=== PATIENT | female | born 1965 | race Caucasian/White ===

== ENCOUNTER 2018-04-23 10:08 | Emergency (ER) | payer BC ==
[2018-04-23] MEDS ORDERED: Ketorolac 60 MG/2 ML SDV IM ONE (10:37)
[2018-04-23 10:41] VITALS: BP 130/73
--- NOTE | 2018-04-23 10:41 | EDM.PDOC ---
ED HPI GENERAL MEDICAL PROBLEM - General Chief Complaint: Lower Extremity Injury/Pain Stated Complaint: FALL Time Seen by Provider: 04/23/18 10:32 - History of Present Illness INITIAL COMMENTS - FREE TEXT/NARRATIVE: HISTORY AND PHYSICAL: History of present illness: The patient is a 52-year-old female who presents after she slipped on a rug at home and landed onto her left. She was having a normal morning prior to these events and this event occurred about 3-1/2 hours ago. She complains of pain at her left ankle and her left shoulder but no hip or knee pain she has no head neck or back pain nor did she pass out. Patient has no chest pain or shortness of breath no rib pain and no abdominal complaints. Patient says she has had ice on her ankle but is concerned because it is still very swollen. Review of systems: As per history of present illness and below otherwise all systems reviewed and negative. Past medical history: As per history of present illness and as reviewed below otherwise noncontributory. Surgical history: As per history of present illness and as reviewed below otherwise noncontributory. Social history: No reported history of drug or alcohol abuse. Family history: As per history of present illness and as reviewed below otherwise noncontributory. Physical exam: General: Well-developed well-nourished female who is nontoxic and vital signs are reviewed by me HEENT: Atraumatic, normocephalic, negative for conjunctival pallor or scleral icterus, mucous membranes moist, throat clear, neck supple, nontender, trachea midline. There are no midline step-offs tenderness defects of the cervical spine and no scalp tenderness or swelling is appreciated on palpation Lungs: Clear to auscultation, breath sounds equal bilaterally, chest nontender. Heart: S1S2, regular rate and rhythm no overt murmurs Abdomen: Soft, nondistended, nontender. NABS Pelvis: Stable nontender. No lateral hip tenderness Genitourinary: Deferred. Rectal: Deferred. Extremities: Atraumatic with full range of motion of all extremities with the exception of the left shoulder and left ankle. At the left shoulder there is no soft tissue swelling ecchymosis or palpable bony deformities but there is tenderness with palpation at the lateral aspect of the humerus and distal clavicle area neurovascular is intact distally and there is no distal bony deformities or tenderness. At the left ankle there is soft tissue swelling at the lateral malleolus with tenderness but no malalignment is appreciated of the ankle. Distal metatarsals and toes are intact without tenderness or deformities and proximal tib-fib knee thigh and hip are nontender and there are no palpable bony deformities. Pulses are intact throughout. The legs are, negative for cords or calf pain. Neurovascular unremarkable. Neuro: Awake, alert, oriented. Cranial nerves II through XII unremarkable. Cerebellum unremarkable. Motor and sensory unremarkable throughout. Exam nonfocal. Back: There are no midline step-offs in his defects of the thoracic or lumbar spine no posterior rib or posterior pelvis tenderness and no soft tissue trauma is appreciated Diagnostics: X-ray left ankle and left shoulder Therapeutics: Toradol crutches cam boot Impression: Fall with left shoulder contusion and left ankle sprain Definitive disposition and diagnosis as appropriate pending reevaluation and review of above. Left Ankle Pain Score (Numeric/FACES): 7 Left Shoulder Pain Score (Numeric/FACES): 3 - Related Data Allergies Allergy/AdvReac Type Severity Reaction Status Date / Time codeine Allergy Hives Verified 04/23/18 10:41 pseudoephedrine Allergy palpitation Verified 04/23/18 10:41 s Sulfa (Sulfonamide Allergy unknown Verified 04/23/18 10:41 Antibiotics) Home Meds: Home Meds Amitriptyline [Elavil] 1 tab PO DAILY 02/03/15 [History] ClonazePAM [KlonoPIN] 2 mg PO TID 04/23/18 [History] Review of Systems - Review of Systems Review Of Systems: ROS reveals no pertinent complaints other than HPI. ED EXAM, GENERAL - Physical Exam Exam: See Below (see dictation) Course - Vital Signs Last Recorded V/S: Last Vital Signs Temp 37.4 C 04/23/18 10:31 Pulse 89 04/23/18 10:31 Resp 18 04/23/18 10:31 BP 130/73 04/23/18 10:31 Pulse Ox 86 L 04/23/18 10:31 - Orders/Labs/Meds Orders: Active Orders 24 hr Category Date Time Status DME for Discharge [COMM] Stat Oth 04/23/18 12:09 Ordered Meds: Medications Discontinued Medications Generic Name Dose Route Start Last Admin Trade Name Freq PRN Reason Stop Dose Admin Ketorolac Tromethamine 60 mg 04/23/18 10:37 04/23/18 10:58 Toradol IM 04/23/18 10:38 60 mg ONETIME ONE Administration Departure - Departure Time of Disposition: 12:10 Disposition: Home, Self-Care 01 Condition: Good Clinical Impression: Ankle sprain Qualifiers: Encounter type: initial encounter Involved ligament of ankle: unspecified ligament Laterality: left Qualified Code(s): S93.402A - Sprain of unspecified ligament of left ankle, initial encounter Fall Qualifiers: Encounter type: initial encounter Qualified Code(s): W19.XXXA - Unspecified fall, initial encounter Contusion of left shoulder Qualifiers: Encounter type: initial encounter Qualified Code(s): S40.012A - Contusion of left shoulder, initial encounter - Discharge Information Referrals: PCP,None [Primary Care Provider] - Forms: ED Department Discharge Additional Instructions: The following information is given to patients seen in the emergency department who are being discharged to home. This information is to outline your options for follow-up care. We provide all patients seen in our emergency department with a follow-up referral. The need for follow-up, as well as the timing and circumstances, are variable depending upon the specifics of your emergency department visit. If you don't have a primary care physician on staff, we will provide you with a referral. We always advise you to contact your personal physician following an emergency department visit to inform them of the circumstance of the visit and for follow-up with them and/or the need for any referrals to a consulting specialist. The emergency department will also refer you to a specialist when appropriate. This referral assures that you have the opportunity for followup care with a specialist. All of these measure are taken in an effort to provide you with optimal care, which includes your followup. Under all circumstances we always encourage you to contact your private physician who remains a resource for coordinating your care. When calling for followup care, please make the office aware that this follow-up is from your recent emergency room visit. If for any reason you are refused follow-up, please contact the [facility] emergency department at and ask to speak to the emergency department charge nurse. [facility]--Orthopedic clinic Professional [address] [address] Ice to all areas of discomfort and you will be sore and have aches and pains over the next few days to one week. Elevate the ankle as much as possible. Please call and schedule a follow-up appointment in orthopedics clinic using resources given to above and return to ER as needed and as discussed. Use over- the-counter ibuprofen/Motrin for pain area you may use the tramadol as prescribed for breakthrough pain and only take this while you're at home. Use crutches at all times and wear cam boot until you're seen in the orthopedics clinic. Please loosen or move the boot at sleep times. - My Orders Last 24 Hours: My Active Orders 04/23/18 12:09 DME for Discharge [COMM] Stat - Assessment/Plan Last 24 Hours: My Active Orders 04/23/18 12:09 DME for Discharge [COMM] Stat
--- NOTE | 2018-04-23 12:02 | CR ---
Left ankle Medical history: Pain Comparison: November 27, 2011 Findings: Again seen is diffuse soft tissue swelling of the lower leg. The mortise of the ankle is in tact. The bones are mildly osteopenic. There is no acute bony finding. Impression: Global soft tissue swelling without bony abnormality
--- NOTE | 2018-04-23 12:03 | CR ---
Left shoulder Clinical history: Pain Comparison: None. Findings: The humeral head articular extremity with the glenoid without fracture or subluxation or si gnificant para articular calcification. There is mild AC joint osteoarthropathy. No contiguous bony a bnormalities of the ribs are otherwise are identified. Impression: Mild osteoarthritic arthropathy of the AC joint without acute findings.
== END 2018-04-23 12:31 | disposition home or self-care (01) ==
LOC: MW.ED 10:08
DX: S93.402A Sprain of unspecified ligament of left ankle, initial encounter (principal); S40.012A Contusion of left shoulder, initial encounter; Z79.899 Other long term (current) drug therapy; Z88.5 Allergy status to narcotic agent; Z88.2 Allergy status to sulfonamides; W01.0XXA Fall on same level from slipping, tripping and stumbling without subsequent striking against object, initial encounter
CPT/HCPCS: 73030; 73610; 96372; 99283; J1885

== ENCOUNTER 2019-03-12 20:29 | Emergency (ER) | payer BC ==
[2019-03-12] MEDS ORDERED: Sodium Chloride 0.9% 1,000 ML IV ONE (21:02)
--- NOTE | 2019-03-12 21:14 | EDM.PDOC ---
<Demetris Govea - Last Filed: 03/12/19 23:31> ED HPI GENERAL MEDICAL PROBLEM - General Chief Complaint: Gastrointestinal Problem Stated Complaint: DIARRHEA Time Seen by Provider: 03/12/19 20:32 - History of Present Illness INITIAL COMMENTS - FREE TEXT/NARRATIVE: Patient presents as above of seeming and examined the patient she is hypoxic down to 80% on room air long smoking history Did discuss CT imaging in detail she has some intermittent bright red blood per rectum with stools no abdominal pain Patient also has a UTI I strongly urged the patient to be admitted, he refuses admission and elects to sign out AGAINST MEDICAL ADVICE excepting as a consequence she has voiced understanding, she states she'll return if symptoms persist or worsen however family is here for Cammy and she is refusing to stay in the hospital HEENT grossly within normal limits Chest clear CV regular Abdomen benign extremities full range of motion strength 5 out of 5 no edema 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 Rectal exam patient deferred Therapeutics Cipro Medrol Dosepak Patient has an albuterol HFA Impression Hypoxia Red blood per rectum with stools Colitis versus ischemic bowel UTI Patient signed out AGAINST MEDICAL ADVICE Definitive disposition and diagnosis as appropriate pending reevaluation and review of above Impression - Related Data Allergies Allergy/AdvReac Type Severity Reaction Status Date / Time codeine Allergy Hives Verified 09/28/18 18:09 pseudoephedrine Allergy palpitation Verified 09/28/18 18:09 s Sulfa (Sulfonamide Allergy unknown Verified 09/28/18 18:09 Antibiotics) Home Meds: Home Meds Amitriptyline [Elavil] 1 tab PO DAILY 02/03/15 [History] ClonazePAM [KlonoPIN] 2 mg PO ASDIRECTED PRN 04/23/18 [History] ED ROS GENERAL - Review of Systems Review Of Systems: See Below ED EXAM, GI/ABD - Physical Exam Exam: See Below Course - Vital Signs Last Recorded V/S: Last Vital Signs Temp 36.8 C 03/12/19 23:49 Pulse 95 03/12/19 23:49 Resp 22 H 03/12/19 23:49 BP 112/73 03/12/19 23:49 Pulse Ox 71 L 03/12/19 23:49 - Orders/Labs/Meds Labs: Laboratory Tests 04/19/19 04/19/19 04/19/19 Range/Units 20:05 21:09 21:09 WBC 15.95 H (4.0-11.0) K/uL RBC 5.59 (4.30-5.90) M/uL Hgb 17.8 H (12.0-16.0) g/dL Hct 53.8 H (36.0-46.0) % MCV 96.2 (80.0-98.0) fL MCH 31.8 (27.0-32.0) pg MCHC 33.1 (31.0-37.0) g/dL RDW Std Deviation 55.1 (28.0-62.0) fl RDW Coeff of Thiago 16 H (11.0-15.0) % Plt Count 130 L (150-400) K/uL MPV 11.00 (7.40-12.00) fL Neut % (Auto) 80.8 H (48.0-80.0) % Lymph % (Auto) 12.0 L (16.0-40.0) % Barbour % (Auto) 6.5 (0.0-15.0) % Eos % (Auto) 0.6 (0.0-7.0) % Baso % (Auto) 0.1 (0.0-1.5) % Neut # (Auto) 12.9 H (1.4-5.7) K/uL Lymph # (Auto) 1.9 (0.6-2.4) K/uL Barbour # (Auto) 1.0 H (0.0-0.8) K/uL Eos # (Auto) 0.1 (0.0-0.7) K/uL Baso # (Auto) 0.0 (0.0-0.1) K/uL Nucleated RBC % 0.0 /100WBC Nucleated RBCs # 0 K/uL INR APTT (18.6-31.3) SEC Lactate (0.20-2.00) mmol/L Sodium 141 (136-145) mmol/L Potassium 3.4 L (3.5-5.1) mmol/L Chloride 100 (98-107) mmol/L Carbon Dioxide 30.4 (21.0-32.0) mmol/L BUN 8 (7.0-18.0) mg/dL Creatinine 0.9 (0.6-1.0) mg/dL Est Cr Clr Drug Dosing 68.68 mL/min Estimated GFR (MDRD) > 60.0 ml/min Glucose 109 H (74-106) mg/dL Calcium 8.3 L (8.5-10.1) mg/dL Total Bilirubin 0.9 (0.2-1.0) mg/dL AST 13 L (15-37) IU/L ALT 13 L (14-63) IU/L Alkaline Phosphatase 116 (46-116) U/L Troponin I (0.000-0.056) ng/mL Total Protein 6.9 (6.4-8.2) g/dL Albumin 3.0 L (3.4-5.0) g/dL Globulin 3.9 (2.6-4.0) g/dL Albumin/Globulin Ratio 0.8 L (0.9-1.6) Lipase 83 (73-393) U/L Urine Color Urine Appearance Urine pH (5.0-8.0) Ur Specific [place] (1.001-1.035) Urine Protein (NEGATIVE) mg/dL Urine Glucose (UA) (NEGATIVE) mg/dL Urine Ketones (NEGATIVE) mg/dL Urine Occult Blood (NEGATIVE) Urine Nitrite (NEGATIVE) Urine Bilirubin (NEGATIVE) Urine Ictotest Urine Urobilinogen (<2.0) EU/dL Ur Leukocyte Esterase (NEGATIVE) Urine RBC (0-2/HPF) Urine WBC (0-5/HPF) Ur Epithelial Cells (NONE-FEW) Urine Bacteria (NEGATIVE) Urine Mucus (NONE-MOD) 03/12/19 03/12/19 03/12/19 Range/Units 21:09 21:15 21:47 WBC (4.0-11.0) K/uL RBC (4.30-5.90) M/uL Hgb (12.0-16.0) g/dL Hct (36.0-46.0) % MCV (80.0-98.0) fL MCH (27.0-32.0) pg MCHC (31.0-37.0) g/dL RDW Std Deviation (28.0-62.0) fl RDW Coeff of Thiago (11.0-15.0) % Plt Count (150-400) K/uL MPV (7.40-12.00) fL Neut % (Auto) (48.0-80.0) % Lymph % (Auto) (16.0-40.0) % Barbour % (Auto) (0.0-15.0) % Eos % (Auto) (0.0-7.0) % Baso % (Auto) (0.0-1.5) % Neut # (Auto) (1.4-5.7) K/uL Lymph # (Auto) (0.6-2.4) K/uL Barbour # (Auto) (0.0-0.8) K/uL Eos # (Auto) (0.0-0.7) K/uL Baso # (Auto) (0.0-0.1) K/uL Nucleated RBC % /100WBC Nucleated RBCs # K/uL INR 1.06 APTT 23.8 (18.6-31.3) SEC Lactate 1.0 (0.20-2.00) mmol/L Sodium (136-145) mmol/L Potassium (3.5-5.1) mmol/L Chloride (98-107) mmol/L Carbon Dioxide (21.0-32.0) mmol/L BUN (7.0-18.0) mg/dL Creatinine (0.6-1.0) mg/dL Est Cr Clr Drug Dosing mL/min Estimated GFR (MDRD) ml/min Glucose (74-106) mg/dL Calcium (8.5-10.1) mg/dL Total Bilirubin (0.2-1.0) mg/dL AST (15-37) IU/L ALT (14-63) IU/L Alkaline Phosphatase (46-116) U/L Troponin I (0.000-0.056) ng/mL Total Protein (6.4-8.2) g/dL Albumin (3.4-5.0) g/dL Globulin (2.6-4.0) g/dL Albumin/Globulin Ratio (0.9-1.6) Lipase (73-393) U/L Urine Color DARK YELLOW Urine Appearance HAZY Urine pH 6.0 (5.0-8.0) Ur Specific [place] 1.020 (1.001-1.035) Urine Protein 30 H (NEGATIVE) mg/dL Urine Glucose (UA) NEGATIVE (NEGATIVE) mg/dL Urine Ketones TRACE H (NEGATIVE) mg/dL Urine Occult Blood NEGATIVE (NEGATIVE) Urine Nitrite NEGATIVE (NEGATIVE) Urine Bilirubin MODERATE H (NEGATIVE) Urine Ictotest NEGATIVE Urine Urobilinogen 1.0 (<2.0) EU/dL Ur Leukocyte Esterase SMALL H (NEGATIVE) Urine RBC 0-4 (0-2/HPF) Urine WBC 50-60 (0-5/HPF) Ur Epithelial Cells MODERATE (NONE-FEW) Urine Bacteria 1+ H (NEGATIVE) Urine Mucus LIGHT (NONE-MOD) 03/12/19 Range/Units 21:47 WBC (4.0-11.0) K/uL RBC (4.30-5.90) M/uL Hgb (12.0-16.0) g/dL Hct (36.0-46.0) % MCV (80.0-98.0) fL MCH (27.0-32.0) pg MCHC (31.0-37.0) g/dL RDW Std Deviation (28.0-62.0) fl RDW Coeff of Thiago (11.0-15.0) % Plt Count (150-400) K/uL MPV (7.40-12.00) fL Neut % (Auto) (48.0-80.0) % Lymph % (Auto) (16.0-40.0) % Barbour % (Auto) (0.0-15.0) % Eos % (Auto) (0.0-7.0) % Baso % (Auto) (0.0-1.5) % Neut # (Auto) (1.4-5.7) K/uL Lymph # (Auto) (0.6-2.4) K/uL Barbour # (Auto) (0.0-0.8) K/uL Eos # (Auto) (0.0-0.7) K/uL Baso # (Auto) (0.0-0.1) K/uL Nucleated RBC % /100WBC Nucleated RBCs # K/uL INR APTT (18.6-31.3) SEC Lactate (0.20-2.00) mmol/L Sodium (136-145) mmol/L Potassium (3.5-5.1) mmol/L Chloride (98-107) mmol/L Carbon Dioxide (21.0-32.0) mmol/L BUN (7.0-18.0) mg/dL Creatinine (0.6-1.0) mg/dL Est Cr Clr Drug Dosing mL/min Estimated GFR (MDRD) ml/min Glucose (74-106) mg/dL Calcium (8.5-10.1) mg/dL Total Bilirubin (0.2-1.0) mg/dL AST (15-37) IU/L ALT (14-63) IU/L Alkaline Phosphatase (46-116) U/L Troponin I < 0.050 (0.000-0.056) ng/mL Total Protein (6.4-8.2) g/dL Albumin (3.4-5.0) g/dL Globulin (2.6-4.0) g/dL Albumin/Globulin Ratio (0.9-1.6) Lipase (73-393) U/L Urine Color Urine Appearance Urine pH (5.0-8.0) Ur Specific [place] (1.001-1.035) Urine Protein (NEGATIVE) mg/dL Urine Glucose (UA) (NEGATIVE) mg/dL Urine Ketones (NEGATIVE) mg/dL Urine Occult Blood (NEGATIVE) Urine Nitrite (NEGATIVE) Urine Bilirubin (NEGATIVE) Urine Ictotest Urine Urobilinogen (<2.0) EU/dL Ur Leukocyte Esterase (NEGATIVE) Urine RBC (0-2/HPF) Urine WBC (0-5/HPF) Ur Epithelial Cells (NONE-FEW) Urine Bacteria (NEGATIVE) Urine Mucus (NONE-MOD) Meds: Medications Discontinued Medications Generic Name Dose Route Start Last Admin Trade Name Freq PRN Reason Stop Dose Admin Albuterol/Ipratropium 3 ml 03/12/19 23:09 03/12/19 23:16 Duoneb 3.0-0.5 Mg/3 Ml NEB 03/12/19 23:10 3 ml ONETIME ONE Administration Sodium Chloride 1,000 mls @ 999 mls/hr 03/12/19 21:02 03/12/19 21:26 Normal Saline IV 03/12/19 22:02 999 mls/hr BOLUS ONE Administration Iopamidol 100 ml 03/12/19 21:41 03/12/19 22:02 Isovue-370 (76%) IVPUSH 03/12/19 21:42 100 ml ONETIME ONE Administration Methylprednisolone Sodium Succinate 125 mg 03/12/19 23:09 03/12/19 23:19 Solu-Medrol IVPUSH 03/12/19 23:10 125 mg ONETIME ONE Administration Morphine Sulfate 2 mg 03/12/19 21:48 03/12/19 22:08 Morphine IVPUSH 03/12/19 21:49 2 mg ONETIME ONE Administration Departure - Departure Time of Disposition: 23:34 Disposition: Home, Self-Care 01 Condition: Poor Clinical Impression: Hypoxia, UTI, Urinary tract infectious disease, Bright red blood per rectum - Discharge Information Instructions: Hypoxia, Urinary Tract Infection, Adult, [id number], Rectal Bleeding, [id number] Referrals: PCP,Unknown [Primary Care Provider] - Forms: ED Department Discharge Additional Instructions: Medications as prescribed Strongly urged return if symptoms persist or worsen or if new concerning symptoms develop Follow-up primary care on Friday for [facility] - Primary Care [address] [place] [id number] The following information is given to patients seen in the emergency department who are being discharged to home. This information is to outline your options for follow-up care. We provide all patients seen in our emergency department with a follow-up referral. The need for follow-up, as well as the timing and circumstances, are variable depending upon the specifics of your emergency department visit. If you don't have a primary care physician on staff, we will provide you with a referral. We always advise you to contact your personal physician following an emergency department visit to inform them of the circumstance of the visit and for follow-up with them and/or the need for any referrals to a consulting specialist. The emergency department will also refer you to a specialist when appropriate. This referral assures that you have the opportunity for follow-up care with a specialist. All of these measure are taken in an effort to provide you with optimal care, which includes your follow-up. Under all circumstances we always encourage you to contact your private physician who remains a resource for coordinating your care. When calling for follow-up care, please make the office aware that this follow-up is from your recent emergency room visit. If for any reason you are refused follow-up, please contact the [facility] emergency department at and asked to speak to the emergency department charge nurse. <Josselyn Martinez - Last Filed: 03/14/19 15:45> ED HPI GENERAL MEDICAL PROBLEM - General Source of Information: Reports: Patient History Limitations: Reports: No Limitations - History of Present Illness INITIAL COMMENTS - FREE TEXT/NARRATIVE: HISTORY AND PHYSICAL: History of present illness: Patient is a 53-year-old female who presents to the ED today with concern of rectal bleeding and passing clots of blood per rectum 2 days. Patient states she had a week where she was not able to have a bowel movement. Patient states she then took 2 Dulcolax tabs and started to have diarrhea over the past 3 days. Since then, patient states over the past 24 hours she has had a small amount of blood continuously, out of her rectum. She states on several separate occasions they have been blood clots that have come out. Patient states she has not had diarrhea today and her last bowel movement was yesterday. 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 Patient states she's also has left lower and right lower abdominal pain that she rates a 6 out of 10. She states this pain comes and goes and she describes it as "crampy." Patient denies any pain with the bowel movement and has not noticed any notable hemorrhoids. Patient denies ever having these symptoms prior. Patient also complains of low back pain that she rates a 7/10. Patient denies fever, chills, chest pain, shortness of breath, or cough. Denies headache, neck stiff ness, change in vision, syncope, or near syncope. Denies nausea, vomiting or dysuria. Has not noted any blood in urine. Patient has noticed a decrease in appetite but has been drinking fluids today. Review of systems: As per history of present illness and below otherwise all systems reviewed and negative. Past medical history: As per history of present illness and as reviewed below otherwise noncontributory. Surgical history: As per history of present illness and as reviewed below otherwise noncontributory. Social history: See social history for further information Family history: As per history of present illness and as reviewed below otherwise noncontributory. Physical exam: General: Patient is alert, oriented, and in no acute distress. Patient sitting comfortably on exam table. HEENT: Atraumatic, normocephalic, pupils equal and reactive bilaterally, negative for conjunctival pallor or scleral icterus, mucous membranes moist, TMs normal bilaterally, throat clear, neck supple, nontender, trachea midline. No drooling or trismus noted. No meningeal signs. No hot potato voice noted. Lungs: Clear to auscultation, breath sounds equal bilaterally, chest nontender. Heart: S1S2, regular rate and rhythm without overt murmur Abdomen: Moderate pain to palpation of the right and left lower quadrants without guarding. Obese, soft, nondistended. Positive bowel sounds throughout all quadrants and slightly hypoactive. Negative for masses or hepatosplenomegaly. Positive for costovertebral tenderness of the left. Pelvis: Stable nontender. Genitourinary: Deferred. Rectal: Hemoccult positive with bright red blood per rectum. No obvious external or internal hemorrhoids on exam. No rectal masses noted. Skin: Intact, warm, dry. No lesions or rashes noted. Extremities: Atraumatic, negative for cords or calf pain. Neurovascular unremarkable. Neuro: Awake, alert, oriented. Cranial nerves II through XII unremarkable. Cerebellum unremarkable. Motor and sensory unremarkable throughout. Exam nonfocal. Notes: Dr. Govea has assumed care of patient and will follow all remaining diagnostics and disposition. Diagnostics: CBC, CMP, PT/INR, PTT, UA, abdominal pelvic CT, lipase, stool studies, cdiff, lactate, blood cultures 2, EKG, troponin, CXR Therapeutics: Saline, Morphine Impression: Acute pyelonephritis Hypoxia Plan: Definitive disposition and diagnosis as appropriate pending reevaluation and review of above. back Pain Score (Numeric/FACES): 9 Past Medical History [employer] WORK[employer] History: Reports: Psychiatric History: Reports: Anxiety, Depression, PTSD - Infectious Disease History Infectious Disease History: Reports: [id number]-Mcilaarwl Enterobacteriaceae , Measles, Mumps - Past Surgical History HEENT Surgical History: Reports: Adenoidectomy, Tonsillectomy GI Surgical History: Reports: Appendectomy, Cholecystectomy, Colostomy, Hernia, Abdominal, Other (See Below) Other GI Surgeries/Procedures: prior colostomy and ileostomy Female Surgical History: Reports: Hysterectomy, Salpingo-Oophorectomy Musculoskeletal Surgical History: Reports: Other (See Below) Other Musculoskeletal Surgeries/Procedures:: right thumb surgery Social & Family History - Family History Family Medical History: Noncontributory - Tobacco Use Smoking Status *Q: Current Every Day Smoker Years of Tobacco use: 40 Packs/Tins Daily: 0.2 - Caffeine Use Caffeine Use: Reports: Coffee - Recreational Drug Use Recreational Drug Use: No ED ROS GENERAL - Review of Systems Review Of Systems: ROS reveals no pertinent complaints other than HPI. ED EXAM, GI/ABD - Physical Exam Exam: See Below (see dictation)
[2019-03-12 21:33] LABS: CHLORIDE,CL 100 mmol/L (98-107); SODIUM,NA 141 mmol/L (136-145)
[2019-03-12] MEDS ORDERED: Iopamidol 755 Mg/ML 100 ML Bottle IVPUSH ONE (21:41)
[2019-03-12] MEDS ORDERED: Morphine 2 MG/ML Syringe IVPUSH ONE (21:48)
--- NOTE | 2019-03-12 22:57 | CT ---
INDICATION: Abdominal pain TECHNIQUE: CT abdomen and pelvis acquired with 100 cc Isovue 370 intravenous contrast. COMPARISON: None. FINDINGS: Lower chest: Unremarkable. Liver: Normal in contour with focal fat adjacent to the falciform ligament. Gallbladder and bile ducts: Status post cholecystectomy. Pancreas: Minimal calcification of the pancreatic head. Spleen: Unremarkable. Normal in size. No masses. Adrenal glands: Unremarkable. No nodules. Kidneys: Unremarkable. No masses, stones, or hydronephrosis. GI tract: The stomach is unremarkable. Small bowel is decompressed. Long segment wall thickening of the colon beginning at the distal transverse colon extending to the junction with the sigmoid. Small likely calcifications or clips noted near the distal descending colon. Slight adjacent fat stranding without evidence of abscess. Multiple surgical clips in the mesentery. Vasculature: Atherosclerosis without abdominal aortic aneurysm. Lymph nodes: Increased number of retroperitoneal lymph nodes measuring up to 9 millimeters in short axis. Subcentimeter lymph nodes noted within the central mesentery. Pelvis: Bladder is unremarkable. Status posthysterectomy. Bones: Unremarkable for age. IMPRESSION: 1. Long segment colonic wall thickening with adjacent inflammation extending from the distal transverse colon to the descending colon/sigmoid junction. Appearance is consistent with long segment colitis. Differential diagnosis would include ischemic colitis considering this distribution versus infectious colitis. No pneumoperitoneum or abscess. 2. Mildly increased number of retroperitoneal lymph nodes, nonspecific. Differential diagnosis includes infectious, inflammatory and neoplastic etiologies. 3. Other incidental findings as noted above. Please note that all CT scans at this facility use dose modulation, iterative reconstruction, and/or weight-based dosing when appropriate to reduce radiation dose to as low as reasonably achievable. Dictated by Porter Goncalves MD @ Mar 12 2019 10:46PM Signed by Dr. Porter Goncalves @ Mar 12 2019 10:56PM
[2019-03-12] MEDS ORDERED: methylPREDNISolone Sodium Succinate 125 MG/2 ML SDV IVPUSH ONE (23:09)
[2019-03-12] MEDS ORDERED: Albuterol/Ipratropium 3.0-0.5 MG/3 ML Neb Soln NEB ONE (23:09)
--- NOTE | 2019-03-12 23:31 | CR ---
INDICATION: Pain and shortness of breath TECHNIQUE: Chest 2 views COMPARISON: Chest x-ray 09/28/2018 FINDINGS: Cardiovascular and mediastinum: Heart size and vasculature are normal in caliber and appearance. Lungs and pleural spaces: Lungs are clear. No sign of infiltrate or mass. No sign of pleural effusion. No pneumothorax. Bones and soft tissues: No significant findings. IMPRESSION: No acute findings and no significant changes from the prior exam. Dictated by Porter Goncalves MD @ Mar 12 2019 11:27PM Signed by Dr. Porter Goncalves @ Mar 12 2019 11:28PM
[2019-03-12 23:49] VITALS: BP 112/73
== END 2019-03-12 23:50 | disposition home or self-care (01) ==
LOC: MW.ED 20:29
DX: K62.5 Hemorrhage of anus and rectum (principal); N10 Acute pyelonephritis; N39.0 Urinary tract infection, site not specified; R09.02 Hypoxemia; F17.210 Nicotine dependence, cigarettes, uncomplicated; Z88.5 Allergy status to narcotic agent; Z88.8 Allergy status to other drugs, medicaments and biological substances; Z88.2 Allergy status to sulfonamides; Z79.899 Other long term (current) drug therapy
CPT/HCPCS: 71046; 74177; 80053; 81001; 83605; 83690; 84484; 85025; 85610; 85730; 87040; 87086; 87088; 87186; 93005; 96361; 96374; 96375; 99284; J2270; J2930; J7040; Q9967; J7620-GY

== ENCOUNTER 2019-09-21 15:28 | Inpatient (IN) | payer BC ==
[2019-09-21] MEDS ORDERED: Sodium Chloride 0.9% 10 ML Syringe FLUSH PRN (15:33)
[2019-09-21] MEDS ORDERED: Sodium Chloride 0.9% 2.5 ML Syringe FLUSH PRN (15:33)
[2019-09-21] MEDS ORDERED: methylPREDNISolone Sodium Succinate 125 MG/2 ML SDV IVPUSH ONE (15:34)
[2019-09-21] MEDS ORDERED: Albuterol/Ipratropium 3.0-0.5 MG/3 ML Neb Soln NEB ONE (15:34)
--- NOTE | 2019-09-21 15:35 | EDM.PDOC ---
ED HPI GENERAL MEDICAL PROBLEM - General Chief Complaint: Respiratory Problem Stated Complaint: BLOOD CLOTS Time Seen by Provider: 09/21/19 15:35 Source of Information: Reports: Patient History Limitations: Reports: No Limitations - History of Present Illness INITIAL COMMENTS - FREE TEXT/NARRATIVE: HISTORY AND PHYSICAL: History of present illness: Patient is a 53-year-old female presents to the ED with complaint of cough x 5 days. She states today she has been coughing up blood clots. She recently travelled to and from [place], [place]. She reports shortness of breath and pain in right mid back but denies chest pain. She states she's felt chills and subjective fevers. Denies nausea, vomiting, abdominal pain. Smokes 1/2 ppd x 35 years. O2 in 70s on arrival, improved to 90s with 4L nasal cannula. Review of systems: As per history of present illness and below otherwise all systems reviewed and negative. Past medical history: As per history of present illness and as reviewed below otherwise noncontributory. Surgical history: As per history of present illness and as reviewed below otherwise noncontributory. Social history: No reported history of drug or alcohol abuse. Family history: As per history of present illness and as reviewed below otherwise noncontributory. Physical exam: General: Patient sitting comfortably in no acute distress and nontoxic appearing HEENT: Atraumatic, normocephalic, pupils reactive, negative for conjunctival pallor or scleral icterus, mucous membranes moist, throat clear, neck supple, nontender, trachea midline. No meningeal signs. Lungs: Breath sounds are diminished throughout with crackles to the bases, chest nontender. Heart: S1S2, regular, negative for clicks, rubs, or overt murmur. Abdomen: Soft, nondistended, nontender. Negative for masses or hepatosplenomegaly. Negative for costovertebral tenderness. No rigidity, rebound , guarding. Pelvis: Stable nontender. Genitourinary: Deferred. Rectal: Deferred. Extremities: Atraumatic, negative for cords or calf pain. Neurovascular unremarkable. Neuro: Awake, alert, oriented. Cranial nerves II through XII unremarkable. Cerebellum unremarkable. Motor and sensory unremarkable throughout. Exam nonfocal. Notes: Diagnostics: CBC, CMP, troponin, d-dimer, PT/INR, EKG, CXR, CTA, influenza Therapeutics: DuoNecarlos Solfernieol 125mg IV 1L NS IV 2mg morphine IV 1mg/kg Lovenox Subq Prescriptions: Impression: Hypoxia, Pulmonary embolism Plan: Discussed with Dr. Lee, patient will be admitted to ICU . Definitive disposition and diagnosis as appropriate pending reevaluation and review of above. Middle Back Pain Score (Numeric/FACES): 8 - Related Data Allergies Allergy/AdvReac Type Severity Reaction Status Date / Time codeine Allergy Hives Verified 09/21/19 15:34 pseudoephedrine Allergy palpitation Verified 09/21/19 15:34 s Sulfa (Sulfonamide Allergy unknown Verified 09/21/19 15:34 Antibiotics) Home Meds: Home Meds Amitriptyline [Elavil] 1 tab PO DAILY 02/03/15 [History] ClonazePAM [KlonoPIN] 2 mg PO ASDIRECTED PRN 04/23/18 [History] Aspirin [Ecotrin EC] 4 tab PO DAILY 09/21/19 [History] Past Medical History [employer] History: Reports: Psychiatric History: Reports: Anxiety, Depression, PTSD - Infectious Disease History Infectious Disease History: Reports: RGY-[id number]-Vdxdhkytk Enterobacteriaceae , Measles, Mumps - Past Surgical History HEENT Surgical History: Reports: Adenoidectomy, Tonsillectomy GI Surgical History: Reports: Appendectomy, Cholecystectomy, Colostomy, Hernia, Abdominal, Other (See Below) Other GI Surgeries/Procedures: prior colostomy and ileostomy Female Surgical History: Reports: Hysterectomy, Salpingo-Oophorectomy Musculoskeletal Surgical History: Reports: Other (See Below) Other Musculoskeletal Surgeries/Procedures:: right thumb surgery Social & Family History - Family History Family Medical History: Noncontributory - Caffeine Use Caffeine Use: Reports: Coffee ED ROS GENERAL - Review of Systems Review Of Systems: ROS reveals no pertinent complaints other than HPI. ED EXAM, GENERAL - Physical Exam Exam: See Below (see dictation) Course - Vital Signs Last Recorded V/S: Last Vital Signs Temp 97.8 F 09/21/19 15:30 Pulse 114 H 09/21/19 15:30 Resp 20 09/21/19 15:30 BP 131/77 09/21/19 15:30 Pulse Ox 96 09/21/19 15:39 - Orders/Labs/Meds Orders: Active Orders 24 hr Category Date Time Status EKG Documentation Completion [RC] STAT Care 09/21/19 15:33 Active Oxygen Therapy, ED [RC] ASDIRECTED Care 09/21/19 15:33 Active RT Aerosol Therapy [RC] ASDIRECTED Care 09/21/19 15:34 Active CULTURE BLOOD [BC] Stat Lab 09/21/19 15:40 Received CULTURE BLOOD [BC] Stat Lab 09/21/19 16:05 Received Sodium Chloride 0.9% [Saline Flush] Med 09/21/19 15:33 Active 10 ml FLUSH ASDIRECTED PRN Sodium Chloride 0.9% [Saline Flush] Med 09/21/19 15:33 Active 2.5 ml FLUSH ASDIRECTED PRN Blood Culture x2 Reflex Set [OM.PC] Stat Oth 09/21/19 15:34 Ordered Saline Lock Insert [OM.PC] Stat Oth 09/21/19 15:33 Ordered Medication Orders Sodium Chloride (Saline Flush) 10 ml FLUSH ASDIRECTED PRN PRN Reason: Keep Vein Open Sodium Chloride (Saline Flush) 2.5 ml FLUSH ASDIRECTED PRN PRN Reason: Keep Vein Open Labs: Laboratory Tests 09/21/19 09/21/19 09/21/19 Range/Units 15:40 15:40 15:40 WBC 16.04 H (4.0-11.0) K/uL RBC 6.07 H (4.30-5.90) M/uL Hgb 18.5 H (12.0-16.0) g/dL Hct 57.4 H (36.0-46.0) % MCV 94.6 (80.0-98.0) fL MCH 30.5 (27.0-32.0) pg MCHC 32.2 (31.0-37.0) g/dL RDW Std Deviation 60.1 (28.0-62.0) fl RDW Coeff of Thiago 18 H (11.0-15.0) % Plt Count 118 L (150-400) K/uL MPV 10.50 (7.40-12.00) fL Neut % (Auto) 84.0 H (48.0-80.0) % Lymph % (Auto) 8.0 L (16.0-40.0) % [place] % (Auto) 7.8 (0.0-15.0) % Eos % (Auto) 0.1 (0.0-7.0) % Baso % (Auto) 0.1 (0.0-1.5) % Neut # (Auto) 13.5 H (1.4-5.7) K/uL Lymph # (Auto) 1.3 (0.6-2.4) K/uL [place] # (Auto) 1.3 H (0.0-0.8) K/uL Eos # (Auto) 0.0 (0.0-0.7) K/uL Baso # (Auto) 0.0 (0.0-0.1) K/uL Nucleated RBC % 0.0 /100WBC Nucleated RBCs # 0 K/uL INR 1.28 D-Dimer, Quantitative 1.81 H (0.0-0.50) mg/L FEU Lactate (0.20-2.00) mmol/L Sodium 133 L (136-145) mmol/L Potassium 3.9 (3.5-5.1) mmol/L Chloride 96 L (98-107) mmol/L Carbon Dioxide 26.6 (21.0-32.0) mmol/L BUN 15 (7.0-18.0) mg/dL Creatinine 1.2 H (0.6-1.0) mg/dL Est Cr Clr Drug Dosing 51.51 mL/min Estimated GFR (MDRD) 46.6 ml/min Glucose 132 H (74-106) mg/dL Calcium 8.6 (8.5-10.1) mg/dL Total Bilirubin 1.2 H (0.2-1.0) mg/dL AST 16 (15-37) IU/L ALT 11 L (14-63) IU/L Alkaline Phosphatase 135 H (46-116) U/L Troponin I < 0.050 (0.000-0.056) ng/mL Total Protein 7.4 (6.4-8.2) g/dL Albumin 3.1 L (3.4-5.0) g/dL Globulin 4.3 H (2.6-4.0) g/dL Albumin/Globulin Ratio 0.7 L (0.9-1.6) 09/21/ Range/Units 15:40 WBC (4.0-11.0) K/uL RBC (4.30-5.90) M/uL Hgb (12.0-16.0) g/dL Hct (36.0-46.0) % MCV (80.0-98.0) fL MCH (27.0-32.0) pg MCHC (31.0-37.0) g/dL RDW Std Deviation (28.0-62.0) fl RDW Coeff of Thiago (11.0-15.0) % Plt Count (150-400) K/uL MPV (7.40-12.00) fL Neut % (Auto) (48.0-80.0) % Lymph % (Auto) (16.0-40.0) % [place] % (Auto) (0.0-15.0) % Eos % (Auto) (0.0-7.0) % Baso % (Auto) (0.0-1.5) % Neut # (Auto) (1.4-5.7) K/uL Lymph # (Auto) (0.6-2.4) K/uL [place] # (Auto) (0.0-0.8) K/uL Eos # (Auto) (0.0-0.7) K/uL Baso # (Auto) (0.0-0.1) K/uL Nucleated RBC % /100WBC Nucleated RBCs # K/uL INR D-Dimer, Quantitative (0.0-0.50) mg/L FEU Lactate 3.8 H (0.20-2.00) mmol/L Sodium (136-145) mmol/L Potassium (3.5-5.1) mmol/L Chloride (98-107) mmol/L Carbon Dioxide (21.0-32.0) mmol/L BUN (7.0-18.0) mg/dL Creatinine (0.6-1.0) mg/dL Est Cr Clr Drug Dosing mL/min Estimated GFR (MDRD) ml/min Glucose (74-106) mg/dL Calcium (8.5-10.1) mg/dL Total Bilirubin (0.2-1.0) mg/dL AST (15-37) IU/L ALT (14-63) IU/L Alkaline Phosphatase (46-116) U/L Troponin I (0.000-0.056) ng/mL Total Protein (6.4-8.2) g/dL Albumin (3.4-5.0) g/dL Globulin (2.6-4.0) g/dL Albumin/Globulin Ratio (0.9-1.6) Meds: Medications Generic Name Dose Route Start Last Admin Trade Name Freq PRN Reason Stop Dose Admin Sodium Chloride 10 ml 09/21/19 15:33 Saline Flush FLUSH ASDIRECTED PRN Keep Vein Open Sodium Chloride 2.5 ml 09/21/19 15:33 Saline Flush FLUSH ASDIRECTED PRN Keep Vein Open Discontinued Medications Generic Name Dose Route Start Last Admin Trade Name Freq PRN Reason Stop Dose Admin Albuterol/Ipratropium 3 ml 09/21/19 15:34 09/21/19 15:50 Duoneb 3.0-0.5 Mg/3 Ml NEB 09/21/19 15:35 3 ml ONETIME ONE Administration Enoxaparin Sodium 900 mg 09/21/19 17:14 Lovenox SUBCUT 09/21/19 17:15 ONETIME ONE Enoxaparin Sodium 90 mg 09/21/19 17:25 09/21/19 17:31 Lovenox SUBCUT 09/21/19 17:26 90 mg ONETIME ONE Administration Sodium Chloride 1,000 mls @ 999 mls/hr 09/21/19 15:47 09/21/19 16:07 Normal Saline IV 09/21/19 16:47 999 mls/hr STAT ONE Administration Iopamidol 80 ml 09/21/19 16:56 09/21/19 16:57 Isovue Multipack-370 (76%) IVPUSH 09/21/19 16:57 80 ml ONETIME STA Administration Methylprednisolone Sodium Succinate 125 mg 09/21/19 15:34 09/21/19 16:04 Solu-Medrol IVPUSH 09/21/19 15:35 125 mg ONETIME ONE Administration Morphine Sulfate 2 mg 09/21/19 17:22 09/21/19 17:31 Morphine IVPUSH 09/21/19 17:23 2 mg ONETIME ONE Administration Departure - Departure Time of Disposition: 17:34 Disposition: Refer to Observation Condition: Good Clinical Impression: Pulmonary embolism, Hypoxia - Discharge Information Referrals: Remi Olivas MD [Primary Care Provider] - Forms: ED Department Discharge - My Orders Last 24 Hours: My Active Orders 09/21/19 15:33 EKG Documentation Completion [RC] STAT Oxygen Therapy, ED [RC] ASDIRECTED Sodium Chloride 0.9% [Saline Flush] 10 ml FLUSH ASDIRECTED PRN Sodium Chloride 0.9% [Saline Flush] 2.5 ml FLUSH ASDIRECTED PRN Saline Lock Insert [OM.PC] Stat 09/21/19 15:34 RT Aerosol Therapy [RC] ASDIRECTED Blood Culture x2 Reflex Set [OM.PC] Stat 09/21/19 15:40 CULTURE BLOOD [BC] Stat 09/21/19 16:05 CULTURE BLOOD [BC] Stat - Assessment/Plan Last 24 Hours: My Active Orders 09/21/19 15:33 EKG Documentation Completion [RC] STAT Oxygen Therapy, ED [RC] ASDIRECTED Sodium Chloride 0.9% [Saline Flush] 10 ml FLUSH ASDIRECTED PRN Sodium Chloride 0.9% [Saline Flush] 2.5 ml FLUSH ASDIRECTED PRN Saline Lock Insert [OM.PC] Stat 09/21/19 15:34 RT Aerosol Therapy [RC] ASDIRECTED Blood Culture x2 Reflex Set [OM.PC] Stat 09/21/19 15:40 CULTURE BLOOD [BC] Stat 09/21/19 16:05 CULTURE BLOOD [BC] Stat
[2019-09-21] MEDS ORDERED: Sodium Chloride 0.9% 1,000 ML IV ONE ×3 (15:47→18:29)
--- NOTE | 2019-09-21 16:11 | CR ---
Indication: Coughing up blood. Technique: A single AP portable view of the chest was obtained. Comparison: March 12, 2019. Findings: The heart is normal in size. The left lung is clear. Opacities are identified within the interstitium and the right perihilar region. No pleural effusion or pneumothorax is identified. Impression: Right perihilar increased interstitial opacities, most likely representing an infiltrative process. Dictated by Shania Ball MD @ Sep 21 2019 4:08PM Signed by Dr. Shania Ball @ Sep 21 2019 4:09PM
[2019-09-21 16:19] LABS: BLOOD UREA NITROGEN,BUN 15 mg/dL (7.0-18.0); CARBON DIOXIDE,CO2 26.6 mmol/L (21.0-32.0); CHLORIDE,CL 96 mmol/L (98-107); GLUCOSE RANDOM 132 mg/dL (74-106); POTASSIUM,K 3.9 mmol/L (3.5-5.1); SODIUM,NA 133 mmol/L (136-145)
[2019-09-21] MEDS ORDERED: Iopamidol 755 MG/ML 500 ML Multipack Bottle IVPUSH STA (16:56)
[2019-09-21] MEDS ORDERED: Enoxaparin 150 MG/1 ML Syringe SUBCUT ONE (17:14)
--- NOTE | 2019-09-21 17:16 | CT ---
Indication: Hemoptysis. Elevated D-dimer. Technique: Multiple contiguous axial images were obtained from the thoracic inlet through the upper abdomen after the intravenous administration of 80 milliliters Isovue 370. Please note that all CT scans at this facility use dose modulation, iterative reconstruction, and/or weight-based dosing when appropriate to reduce radiation dose to as low as reasonably achievable. Comparison: None Findings: Pulmonary emboli urine of the right main pulmonary artery and in the pulmonary artery to the right lower lobe. These do not extend into the right middle lobe or right upper lobe. A right hilar lymph node is identified measuring 1.6 x 2.0 cm in size. Fullness is identified in the subcarinal region, suggesting lymphadenopathy. No axillary lymphadenopathy is identified. A precarinal lymph node is identified measuring 1.3 x 1.4 cm in size. The heart is borderline in size. No pericardial effusion is identified. The visualized portions of the liver, spleen, adrenals, pancreas, and left kidney are grossly normal. Kyphosis of the thoracic spine is identified. No acute fracture is identified. A small to moderate right-sided pleural effusion is identified. Diffusely increased interstitial opacities are identified throughout the right lower lobe and extend into the inferior aspect of the right upper lobe. No pneumothorax is identified. The left lung is relatively clear. Impression: Right main pulmonary artery embolism that extends into the right lower lobe. Small to moderate-sized right pleural effusion. Diffuse increased interstitial opacities in the right lower lobe. The findings were discussed with Caron Lara at the time of this dictation Please note that all CT scans at this facility use dose modulation, iterative reconstruction, and/or weight-based dosing when appropriate to reduce radiation dose to as low as reasonably achievable. Dictated by Shania Ball MD @ Sep 21 2019 5:08PM Signed by Dr. Shania Ball @ Sep 21 2019 5:15PM
[2019-09-21] MEDS ORDERED: Morphine 2 MG/ML Syringe IVPUSH ONE (17:22)
[2019-09-21] MEDS ORDERED: Enoxaparin 100 MG/1 ML Syringe SUBCUT ONE (17:25)
[2019-09-21] MEDS ORDERED: Acetaminophen/HYDROcodone 325-5 MG Tab PO PRN (18:03)
[2019-09-21] MEDS ORDERED: Morphine 10 MG/ML Syringe IVPUSH PRN (18:03)
[2019-09-21] MEDS ORDERED: Acetaminophen 325 MG Tab PO PRN (18:03)
[2019-09-21] MEDS ORDERED: Temazepam 15 MG Cap PO PRN (18:03)
[2019-09-21] MEDS ORDERED: Ondansetron 4 MG Tab.DIS PO PRN (18:03)
[2019-09-21] MEDS ORDERED: Ondansetron 4 MG/2 ML SDV IVPUSH PRN (18:03)
--- NOTE | 2019-09-21 18:14 | PCM.HP.2 ---
H&P History of Present Illness - General Date of Service: 09/21/19 Admit Problem/Dx: Admission Diagnosis/Problem Admission Diagnosis/Problem Pulmonary embolism - History of Present Illness Initial Comments - Free Text/Narative: 53 y/o female who presented to the ER complaining of hemoptysis, dyspnea. Patient states she had recently driven back from [place], [place]. Started noticing light blood tinge sputum yesterday. Today, she was having more dark red hemoptysis. Feeling short of breath. Denies any chest pain, nausea, vomiting. No abdominal pain, dysuria, diarrhea. No lower extremity edema or pain. States she smokes daily. Trying to cut down. Denies alcohol intake. No illicit drug use. Not on any hormone therapy. No family history of coagulopathy. In the ER, she was found to be hypoxic with O2 sats in jesus 70's. Started on 4 L NC and O2 sats above 90%. CT chest showed a right pulmonary artery embolism with extension to the right lower lobe. She was given Lovenox 90 mg SQ Once. Currently, denying any chest pain, dyspnea. Still having some hemoptysis. Chest xray showed a right lower lung infiltrates. She has leukocytosis of 16. 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: Psychiatric History: Reports: Anxiety, Depression, PTSD - Infectious Disease History Infectious Disease History: Reports: EBD-Pmcbtlppqf-Wvqmeubbl Enterobacteriaceae , Measles, Mumps - Past Surgical History HEENT Surgical History: Reports: Adenoidectomy, Tonsillectomy GI Surgical History: Reports: Appendectomy, Cholecystectomy, Colostomy, Hernia, Abdominal, Other (See Below) Other GI Surgeries/Procedures: prior colostomy and ileostomy Female Surgical History: Reports: Hysterectomy, Salpingo-Oophorectomy Musculoskeletal Surgical History: Reports: Other (See Below) Other Musculoskeletal Surgeries/Procedures:: right thumb surgery Social & Family History - Family History Family Medical History: Noncontributory - Tobacco Use Smoking Status *Q: Current Every Day Smoker Years of Tobacco use: 35 Packs/Tins Daily: 0.5 - Caffeine Use Caffeine Use: Reports: Coffee - Recreational Drug Use Recreational Drug Use: No H&P Review of Systems - Review of Systems: Review Of Systems: ROS reveals no pertinent complaints other than HPI. Exam - Exam Exam: See Below - Vital Signs Vital Signs: Last Vital Signs Temp 36.6 C 09/21/19 15:30 Pulse 100 09/21/19 17:05 Resp 20 09/21/19 17:05 BP 128/77 09/21/19 17:05 Pulse Ox 95 09/21/19 17:05 Weight: 93.44 kg - Exam Quality Assessment: Supplemental Oxygen General: Alert, Oriented, Cooperative HEENT: Other (dry blood tinged oral mucosa) Lungs: Other (Decreased lung sounds bilaterally with some right basilar crackles. No wheezing.) Cardiovascular: Regular Rhythm, Tachycardia GI/Abdominal Exam: Normal Bowel Sounds, Soft, Non-Tender, No Distention Back Exam: Normal Inspection Extremities: Normal Inspection, No Pedal Edema Skin: Warm, Dry Neuro Extensive - Mental Status: Alert, Oriented x3 - Patient Data Lab Results Last 24 hrs: Laboratory Results - last 24 hr 09/21/19 09/21/19 09/21/19 Range/Units 15:40 15:40 15:40 WBC 16.04 H (4.0-11.0) K/uL RBC 6.07 H (4.30-5.90) M/uL Hgb 18.5 H (12.0-16.0) g/dL Hct 57.4 H (36.0-46.0) % MCV 94.6 (80.0-98.0) fL MCH 30.5 (27.0-32.0) pg MCHC 32.2 (31.0-37.0) g/dL RDW Std Deviation 60.1 (28.0-62.0) fl RDW Coeff of Thiago 18 H (11.0-15.0) % Plt Count 118 L (150-400) K/uL MPV 10.50 (7.40-12.00) fL Neut % (Auto) 84.0 H (48.0-80.0) % Lymph % (Auto) 8.0 L (16.0-40.0) % Lee % (Auto) 7.8 (0.0-15.0) % Eos % (Auto) 0.1 (0.0-7.0) % Baso % (Auto) 0.1 (0.0-1.5) % Neut # (Auto) 13.5 H (1.4-5.7) K/uL Lymph # (Auto) 1.3 (0.6-2.4) K/uL Lee # (Auto) 1.3 H (0.0-0.8) K/uL Eos # (Auto) 0.0 (0.0-0.7) K/uL Baso # (Auto) 0.0 (0.0-0.1) K/uL Nucleated RBC % 0.0 /100WBC Nucleated RBCs # 0 K/uL INR 1.28 D-Dimer, Quantitative 1.81 H (0.0-0.50) mg/L FEU Lactate (0.20-2.00) mmol/L Sodium 133 L (136-145) mmol/L Potassium 3.9 (3.5-5.1) mmol/L Chloride 96 L (98-107) mmol/L Carbon Dioxide 26.6 (21.0-32.0) mmol/L BUN 15 (7.0-18.0) mg/dL Creatinine 1.2 H (0.6-1.0) mg/dL Est Cr Clr Drug Dosing 51.51 mL/min Estimated GFR (MDRD) 46.6 ml/min Glucose 132 H (74-106) mg/dL Calcium 8.6 (8.5-10.1) mg/dL Total Bilirubin 1.2 H (0.2-1.0) mg/dL AST 16 (15-37) IU/L ALT 11 L (14-63) IU/L Alkaline Phosphatase 135 H (46-116) U/L Troponin I < 0.050 (0.000-0.056) ng/mL Total Protein 7.4 (6.4-8.2) g/dL Albumin 3.1 L (3.4-5.0) g/dL Globulin 4.3 H (2.6-4.0) g/dL Albumin/Globulin Ratio 0.7 L (0.9-1.6) 09/21/19 Range/Units 15:40 WBC (4.0-11.0) K/uL RBC (4.30-5.90) M/uL Hgb (12.0-16.0) g/dL Hct (36.0-46.0) % MCV (80.0-98.0) fL MCH (27.0-32.0) pg MCHC (31.0-37.0) g/dL RDW Std Deviation (28.0-62.0) fl RDW Coeff of Thiago (11.0-15.0) % Plt Count (150-400) K/uL MPV (7.40-12.00) fL Neut % (Auto) (48.0-80.0) % Lymph % (Auto) (16.0-40.0) % Lee % (Auto) (0.0-15.0) % Eos % (Auto) (0.0-7.0) % Baso % (Auto) (0.0-1.5) % Neut # (Auto) (1.4-5.7) K/uL Lymph # (Auto) (0.6-2.4) K/uL Lee # (Auto) (0.0-0.8) K/uL Eos # (Auto) (0.0-0.7) K/uL Baso # (Auto) (0.0-0.1) K/uL Nucleated RBC % /100WBC Nucleated RBCs # K/uL INR D-Dimer, Quantitative (0.0-0.50) mg/L FEU Lactate 3.8 H (0.20-2.00) mmol/L Sodium (136-145) mmol/L Potassium (3.5-5.1) mmol/L Chloride (98-107) mmol/L Carbon Dioxide (21.0-32.0) mmol/L BUN (7.0-18.0) mg/dL Creatinine (0.6-1.0) mg/dL Est Cr Clr Drug Dosing mL/min Estimated GFR (MDRD) ml/min Glucose (74-106) mg/dL Calcium (8.5-10.1) mg/dL Total Bilirubin (0.2-1.0) mg/dL AST (15-37) IU/L ALT (14-63) IU/L Alkaline Phosphatase (46-116) U/L Troponin I (0.000-0.056) ng/mL Total Protein (6.4-8.2) g/dL Albumin (3.4-5.0) g/dL Globulin (2.6-4.0) g/dL Albumin/Globulin Ratio (0.9-1.6) Result Diagrams: 09/21/19 15:40 09/21/19 15:40 Vasyl Results Last 24 hrs: Microbiology 09/21/19 15:50 Influenza Type A Antigen Screen - Final Nasopharyngeal Swab NEGATIVE INFLUENZA A VIRUS AG REFERENCE RANGE: NEGATIVE Influenza Type B Antigen Screen - Final NEGATIVE INFLUENZA B VIRUS AG REFERENCE RANGE: NEGATIVE Problem List Initiated/Reviewed/Updated: Yes Orders Last 24hrs: Active Orders 24 hr Category Date Time Status Admission Status [Patient Status] [ADT] Stat ADT 09/21/19 17:34 Active EKG Documentation Completion [RC] STAT Care 09/21/19 15:33 Active Intake and Output [RC] QSHIFT Care 09/21/19 18:04 Ordered Oxygen Therapy [RC] PRN Care 09/21/19 18:03 Ordered Oxygen Therapy, ED [RC] ASDIRECTED Care 09/21/19 15:33 Active RT Aerosol Therapy [RC] ASDIRECTED Care 09/21/19 15:34 Active RT Aerosol Therapy [RC] ASDIRECTED Care 09/21/19 18:05 Ordered Up ad Janet [RC] ASDIRECTED Care 09/21/19 18:03 Ordered VTE/DVT Education [RC] PER UNIT ROUTINE Care 09/21/19 18:03 Ordered Vital Signs [RC] Q4H Care 09/21/19 18:03 Ordered Regular Diet [DIET] Diet 09/21/19 Dinner Ordered Echo Comp wo Cont [US] Routine Exams 09/22/19 08:00 Ordered CULTURE BLOOD [BC] Stat Lab 09/21/19 15:40 Received CULTURE BLOOD [BC] Stat Lab 09/21/19 16:05 Received Acetaminophen [Tylenol] Med 09/21/19 18:03 Active 650 mg PO Q4H PRN Acetaminophen/HYDROcodone [[place] 325-5 MG] Med 09/21/19 18:03 Active 1 tab PO Q4H PRN Albuterol/Ipratropium [DuoNeb 3.0-0.5 MG/3 ML] Med 09/21/19 18:03 Ordered 3 ml NEB Q4HRRT PRN Morphine Med 09/21/19 18:03 Ordered 2 mg IVPUSH Q2H PRN Nicotine [Habitrol] Med 09/21/19 18:15 Ordered 14 mg TRDERM DAILY Ondansetron [Zofran ODT] Med 09/21/19 18:03 Ordered 4 mg PO Q4H PRN Ondansetron [Zofran] Med 09/21/19 18:03 Ordered 4 mg IVPUSH Q4H PRN Sodium Chloride 0.9% [Normal Saline] 1,000 ml Med 09/21/19 17:40 Active IV .Bolus Sodium Chloride 0.9% [Saline Flush] Med 09/21/19 15:33 Active 10 ml FLUSH ASDIRECTED PRN Sodium Chloride 0.9% [Saline Flush] Med 09/21/19 15:33 Active 2.5 ml FLUSH ASDIRECTED PRN Temazepam [Restoril] Med 09/21/19 18:03 Ordered 15 mg PO BEDTIME PRN Blood Culture x2 Reflex Set [OM.PC] Stat Oth 09/21/19 15:34 Ordered Saline Lock Insert [OM.PC] Stat Oth 09/21/19 15:33 Ordered Resuscitation Status Routine Resus Stat 09/21/19 18:03 Ordered Medication Orders Acetaminophen (Tylenol) 650 mg PO Q4H PRN PRN Reason: Pain (Mild 1-3)/fever Hydrocodone Bitart/Acetaminophen ([place] 325-5 Mg) 1 tab PO Q4H PRN PRN Reason: Pain (moderate 4-6) Albuterol/Ipratropium (Duoneb 3.0-0.5 Mg/3 Ml) 3 ml NEB Q4HRRT PRN PRN Reason: Shortness Of Breath/wheezing Sodium Chloride (Normal Saline) 1,000 mls @ 999 mls/hr IV .Bolus ONE Stop: 09/21/19 18:40 Last Admin: 09/21/19 17:52 Dose: 999 mls/hr Morphine Sulfate (Morphine) 2 mg IVPUSH Q2H PRN PRN Reason: Pain (severe 7-10) Stop: 09/22/19 18:05 Nicotine (Habitrol) 14 mg TRDERM DAILY EDWIN Ondansetron HCl (Zofran Odt) 4 mg PO Q4H PRN PRN Reason: nausea, able to take PO Ondansetron HCl (Zofran) 4 mg IVPUSH Q4H PRN PRN Reason: Nausea Sodium Chloride (Saline Flush) 10 ml FLUSH ASDIRECTED PRN PRN Reason: Keep Vein Open Sodium Chloride (Saline Flush) 2.5 ml FLUSH ASDIRECTED PRN PRN Reason: Keep Vein Open Temazepam (Restoril) 15 mg PO BEDTIME PRN PRN Reason: Sleep Assessment/Plan Comment:: A: 1. Right pulmonary artery embolism with extension to right lower lobe 2. Erythrocytosis likely secondary to dehydration on top of suspected sleep apnea 3. Acute kidney injury 4. Elevated lactic acid due to above P: 1. Right pulmonary artery embolism- Full dose Lovenox SQ Q12H. Will need to discuss with patient if either starting NOACs or warfarin. Will get Echo. Start High flow at 6 L and titrate as needed. Repeat lactic acid q6H until normal. 2. LORE- maintenance fluids NS IV 125 ml/hr. Monitor kidney function. dispo: 2-3 days
[2019-09-21] MEDS ORDERED: Nicotine 14 MG/24 Hr Patch TRDERM SCH (18:15)
[2019-09-21 18:51] VITALS: PULSE 104
[2019-09-21] MEDS ORDERED: Sodium Chloride 0.9% 1,000 ML IV SCH (19:00)
[2019-09-21] MEDS ORDERED: LORazepam 1 MG Tab PO PRN ×2 (19:30→19:38)
--- NOTE | 2019-09-21 19:51 | PN ---
[facility] Physician - Brief Progress [id number]/29/2019 19:36[facility] Jaswant Keene, WILLIAM - MWN (ALMN) [facility] SMITHDate of Service 09/21/2019 19:36HPI/Event s of Note EICU admission note:53 year old female presenting with hypoxemia and coughing clots Found t o have a PE.She also has a moderate right sided pleural effusion and some lymphadenoopathy which is s uspicious with her smoking history.Patient has an elevated BNP we are attempting to get an echo this evening to see if the patient requires TPA for right heart strain.The patient also likely has COPD/OS A.She is likely hypoxemic at baseline based on elevated HB/HCT. So this further complicates the case in evaluating submassive versus massive PE.I have ordered dopplers bilateral lower extremities to ev aluate clot burden.Lovenox BID was started by the excellent PCP in the meanwhile.Due to elevated lact ate I have started Zosyn, there is some infiltrative process on the CT scan of the chest, whether or not this is from hemorrhage or not, can not be bronched with acute PE safely.She also has Hilar and S ubcarinal Lymphadenopathy.She needs serial lactates, and very very close follow up with pulmonary.In fact, she may require follow up short term CT chest with pulmonary ( 3- 6 weeks ) also with PFT in 6 weeks or so She should stop smoking immediately.PSG should be done after all the rest of the work up is completed.Supplemental O2 with ambulation, sleep, and during rest should be evaluated. Maintain sats > 90% with sleep and ambulation. Overnight pulse ox 24 hours before d/c home should be complete d. Also and ambulatory pulse ox.Patient likely will need O2 upon d/c.EICU assessment:Acute PE, R luba n pulmonary artery, and RLLModerate Right Pleural EffusionsInfiltrates, diffuse in the RLL with under lying fibrotic appearance is present on CT of chest.Subcarinal and hilar lymphadenopathy in the setti ng of severe tobacco abuse.Leukocytosis with Elevated lactate, with infiltrate can not rule out sepsi sTobacco abuseEICU recs:Start zosynStat EchoDoppler bilateral lower extremitiesFor now, Lovenox BID, if any further indication of RIght heart strain would have to consider ECKOS vs. TPANeeds maligancy w ork up. Needs Pulmonary follow up Needs short term ct follow upCautious usage of central depressing agents such as ativan and morphine as they may suppress her respiratory driveDecreased dosage of Ativ an secondary to CLYDE risk factorsPatient has full dose Elavil ordered, as well as Restoril.Maintain Sa ts > 92%Sputum and blood cultures.Will sign out to pm eicu coverage to follow closely.Please call laura h any changes/ recsInterventions Major-Respiratory failure - evaluation and managementMinor-Communica tion with other healthcare providers and/or family, Routine modifications to care plan (e.g. PRN medi cations for pain, fever)
[2019-09-21] MEDS ORDERED: FLU Vacc QS2019-20(6MOS+)/PF 60 MCG/0.5 ML SYRINGE IM ONE (20:00)
[2019-09-21] MEDS ORDERED: Cefepime 1 GM in Premix Bag 1 BAG IV ONE (20:00)
[2019-09-21] MEDS ORDERED: LORazepam 0.5 MG Tab PO PRN (20:32)
[2019-09-21] MEDS ORDERED: Amitriptyline 25 MG Tab PO SCH (21:00)
[2019-09-21] MEDS ORDERED: Morphine 2 MG/ML Syringe IVPUSH PRN (21:09)
[2019-09-21] MEDS: Albuterol/Ipratropium 3.0-0.5 MG/3 ML Neb Soln NEB PRN (21:28)
[2019-09-21] MEDS ORDERED: Azithromycin 500 MG in Sodium Chloride 0.9% 250 ML IV SCH (23:00)
--- NOTE | 2019-09-21 23:06 | US ---
INDICATION: PE identified on CT today. COMPARISON: None available FINDINGS: Ultrasound of the venous drainage of both lower extremities shows no evidence of deep venous thrombosis. There is normal antegrade flow from the posterior tibial and peroneal veins superiorly through the common femoral vein in both legs. There is normal augmentation and compressibility of these veins. IMPRESSION: No evidence of deep venous thrombosis on ultrasound examination of both lower extremities. Dictated by Joshua Rios MD @ Sep 21 2019 11:03PM Signed by Dr. Joshua Rios @ Sep 21 2019 11:05PM
[2019-09-22] MEDS: Albuterol/Ipratropium 3.0-0.5 MG/3 ML Neb Soln NEB PRN (01:09)
--- NOTE | 2019-09-22 01:18 | PN ---
[facility] Physician - Brief Progress [id number]/29/2019 23:24[facility] Jaswant bradford, [place] - ABDIRASHIDN (CATHY) [facility] SMITHDate of Service 09/21/2019 23:24HPI/Event s of Note Chart reviewed and case d/w bedside RN. On camera, the patient appears in NAD, RR 20, sat 9 3% on HFNC 12L (increased from previous), no accessory respiratory muscle use. Per bedside RN, the pa tient is having about 1 teaspoon of hemoptysis (up to 10 times/hour). F/up LA normalized, Troponin st ill negative.US lower extr - no DVT.A/P:1. PE, right main and RUL branch. No suggestion of RV strain on CT and Troponin negative. Given worsening hemoptysis, I would have a high threshold to administer tPA to this patient unless she is truly hemodynamically unstable. Also, if hemop[tysis continues to w marileeen, would change form Lovenox to Heparin drip (in case it needs to be stopped/reversed). I suspect the hemoptysis is more likiely related to her pneumonia, since there is no infiltrate in the RUL to suggest a pulm infarct.2. CAP - is on Cefepime. Added Azithromycin for atypical coverage.Intervention s Major-Other: PE, hemoptysis, CAP
[2019-09-22] MEDS ORDERED: Cefepime 1 GM in Premix Bag 1 BAG IV SCH (04:00)
--- NOTE | 2019-09-22 04:38 | CR ---
Indication: Worsening hypoxemia Technique: Chest 1 view Comparison: 09/21/2019 Findings/Impression: Cardiovascular and mediastinum: Increased prominence of the right cardiac border. Correlate for evolving increased right heart pressure. Lungs and pleural space: A right pleural effusion. Persistent right perihilar opacities. Right basilar consolidation or atelectasis is not excluded. Mild left basilar subsegmental atelectasis. Bones and soft tissues: No significant change. Dictated by Ck Cuba MD @ 09/22/2019 4:37:30 AM Dictated by: Ck Cuba MD @ 09/22/2019 04:37:33 (Electronically Signed)
[2019-09-22] MEDS ORDERED: Sodium Bicarbonate 8.4% 50 MEQ/50 ML Syringe IVPUSH ONE (04:42)
--- NOTE | 2019-09-22 04:42 | PN ---
[facility] Physician - Brief Progress [id number]/30/2019 04:38[facility] Jaswant bradford, WILLIAM - ABDIRASHIDN (CATHY) [facility] SMITHRiannaDate of Service 09/22/2019 04:38HPI/Event s of Note Overnight events.Patient now with hypercapnic and hypoxemic respiratory failure (on ABG), d ifficult to arouse. CxR shows worsening infiltrate and effusion right lung.Sats below 90% despite NRB M.Plan:Hypercapnic and hypoxemic respiratory failure, due to worsening CAP (RLL) with hemoptysis, and RUL PE.Intubate and transfer to a tertiary facility for higher level of care.Vent and sedation order s placed.MAP still 70s-80s but may drop with sedation for intubation and ventilation.Interventions Ale robledo-Respiratory failure - evaluation and managementElectronically Signed by: SIOBHAN APARICIO) on 04:41
[2019-09-22] MEDS ORDERED: Enoxaparin 100 MG/1 ML Syringe SUBCUT SCH ×2 (05:00)
--- NOTE | 2019-09-22 06:03 | CR ---
INDICATION: Post intubation. TECHNIQUE: Chest 1 view COMPARISON: Chest radiograph 09/22/2019. FINDINGS: Interval placement of endotracheal tube with tip 4.5 cm above the breanne. Otherwise no significant change. Moderate right pleural effusion. Patchy right perihilar opacities and dense consolidation in the right lung base. These may represent atelectasis or infiltrate. Linear atelectasis left lung base. Cardiac silhouette is partially obscured but appears enlarged. No pneumothorax. IMPRESSION: 1. Interval placement of ETT in appropriate position. 2. Moderate right pleural effusion. 3. Right mid and lower lung opacities and consolidation may represent atelectasis or infiltrate. 4. Probable cardiomegaly. Dictated by Milla Roper MD @ Sep 22 2019 5:59AM Signed by Dr. Milla Roper @ Sep 22 2019 6:02AM
--- NOTE | 2019-09-22 06:22 | PCM.SN ---
- Free Text/Narrative Note: Called by nursing for intubation. On arrival, pt is unresponsive SpO2 83% on 15 LPM NRB, RR 20's, HR - 80 SR, BP 112/74. RSI was performed with the following: Etomidate 20mg IV Succinylcholine 120mg IV DL with Farrell 2 yields grade I view. Cuffed ETT placed at 22cm at the teeth. CXR shows good ETT position. Rocuronium 40mg IV for continued relaxation Propofol drip started per protocol. Post intubation VS HR 76 SR RR-22 controlled SpO2 80% on FiO2 100%, ABG confirms these results. BP 88/52 Dr Mendez was consulted with and Levophed was chosen for vasopressor support. Dr Lee is at the beside requesting arterial line placement as well. Arterial Line Placement procedure Note Arterial line placement is indicated due to frequent ABG's and for Levophed titration. Unable to obtain consent due to the critical nature of this patient and no family is immediately available. Rt radial pulse was palpated very weak. Adequate collateral blood flow is noted. Rt Wrist was prepped and draped in sterile fashion with betadine. 20g arrow catheter was then introduced into the Rt radial artery. Guidewire advanced with ease, catheter was advanced without difficulty. Pulsatile blood return was noted, good arterial waveform is noted when transduced. Catheter was secured with armboard , tegaderm, and tape. No apparent complications are noted.
[2019-09-22 06:33] LABS: BLOOD UREA NITROGEN,BUN 12 mg/dL (7.0-18.0); CARBON DIOXIDE,CO2 27.2 mmol/L (21.0-32.0); CHLORIDE,CL 107 mmol/L (98-107); GLUCOSE RANDOM 182 mg/dL (74-106); POTASSIUM,K 4.3 mmol/L (3.5-5.1); SODIUM,NA 139 mmol/L (136-145)
--- NOTE | 2019-09-22 07:09 | PCM.SN ---
- Free Text/Narrative Note: Nurse informed me around 4:30 am that patients oxygen requirements have been increasing from 5L to high flow 12 lts and is somnolent and she is only arousable with a deep sternal rub. ABG showed hypoxic, hypercapnic respiratory failure. I came in to evaluate the patient immediately, Anesthesia was called for immediate intubation. Repeat x-ray post intubation showed worsening right lung opacities, and worsening effusion. Post Intubation patients BP dropped, so patient was started on peripheral Levophed. Systemic TPA administration was held off sec. to concern of of worsening bleeding (pulmonary hemorrhage). Hemodynamics improved on vasopressors, patient was stable enough to be transferred out to higher level of care at [facility], for possible thrombectomy. Family was informed over the phone, and agreeable for transfer and i also discussed TPA administration as a last life saving resort in case patient becomes hemodynamically unstable on route to [place].
[2019-09-22 08:07] LABS: HEMOGLOBIN A1C 6.3 % (4.5-6.2)
[2019-09-22 08:19] VITALS: BP 101/63
--- NOTE | 2019-09-22 14:43 | PCM.DCSUM1 ---
Discharge Summary - Discharge Data Discharge Disposition: DC/Tfer to Acute Hospital 02 Condition: Serious - Referral to Home Health Primary Care Physician: Remi Olivas MD - Discharge Plan Home Medications: Home Meds Amitriptyline [Elavil] 100 mg PO BEDTIME 02/03/15 [History] ClonazePAM [KlonoPIN] 2 mg PO BEDTIME PRN 04/23/18 [History] Aspirin [Ecotrin EC] 4 tab PO DAILY 09/21/19 [History] Forms: ED Department Discharge Referrals: Remi Olivas MD [Primary Care Provider] - - Patient Data Vitals - Most Recent: Last Vital Signs Temp 36.6 C 09/22/19 04:00 Pulse 104 H 09/21/19 18:51 Resp 35 H 09/22/19 04:00 BP 101/63 09/22/19 04:00 Pulse Ox 89 L 09/22/19 04:00 Weight - Most Recent: 98 kg I&O - Last 24 hours: Intake & Output 09/21/19 09/22/19 09/22/19 22:59 06:59 14:59 Intake Total 1099 250 Output Total 500 Balance 599 250 Lab Results - Last 24 hrs: Laboratory Results - last 24 hr 09/21/19 09/21/19 09/21/19 Range/Units 15:40 15:40 15:40 WBC 16.04 H (4.0-11.0) K/uL RBC 6.07 H (4.30-5.90) M/uL Hgb 18.5 H (12.0-16.0) g/dL Hct 57.4 H (36.0-46.0) % MCV 94.6 (80.0-98.0) fL MCH 30.5 (27.0-32.0) pg MCHC 32.2 (31.0-37.0) g/dL RDW Std Deviation 60.1 (28.0-62.0) fl RDW Coeff of Thiago 18 H (11.0-15.0) % Plt Count 118 L (150-400) K/uL MPV 10.50 (7.40-12.00) fL Neut % (Auto) 84.0 H (48.0-80.0) % Lymph % (Auto) 8.0 L (16.0-40.0) % [place] % (Auto) 7.8 (0.0-15.0) % Eos % (Auto) 0.1 (0.0-7.0) % Baso % (Auto) 0.1 (0.0-1.5) % Neut # (Auto) 13.5 H (1.4-5.7) K/uL Lymph # (Auto) 1.3 (0.6-2.4) K/uL [place] # (Auto) 1.3 H (0.0-0.8) K/uL Eos # (Auto) 0.0 (0.0-0.7) K/uL Baso # (Auto) 0.0 (0.0-0.1) K/uL Nucleated RBC % 0.0 /100WBC Nucleated RBCs # 0 K/uL INR 1.28 D-Dimer, Quantitative 1.81 H (0.0-0.50) mg/L FEU ABG pH (7.35-7.45) ABG pCO2 (35-45) mmHG ABG pO2 (75-100) mmHG ABG HCO3 (22-26) mEq/L ABG Total CO2 ABG Base Excess (-2.0-2.0) Lactate (0.20-2.00) mmol/L Sodium 133 L (136-145) mmol/L Potassium 3.9 (3.5-5.1) mmol/L Chloride 96 L (98-107) mmol/L Carbon Dioxide 26.6 (21.0-32.0) mmol/L BUN 15 (7.0-18.0) mg/dL Creatinine 1.2 H (0.6-1.0) mg/dL Est Cr Clr Drug Dosing 51.51 mL/min Estimated GFR (MDRD) 46.6 ml/min Glucose 132 H (74-106) mg/dL Hemoglobin A1c (4.5-6.2) % Calcium 8.6 (8.5-10.1) mg/dL Total Bilirubin 1.2 H (0.2-1.0) mg/dL AST 16 (15-37) IU/L ALT 11 L (14-63) IU/L Alkaline Phosphatase 135 H (46-116) U/L Troponin I < 0.050 (0.000-0.056) ng/mL B-Natriuretic Peptide (<100) PG/ML Total Protein 7.4 (6.4-8.2) g/dL Albumin 3.1 L (3.4-5.0) g/dL Globulin 4.3 H (2.6-4.0) g/dL Albumin/Globulin Ratio 0.7 L (0.9-1.6) 09/21/19 09/21/19 09/21/19 Range/Units 15:40 15:40 20:38 WBC (4.0-11.0) K/uL RBC (4.30-5.90) M/uL Hgb (12.0-16.0) g/dL Hct (36.0-46.0) % MCV (80.0-98.0) fL MCH (27.0-32.0) pg MCHC (31.0-37.0) g/dL RDW Std Deviation (28.0-62.0) fl RDW Coeff of Thiago (11.0-15.0) % Plt Count (150-400) K/uL MPV (7.40-12.00) fL Neut % (Auto) (48.0-80.0) % Lymph % (Auto) (16.0-40.0) % [place] % (Auto) (0.0-15.0) % Eos % (Auto) (0.0-7.0) % Baso % (Auto) (0.0-1.5) % Neut # (Auto) (1.4-5.7) K/uL Lymph # (Auto) (0.6-2.4) K/uL [place] # (Auto) (0.0-0.8) K/uL Eos # (Auto) (0.0-0.7) K/uL Baso # (Auto) (0.0-0.1) K/uL Nucleated RBC % /100WBC Nucleated RBCs # K/uL INR D-Dimer, Quantitative (0.0-0.50) mg/L FEU ABG pH (7.35-7.45) ABG pCO2 (35-45) mmHG ABG pO2 (75-100) mmHG ABG HCO3 (22-26) mEq/L ABG Total CO2 ABG Base Excess (-2.0-2.0) Lactate 3.8 H (0.20-2.00) mmol/L Sodium (136-145) mmol/L Potassium (3.5-5.1) mmol/L Chloride (98-107) mmol/L Carbon Dioxide (21.0-32.0) mmol/L BUN (7.0-18.0) mg/dL Creatinine (0.6-1.0) mg/dL Est Cr Clr Drug Dosing mL/min Estimated GFR (MDRD) ml/min Glucose (74-106) mg/dL Hemoglobin A1c (4.5-6.2) % Calcium (8.5-10.1) mg/dL Total Bilirubin (0.2-1.0) mg/dL AST (15-37) IU/L ALT (14-63) IU/L Alkaline Phosphatase (46-116) U/L Troponin I < 0.050 (0.000-0.056) ng/mL B-Natriuretic Peptide 650 H (<100) PG/ML Total Protein (6.4-8.2) g/dL Albumin (3.4-5.0) g/dL Globulin (2.6-4.0) g/dL Albumin/Globulin Ratio (0.9-1.6) 09/21/19 09/22/19 09/22/19 Range/Units 20:38 03:00 03:17 WBC (4.0-11.0) K/uL RBC (4.30-5.90) M/uL Hgb (12.0-16.0) g/dL Hct (36.0-46.0) % MCV (80.0-98.0) fL MCH (27.0-32.0) pg MCHC (31.0-37.0) g/dL RDW Std Deviation (28.0-62.0) fl RDW Coeff of Thiago (11.0-15.0) % Plt Count (150-400) K/uL MPV (7.40-12.00) fL Neut % (Auto) (48.0-80.0) % Lymph % (Auto) (16.0-40.0) % [place] % (Auto) (0.0-15.0) % Eos % (Auto) (0.0-7.0) % Baso % (Auto) (0.0-1.5) % Neut # (Auto) (1.4-5.7) K/uL Lymph # (Auto) (0.6-2.4) K/uL [place] # (Auto) (0.0-0.8) K/uL Eos # (Auto) (0.0-0.7) K/uL Baso # (Auto) (0.0-0.1) K/uL Nucleated RBC % /100WBC Nucleated RBCs # K/uL INR D-Dimer, Quantitative (0.0-0.50) mg/L FEU ABG pH 7.234 L (7.35-7.45) ABG pCO2 61 H (35-45) mmHG ABG pO2 66 L (75-100) mmHG ABG HCO3 26 (22-26) mEq/L ABG Total CO2 23.5 ABG Base Excess -3.1 L (-2.0-2.0) Lactate 1.4 (0.20-2.00) mmol/L Sodium (136-145) mmol/L Potassium (3.5-5.1) mmol/L Chloride (98-107) mmol/L Carbon Dioxide (21.0-32.0) mmol/L BUN (7.0-18.0) mg/dL Creatinine (0.6-1.0) mg/dL Est Cr Clr Drug Dosing mL/min Estimated GFR (MDRD) ml/min Glucose (74-106) mg/dL Hemoglobin A1c (4.5-6.2) % Calcium (8.5-10.1) mg/dL Total Bilirubin (0.2-1.0) mg/dL AST (15-37) IU/L ALT (14-63) IU/L Alkaline Phosphatase (46-116) U/L Troponin I < 0.050 (0.000-0.056) ng/mL B-Natriuretic Peptide (<100) PG/ML Total Protein (6.4-8.2) g/dL Albumin (3.4-5.0) g/dL Globulin (2.6-4.0) g/dL Albumin/Globulin Ratio (0.9-1.6) 09/22/19 09/22/19 09/22/19 Range/Units 04:15 05:25 06:03 WBC (4.0-11.0) K/uL RBC (4.30-5.90) M/uL Hgb (12.0-16.0) g/dL Hct (36.0-46.0) % MCV (80.0-98.0) fL MCH (27.0-32.0) pg MCHC (31.0-37.0) g/dL RDW Std Deviation (28.0-62.0) fl RDW Coeff of Thiago (11.0-15.0) % Plt Count (150-400) K/uL MPV (7.40-12.00) fL Neut % (Auto) (48.0-80.0) % Lymph % (Auto) (16.0-40.0) % [place] % (Auto) (0.0-15.0) % Eos % (Auto) (0.0-7.0) % Baso % (Auto) (0.0-1.5) % Neut # (Auto) (1.4-5.7) K/uL Lymph # (Auto) (0.6-2.4) K/uL [place] # (Auto) (0.0-0.8) K/uL Eos # (Auto) (0.0-0.7) K/uL Baso # (Auto) (0.0-0.1) K/uL Nucleated RBC % /100WBC Nucleated RBCs # K/uL INR D-Dimer, Quantitative (0.0-0.50) mg/L FEU ABG pH 7.242 L 7.320 L (7.35-7.45) ABG pCO2 63 H 53 H (35-45) mmHG ABG pO2 59 L 49 L (75-100) mmHG ABG HCO3 27 H 27 H (22-26) mEq/L ABG Total CO2 24.5 24.7 ABG Base Excess -2.1 L 0.1 (-2.0-2.0) Lactate 0.8 (0.20-2.00) mmol/L Sodium (136-145) mmol/L Potassium (3.5-5.1) mmol/L Chloride (98-107) mmol/L Carbon Dioxide (21.0-32.0) mmol/L BUN (7.0-18.0) mg/dL Creatinine (0.6-1.0) mg/dL Est Cr Clr Drug Dosing mL/min Estimated GFR (MDRD) ml/min Glucose (74-106) mg/dL Hemoglobin A1c (4.5-6.2) % Calcium (8.5-10.1) mg/dL Total Bilirubin (0.2-1.0) mg/dL AST (15-37) IU/L ALT (14-63) IU/L Alkaline Phosphatase (46-116) U/L Troponin I (0.000-0.056) ng/mL B-Natriuretic Peptide (<100) PG/ML Total Protein (6.4-8.2) g/dL Albumin (3.4-5.0) g/dL Globulin (2.6-4.0) g/dL Albumin/Globulin Ratio (0.9-1.6) 09/22/19 09/22/19 09/22/19 Range/Units 06:03 06:03 06:03 WBC 8.36 (4.0-11.0) K/uL RBC 4.82 (4.30-5.90) M/uL Hgb 14.3 (12.0-16.0) g/dL Hct 45.9 (36.0-46.0) % MCV 95.2 (80.0-98.0) fL MCH 29.7 (27.0-32.0) pg MCHC 31.2 (31.0-37.0) g/dL RDW Std Deviation 61.9 (28.0-62.0) fl RDW Coeff of Thiago 18 H (11.0-15.0) % Plt Count 104 L (150-400) K/uL MPV 10.00 (7.40-12.00) fL Neut % (Auto) 89.8 H (48.0-80.0) % Lymph % (Auto) 5.4 L (16.0-40.0) % [place] % (Auto) 4.7 (0.0-15.0) % Eos % (Auto) 0.0 (0.0-7.0) % Baso % (Auto) 0.1 (0.0-1.5) % Neut # (Auto) 7.5 H (1.4-5.7) K/uL Lymph # (Auto) 0.5 L (0.6-2.4) K/uL [place] # (Auto) 0.4 (0.0-0.8) K/uL Eos # (Auto) 0.0 (0.0-0.7) K/uL Baso # (Auto) 0.0 (0.0-0.1) K/uL Nucleated RBC % 0.0 /100WBC Nucleated RBCs # 0 K/uL INR D-Dimer, Quantitative (0.0-0.50) mg/L FEU ABG pH (7.35-7.45) ABG pCO2 (35-45) mmHG ABG pO2 (75-100) mmHG ABG HCO3 (22-26) mEq/L ABG Total CO2 ABG Base Excess (-2.0-2.0) Lactate (0.20-2.00) mmol/L Sodium 139 (136-145) mmol/L Potassium 4.3 (3.5-5.1) mmol/L Chloride 107 (98-107) mmol/L Carbon Dioxide 27.2 (21.0-32.0) mmol/L BUN 12 (7.0-18.0) mg/dL Creatinine 0.7 (0.6-1.0) mg/dL Est Cr Clr Drug Dosing 87.27 mL/min Estimated GFR (MDRD) > 60.0 ml/min Glucose 182 H (74-106) mg/dL Hemoglobin A1c 6.3 H (4.5-6.2) % Calcium 7.2 L (8.5-10.1) mg/dL Total Bilirubin 0.7 (0.2-1.0) mg/dL AST 25 (15-37) IU/L ALT 21 (14-63) IU/L Alkaline Phosphatase 94 (46-116) U/L Troponin I (0.000-0.056) ng/mL B-Natriuretic Peptide (<100) PG/ML Total Protein 5.4 L (6.4-8.2) g/dL Albumin 2.0 L (3.4-5.0) g/dL Globulin 3.4 (2.6-4.0) g/dL Albumin/Globulin Ratio 0.6 L (0.9-1.6) GEOVANNI Results - Last 24 hrs: Microbiology 09/21/19 16:05 Anaerobic Blood Culture - Preliminary Blood - Venous - Lab Draw 09/21/19 15:50 Influenza Type A Antigen Screen - Final Nasopharyngeal Swab NEGATIVE INFLUENZA A VIRUS AG REFERENCE RANGE: NEGATIVE Influenza Type B Antigen Screen - Final NEGATIVE INFLUENZA B VIRUS AG REFERENCE RANGE: NEGATIVE Med Orders - Current: Current Medications Discontinued Medications Acetaminophen (Tylenol) 650 mg PO Q4H PRN PRN Reason: Pain (Mild 1-3)/fever Hydrocodone Bitart/Acetaminophen ([place] 325-5 Mg) 1 tab PO Q4H PRN PRN Reason: Pain (moderate 4-6) Albuterol/Ipratropium (Duoneb 3.0-0.5 Mg/3 Ml) 3 ml NEB ONETIME ONE Stop: 09/21/19 15:35 Last Admin: 09/21/19 15:50 Dose: 3 ml Albuterol/Ipratropium (Duoneb 3.0-0.5 Mg/3 Ml) 3 ml NEB Q4HRRT PRN PRN Reason: Shortness Of Breath/wheezing Last Admin: 09/22/19 01:09 Dose: 3 ml Alteplase, Recombinant (Activase) Confirm Administered Dose 100 mg .ROUTE .STK- MED ONE Stop: 09/22/19 06:45 Last Admin: 09/22/19 07:57 Dose: Not Given Amitriptyline HCl (Elavil) 100 mg PO BEDTIME EDWIN Last Admin: 09/21/19 22:52 Dose: 100 mg Enoxaparin Sodium (Lovenox) 900 mg SUBCUT ONETIME ONE Stop: 09/21/19 17:15 Last Admin: 09/21/19 17:50 Dose: Not Given Enoxaparin Sodium (Lovenox) 90 mg SUBCUT ONETIME ONE Stop: 09/21/19 17:26 Last Admin: 09/21/19 17:31 Dose: 90 mg Enoxaparin Sodium (Lovenox) 90 mg SUBCUT Q12H EDWIN Enoxaparin Sodium (Lovenox) 100 mg SUBCUT Q12H EDWIN Last Admin: 09/22/19 07:46 Dose: Not Given Sodium Chloride (Normal Saline) 1,000 mls @ 999 mls/hr IV STAT ONE Stop: 09/21/19 16:47 Last Admin: 09/21/19 16:07 Dose: 999 mls/hr Sodium Chloride (Normal Saline) 1,000 mls @ 999 mls/hr IV .Bolus ONE Stop: 09/21/19 18:40 Last Admin: 09/21/19 17:52 Dose: 999 mls/hr Sodium Chloride (Normal Saline) 1,000 mls @ 999 mls/hr IV STAT ONE Stop: 09/21/19 19:29 Last Admin: 09/21/19 18:58 Dose: 999 mls/hr Sodium Chloride (Normal Saline) 1,000 mls @ 125 mls/hr IV ASDIRECTED EDWIN Last Admin: 09/21/19 20:00 Dose: 125 mls/hr Cefepime HCl 1 gm/ Premix 50 mls @ 100 mls/hr IV Q8H EDWIN Last Admin: 09/22/19 03:55 Dose: 100 mls/hr Cefepime HCl 1 gm/ Premix 50 mls @ 100 mls/hr IV ONETIME ONE Stop: 09/21/19 20:29 Last Admin: 09/21/19 20:10 Dose: 100 mls/hr Azithromycin 500 mg/ Sodium (Chloride) 250 mls @ 250 mls/hr IV Q24H EDWIN Stop: 09/27/19 23:59 Last Admin: 09/22/19 00:48 Dose: 250 mls/hr Propofol (Diprivan 100 Ml) 100 mls @ 5.88 mls/hr IV TITRATE EDWIN; Protocol Last Titration: 09/22/19 05:40 Dose: 20 mcg/kg/min, 11.76 mls/hr Propofol (Diprivan 100 Ml) 100 mls @ 2.94 mls/hr IV TITRATE EDWIN; Protocol Norepinephrine Bitartrate (Norepinephr-0.9% Nacl 4 Mg/250) Confirm Administered Dose 4 mg in 250 mls @ as directed IV .STK-MED ONE Stop: 09/22/19 05:29 Last Admin: 09/22/19 05:30 Dose: 18 mls/hr Influenza Virus Vaccine (Pharmacy To Dose - Influenza Vaccine) 1 each IM ONETIME ONE Stop: 09/21/19 19:50 Influenza Virus Vaccine (Fluzone Quad Syringe) 60 mcg IM .ONCE ONE Stop: 09/21/19 20:01 Iopamidol (Isovue Multipack-370 (76%)) 80 ml IVPUSH ONETIME STA Stop: 09/21/19 16:57 Last Admin: 09/21/19 16:57 Dose: 80 ml Lorazepam (Ativan) 1 mg PO Q4H PRN PRN Reason: Anxiety Lorazepam (Ativan) 0.25 mg PO Q4H PRN PRN Reason: Anxiety Lorazepam (Ativan) 0.25 mg PO Q4H PRN PRN Reason: Anxiety Last Admin: 09/21/19 22:10 Dose: 0.25 mg Methylprednisolone Sodium Succinate (Solu-Medrol) 125 mg IVPUSH ONETIME ONE Stop: 09/21/19 15:35 Last Admin: 09/21/19 16:04 Dose: 125 mg Morphine Sulfate (Morphine) 2 mg IVPUSH ONETIME ONE Stop: 09/21/19 17:23 Last Admin: 09/21/19 17:31 Dose: 2 mg Morphine Sulfate (Morphine) 2 mg IVPUSH Q2H PRN PRN Reason: Pain (severe 7-10) Stop: 09/22/19 18:05 Morphine Sulfate (Morphine) 2 mg IVPUSH Q2H PRN PRN Reason: Pain (severe 7-10) Stop: 09/22/19 18:05 Last Admin: 09/21/19 21:15 Dose: 2 mg Nicotine (Habitrol) 14 mg TRDERM DAILY EDWIN Last Admin: 09/21/19 20:02 Dose: 14 mg Ondansetron HCl (Zofran Odt) 4 mg PO Q4H PRN PRN Reason: nausea, able to take PO Ondansetron HCl (Zofran) 4 mg IVPUSH Q4H PRN PRN Reason: Nausea Sodium Bicarbonate (Sodium Bicarbonate 8.4%) 50 meq IVPUSH ONETIME ONE Stop: 09/22/19 04:43 Last Admin: 09/22/19 04:49 Dose: 50 meq Sodium Chloride (Saline Flush) 10 ml FLUSH ASDIRECTED PRN PRN Reason: Keep Vein Open Sodium Chloride (Saline Flush) 2.5 ml FLUSH ASDIRECTED PRN PRN Reason: Keep Vein Open Temazepam (Restoril) 15 mg PO BEDTIME PRN PRN Reason: Sleep
== END 2019-09-22 07:20 | DRG 133 ==
LOC: MW.ED 15:28 → MW.ICU 17:56 → OBSVTOIN 17:56 → MW.ICU 19:09
PROVIDERS: ADMIT Student in an Organized Health Care Education/Training Program; ATTEND Student in an Organized Health Care Education/Training Program
PROC: 0BH17EZ Insertion of Endotracheal Airway into Trachea, Via Natural or Artificial Opening (ICD-10-PCS; principal; 2019-09-22)
PROC: 5A1935Z Respiratory Ventilation, Less than 24 Consecutive Hours (ICD-10-PCS; 2019-09-22)
PROC: 3E033XZ Introduction of Vasopressor into Peripheral Vein, Percutaneous Approach (ICD-10-PCS; 2019-09-22)
PROC: 03HB33Z Insertion of Infusion Device into Right Radial Artery, Percutaneous Approach (ICD-10-PCS; 2019-09-22)
DX: J96.92 Respiratory failure, unspecified with hypercapnia (principal); I26.99 Other pulmonary embolism without acute cor pulmonale; J18.9 Pneumonia, unspecified organism; N17.9 Acute kidney failure, unspecified; J96.91 Respiratory failure, unspecified with hypoxia; R04.2 Hemoptysis; D75.1 Secondary polycythemia; F41.9 Anxiety disorder, unspecified; F32.9 Major depressive disorder, single episode, unspecified; F17.200 Nicotine dependence, unspecified, uncomplicated; Z88.5 Allergy status to narcotic agent; Z88.2 Allergy status to sulfonamides; Z88.8 Allergy status to other drugs, medicaments and biological substances; Z79.82 Long term (current) use of aspirin; Z79.899 Other long term (current) drug therapy; Z90.49 Acquired absence of other specified parts of digestive tract; Z90.89 Acquired absence of other organs; Z90.710 Acquired absence of both cervix and uterus
CPT/HCPCS: 31500; 36410; 36415; 36600; 51702; 71045; 71045-26; 71275; 71275-26; 80053; 82803; 83036; 83605; 83880; 84484; 85025; 85379; 85610; 87040; 87186; 87804; 93005; 93970; 93970-26; 94002; 94640; 96361; 96372; 96374; 96375; 99285; 99285-25; A9270-GY; J0456; J0692; J1650; J2270; J2704; J2930; J2997; J7040; J7050; J7620-GY; Q9967

== ENCOUNTER 2020-06-02 13:47 | Emergency (ER) | payer BC ==
[2020-06-02 14:12] VITALS: BP 115/63; PULSE 98
[2020-06-02] MEDS ORDERED: Ibuprofen 800 MG Tab PO ONE (14:13)
--- NOTE | 2020-06-02 14:16 | EDM.PDOC ---
ED HPI GENERAL MEDICAL PROBLEM - General Chief Complaint: Lower Extremity Injury/Pain Stated Complaint: BROKEN RT FOOT Time Seen by Provider: 06/02/20 13:59 - History of Present Illness INITIAL COMMENTS - FREE TEXT/NARRATIVE: History of present illness: History of present illness: [] Patient presents to the ED with complaints of right ankle and foot pain apparently 2 nights ago she was climbing a chair to get something off the top shelf in the kitchen she fell she mentions something about being seen by somewhere else in [place] but she presents here now with right ankle and right foot pain no new injuries this occurred 2 nights ago at that initial injury she denies any her head no other complaints at this time she says she has severe pain in the right ankle and cannot bear weight there is ecchymosis and swelling there. Nothing seems to make it better or worse Review of systems: As per history of present illness and below otherwise all systems reviewed and negative. Past medical history: As per history of present illness and as reviewed below otherwise noncontributory. Surgical history: As per history of present illness and as reviewed below otherwise noncontributory. Social history: No reported history of drug or alcohol abuse. Family history: As per history of present illness and as reviewed below otherwise noncontributory. Physical exam: HEENT: Atraumatic, normocephalic, pupils reactive, negative for conjunctival pallor or scleral icterus, mucous membranes moist, throat clear, neck supple, nontender, trachea midline. Lungs: Clear to auscultation, breath sounds equal bilaterally, chest nontender. Heart: S1S2, regular, negative for clicks, rubs, or JVD. Abdomen: Soft, nondistended, nontender. Negative for masses or hepatosplenomegaly. Negative for costovertebral tenderness. Pelvis: Stable nontender. Genitourinary: Deferred. Rectal: Deferred. Extremities: Atraumatic, negative for cords or calf pain. Neurovascular unremarkable. The right ankle is swollen edematous ecchymotic and there is tenderness to the lateral malleolus and the anterior dorsal foot. There is good cap refill and pulses sensations intact. Neuro: Awake, alert, oriented. Cranial nerves II through XII unremarkable. Cerebellum unremarkable. Motor and sensory unremarkable throughout. Exam nonfocal. Diagnostics: [] Therapeutics: [] Impression: [] Plan: X-ray reevaluate medicine for pain splinting [] Definitive disposition and diagnosis as appropriate pending reevaluation and review of above. Review of systems: As per history of present illness and below otherwise all systems reviewed and negative. Past medical history: As per history of present illness and as reviewed below otherwise noncontributory. Surgical history: As per history of present illness and as reviewed below otherwise nonco ntributory. Social history: No reported history of drug or alcohol abuse. Family history: As per history of present illness and as reviewed below otherwise noncontributory. Physical exam: HEENT: Atraumatic, normocephalic, pupils reactive, negative for conjunctival pallor or scleral icterus, mucous membranes moist, throat clear, neck supple, nontender, trachea midline. Lungs: Clear to auscultation, breath sounds equal bilaterally, chest nontender. Heart: S1S2, regular, negative for clicks, rubs, or JVD. Abdomen: Soft, nondistended, nontender. Negative for masses or hepatosplenomegaly. Negative for costovertebral tenderness. Pelvis: Stable nontender. Genitourinary: Deferred. Rectal: Deferred. Extremities: Atraumatic, negative for cords or calf pain. Neurovascular unremarkable. Neuro: Awake, alert, oriented. Cranial nerves II through XII unremarkable. Cerebellum unremarkable. Motor and sensory unremarkable throughout. Exam nonfocal. Diagnostics: [] Therapeutics: [] Impression: [] Plan: [] Definitive disposition and diagnosis as appropriate pending reevaluation and review of above. Right Ankle Pain Score (Numeric/FACES): 10 - Related Data Allergies Allergy/AdvReac Type Severity Reaction Status Date / Time codeine Allergy Hives Verified 06/02/20 14:12 pseudoephedrine Allergy palpitation Verified 06/02/20 14:12 s Sulfa (Sulfonamide Allergy unknown Verified 06/02/20 14:12 Antibiotics) Home Meds: Home Meds ClonazePAM [KlonoPIN] 2 mg PO TID PRN 04/23/18 [History] Aspirin [Ecotrin EC] 4 tab PO DAILY 09/21/19 [History] Acetaminophen/HYDROcodone [[place] 325-5 MG] 1 tab PO Q6H #12 tablet 06/02/20 [Rx] Magnesium 800 mg PO DAILY 06/02/20 [History] Naproxen [Naprosyn] 500 mg PO Q12HR #20 tab 06/02/20 [Rx] Past Medical History Respiratory History: Reports: 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: Psychiatric History: Reports: Anxiety, Depression, PTSD - Infectious Disease History Infectious Disease History: Reports: [id number] Enterobacteriaceae, Measles, Mumps - Past Surgical History HEENT Surgical History: Reports: Adenoidectomy, Tonsillectomy GI Surgical History: Reports: Appendectomy, Cholecystectomy, Colostomy, Hernia, Abdominal, Other (See Below) Other GI Surgeries/Procedures: prior colostomy and ileostomy Female Surgical History: Reports: Hysterectomy, Salpingo-Oophorectomy Musculoskeletal Surgical History: Reports: Other (See Below) Other Musculoskeletal Surgeries/Procedures:: right thumb surgery Social & Family History - Family History Family Medical History: Noncontributory - Caffeine Use Caffeine Use: Reports: None Review of Systems - Review of Systems Review Of Systems: See Below ED EXAM, GENERAL - Physical Exam Exam: See Below Course - Vital Signs Text/Narrative:: 3 view foot 2 view ankle read and interpreted by me there appears to be a fracture of the intermediate cuneiform however radiology does not see any fractures she is certainly tender here and has excessive amounts of swelling and ecchymosis so she will be put into a walking boot with crutches discharged home on [place] and referred to orthopedics. Last Recorded V/S: Last Vital Signs Temp 36.8 C 06/02/20 14:30 Pulse 98 06/02/20 14:30 Resp 18 06/02/20 14:30 BP 115/63 06/02/20 14:30 Pulse Ox 96 06/02/20 14:30 - Orders/Labs/Meds Orders: Active Orders 24 hr Category Date Time Status DME for Discharge [COMM] Stat Oth 06/02/20 14:41 Ordered DME for Discharge [COMM] Stat Oth 06/02/20 14:42 Ordered Meds: Medications Discontinued Medications Generic Name Dose Route Start Last Admin Trade Name Marcelo PRN Reason Stop Dose Admin Ibuprofen 800 mg 06/02/20 14:13 06/02/20 14:29 Motrin PO 06/02/20 14:14 800 mg ONETIME ONE Administration Departure - Departure Time of Disposition: 15:40 Disposition: Home, Self-Care 01 Condition: Good Clinical Impression: Foot fracture, right, Closed traumatic dislocation of hip - Discharge Information *PRESCRIPTION DRUG MONITORING PROGRAM REVIEWED*: Not Applicable *COPY OF PRESCRIPTION DRUG MONITORING REPORT IN PATIENT BRIGETTE: Not Applicable Instructions: Cuneiform Fracture Referrals: Remi Olivas MD [Primary Care Provider] - Forms: ED Department Discharge Additional Instructions: The following information is given to patients seen in the emergency department who are being discharged to home. This information is to outline your options for follow-up care. We provide all patients seen in our emergency department with a follow-up referral. The need for follow-up, as well as the timing and circumstances, are variable depending upon the specifics of your emergency department visit. If you don't have a primary care physician on staff, we will provide you with a referral. We always advise you to contact your personal physician following an emergency department visit to inform them of the circumstance of the visit and for follow-up with them and/or the need for any referrals to a consulting specialist. The emergency department will also refer you to a specialist when appropriate. This referral assures that you have the opportunity for follow-up care with a specialist. All of these measure are taken in an effort to provide you with optimal care, which includes your follow-up. Under all circumstances we always encourage you to contact your private physician who remains a resource for coordinating your care. When calling for follow-up care, please make the office aware that this follow-up is from your recent emergency room visit. If for any reason you are refused follow-up, please contact the [facility] Emergency Department at and asked to speak to the emergency department charge nurse. [facility] [address] [place] [address], [address] [place] [address] Sepsis Event Note (ED) - Focused Exam Vital Signs: Vital Signs Temp Pulse Resp BP Pulse Ox 06/02/20 14:30 36.8 C 98 18 115/63 96 06/02/20 14:07 36.2 C 98 18 115/63 92 L - My Orders Last 24 Hours: My Active Orders 06/02/20 14:41 DME for Discharge [COMM] Stat 06/02/20 14:42 DME for Discharge [COMM] Stat - Assessment/Plan Last 24 Hours: My Active Orders 06/02/20 14:41 DME for Discharge [COMM] Stat 06/02/20 14:42 DME for Discharge [COMM] Stat
--- NOTE | 2020-06-02 15:03 | CR ---
Right ankle: 2 views of the right ankle were obtained. Comparison: No prior ankle study. Soft tissue swelling is noted. Ankle mortise is symmetric. No acute fracture or other abnormality is appreciated. Impression: 1. Soft tissue swelling. 2. No acute bony abnormality is appreciated on 2 view study. Diagnostic code #2 This report was dictated in MDT
--- NOTE | 2020-06-02 15:04 | CR ---
Right foot: 3 views of the right foot were obtained. Comparison: No previous study. Soft tissue swelling is noted dorsally. No discrete fracture, dislocation or other bony abnormality is appreciated. Impression: 1. Dorsal soft tissue swelling. 2. No acute bony abnormality is appreciated. Diagnostic code #1 This report was dictated in MDT
== END 2020-06-02 16:10 | disposition home or self-care (01) ==
LOC: MW.ED 13:47
DX: S92.901A Unspecified fracture of right foot, initial encounter for closed fracture (principal); S73.006A Unspecified dislocation of unspecified hip, initial encounter; Z88.5 Allergy status to narcotic agent; Z88.8 Allergy status to other drugs, medicaments and biological substances; Z88.2 Allergy status to sulfonamides; Z79.82 Long term (current) use of aspirin; Z79.899 Other long term (current) drug therapy; W07.XXXA Fall from chair, initial encounter
CPT/HCPCS: 73600; 73630; 99283; A9270

== ENCOUNTER 2020-06-19 16:14 | Observation (INO) | payer BC ==
[2020-06-19] MEDS ORDERED: Sodium Chloride 0.9% 10 ML Syringe FLUSH PRN (16:40)
[2020-06-19] MEDS ORDERED: Sodium Chloride 0.9% 2.5 ML Syringe FLUSH PRN (16:40)
[2020-06-19 17:00] LABS: BLOOD UREA NITROGEN,BUN 7 mg/dL (7.0-18.0); CARBON DIOXIDE,CO2 33.3 mmol/L (21.0-32.0); CHLORIDE,CL 102 mmol/L (98-107); GLUCOSE RANDOM 83 mg/dL (74-106); POTASSIUM,K 3.1 mmol/L (3.5-5.1); SODIUM,NA 139 mmol/L (136-145)
--- NOTE | 2020-06-19 17:09 | CR ---
Chest: Portable view of the chest was obtained. Comparison: Prior chest x-ray of 02/08/20. Heart size and mediastinum are within normal limits for portable technique. Lungs show no acute parenchymal change. Bony structures are grossly intact. Impression: 1. Nothing acute is definitely appreciated on portable chest x-ray. Diagnostic code #1 This report was dictated in MDT
--- NOTE | 2020-06-19 17:24 | EDM.PDOC ---
ED HPI GENERAL MEDICAL PROBLEM - General Chief Complaint: General Stated Complaint: POSSIBLE STROKE Time Seen by Provider: 06/19/20 16:29 Source of Information: Reports: Family History Limitations: Reports: Altered Mental Status - History of Present Illness INITIAL COMMENTS - FREE TEXT/NARRATIVE: 54-year-old female with past medical history of alcohol abuse, tobacco use disorder, pulmonary embolism presenting with altered mental status. Brought in by spouse to the ED by her with concerns of confusion. I spoke with the by phone. He reports that the patient is sleeping much more often lately. Concerned about the fact that the patient has had multiple falls at home lately. He is concerned that she is having difficulty walking or grasping objects. She is having significant difficulty standing, walking, and taking care of herself. Cannot go to the bathhroom by herself. He has noted slurred speech as well. Over the past few days, the patient has not been oriented to place or time. Thinks she is in [place], [place]. Asking about relatives and pets. Spouse concerned about worsening confusion/disorientation. Spouse denies any acute change in condition today which prompted ED presentation. Was seen in the emergency department 17 days ago with concern for right foot injury. Patient was placed in a walking boot of the right foot and was referred to orthopedics but as far as I can tell she has not followed up for this. Patient unable to participate in HPI due to confusion. - Related Data Allergies Allergy/AdvReac Type Severity Reaction Status Date / Time codeine Allergy Hives Verified 06/19/20 16:25 pseudoephedrine Allergy palpitation Verified 06/19/20 16:25 s Sulfa (Sulfonamide Allergy unknown Verified 06/19/20 16:25 Antibiotics) Home Meds: Home Meds ClonazePAM [KlonoPIN] 2 mg PO TID PRN 04/23/18 [History] Aspirin [Ecotrin EC] 4 tab PO DAILY 09/21/19 [History] Acetaminophen/HYDROcodone [[place] 325-5 MG] 1 tab PO Q6H #12 tablet 06/02/20 [Rx] Magnesium 800 mg PO DAILY 06/02/20 [History] Naproxen [Naprosyn] 500 mg PO Q12HR #20 tab 06/02/20 [Rx] Past Medical History Respiratory History: Reports: 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: Psychiatric History: Reports: Anxiety, Depression, PTSD - Infectious Disease History Infectious Disease History: Reports: UPI-Oybrckvvpo-Uuacstbgc Enterobacteriaceae, Measles, Mumps - Past Surgical History HEENT Surgical History: Reports: Adenoidectomy, Tonsillectomy GI Surgical History: Reports: Appendectomy, Cholecystectomy, Colostomy, Hernia, Abdominal, Other (See Below) Other GI Surgeries/Procedures: prior colostomy and ileostomy Female Surgical History: Reports: Hysterectomy, Salpingo-Oophorectomy Musculoskeletal Surgical History: Reports: Other (See Below) Other Musculoskeletal Surgeries/Procedures:: right thumb surgery Social & Family History - Family History Family Medical History: Noncontributory - Tobacco Use Smoking Status *Q: Former Smoker Used Tobacco, but Quit: Yes Month/Year Tobacco Last Used: 04/2020 - Caffeine Use Caffeine Use: Reports: None - Recreational Drug Use Recreational Drug Use: No ED ROS GENERAL - Review of Systems Review Of Systems: Unable To Obtain Reason Not Obtained: Due to altered mental status ED EXAM, GENERAL - Physical Exam Exam: See Below Free Text/Narrative:: Vital signs reviewed. Nursing notes reviewed. Constitutional: Awake, alert, non-distressed. Head: Normocephalic, atraumatic. Eyes: EOMI, conjunctiva normal, no discharge, no scleral icterus. Pupils 3 mm bilaterally Ears, Nose, Throat: External ears and nose normal, moist oral mucosa. Cardiovascular: 2+ radial pulse, capillary refill less than 2 seconds. Pulmonary: normal work of breathing, no accessory muscle use. CTA BL Abdomen/GI: Soft, nontender, nondistended, no guarding or rigidity, no masses. Musculoskeletal: Swelling and numerous contusions to the right ankle and the right foot. Integumentary: Appropriate color for ethnicity, warm, dry, no pallor or jaund ice, no rash. There are 2 areas of ulceration to the right foot which appear black, there is no associated drainage or surrounding erythema, they appear clean. Neurologic: Alert, not oriented to place/time/event. Slurred speech, no facial droop, moving all extremities well. Psychiatric: Inappropriate judgment EKG INTERPRETATION EKG Interpretation Comments: 12-Lead ECG Interpretation Acquired: 4:57 PM Rhythm: Sinus rhythm Rate: 71 bpm [place]: [place] Intervals: Right bundle branch block Ectopy: None Ischemic Changes: None apparent RV Strain: No obvious RV strain pattern. ST Segments/T-Waves: No notable changes Course - Vital Signs Text/Narrative:: Differential diagnosis includes but is not limited to: CVA, hepatic or hypertensive encephalopathy, hypo-/hyperglycemia, hypo-/hyperthermia, opiate overdose, alcohol intoxication, electrolyte abnormality, uremia, traumatic injury, toxic substances, intracerebral tumor, thyrotoxicosis, infection, psychiatric condition, seizure, sepsis, and many others. On exam patient is markedly encephalopathic and is not able to answer questions about place, time, or event. There is no gross neurologic deficit this point, so low suspicion for stroke. IV access was established and labs were sent. She was placed on nasal cannula oxygen with normalization of her pulse oximetry readings. When she is asleep, her pulse oximetry readings on room air dipped to the mid 70s. CT imaging of the head was unremarkable. We obtained x-rays of the chest which were clear. Radiologist read the x-rays of the right foot is normal but I am concerned about a possible fracture of the proximal right fourth metatarsal. CBC shows a new microcytic anemia. INR is normal. Venous blood gas shows a mild respiratory acidosis with a normal venous pH. Patient is wide awake and has normal tidal volume, so I do not feel that respiratory depression due to opioids was at play and we will not administer naloxone at this point. Metabolic panel shows mild hypokalemia, total bilirubin is elevated at 1.6 and alkaline phosphatase is 142. Ammonia is within normal limits. Troponin is negative. Urinalysis shows positive nitrites but only 2-3 white blood cells, small leukocyte esterase. Few urine bacteria. We will add on a urine culture and administer IV antibiotics. Toxicology screen was positive for oxycodone, alcohol level is negative. Ordered IV magnesium sulfate along with IV potassium replacement. I spoke with the accepting hospitalist Dr. Lee who agrees to admit. We are going to order a CT pulmonary angiogram study to evaluate for her hypoxia given recent pulmonary embolism history and spotty anticoagulation adherence. Signed out to my colleague Dr. Sanchez awaiting results of the CT scan, will be admitted afterwards assuming this is negative. Last Recorded V/S: Last Vital Signs Temp 36.6 C 06/20/20 04:00 Pulse 63 06/20/20 04:00 Resp 18 06/20/20 04:00 BP 111/57 L 06/20/20 04:00 Pulse Ox 94 L 06/20/20 04:00 - Orders/Labs/Meds Orders: Active Orders 24 hr Category Date Time Status Cardiac Monitoring [RC] . DIRECTED Care 06/19/20 16:40 Active Pulse Oximetry [RC] ASDIRECTED Care 06/19/20 16:40 Active CULTURE BLOOD [BC] Stat Lab 06/19/20 16:50 Received CULTURE BLOOD [BC] Stat Lab 06/19/20 17:13 Results CULTURE URINE [RM] Stat Lab 06/19/20 18:09 Received Sodium Chloride 0.9% [Saline Flush] Med 06/19/20 16:40 Active 10 ml FLUSH ASDIRECTED PRN Sodium Chloride 0.9% [Saline Flush] Med 06/19/20 16:40 Active 2.5 ml FLUSH ASDIRECTED PRN Blood Culture x2 Reflex Set [OM.PC] Stat Oth 06/19/20 16:43 Ordered Saline Lock Insert [OM.PC] Stat Oth 06/19/20 16:41 Ordered Medication Orders Acetaminophen (Tylenol) 650 mg PO Q4H PRN PRN Reason: Pain (Mild 1-3)/fever Enoxaparin Sodium (Lovenox) 40 mg SUBCUT Q24H [facility] Last Admin: 06/19/20 20:07 Dose: 40 mg Documented by: [place] Ceftriaxone Sodium/Dextrose 1 (gm/ Premix) 50 mls @ 100 mls/hr IV Q24H [facility] Lactated Ringer's (Ringers, Lactated) 1,000 mls @ 100 mls/hr IV ASDIRECTED [facility] Last Admin: 06/19/20 21:44 Dose: 100 mls/hr Documented by: ROSA Lorazepam (Ativan) 1 mg PO Q4H PRN PRN Reason: Agitation Ondansetron HCl (Zofran Odt) 4 mg PO Q4H PRN PRN Reason: nausea, able to take PO Ondansetron HCl (Zofran) 4 mg IVPUSH Q4H PRN PRN Reason: Nausea Sodium Chloride (Saline Flush) 10 ml FLUSH ASDIRECTED PRN PRN Reason: Keep Vein Open Last Admin: 06/19/20 17:56 Dose: 10 ml Documented by: GROTALI Sodium Chloride (Saline Flush) 2.5 ml FLUSH ASDIRECTED PRN PRN Reason: Keep Vein Open Last Admin: 06/19/20 17:56 Dose: 2.5 ml Documented by: [place] Labs: Laboratory Tests 06/19/20 06/19/20 06/19/20 Range/Units 16:40 16:40 16:40 WBC 4.65 (4.0-11.0) K/uL RBC 4.40 (4.30-5.90) M/uL Hgb 9.9 L (12.0-16.0) g/dL Hct 34.5 L (36.0-46.0) % MCV 78.4 L (80.0-98.0) fL MCH 22.5 L (27.0-32.0) pg MCHC 28.7 L (31.0-37.0) g/dL RDW Std Deviation 59.3 (28.0-62.0) fl RDW Coeff of Thiago 21 H (11.0-15.0) % Plt Count 104 L (150-400) K/uL MPV 10.30 (7.40-12.00) fL Neut % (Auto) 55.3 (48.0-80.0) % Lymph % (Auto) 36.3 (16.0-40.0) % [place] % (Auto) 7.3 (0.0-15.0) % Eos % (Auto) 0.9 (0.0-7.0) % Baso % (Auto) 0.2 (0.0-1.5) % Neut # (Auto) 2.6 (1.4-5.7) K/uL Lymph # (Auto) 1.7 (0.6-2.4) K/uL [place] # (Auto) 0.3 (0.0-0.8) K/uL Eos # (Auto) 0.0 (0.0-0.7) K/uL Baso # (Auto) 0.0 (0.0-0.1) K/uL Nucleated RBC % 0.0 /100WBC Nucleated RBCs # 0 K/uL INR 1.15 VBG pH (7.31-7.41) VBG pCO2 (35-45) mmHG VBG pO2 (30-40) mmHG VBG HCO3 (22-30) mEq/L VBG Total CO2 (41-51) mmol/L VBG Base Excess (-3.0-3.0) Lactate (0.20-2.00) mmol/L Sodium 139 (136-145) mmol/L Potassium 3.1 L (3.5-5.1) mmol/L Chloride 102 (98-107) mmol/L Carbon Dioxide 33.3 H (21.0-32.0) mmol/L BUN 7 (7.0-18.0) mg/dL Creatinine 0.9 (0.6-1.0) mg/dL Est Cr Clr Drug Dosing TNP Estimated GFR (MDRD) > 60.0 ml/min Glucose 83 (74-106) mg/dL Calcium 8.2 L (8.5-10.1) mg/dL Total Bilirubin 1.6 H (0.2-1.0) mg/dL AST 28 (15-37) IU/L ALT 36 (14-63) IU/L Alkaline Phosphatase 142 H (46-116) U/L Ammonia (19-54) ug/dL Troponin I < 0.050 (0.000-0.056) ng/mL Total Protein 6.7 (6.4-8.2) g/dL Albumin 2.8 L (3.4-5.0) g/dL Globulin 3.9 (2.6-4.0) g/dL Albumin/Globulin Ratio 0.7 L (0.9-1.6) Urine Color Urine Appearance Urine pH (5.0-8.0) Ur Specific [place] (1.001-1.035) Urine Protein (NEGATIVE) mg/dL Urine Glucose (UA) (NEGATIVE) mg/dL Urine Ketones (NEGATIVE) mg/dL Urine Occult Blood (NEGATIVE) Urine Nitrite (NEGATIVE) Urine Bilirubin (NEGATIVE) Urine Ictotest Urine Urobilinogen (<2.0) EU/dL Ur Leukocyte Esterase (NEGATIVE) Urine RBC (0-2/HPF) Urine WBC (0-5/HPF) Ur Epithelial Cells (NONE-FEW) Urine Bacteria (NEGATIVE) Urine Opiates Screen (NEGATIVE) Ur Oxycodone Screen (NEGATIVE) Urine Methadone Screen (NEGATIVE) Ur Barbiturates Screen (NEGATIVE) Ur Phencyclidine Scrn (NEGATIVE) Ur Amphetamine Screen (NEGATIVE) U Methamphetamines Scrn (NEGATIVE) U Benzodiazepines Scrn (NEGATIVE) U Cocaine Metab Screen (NEGATIVE) U Marijuana (THC) Screen (NEGATIVE) Ethyl Alcohol < 3.0 mg/dL 06/19/20 06/19/20 06/19/20 Range/Units 17:13 17:13 17:13 WBC (4.0-11.0) K/uL RBC (4.30-5.90) M/uL Hgb (12.0-16.0) g/dL Hct (36.0-46.0) % MCV (80.0-98.0) fL MCH (27.0-32.0) pg MCHC (31.0-37.0) g/dL RDW Std Deviation (28.0-62.0) fl RDW Coeff of Thiago (11.0-15.0) % Plt Count (150-400) K/uL MPV (7.40-12.00) fL Neut % (Auto) (48.0-80.0) % Lymph % (Auto) (16.0-40.0) % [place] % (Auto) (0.0-15.0) % Eos % (Auto) (0.0-7.0) % Baso % (Auto) (0.0-1.5) % Neut # (Auto) (1.4-5.7) K/uL Lymph # (Auto) (0.6-2.4) K/uL [place] # (Auto) (0.0-0.8) K/uL Eos # (Auto) (0.0-0.7) K/uL Baso # (Auto) (0.0-0.1) K/uL Nucleated RBC % /100WBC Nucleated RBCs # K/uL INR VBG pH 7.38 (7.31-7.41) VBG pCO2 53 H (35-45) mmHG VBG pO2 29 L (30-40) mmHG VBG HCO3 32 H (22-30) mEq/L VBG Total CO2 30 L (41-51) mmol/L VBG Base Excess 5.7 H (-3.0-3.0) Lactate 1.2 (0.20-2.00) mmol/L Sodium (136-145) mmol/L Potassium (3.5-5.1) mmol/L Chloride (98-107) mmol/L Carbon Dioxide (21.0-32.0) mmol/L BUN (7.0-18.0) mg/dL Creatinine (0.6-1.0) mg/dL Est Cr Clr Drug Dosing Estimated GFR (MDRD) ml/min Glucose (74-106) mg/dL Calcium (8.5-10.1) mg/dL Total Bilirubin (0.2-1.0) mg/dL AST (15-37) IU/L ALT (14-63) IU/L Alkaline Phosphatase (46-116) U/L Ammonia 27 (19-54) ug/dL Troponin I (0.000-0.056) ng/mL Total Protein (6.4-8.2) g/dL Albumin (3.4-5.0) g/dL Globulin (2.6-4.0) g/dL Albumin/Globulin Ratio (0.9-1.6) Urine Color Urine Appearance Urine pH (5.0-8.0) Ur Specific [place] (1.001-1.035) Urine Protein (NEGATIVE) mg/dL Urine Glucose (UA) (NEGATIVE) mg/dL Urine Ketones (NEGATIVE) mg/dL Urine Occult Blood (NEGATIVE) Urine Nitrite (NEGATIVE) Urine Bilirubin (NEGATIVE) Urine Ictotest Urine Urobilinogen (<2.0) EU/dL Ur Leukocyte Esterase (NEGATIVE) Urine RBC (0-2/HPF) Urine WBC (0-5/HPF) Ur Epithelial Cells (NONE-FEW) Urine Bacteria (NEGATIVE) Urine Opiates Screen (NEGATIVE) Ur Oxycodone Screen (NEGATIVE) Urine Methadone Screen (NEGATIVE) Ur Barbiturates Screen (NEGATIVE) Ur Phencyclidine Scrn (NEGATIVE) Ur Amphetamine Screen (NEGATIVE) U Methamphetamines Scrn (NEGATIVE) U Benzodiazepines Scrn (NEGATIVE) U Cocaine Metab Screen (NEGATIVE) U Marijuana (THC) Screen (NEGATIVE) Ethyl Alcohol mg/dL 06/19/20 06/19/20 Range/Units 18:09 18:09 WBC (4.0-11.0) K/uL RBC (4.30-5.90) M/uL Hgb (12.0-16.0) g/dL Hct (36.0-46.0) % MCV (80.0-98.0) fL MCH (27.0-32.0) pg MCHC (31.0-37.0) g/dL RDW Std Deviation (28.0-62.0) fl RDW Coeff of Thiago (11.0-15.0) % Plt Count (150-400) K/uL MPV (7.40-12.00) fL Neut % (Auto) (48.0-80.0) % Lymph % (Auto) (16.0-40.0) % [place] % (Auto) (0.0-15.0) % Eos % (Auto) (0.0-7.0) % Baso % (Auto) (0.0-1.5) % Neut # (Auto) (1.4-5.7) K/uL Lymph # (Auto) (0.6-2.4) K/uL [place] # (Auto) (0.0-0.8) K/uL Eos # (Auto) (0.0-0.7) K/uL Baso # (Auto) (0.0-0.1) K/uL Nucleated RBC % /100WBC Nucleated RBCs # K/uL INR VBG pH (7.31-7.41) VBG pCO2 (35-45) mmHG VBG pO2 (30-40) mmHG VBG HCO3 (22-30) mEq/L VBG Total CO2 (41-51) mmol/L VBG Base Excess (-3.0-3.0) Lactate (0.20-2.00) mmol/L Sodium (136-145) mmol/L Potassium (3.5-5.1) mmol/L Chloride (98-107) mmol/L Carbon Dioxide (21.0-32.0) mmol/L BUN (7.0-18.0) mg/dL Creatinine (0.6-1.0) mg/dL Est Cr Clr Drug Dosing Estimated GFR (MDRD) ml/min Glucose (74-106) mg/dL Calcium (8.5-10.1) mg/dL Total Bilirubin (0.2-1.0) mg/dL AST (15-37) IU/L ALT (14-63) IU/L Alkaline Phosphatase (46-116) U/L Ammonia (19-54) ug/dL Troponin I (0.000-0.056) ng/mL Total Protein (6.4-8.2) g/dL Albumin (3.4-5.0) g/dL Globulin (2.6-4.0) g/dL Albumin/Globulin Ratio (0.9-1.6) Urine Color YELLOW Urine Appearance SLT CLOUDY Urine pH 7.5 (5.0-8.0) Ur Specific [place] 1.020 (1.001-1.035) Urine Protein TRACE H (NEGATIVE) mg/dL Urine Glucose (UA) NEGATIVE (NEGATIVE) mg/dL Urine Ketones TRACE H (NEGATIVE) mg/dL Urine Occult Blood NEGATIVE (NEGATIVE) Urine Nitrite POSITIVE H (NEGATIVE) Urine Bilirubin SMALL H (NEGATIVE) Urine Ictotest NEGATIVE Urine Urobilinogen >=8.0 H (<2.0) EU/dL Ur Leukocyte Esterase SMALL H (NEGATIVE) Urine RBC 0-1 (0-2/HPF) Urine WBC 2-3 (0-5/HPF) Ur Epithelial Cells OCCASIONAL (NONE-FEW) Urine Bacteria FEW (NEGATIVE) Urine Opiates Screen NEGATIVE (NEGATIVE) Ur Oxycodone Screen POSITIVE (NEGATIVE) Urine Methadone Screen NEGATIVE (NEGATIVE) Ur Barbiturates Screen NEGATIVE (NEGATIVE) Ur Phencyclidine Scrn NEGATIVE (NEGATIVE) Ur Amphetamine Screen NEGATIVE (NEGATIVE) U Methamphetamines Scrn NEGATIVE (NEGATIVE) U Benzodiazepines Scrn NEGATIVE (NEGATIVE) U Cocaine Metab Screen NEGATIVE (NEGATIVE) U Marijuana (THC) Screen NEGATIVE (NEGATIVE) Ethyl Alcohol mg/dL Meds: Medications Generic Name Dose Route Start Last Admin Trade Name Freq PRN Reason Stop Dose Admin Acetaminophen 650 mg 06/19/20 19:35 Tylenol PO Q4H PRN Pain (Mild 1-3)/fever Enoxaparin Sodium 40 mg 06/19/20 20:00 06/19/20 20:07 Lovenox SUBCUT 40 mg Q24H [facility] Administration Ceftriaxone Sodium/Dextrose 1 50 mls @ 100 mls/hr 06/20/20 18:00 gm/ Premix IV Q24H [facility] Lactated Ringer's 1,000 mls @ 100 mls/hr 06/19/20 20:15 06/19/20 21:44 Ringers, Lactated IV 100 mls/hr ASDIRECTED [facility]WIN Administration Lorazepam 1 mg 06/19/20 19:51 Ativan PO Q4H PRN Agitation Ondansetron HCl 4 mg 06/19/20 19:35 Zofran Odt PO Q4H PRN nausea, able to take PO Ondansetron HCl 4 mg 06/19/20 19:35 Zofran IVPUSH Q4H PRN Nausea Sodium Chloride 10 ml 06/19/20 16:40 06/19/20 17:56 Saline Flush FLUSH 10 ml ASDIRECTED PRN Administration Keep Vein Open Sodium Chloride 2.5 ml 06/19/20 16:40 06/19/20 17:56 Saline Flush FLUSH 2.5 ml ASDIRECTED PRN Administration Keep Vein Open Discontinued Medications Generic Name Dose Route Start Last Admin Trade Name Freq PRN Reason Stop Dose Admin Ceftriaxone Sodium/Dextrose 1 50 mls @ 100 mls/hr 06/19/20 18:40 06/19/20 18:52 gm/ Premix IV 06/19/20 19:09 100 mls/hr ONETIME ONE Administration Magnesium Sulfate 2 gm/ Premix 50 mls @ 50 mls/hr 06/19/20 18:41 06/19/20 18:53 IV 06/19/20 19:40 50 mls/hr ONETIME ONE Administration Potassium Chloride 20 meq/ 50 mls @ 25 mls/hr 06/19/20 18:58 06/19/20 20:00 Premix IV 06/19/20 20:57 25 mls/hr ONETIME ONE Administration Lactated Ringer's 1,000 mls @ 100 mls/hr 06/19/20 20:00 Ringers, Lactated IV 06/20/20 05:59 ASDIRECTED EDWIN Iopamidol 60 ml 06/19/20 20:42 06/19/20 20:43 Isovue Multipack-370 (76%) IVPUSH 06/19/20 20:43 60 ml ONETIME STA Administration Departure - Departure Time of Disposition: 19:41 Disposition: Refer to Observation Condition: Fair Clinical Impression: Acute encephalopathy - Discharge Information Sepsis Event Note (ED) - Evaluation Sepsis Screening Result: No Definite Risk - My Orders Last 24 Hours: My Active Orders 06/19/20 16:40 Cardiac Monitoring [RC] . DIRECTED Pulse Oximetry [RC] ASDIRECTED Sodium Chloride 0.9% [Saline Flush] 10 ml FLUSH ASDIRECTED PRN Sodium Chloride 0.9% [Saline Flush] 2.5 ml FLUSH ASDIRECTED PRN 06/19/20 16:41 Saline Lock Insert [OM.PC] Stat 06/19/20 16:43 Blood Culture x2 Reflex Set [OM.PC] Stat 06/19/20 16:50 CULTURE BLOOD [BC] Stat 06/19/20 17:13 CULTURE BLOOD [BC] Stat 06/19/20 18:09 CULTURE URINE [RM] Stat - Assessment/Plan Last 24 Hours: My Active Orders 06/19/20 16:40 Cardiac Monitoring [RC] . DIRECTED Pulse Oximetry [RC] ASDIRECTED Sodium Chloride 0.9% [Saline Flush] 10 ml FLUSH ASDIRECTED PRN Sodium Chloride 0.9% [Saline Flush] 2.5 ml FLUSH ASDIRECTED PRN 06/19/20 16:41 Saline Lock Insert [OM.PC] Stat 06/19/20 16:43 Blood Culture x2 Reflex Set [OM.PC] Stat 06/19/20 16:50 CULTURE BLOOD [BC] Stat 06/19/20 17:13 CULTURE BLOOD [BC] Stat 06/19/20 18:09 CULTURE URINE [RM] Stat
--- NOTE | 2020-06-19 17:43 | CT ---
Head CT Technique: Multiple axial sections through the brain were obtained. Intravenous contrast was not utilized. Comparison: No prior intracranial imaging is available. Findings: Ventricles along with basal cisterns and sulci over the convexities are mildly prominent. No abnormal parenchymal densities are seen. No evidence of intracranial hemorrhage. No midline shift or mass-effect is seen. Visualized paranasal sinuses show nothing acute. No acute calvarial abnormality is seen. Minimal mucosal thickening within the mastoid sinus is seen most likely chronic. Impression: 1. Minimal mastoid sinus findings most likely chronic. 2. Mild generalized atrophy. 3. No acute intracranial abnormality is appreciated. Diagnostic code #2 This report was dictated in MDT
--- NOTE | 2020-06-19 18:01 | CR ---
Right foot: 3 views of the right foot were obtained. Comparison: Prior right foot exam of 06/02/20. Findings: Diffuse soft tissue swelling is noted. No discrete fracture or other bony abnormality is appreciated. Impression: 1. Soft tissue swelling. 2. No definite acute bony abnormality is appreciated. Note: If patient's symptoms are persistent, MRI could be considered to further evaluate. Diagnostic code #2 This report was dictated in MDT
[2020-06-19] MEDS ORDERED: cefTRIAXone 1 GM in Premix Bag 1 BAG IV ONE (18:40)
[2020-06-19] MEDS ORDERED: Magnesium Sulfate/Water 2 GM in Premix Bag 1 BAG IV ONE (18:41)
[2020-06-19] MEDS ORDERED: Potassium Chloride Riders 20 MEQ in Premix Bag 1 BAG IV ONE (18:58)
[2020-06-19] MEDS ORDERED: Ondansetron 4 MG/2 ML SDV IVPUSH PRN (19:35)
[2020-06-19] MEDS ORDERED: Ondansetron 4 MG Tab.DIS PO PRN (19:35)
[2020-06-19] MEDS ORDERED: Acetaminophen 325 MG Tab PO PRN (19:35)
--- NOTE | 2020-06-19 19:40 | PCM.HP.2 ---
<Jerardo Del Real M - Last Filed: 06/19/20 20:26> H&P History of Present Illness - General Date of Service: 06/19/20 Admit Problem/Dx: Admission Diagnosis/Problem Admission Diagnosis/Problem Acute encephalopathy Source of Information: Patient History Limitations: Reports: Altered Mental Status - History of Present Illness Initial Comments - Free Text/Narative: 54-year-old female complaining of fatigue, shortness of breath and frequent falls for the past few days. History taking limited secondary to patient's altered mental status. She has a PMH of pulmonary embolism, anxiety, PTSD and tobacco abuse. Patient was brought to hospital by her who noted that patient has been confused and has been falling frequently. Per ED note, further reports that she has had slurred speech and difficulty walking. Patient has also been inquiring about relatives and pets. Patient is alert to person and place during interview. She reports that she has a history of COPD and uses oxygen at home. She states that her oxygen level at baseline is 3.5 L. She denies having any fevers, chills, vomiting or dysuria. In the ED, CT head and CXR were negative. UA showed positive nitrites and esterase. UDS positive for oxycodone and ethanol level normal. COVID19 test negative. VBG: pCO2 53, pO2 29, HCO3 32. Lactate level normal. Patient given dose of IV ceftriaxone. Patient admitted for further evaluation and treatment. - Related Data Allergies/Adverse Reactions: Allergies Allergy/AdvReac Type Severity Reaction Status Date / Time codeine Allergy Hives Verified 06/19/20 16:25 pseudoephedrine Allergy palpitation Verified 06/19/20 16:25 s Sulfa (Sulfonamide Allergy unknown Verified 06/19/20 16:25 Antibiotics) Home Medications: Home Meds ClonazePAM [KlonoPIN] 2 mg PO TID PRN 04/23/18 [History] Naproxen [Naprosyn] 500 mg PO Q12HR #20 tab 06/02/20 [Rx] Apixaban [Eliquis] 5 mg PO BID 06/20/20 [History] Budesonide [Pulmicort] 1 vial IH BID 06/20/20 [History] Umeclidinium Brm/Vilanterol Tr [Anoro Ellipta 62.5-25 MCG] 1 puff IH DAILY 06/20/20 [History] Ciprofloxacin [Ciprofloxacin HCl] 500 mg PO BID 3 Days #6 tab 06/21/20 [Rx] Iron Polysaccharides Complex [Ferrex 150] 150 mg PO DAILY 30 Days #30 cap 06/21/20 [Rx] Past Medical History Respiratory History: Reports: SOB [employer] History: Reports: Psychiatric History: Reports: Anxiety, Depression, PTSD - Infectious Disease History Infectious Disease History: Reports: CTK-[id number]-[id number] Enterobacteriaceae, Measles, Mumps - Past Surgical History HEENT Surgical History: Reports: Adenoidectomy, Tonsillectomy GI Surgical History: Reports: Appendectomy, Cholecystectomy, Colostomy, Hernia, Abdominal, Other (See Below) Other GI Surgeries/Procedures: prior colostomy and ileostomy Female Surgical History: Reports: Hysterectomy, Salpingo-Oophorectomy Musculoskeletal Surgical History: Reports: Other (See Below) Other Musculoskeletal Surgeries/Procedures:: right thumb surgery Social & Family History - Family History Family Medical History: Noncontributory - Tobacco Use Smoking Status *Q: Former Smoker Used Tobacco, but Quit: Yes Month/Year Tobacco Last Used: 04/2020 - Caffeine Use Caffeine Use: Reports: None - Recreational Drug Use Recreational Drug Use: No H&P Review of Systems - Review of Systems: Review Of Systems: Comprehensive ROS is negative, except as noted in HPI. (ROS limited secondary to patient's mentation) Exam - Exam Exam: See Below - Vital Signs Vital Signs: Last Vital Signs Temp 35.8 C L 06/19/20 16:19 Pulse 87 06/19/20 17:45 Resp 14 06/19/20 17:45 BP 127/72 06/19/20 17:45 Pulse Ox 96 06/19/20 17:45 Weight: 90.718 kg - Exam General: Alert, Cooperative, Other (awake, alert, oriented to person and place. Slow to respond.) HEENT: Conjunctiva Clear, EOMI, Hearing Intact, Pupils Equal Lungs: Clear to Auscultation, Normal Respiratory Effort Cardiovascular: Regular Rate, Regular Rhythm GI/Abdominal Exam: Normal Bowel Sounds, Soft, Non-Tender, No Distention Extremities: Other (Right foot is edematous and erythematous) Peripheral Pulses: 2+: Radial (L), Radial (R) Skin: Other (There are two circular lesions measuring approximately 4 cm x 4 cm with black-colored eschar on right foot, no drainage appreciated) Neuro Extensive - Mental Status: Alert, Disorientation to Time, Slow Response to Commands Neuro Extensive - Motor, Sensory, Reflexes: CN II-XII Intact, Other (Moves all extremities on command) - Patient Data Lab Results Last 24 hrs: Laboratory Results - last 24 hr 06/19/20 06/19/20 06/19/20 Range/Units 16:40 16:40 16:40 WBC 4.65 (4.0-11.0) K/uL RBC 4.40 (4.30-5.90) M/uL Hgb 9.9 L (12.0-16.0) g/dL Hct 34.5 L (36.0-46.0) % MCV 78.4 L (80.0-98.0) fL MCH 22.5 L (27.0-32.0) pg MCHC 28.7 L (31.0-37.0) g/dL RDW Std Deviation 59.3 (28.0-62.0) fl RDW Coeff of Thiago 21 H (11.0-15.0) % Plt Count 104 L (150-400) K/uL MPV 10.30 (7.40-12.00) fL Neut % (Auto) 55.3 (48.0-80.0) % Lymph % (Auto) 36.3 (16.0-40.0) % [place] % (Auto) 7.3 (0.0-15.0) % Eos % (Auto) 0.9 (0.0-7.0) % Baso % (Auto) 0.2 (0.0-1.5) % Neut # (Auto) 2.6 (1.4-5.7) K/uL Lymph # (Auto) 1.7 (0.6-2.4) K/uL [place] # (Auto) 0.3 (0.0-0.8) K/uL Eos # (Auto) 0.0 (0.0-0.7) K/uL Baso # (Auto) 0.0 (0.0-0.1) K/uL Nucleated RBC % 0.0 /100WBC Nucleated RBCs # 0 K/uL INR 1.15 VBG pH (7.31-7.41) VBG pCO2 (35-45) mmHG VBG pO2 (30-40) mmHG VBG HCO3 (22-30) mEq/L VBG Total CO2 (41-51) mmol/L VBG Base Excess (-3.0-3.0) Lactate (0.20-2.00) mmol/L Sodium 139 (136-145) mmol/L Potassium 3.1 L (3.5-5.1) mmol/L Chloride 102 (98-107) mmol/L Carbon Dioxide 33.3 H (21.0-32.0) mmol/L BUN 7 (7.0-18.0) mg/dL Creatinine 0.9 (0.6-1.0) mg/dL Est Cr Clr Drug Dosing TNP Estimated GFR (MDRD) > 60.0 ml/min Glucose 83 (74-106) mg/dL Calcium 8.2 L (8.5-10.1) mg/dL Total Bilirubin 1.6 H (0.2-1.0) mg/dL AST 28 (15-37) IU/L ALT 36 (14-63) IU/L Alkaline Phosphatase 142 H (46-116) U/L Ammonia (19-54) ug/dL Troponin I < 0.050 (0.000-0.056) ng/mL Total Protein 6.7 (6.4-8.2) g/dL Albumin 2.8 L (3.4-5.0) g/dL Globulin 3.9 (2.6-4.0) g/dL Albumin/Globulin Ratio 0.7 L (0.9-1.6) Urine Color Urine Appearance Urine pH (5.0-8.0) Ur Specific [place] (1.001-1.035) Urine Protein (NEGATIVE) mg/dL Urine Glucose (UA) (NEGATIVE) mg/dL Urine Ketones (NEGATIVE) mg/dL Urine Occult Blood (NEGATIVE) Urine Nitrite (NEGATIVE) Urine Bilirubin (NEGATIVE) Urine Ictotest Urine Urobilinogen (<2.0) EU/dL Ur Leukocyte Esterase (NEGATIVE) Urine RBC (0-2/HPF) Urine WBC (0-5/HPF) Ur Epithelial Cells (NONE-FEW) Urine Bacteria (NEGATIVE) Urine Opiates Screen (NEGATIVE) Ur Oxycodone Screen (NEGATIVE) Urine Methadone Screen (NEGATIVE) Ur Barbiturates Screen (NEGATIVE) Ur Phencyclidine Scrn (NEGATIVE) Ur Amphetamine Screen (NEGATIVE) U Methamphetamines Scrn (NEGATIVE) U Benzodiazepines Scrn (NEGATIVE) U Cocaine Metab Screen (NEGATIVE) U Marijuana (THC) Screen (NEGATIVE) Ethyl Alcohol < 3.0 mg/dL 06/19/20 06/19/20 06/19/20 Range/Units 17:13 17:13 17:13 WBC (4.0-11.0) K/uL RBC (4.30-5.90) M/uL Hgb (12.0-16.0) g/dL Hct (36.0-46.0) % MCV (80.0-98.0) fL MCH (27.0-32.0) pg MCHC (31.0-37.0) g/dL RDW Std Deviation (28.0-62.0) fl RDW Coeff of Thiago (11.0-15.0) % Plt Count (150-400) K/uL MPV (7.40-12.00) fL Neut % (Auto) (48.0-80.0) % Lymph % (Auto) (16.0-40.0) % [place] % (Auto) (0.0-15.0) % Eos % (Auto) (0.0-7.0) % Baso % (Auto) (0.0-1.5) % Neut # (Auto) (1.4-5.7) K/uL Lymph # (Auto) (0.6-2.4) K/uL [place] # (Auto) (0.0-0.8) K/uL Eos # (Auto) (0.0-0.7) K/uL Baso # (Auto) (0.0-0.1) K/uL Nucleated RBC % /100WBC Nucleated RBCs # K/uL INR VBG pH 7.38 (7.31-7.41) VBG pCO2 53 H (35-45) mmHG VBG pO2 29 L (30-40) mmHG VBG HCO3 32 H (22-30) mEq/L VBG Total CO2 30 L (41-51) mmol/L VBG Base Excess 5.7 H (-3.0-3.0) Lactate 1.2 (0.20-2.00) mmol/L Sodium (136-145) mmol/L Potassium (3.5-5.1) mmol/L Chloride (98-107) mmol/L Carbon Dioxide (21.0-32.0) mmol/L BUN (7.0-18.0) mg/dL Creatinine (0.6-1.0) mg/dL Est Cr Clr Drug Dosing Estimated GFR (MDRD) ml/min Glucose (74-106) mg/dL Calcium (8.5-10.1) mg/dL Total Bilirubin (0.2-1.0) mg/dL AST (15-37) IU/L ALT (14-63) IU/L Alkaline Phosphatase (46-116) U/L Ammonia 27 (19-54) ug/dL Troponin I (0.000-0.056) ng/mL Total Protein (6.4-8.2) g/dL Albumin (3.4-5.0) g/dL Globulin (2.6-4.0) g/dL Albumin/Globulin Ratio (0.9-1.6) Urine Color Urine Appearance Urine pH (5.0-8.0) Ur Specific [place] (1.001-1.035) Urine Protein (NEGATIVE) mg/dL Urine Glucose (UA) (NEGATIVE) mg/dL Urine Ketones (NEGATIVE) mg/dL Urine Occult Blood (NEGATIVE) Urine Nitrite (NEGATIVE) Urine Bilirubin (NEGATIVE) Urine Ictotest Urine Urobilinogen (<2.0) EU/dL Ur Leukocyte Esterase (NEGATIVE) Urine RBC (0-2/HPF) Urine WBC (0-5/HPF) Ur Epithelial Cells (NONE-FEW) Urine Bacteria (NEGATIVE) Urine Opiates Screen (NEGATIVE) Ur Oxycodone Screen (NEGATIVE) Urine Methadone Screen (NEGATIVE) Ur Barbiturates Screen (NEGATIVE) Ur Phencyclidine Scrn (NEGATIVE) Ur Amphetamine Screen (NEGATIVE) U Methamphetamines Scrn (NEGATIVE) U Benzodiazepines Scrn (NEGATIVE) U Cocaine Metab Screen (NEGATIVE) U Marijuana (THC) Screen (NEGATIVE) Ethyl Alcohol mg/dL 06/19/20 06/19/20 Range/Units 18:09 18:09 WBC (4.0-11.0) K/uL RBC (4.30-5.90) M/uL Hgb (12.0-16.0) g/dL Hct (36.0-46.0) % MCV (80.0-98.0) fL MCH (27.0-32.0) pg MCHC (31.0-37.0) g/dL RDW Std Deviation (28.0-62.0) fl RDW Coeff of Thiago (11.0-15.0) % Plt Count (150-400) K/uL MPV (7.40-12.00) fL Neut % (Auto) (48.0-80.0) % Lymph % (Auto) (16.0-40.0) % [place] % (Auto) (0.0-15.0) % Eos % (Auto) (0.0-7.0) % Baso % (Auto) (0.0-1.5) % Neut # (Auto) (1.4-5.7) K/uL Lymph # (Auto) (0.6-2.4) K/uL [place] # (Auto) (0.0-0.8) K/uL Eos # (Auto) (0.0-0.7) K/uL Baso # (Auto) (0.0-0.1) K/uL Nucleated RBC % /100WBC Nucleated RBCs # K/uL INR VBG pH (7.31-7.41) VBG pCO2 (35-45) mmHG VBG pO2 (30-40) mmHG VBG HCO3 (22-30) mEq/L VBG Total CO2 (41-51) mmol/L VBG Base Excess (-3.0-3.0) Lactate (0.20-2.00) mmol/L Sodium (136-145) mmol/L Potassium (3.5-5.1) mmol/L Chloride (98-107) mmol/L Carbon Dioxide (21.0-32.0) mmol/L BUN (7.0-18.0) mg/dL Creatinine (0.6-1.0) mg/dL Est Cr Clr Drug Dosing Estimated GFR (MDRD) ml/min Glucose (74-106) mg/dL Calcium (8.5-10.1) mg/dL Total Bilirubin (0.2-1.0) mg/dL AST (15-37) IU/L ALT (14-63) IU/L Alkaline Phosphatase (46-116) U/L Ammonia (19-54) ug/dL Troponin I (0.000-0.056) ng/mL Total Protein (6.4-8.2) g/dL Albumin (3.4-5.0) g/dL Globulin (2.6-4.0) g/dL Albumin/Globulin Ratio (0.9-1.6) Urine Color YELLOW Urine Appearance SLT CLOUDY Urine pH 7.5 (5.0-8.0) Ur Specific [place] 1.020 (1.001-1.035) Urine Protein TRACE H (NEGATIVE) mg/dL Urine Glucose (UA) NEGATIVE (NEGATIVE) mg/dL Urine Ketones TRACE H (NEGATIVE) mg/dL Urine Occult Blood NEGATIVE (NEGATIVE) Urine Nitrite POSITIVE H (NEGATIVE) Urine Bilirubin SMALL H (NEGATIVE) Urine Ictotest NEGATIVE Urine Urobilinogen >=8.0 H (<2.0) EU/dL Ur Leukocyte Esterase SMALL H (NEGATIVE) Urine RBC 0-1 (0-2/HPF) Urine WBC 2-3 (0-5/HPF) Ur Epithelial Cells OCCASIONAL (NONE-FEW) Urine Bacteria FEW (NEGATIVE) Urine Opiates Screen NEGATIVE (NEGATIVE) Ur Oxycodone Screen POSITIVE (NEGATIVE) Urine Methadone Screen NEGATIVE (NEGATIVE) Ur Barbiturates Screen NEGATIVE (NEGATIVE) Ur Phencyclidine Scrn NEGATIVE (NEGATIVE) Ur Amphetamine Screen NEGATIVE (NEGATIVE) U Methamphetamines Scrn NEGATIVE (NEGATIVE) U Benzodiazepines Scrn NEGATIVE (NEGATIVE) U Cocaine Metab Screen NEGATIVE (NEGATIVE) U Marijuana (THC) Screen NEGATIVE (NEGATIVE) Ethyl Alcohol mg/dL Result Diagrams: 06/19/20 16:40 06/19/20 16:40 Vasyl Results Last 24 hrs: Microbiology 06/19/20 17:13 Anaerobic Blood Culture - Final Blood - Venous - Lab Draw Sepsis Event Note - Evaluation Sepsis Screening Result: No Definite Risk - Focused Exam Vital Signs: Vital Signs Temp Pulse Resp BP Pulse Ox 06/19/20 17:45 87 14 127/72 96 06/19/20 16:19 35.8 C L 82 18 114/82 93 L Date Exam was Performed: 06/19/20 Time Exam was Performed: 20:26 Problem List Initiated/Reviewed/Updated: Yes Orders Last 24hrs: Active Orders 24 hr Category Date Time Status Admission Status [Patient Status] [ADT] Stat ADT 06/19/20 18:52 Active Antiembolic Devices [RC] PER UNIT ROUTINE Care 06/19/20 19:37 Active Cardiac Monitoring [RC] . DIRECTED Care 06/19/20 16:40 Active EKG Documentation Completion [RC] STAT Care 06/19/20 16:40 Active Oxygen Therapy [RC] PRN Care 06/19/20 19:35 Active Oxygen Therapy, ED [RC] ASDIRECTED Care 06/19/20 16:42 Active Pulse Oximetry [RC] ASDIRECTED Care 06/19/20 16:40 Active Up With Assistance [RC] ASDIRECTED Care 06/19/20 19:35 Active VTE/DVT Education [RC] PER UNIT ROUTINE Care 06/19/20 19:35 Active Vital Signs [RC] Q4H Care 06/19/20 19:35 Active Mechanical Soft Diet [DIET] Diet 06/19/20 Dinner Active Ang Chest [CT] Stat Exams 06/19/20 18:49 Ordered CORONAVIRUS COVID-19 RAPID [MOLEC] Stat Lab 06/19/20 19:07 Received CULTURE BLOOD [BC] Stat Lab 06/19/20 16:50 Received CULTURE BLOOD [BC] Stat Lab 06/19/20 17:13 Results CULTURE URINE [RM] Stat Lab 06/19/20 18:40 Ordered Acetaminophen [Tylenol] Med 06/19/20 19:35 Active 650 mg PO Q4H PRN Ondansetron [Zofran ODT] Med 06/19/20 19:35 Active 4 mg PO Q4H PRN Ondansetron [Zofran] Med 06/19/20 19:35 Active 4 mg IVPUSH Q4H PRN Potassium Chloride Riders [KCL 20 MEQ in Water 50 ML] Med 06/19/20 18:58 Active 20 meq Premix Bag 1 bag IV ONETIME Sodium Chloride 0.9% [Saline Flush] Med 06/19/20 16:40 Active 10 ml FLUSH ASDIRECTED PRN Sodium Chloride 0.9% [Saline Flush] Med 06/19/20 16:40 Active 2.5 ml FLUSH ASDIRECTED PRN Blood Culture x2 Reflex Set [OM.PC] Stat Oth 06/19/20 16:43 Ordered Saline Lock Insert [OM.PC] Stat Oth 06/19/20 16:41 Ordered Sequential Compression Device [OM.PC] Per Unit Routine Oth 06/19/20 19:36 Ordered Resuscitation Status Routine Resus Stat 06/19/20 19:35 Ordered Medication Orders Acetaminophen (Tylenol) 650 mg PO Q4H PRN PRN Reason: Pain (Mild 1-3)/fever Potassium Chloride 20 meq/ (Premix) 50 mls @ 25 mls/hr IV ONETIME ONE Stop: 06/19/20 20:57 Ondansetron HCl (Zofran Odt) 4 mg PO Q4H PRN PRN Reason: nausea, able to take PO Ondansetron HCl (Zofran) 4 mg IVPUSH Q4H PRN PRN Reason: Nausea Sodium Chloride (Saline Flush) 10 ml FLUSH ASDIRECTED PRN PRN Reason: Keep Vein Open Last Admin: 06/19/20 17:56 Dose: 10 ml Documented by: [place] Sodium Chloride (Saline Flush) 2.5 ml FLUSH ASDIRECTED PRN PRN Reason: Keep Vein Open Last Admin: 06/19/20 17:56 Dose: 2.5 ml Documented by: [place] Assessment/Plan Comment:: Assessment and Plan: 1. Acute hypoxic and hypercapnic respiratory failure: - CTA chest pending. Patient has history of pulmonary embolism. CXR unremarkable. - Continue supplemental oxygen. Will do trial of BiPAP and reassess tomorrow morning. - Patient is hemodynamically stable at this time. 2. Altered mental status likely secondary to hypoxic encephalopathy vs UTI: - CT head negative. UA positive for nitrites and esterase. Will treat with IV ceftriaxone 1 g qd. Will continue to monitor. 3. Right foot injury: - Right foot x-ray showed soft tissue swelling. Per ER provider note who reviewed x-ray, patient may have subacute fracture of 4th metatarsal. Of note, patient was seen in ER 2 weeks ago for right foot injury and placed in a walking boot. Orthopedic referral was provided, however, it is likely patient did not follow-up. Will have patient set up for orthopedic referral on discharge Will also consider CT for right foot. 4. Microcytic anemia: - Will order iron studies. 5. Hypokalemia: - Patient received IV potassium in the ED. Will recheck with AM labs. 6. Hyperbilirubinemia: - Will recheck with AM labs. 7. DVT prophylaxis: lovenox 40 mg subcut qd. 8. Past medical history of PE, anxiety, depression and PTSD: - Will hold klonopin and opioid medication because of patient's altered mental status. Will order ativan 1 mg q4 prn for chronic benzodiazepine use. - Will need to request previous medical records for review. <Elaina Lee - Last Filed: 06/27/20 15:35> H&P History of Present Illness - General Admit Problem/Dx: Admission Diagnosis/Problem Admission Diagnosis/Problem Acute encephalopathy Right Foot Pain Score (Numeric/FACES): 8 Exam - Vital Signs Vital Signs: Last Vital Signs Temp 36.3 C 06/21/20 15:30 Pulse 75 06/21/20 15:30 Resp 16 06/21/20 15:30 BP 105/58 L 06/21/20 15:30 Pulse Ox 96 06/21/20 15:30 - Patient Data Result Diagrams: 06/21/20 05:55 06/21/20 05:55 Sepsis Event Note - Focused Exam Date Exam was Performed: 06/27/20 Time Exam was Performed: 15:34 Assessment/Plan Comment:: Patient seen and examined by me independently. History and physical was obtained and management was discussed with the resident as outlined above.
[2020-06-19] MEDS ORDERED: LORazepam 1 MG Tab PO PRN (19:51)
[2020-06-19] MEDS ORDERED: Enoxaparin 40 MG/0.4 ML Syringe SUBCUT SCH (20:00)
[2020-06-19] MEDS ORDERED: Lactated Ringers 1,000 ML IV SCH (20:00)
[2020-06-19] MEDS ORDERED: Iopamidol 755 MG/ML 500 ML Multipack Bottle IVPUSH STA (20:42)
--- NOTE | 2020-06-19 21:22 | CT ---
INDICATION: Hypoxia, prior PE COMPARISON: CTA chest 12/03/2019 TECHNIQUE: Contrast enhanced axial CT imaging through the chest, optimized for assessment of the pulmonary arterial tree. 60 mL Isovue 370 contrast agent was administered intravenously. Sagittal and coronal reconstructions are provided. FINDINGS: There is adequate opacification of the pulmonary arterial. There is no acute pulmonary embolism. A few thin septations within the medial and posterior basal segmental branches of the right lower lobe pulmonary artery are compatible with residual chronic thrombus. The main pulmonary artery is mildly dilated, similar to prior, suggesting chronic pulmonary hypertension. There is mild cardiomegaly. There is a small pericardial effusion. There is normal caliber of the thoracic aorta. Mild mediastinal and hilar lymphadenopathy are similar to prior. Consolidative changes in the right costovertebral angle are improved. There is mild bibasilar atelectasis. There is also mild interstitial edema. There is no pleural effusion or pneumothorax. The thoracic osseous structures are unremarkable. In the upper abdomen, ascites is partially visualized. IMPRESSION: 1. No acute pulmonary embolism. Minimal residual chronic thrombus in the right lower lobe. 2. Mild cardiomegaly and small pericardial effusion. Mild interstitial edema. Correlate for congestive heart failure. 3. Improving consolidative changes in the right costovertebral angle. 4. Stable nonspecific mediastinal and hilar lymphadenopathy. 5. Partially visualized mild ascites. Please note that all CT scans at this facility use dose modulation, iterative reconstruction, and/or weight-based dosing when appropriate to reduce radiation dose to as low as reasonably achievable. Dictated by Pito Morgan MD @ Jun 19 2020 9:03PM Signed by Dr. Pito Morgan @ Jun 19 2020 9:21PM
[2020-06-19] MEDS: Lactated Ringers 1,000 ML IV SCH (21:44)
[2020-06-20 06:12] LABS: BLOOD UREA NITROGEN,BUN 5 mg/dL (7.0-18.0); CARBON DIOXIDE,CO2 33.3 mmol/L (21.0-32.0); CHLORIDE,CL 103 mmol/L (98-107); GLUCOSE RANDOM 70 mg/dL (74-106); POTASSIUM,K 3.3 mmol/L (3.5-5.1); SODIUM,NA 142 mmol/L (136-145)
[2020-06-20] MEDS: Lactated Ringers 1,000 ML IV SCH (07:19)
[2020-06-20] MEDS ORDERED: Potassium Chloride 20 MEQ Tab.ER PO ONE (11:07)
[2020-06-20] MEDS: Iron Polysaccharides Complex 150 MG Cap PO SCH (12:38)
--- NOTE | 2020-06-20 16:51 | PCM.PN ---
<Jerardo Del Real - Last Filed: 06/20/20 16:51> - General Info Date of Service: 06/20/20 Subjective Update: Patient reports feeling better this morning and appears to be more alert. No complaints at bedside this morning. - Patient Data Vitals - Most Recent: Last Vital Signs Temp 37.1 C 06/20/20 16:11 Pulse 86 06/20/20 16:11 Resp 28 H 06/20/20 16:11 BP 109/58 L 06/20/20 16:11 Pulse Ox 85 L 06/20/20 16:11 Weight - Most Recent: 91.49 kg I&O - Last 24 Hours: Intake & Output 06/20/20 06/20/20 06/20/20 06:59 14:59 22:59 Intake Total 868 Output Total 400 Balance 468 Lab Results Last 24 Hours: Laboratory Results - last 24 hr 06/19/20 06/19/20 06/19/20 Range/Units 16:40 16:40 16:40 WBC 4.65 (4.0-11.0) K/uL RBC 4.40 (4.30-5.90) M/uL Hgb 9.9 L (12.0-16.0) g/dL Hct 34.5 L (36.0-46.0) % MCV 78.4 L (80.0-98.0) fL MCH 22.5 L (27.0-32.0) pg MCHC 28.7 L (31.0-37.0) g/dL RDW Std Deviation 59.3 (28.0-62.0) fl RDW Coeff of Thiago 21 H (11.0-15.0) % Plt Count 104 L (150-400) K/uL MPV 10.30 (7.40-12.00) fL Neut % (Auto) 55.3 (48.0-80.0) % Lymph % (Auto) 36.3 (16.0-40.0) % Divide % (Auto) 7.3 (0.0-15.0) % Eos % (Auto) 0.9 (0.0-7.0) % Baso % (Auto) 0.2 (0.0-1.5) % Neut # (Auto) 2.6 (1.4-5.7) K/uL Lymph # (Auto) 1.7 (0.6-2.4) K/uL Divide # (Auto) 0.3 (0.0-0.8) K/uL Eos # (Auto) 0.0 (0.0-0.7) K/uL Baso # (Auto) 0.0 (0.0-0.1) K/uL Nucleated RBC % 0.0 /100WBC Nucleated RBCs # 0 K/uL INR 1.15 VBG pH (7.31-7.41) VBG pCO2 (35-45) mmHG VBG pO2 (30-40) mmHG VBG HCO3 (22-30) mEq/L VBG Total CO2 (41-51) mmol/L VBG Base Excess (-3.0-3.0) Lactate (0.20-2.00) mmol/L Sodium 139 (136-145) mmol/L Potassium 3.1 L (3.5-5.1) mmol/L Chloride 102 (98-107) mmol/L Carbon Dioxide 33.3 H (21.0-32.0) mmol/L BUN 7 (7.0-18.0) mg/dL Creatinine 0.9 (0.6-1.0) mg/dL Est Cr Clr Drug Dosing TNP Estimated GFR (MDRD) > 60.0 ml/min Glucose 83 (74-106) mg/dL POC Glucose (60-110) mg/dL Calcium 8.2 L (8.5-10.1) mg/dL Phosphorus (2.6-4.7) mg/dL Magnesium (1.8-2.4) mg/dL Iron (50-175) ug/dL TIBC (250-450) ug/dL % Saturation (20-55) % Ferritin (8-252) ng/mL Total Bilirubin 1.6 H (0.2-1.0) mg/dL AST 28 (15-37) IU/L ALT 36 (14-63) IU/L Alkaline Phosphatase 142 H (46-116) U/L Ammonia (19-54) ug/dL Troponin I < 0.050 (0.000-0.056) ng/mL Total Protein 6.7 (6.4-8.2) g/dL Albumin 2.8 L (3.4-5.0) g/dL Globulin 3.9 (2.6-4.0) g/dL Albumin/Globulin Ratio 0.7 L (0.9-1.6) Vitamin B12 (193-986) pg/mL Urine Color Urine Appearance Urine pH (5.0-8.0) Ur Specific [place] (1.001-1.035) Urine Protein (NEGATIVE) mg/dL Urine Glucose (UA) (NEGATIVE) mg/dL Urine Ketones (NEGATIVE) mg/dL Urine Occult Blood (NEGATIVE) Urine Nitrite (NEGATIVE) Urine Bilirubin (NEGATIVE) Urine Ictotest Urine Urobilinogen (<2.0) EU/dL Ur Leukocyte Esterase (NEGATIVE) Urine RBC (0-2/HPF) Urine WBC (0-5/HPF) Ur Epithelial Cells (NONE-FEW) Urine Bacteria (NEGATIVE) Urine Opiates Screen (NEGATIVE) Ur Oxycodone Screen (NEGATIVE) Urine Methadone Screen (NEGATIVE) Ur Barbiturates Screen (NEGATIVE) Ur Phencyclidine Scrn (NEGATIVE) Ur Amphetamine Screen (NEGATIVE) U Methamphetamines Scrn (NEGATIVE) U Benzodiazepines Scrn (NEGATIVE) U Cocaine Metab Screen (NEGATIVE) U Marijuana (THC) Screen (NEGATIVE) Ethyl Alcohol < 3.0 mg/dL COVID-19 (HUGH) (NEGATIVE) 06/19/20 06/19/20 06/19/20 Range/Units 17:13 17:13 17:13 WBC (4.0-11.0) K/uL RBC (4.30-5.90) M/uL Hgb (12.0-16.0) g/dL Hct (36.0-46.0) % MCV (80.0-98.0) fL MCH (27.0-32.0) pg MCHC (31.0-37.0) g/dL RDW Std Deviation (28.0-62.0) fl RDW Coeff of Thiago (11.0-15.0) % Plt Count (150-400) K/uL MPV (7.40-12.00) fL Neut % (Auto) (48.0-80.0) % Lymph % (Auto) (16.0-40.0) % Divide % (Auto) (0.0-15.0) % Eos % (Auto) (0.0-7.0) % Baso % (Auto) (0.0-1.5) % Neut # (Auto) (1.4-5.7) K/uL Lymph # (Auto) (0.6-2.4) K/uL Divide # (Auto) (0.0-0.8) K/uL Eos # (Auto) (0.0-0.7) K/uL Baso # (Auto) (0.0-0.1) K/uL Nucleated RBC % /100WBC Nucleated RBCs # K/uL INR VBG pH 7.38 (7.31-7.41) VBG pCO2 53 H (35-45) mmHG VBG pO2 29 L (30-40) mmHG VBG HCO3 32 H (22-30) mEq/L VBG Total CO2 30 L (41-51) mmol/L VBG Base Excess 5.7 H (-3.0-3.0) Lactate 1.2 (0.20-2.00) mmol/L Sodium (136-145) mmol/L Potassium (3.5-5.1) mmol/L Chloride (98-107) mmol/L Carbon Dioxide (21.0-32.0) mmol/L BUN (7.0-18.0) mg/dL Creatinine (0.6-1.0) mg/dL Est Cr Clr Drug Dosing Estimated GFR (MDRD) ml/min Glucose (74-106) mg/dL POC Glucose (60-110) mg/dL Calcium (8.5-10.1) mg/dL Phosphorus (2.6-4.7) mg/dL Magnesium (1.8-2.4) mg/dL Iron (50-175) ug/dL TIBC (250-450) ug/dL % Saturation (20-55) % Ferritin (8-252) ng/mL Total Bilirubin (0.2-1.0) mg/dL AST (15-37) IU/L ALT (14-63) IU/L Alkaline Phosphatase (46-116) U/L Ammonia 27 (19-54) ug/dL Troponin I (0.000-0.056) ng/mL Total Protein (6.4-8.2) g/dL Albumin (3.4-5.0) g/dL Globulin (2.6-4.0) g/dL Albumin/Globulin Ratio (0.9-1.6) Vitamin B12 (193-986) pg/mL Urine Color Urine Appearance Urine pH (5.0-8.0) Ur Specific [place] (1.001-1.035) Urine Protein (NEGATIVE) mg/dL Urine Glucose (UA) (NEGATIVE) mg/dL Urine Ketones (NEGATIVE) mg/dL Urine Occult Blood (NEGATIVE) Urine Nitrite (NEGATIVE) Urine Bilirubin (NEGATIVE) Urine Ictotest Urine Urobilinogen (<2.0) EU/dL Ur Leukocyte Esterase (NEGATIVE) Urine RBC (0-2/HPF) Urine WBC (0-5/HPF) Ur Epithelial Cells (NONE-FEW) Urine Bacteria (NEGATIVE) Urine Opiates Screen (NEGATIVE) Ur Oxycodone Screen (NEGATIVE) Urine Methadone Screen (NEGATIVE) Ur Barbiturates Screen (NEGATIVE) Ur Phencyclidine Scrn (NEGATIVE) Ur Amphetamine Screen (NEGATIVE) U Methamphetamines Scrn (NEGATIVE) U Benzodiazepines Scrn (NEGATIVE) U Cocaine Metab Screen (NEGATIVE) U Marijuana (THC) Screen (NEGATIVE) Ethyl Alcohol mg/dL COVID-19 (HUGH) (NEGATIVE) 06/19/20 06/19/20 06/19/20 Range/Units 18:09 18:09 19:07 WBC (4.0-11.0) K/uL RBC (4.30-5.90) M/uL Hgb (12.0-16.0) g/dL Hct (36.0-46.0) % MCV (80.0-98.0) fL MCH (27.0-32.0) pg MCHC (31.0-37.0) g/dL RDW Std Deviation (28.0-62.0) fl RDW Coeff of Thiago (11.0-15.0) % Plt Count (150-400) K/uL MPV (7.40-12.00) fL Neut % (Auto) (48.0-80.0) % Lymph % (Auto) (16.0-40.0) % Divide % (Auto) (0.0-15.0) % Eos % (Auto) (0.0-7.0) % Baso % (Auto) (0.0-1.5) % Neut # (Auto) (1.4-5.7) K/uL Lymph # (Auto) (0.6-2.4) K/uL Divide # (Auto) (0.0-0.8) K/uL Eos # (Auto) (0.0-0.7) K/uL Baso # (Auto) (0.0-0.1) K/uL Nucleated RBC % /100WBC Nucleated RBCs # K/uL INR VBG pH (7.31-7.41) VBG pCO2 (35-45) mmHG VBG pO2 (30-40) mmHG VBG HCO3 (22-30) mEq/L VBG Total CO2 (41-51) mmol/L VBG Base Excess (-3.0-3.0) Lactate (0.20-2.00) mmol/L Sodium (136-145) mmol/L Potassium (3.5-5.1) mmol/L Chloride (98-107) mmol/L Carbon Dioxide (21.0-32.0) mmol/L BUN (7.0-18.0) mg/dL Creatinine (0.6-1.0) mg/dL Est Cr Clr Drug Dosing Estimated GFR (MDRD) ml/min Glucose (74-106) mg/dL POC Glucose (60-110) mg/dL Calcium (8.5-10.1) mg/dL Phosphorus (2.6-4.7) mg/dL Magnesium (1.8-2.4) mg/dL Iron (50-175) ug/dL TIBC (250-450) ug/dL % Saturation (20-55) % Ferritin (8-252) ng/mL Total Bilirubin (0.2-1.0) mg/dL AST (15-37) IU/L ALT (14-63) IU/L Alkaline Phosphatase (46-116) U/L Ammonia (19-54) ug/dL Troponin I (0.000-0.056) ng/mL Total Protein (6.4-8.2) g/dL Albumin (3.4-5.0) g/dL Globulin (2.6-4.0) g/dL Albumin/Globulin Ratio (0.9-1.6) Vitamin B12 (193-986) pg/mL Urine Color YELLOW Urine Appearance SLT CLOUDY Urine pH 7.5 (5.0-8.0) Ur Specific [place] 1.020 (1.001-1.035) Urine Protein TRACE H (NEGATIVE) mg/dL Urine Glucose (UA) NEGATIVE (NEGATIVE) mg/dL Urine Ketones TRACE H (NEGATIVE) mg/dL Urine Occult Blood NEGATIVE (NEGATIVE) Urine Nitrite POSITIVE H (NEGATIVE) Urine Bilirubin SMALL H (NEGATIVE) Urine Ictotest NEGATIVE Urine Urobilinogen >=8.0 H (<2.0) EU/dL Ur Leukocyte Esterase SMALL H (NEGATIVE) Urine RBC 0-1 (0-2/HPF) Urine WBC 2-3 (0-5/HPF) Ur Epithelial Cells OCCASIONAL (NONE-FEW) Urine Bacteria FEW (NEGATIVE) Urine Opiates Screen NEGATIVE (NEGATIVE) Ur Oxycodone Screen POSITIVE (NEGATIVE) Urine Methadone Screen NEGATIVE (NEGATIVE) Ur Barbiturates Screen NEGATIVE (NEGATIVE) Ur Phencyclidine Scrn NEGATIVE (NEGATIVE) Ur Amphetamine Screen NEGATIVE (NEGATIVE) U Methamphetamines Scrn NEGATIVE (NEGATIVE) U Benzodiazepines Scrn NEGATIVE (NEGATIVE) U Cocaine Metab Screen NEGATIVE (NEGATIVE) U Marijuana (THC) Screen NEGATIVE (NEGATIVE) Ethyl Alcohol mg/dL COVID-19 (HUGH) NEGATIVE (NEGATIVE) 06/19/20 06/20/20 06/20/20 Range/Units 19:26 05:28 05:28 WBC 2.83 L (4.0-11.0) K/uL RBC 3.75 L (4.30-5.90) M/uL Hgb 8.3 L (12.0-16.0) g/dL Hct 29.9 L (36.0-46.0) % MCV 79.7 L (80.0-98.0) fL MCH 22.1 L (27.0-32.0) pg MCHC 27.8 L (31.0-37.0) g/dL RDW Std Deviation 60.7 (28.0-62.0) fl RDW Coeff of Thiago 21 H (11.0-15.0) % Plt Count 90 L (150-400) K/uL MPV 9.70 (7.40-12.00) fL Neut % (Auto) 58.6 (48.0-80.0) % Lymph % (Auto) 31.8 (16.0-40.0) % Divide % (Auto) 8.5 (0.0-15.0) % Eos % (Auto) 1.1 (0.0-7.0) % Baso % (Auto) 0.0 (0.0-1.5) % Neut # (Auto) 1.7 (1.4-5.7) K/uL Lymph # (Auto) 0.9 (0.6-2.4) K/uL Divide # (Auto) 0.2 (0.0-0.8) K/uL Eos # (Auto) 0.0 (0.0-0.7) K/uL Baso # (Auto) 0.0 (0.0-0.1) K/uL Nucleated RBC % 0.0 /100WBC Nucleated RBCs # 0 K/uL INR VBG pH (7.31-7.41) VBG pCO2 (35-45) mmHG VBG pO2 (30-40) mmHG VBG HCO3 (22-30) mEq/L VBG Total CO2 (41-51) mmol/L VBG Base Excess (-3.0-3.0) Lactate (0.20-2.00) mmol/L Sodium 142 (136-145) mmol/L Potassium 3.3 L (3.5-5.1) mmol/L Chloride 103 (98-107) mmol/L Carbon Dioxide 33.3 H (21.0-32.0) mmol/L BUN 5 L (7.0-18.0) mg/dL Creatinine 0.8 (0.6-1.0) mg/dL Est Cr Clr Drug Dosing 76.36 Estimated GFR (MDRD) > 60.0 ml/min Glucose 70 L (74-106) mg/dL POC Glucose (60-110) mg/dL Calcium 7.4 L (8.5-10.1) mg/dL Phosphorus 3.9 (2.6-4.7) mg/dL Magnesium 1.9 (1.8-2.4) mg/dL Iron 36 L (50-175) ug/dL TIBC 485 H (250-450) ug/dL % Saturation 7.42 L (20-55) % Ferritin 34 (8-252) ng/mL Total Bilirubin 1.0 (0.2-1.0) mg/dL AST 20 (15-37) IU/L ALT 27 (14-63) IU/L Alkaline Phosphatase 110 (46-116) U/L Ammonia (19-54) ug/dL Troponin I (0.000-0.056) ng/mL Total Protein 5.1 L (6.4-8.2) g/dL Albumin 2.1 L (3.4-5.0) g/dL Globulin 3.0 (2.6-4.0) g/dL Albumin/Globulin Ratio 0.7 L (0.9-1.6) Vitamin B12 (193-986) pg/mL Urine Color Urine Appearance Urine pH (5.0-8.0) Ur Specific [place] (1.001-1.035) Urine Protein (NEGATIVE) mg/dL Urine Glucose (UA) (NEGATIVE) mg/dL Urine Ketones (NEGATIVE) mg/dL Urine Occult Blood (NEGATIVE) Urine Nitrite (NEGATIVE) Urine Bilirubin (NEGATIVE) Urine Ictotest Urine Urobilinogen (<2.0) EU/dL Ur Leukocyte Esterase (NEGATIVE) Urine RBC (0-2/HPF) Urine WBC (0-5/HPF) Ur Epithelial Cells (NONE-FEW) Urine Bacteria (NEGATIVE) Urine Opiates Screen (NEGATIVE) Ur Oxycodone Screen (NEGATIVE) Urine Methadone Screen (NEGATIVE) Ur Barbiturates Screen (NEGATIVE) Ur Phencyclidine Scrn (NEGATIVE) Ur Amphetamine Screen (NEGATIVE) U Methamphetamines Scrn (NEGATIVE) U Benzodiazepines Scrn (NEGATIVE) U Cocaine Metab Screen (NEGATIVE) U Marijuana (THC) Screen (NEGATIVE) Ethyl Alcohol mg/dL COVID-19 (HUGH) (NEGATIVE) 06/20/20 06/20/20 06/20/20 Range/Units 05:28 09:03 09:30 WBC (4.0-11.0) K/uL RBC (4.30-5.90) M/uL Hgb (12.0-16.0) g/dL Hct (36.0-46.0) % MCV (80.0-98.0) fL MCH (27.0-32.0) pg MCHC (31.0-37.0) g/dL RDW Std Deviation (28.0-62.0) fl RDW Coeff of Thiago (11.0-15.0) % Plt Count (150-400) K/uL MPV (7.40-12.00) fL Neut % (Auto) (48.0-80.0) % Lymph % (Auto) (16.0-40.0) % Divide % (Auto) (0.0-15.0) % Eos % (Auto) (0.0-7.0) % Baso % (Auto) (0.0-1.5) % Neut # (Auto) (1.4-5.7) K/uL Lymph # (Auto) (0.6-2.4) K/uL Div[place] # (Auto) (0.0-0.8) K/uL Eos # (Auto) (0.0-0.7) K/uL Baso # (Auto) (0.0-0.1) K/uL Nucleated RBC % /100WBC Nucleated RBCs # K/uL INR VBG pH (7.31-7.41) VBG pCO2 (35-45) mmHG VBG pO2 (30-40) mmHG VBG HCO3 (22-30) mEq/L VBG Total CO2 (41-51) mmol/L VBG Base Excess (-3.0-3.0) Lactate (0.20-2.00) mmol/L Sodium (136-145) mmol/L Potassium (3.5-5.1) mmol/L Chloride (98-107) mmol/L Carbon Dioxide (21.0-32.0) mmol/L BUN (7.0-18.0) mg/dL Creatinine (0.6-1.0) mg/dL Est Cr Clr Drug Dosing Estimated GFR (MDRD) ml/min Glucose (74-106) mg/dL POC Glucose 86 92 (60-110) mg/dL Calcium (8.5-10.1) mg/dL Phosphorus (2.6-4.7) mg/dL Magnesium (1.8-2.4) mg/dL Iron (50-175) ug/dL TIBC (250-450) ug/dL % Saturation (20-55) % Ferritin (8-252) ng/mL Total Bilirubin (0.2-1.0) mg/dL AST (15-37) IU/L ALT (14-63) IU/L Alkaline Phosphatase (46-116) U/L Ammonia (19-54) ug/dL Troponin I (0.000-0.056) ng/mL Total Protein (6.4-8.2) g/dL Albumin (3.4-5.0) g/dL Globulin (2.6-4.0) g/dL Albumin/Globulin Ratio (0.9-1.6) Vitamin B12 764 (193-986) pg/mL Urine Color Urine Appearance Urine pH (5.0-8.0) Ur Specific [place] (1.001-1.035) Urine Protein (NEGATIVE) mg/dL Urine Glucose (UA) (NEGATIVE) mg/dL Urine Ketones (NEGATIVE) mg/dL Urine Occult Blood (NEGATIVE) Urine Nitrite (NEGATIVE) Urine Bilirubin (NEGATIVE) Urine Ictotest Urine Urobilinogen (<2.0) EU/dL Ur Leukocyte Esterase (NEGATIVE) Urine RBC (0-2/HPF) Urine WBC (0-5/HPF) Ur Epithelial Cells (NONE-FEW) Urine Bacteria (NEGATIVE) Urine Opiates Screen (NEGATIVE) Ur Oxycodone Screen (NEGATIVE) Urine Methadone Screen (NEGATIVE) Ur Barbiturates Screen (NEGATIVE) Ur Phencyclidine Scrn (NEGATIVE) Ur Amphetamine Screen (NEGATIVE) U Methamphetamines Scrn (NEGATIVE) U Benzodiazepines Scrn (NEGATIVE) U Cocaine Metab Screen (NEGATIVE) U Marijuana (THC) Screen (NEGATIVE) Ethyl Alcohol mg/dL COVID-19 (HUGH) (NEGATIVE) 06/20/20 Range/Units 10:28 WBC (4.0-11.0) K/uL RBC (4.30-5.90) M/uL Hgb (12.0-16.0) g/dL Hct (36.0-46.0) % MCV (80.0-98.0) fL MCH (27.0-32.0) pg MCHC (31.0-37.0) g/dL RDW Std Deviation (28.0-62.0) fl RDW Coeff of Thiago (11.0-15.0) % Plt Count (150-400) K/uL MPV (7.40-12.00) fL Neut % (Auto) (48.0-80.0) % Lymph % (Auto) (16.0-40.0) % Divide % (Auto) (0.0-15.0) % Eos % (Auto) (0.0-7.0) % Baso % (Auto) (0.0-1.5) % Neut # (Auto) (1.4-5.7) K/uL Lymph # (Auto) (0.6-2.4) K/uL [place] # (Auto) (0.0-0.8) K/uL Eos # (Auto) (0.0-0.7) K/uL Baso # (Auto) (0.0-0.1) K/uL Nucleated RBC % /100WBC Nucleated RBCs # K/uL INR VBG pH (7.31-7.41) VBG pCO2 (35-45) mmHG VBG pO2 (30-40) mmHG VBG HCO3 (22-30) mEq/L VBG Total CO2 (41-51) mmol/L VBG Base Excess (-3.0-3.0) Lactate (0.20-2.00) mmol/L Sodium (136-145) mmol/L Potassium (3.5-5.1) mmol/L Chloride (98-107) mmol/L Carbon Dioxide (21.0-32.0) mmol/L BUN (7.0-18.0) mg/dL Creatinine (0.6-1.0) mg/dL Est Cr Clr Drug Dosing Estimated GFR (MDRD) ml/min Glucose (74-106) mg/dL POC Glucose 103 (60-110) mg/dL Calcium (8.5-10.1) mg/dL Phosphorus (2.6-4.7) mg/dL Magnesium (1.8-2.4) mg/dL Iron (50-175) ug/dL TIBC (250-450) ug/dL % Saturation (20-55) % Ferritin (8-252) ng/mL Total Bilirubin (0.2-1.0) mg/dL AST (15-37) IU/L ALT (14-63) IU/L Alkaline Phosphatase (46-116) U/L Ammonia (19-54) ug/dL Troponin I (0.000-0.056) ng/mL Total Protein (6.4-8.2) g/dL Albumin (3.4-5.0) g/dL Globulin (2.6-4.0) g/dL Albumin/Globulin Ratio (0.9-1.6) Vitamin B12 (193-986) pg/mL Urine Color Urine Appearance Urine pH (5.0-8.0) Ur Specific [place] (1.001-1.035) Urine Protein (NEGATIVE) mg/dL Urine Glucose (UA) (NEGATIVE) mg/dL Urine Ketones (NEGATIVE) mg/dL Urine Occult Blood (NEGATIVE) Urine Nitrite (NEGATIVE) Urine Bilirubin (NEGATIVE) Urine Ictotest Urine Urobilinogen (<2.0) EU/dL Ur Leukocyte Esterase (NEGATIVE) Urine RBC (0-2/HPF) Urine WBC (0-5/HPF) Ur Epithelial Cells (NONE-FEW) Urine Bacteria (NEGATIVE) Urine Opiates Screen (NEGATIVE) Ur Oxycodone Screen (NEGATIVE) Urine Methadone Screen (NEGATIVE) Ur Barbiturates Screen (NEGATIVE) Ur Phencyclidine Scrn (NEGATIVE) Ur Amphetamine Screen (NEGATIVE) U Methamphetamines Scrn (NEGATIVE) U Benzodiazepines Scrn (NEGATIVE) U Cocaine Metab Screen (NEGATIVE) U Marijuana (THC) Screen (NEGATIVE) Ethyl Alcohol mg/dL COVID-19 (HUGH) (NEGATIVE) Vasyl Results Last 24 Hours: Microbiology 06/19/20 17:13 Anaerobic Blood Culture - Final Blood - Venous - Lab Draw Med Orders - Current: Current Medications Acetaminophen (Tylenol) 650 mg PO Q4H PRN PRN Reason: Pain (Mild 1-3)/fever Enoxaparin Sodium (Lovenox) 40 mg SUBCUT Q24H [facility] Last Admin: 06/19/20 20:07 Dose: 40 mg Documented by: Ceftriaxone Sodium/Dextrose 1 (gm/ Premix) 50 mls @ 100 mls/hr IV Q24H [facility] Lorazepam (Ativan) 1 mg PO Q4H PRN PRN Reason: Agitation Ondansetron HCl (Zofran Odt) 4 mg PO Q4H PRN PRN Reason: nausea, able to take PO Ondansetron HCl (Zofran) 4 mg IVPUSH Q4H PRN PRN Reason: Nausea Polysaccharide Iron Complex (Ferrex 150) 150 mg PO DAILY EDWIN Last Admin: 06/20/20 12:38 Dose: 150 mg Documented by: Sodium Chloride (Saline Flush) 10 ml FLUSH ASDIRECTED PRN PRN Reason: Keep Vein Open Last Admin: 06/19/20 17:56 Dose: 10 ml Documented by: Sodium Chloride (Saline Flush) 2.5 ml FLUSH ASDIRECTED PRN PRN Reason: Keep Vein Open Last Admin: 06/19/20 17:56 Dose: 2.5 ml Documented by: Discontinued Medications Ceftriaxone Sodium/Dextrose 1 (gm/ Premix) 50 mls @ 100 mls/hr IV ONETIME ONE Stop: 06/19/20 19:09 Last Admin: 06/19/20 18:52 Dose: 100 mls/hr Documented by: Magnesium Sulfate 2 gm/ Premix 50 mls @ 50 mls/hr IV ONETIME ONE Stop: 06/19/20 19:40 Last Admin: 06/19/20 18:53 Dose: 50 mls/hr Documented by: Potassium Chloride 20 meq/ (Premix) 50 mls @ 25 mls/hr IV ONETIME ONE Stop: 06/19/20 20:57 Last Admin: 06/19/20 20:00 Dose: 25 mls/hr Documented by: Lactated Ringer's (Ringers, Lactated) 1,000 mls @ 100 mls/hr IV ASDIRECTED [facility] Stop: 06/20/20 05:59 Lactated Ringer's (Ringers, Lactated) 1,000 mls @ 100 mls/hr IV ASDIRECTED [facility] Last Admin: 06/20/20 07:19 Dose: 100 mls/hr Documented by: Iopamidol (Isovue Multipack-370 (76%)) 60 ml IVPUSH ONETIME STA Stop: 06/19/20 20:43 Last Admin: 06/19/20 20:43 Dose: 60 ml Documented by: Potassium Chloride (Klor-Con M20) 40 meq PO ONETIME ONE Stop: 06/20/20 11:08 Last Admin: 06/20/20 11:41 Dose: 40 meq Documented by: - Exam General: Alert, Cooperative, No Acute Distress, Other (AOx2) HEENT: Pupils Equal, EOMI Lungs: Clear to Auscultation, Normal Respiratory Effort Cardiovascular: Regular Rate, Regular Rhythm GI/Abdominal Exam: Normal Bowel Sounds, Soft, Non-Tender, No Distention Extremities: Other Skin: Other (There are two circular lesions measuring approximately 4 cm x 4 cm with black-colored eschar on right foot, no drainage appreciated) Neurological: No New Focal Deficit, Cranial Nerves Intact Psy/Mental Status: Alert Sepsis Event Note - Evaluation Sepsis Screening Result: No Definite Risk - Focused Exam Vital Signs: Vital Signs Temp Pulse Resp BP Pulse Ox 06/20/20 16:11 37.1 C 86 28 H 109/58 L 85 L 06/20/20 16:06 82 28 H 06/20/20 12:37 93 L 06/20/20 12:31 36.3 C 89 119/70 89 L 06/20/20 07:26 36.2 C 67 113/58 L 96 Date Exam was Performed: 06/20/20 Time Exam was Performed: 16:51 - Problem List Review Problem List Initiated/Reviewed/Updated: Yes - My Orders Last 24 Hours: My Active Orders 06/19/20 Dinner Mechanical Soft Diet [DIET] 06/19/20 19:35 Oxygen Therapy [RC] PRN Up With Assistance [RC] ASDIRECTED VTE/DVT Education [RC] PER UNIT ROUTINE Vital Signs [RC] Q4H Acetaminophen [Tylenol] 650 mg PO Q4H PRN Ondansetron [Zofran ODT] 4 mg PO Q4H PRN Ondansetron [Zofran] 4 mg IVPUSH Q4H PRN Resuscitation Status Routine 06/19/20 19:36 Sequential Compression Device [OM.PC] Per Unit Routine 06/19/20 19:37 Antiembolic Devices [RC] PER UNIT ROUTINE 06/19/20 19:51 LORazepam [Ativan] 1 mg PO Q4H PRN 06/19/20 20:00 Enoxaparin [Lovenox] 40 mg SUBCUT Q24H 06/20/20 07:49 OCCULT BLOOD DIAGNOSTIC [OP] Routine 06/20/20 11:53 Consult to Wound Care Services [CONS] Routine 06/20/20 12:15 Iron Polysaccharides Complex [Ferrex 150] 150 mg PO DAILY 06/20/20 18:00 cefTRIAXone [Rocephin in Dextrose,Iso-Osm 1 GM/50 ML] 1 gm Premix Bag 1 bag IV Q24H - Plan Plan:: Assessment and Plan: 1. 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 Will order ECHO. - Continue supplemental oxygen. 2. Altered mental status likely secondary to hypoxic encephalopathy vs UTI: - Patient's appears more alert and more energetic today. She is currently AOx2. Continue IV ceftriaxone 1 g qd. Urine cultures pending. Will continue to monitor. - CT head was negative. 3. Right foot injury: - Will place wound consult. - Right foot x-ray showed soft tissue swelling. Per ER provider note who reviewed x-ray, patient may have subacute fracture of 4th metatarsal. Of note, patient was seen in ER 2 weeks ago for right foot injury and placed in a walking boot. Orthopedic referral was provided, however, it is likely patient did not follow-up. Will have patient set up for orthopedic referral on discharge Will also consider CT for right foot. 4. Microcytic anemia: - Will start iron supplement. Will also order stool occult blood test. 5. Hypokalemia: - Will replete and recheck with AM labs. 6. Hyperbilirubinemia, resolved. 7. DVT prophylaxis: lovenox 40 mg subcut qd. 8. Past medical history of PE, anxiety, depression and PTSD: - Klonopin and opioid medication held because of patient's altered mental status. Will order ativan 1 mg q4 prn for chronic benzodiazepine use. - Request previous medical records for review. <Hill Emanuel - Last Filed: 06/21/20 23:20> - Patient Data Vitals - Most Recent: Last Vital Signs Temp 36.3 C 06/21/20 15:30 Pulse 75 06/21/20 15:30 Resp 16 06/21/20 15:30 BP 105/58 L 06/21/20 15:30 Pulse Ox 96 06/21/20 15:30 I&O - Last 24 Hours: Intake & Output 06/21/20 06/21/20 06/22/20 14:59 22:59 06:59 Intake Total 500 Output Total 600 Balance -100 Lab Results Last 24 Hours: Laboratory Results - last 24 hr 06/21/20 06/21/20 Range/Units 05:55 05:55 WBC 3.13 L (4.0-11.0) K/uL RBC 3.60 L (4.30-5.90) M/uL Hgb 8.0 L (12.0-16.0) g/dL Hct 28.3 L (36.0-46.0) % MCV 78.6 L (80.0-98.0) fL MCH 22.2 L (27.0-32.0) pg MCHC 28.3 L (31.0-37.0) g/dL RDW Std Deviation 59.2 (28.0-62.0) fl RDW Coeff of Thiago 21 H (11.0-15.0) % Plt Count 94 L (150-400) K/uL MPV 9.70 (7.40-12.00) fL Neut % (Auto) 61.7 (48.0-80.0) % Lymph % (Auto) 29.7 (16.0-40.0) % Divide % (Auto) 7.3 (0.0-15.0) % Eos % (Auto) 1.3 (0.0-7.0) % Baso % (Auto) 0.0 (0.0-1.5) % Neut # (Auto) 1.9 (1.4-5.7) K/uL Lymph # (Auto) 0.9 (0.6-2.4) K/uL Divide # (Auto) 0.2 (0.0-0.8) K/uL Eos # (Auto) 0.0 (0.0-0.7) K/uL Baso # (Auto) 0.0 (0.0-0.1) K/uL Nucleated RBC % 0.0 /100WBC Nucleated RBCs # 0 K/uL Sodium 140 (136-145) mmol/L Potassium 3.5 (3.5-5.1) mmol/L Chloride 103 (98-107) mmol/L Carbon Dioxide 31.3 (21.0-32.0) mmol/L BUN 4 L (7.0-18.0) mg/dL Creatinine 0.7 (0.6-1.0) mg/dL Est Cr Clr Drug Dosing 87.27 mL/min Estimated GFR (MDRD) > 60.0 ml/min Glucose 75 (74-106) mg/dL Calcium 7.4 L (8.5-10.1) mg/dL Phosphorus 2.8 (2.6-4.7) mg/dL Magnesium 1.5 L (1.8-2.4) mg/dL Total Bilirubin 0.9 (0.2-1.0) mg/dL AST 17 (15-37) IU/L ALT 23 (14-63) IU/L Alkaline Phosphatase 104 (46-116) U/L Total Protein 4.9 L (6.4-8.2) g/dL Albumin 2.0 L (3.4-5.0) g/dL Globulin 2.9 (2.6-4.0) g/dL Albumin/Globulin Ratio 0.7 L (0.9-1.6) [facility] Results Last 24 Hours: Microbiology 06/19/20 17:13 Aerobic Blood Culture - Preliminary Blood - Venous - Lab Draw NO GROWTH AFTER 2 DAYS Anaerobic Blood Culture - Final 06/19/20 16:50 Aerobic Blood Culture - Preliminary Blood - Venous NO GROWTH AFTER 2 DAYS Anaerobic Blood Culture - Preliminary NO GROWTH AFTER 2 DAYS 06/19/20 18:09 Urine Culture - Final Urine, Catheterized Normal Urogenital [place] Med Orders - Current: Current Medications Discontinued Medications Acetaminophen (Tylenol) 650 mg PO Q4H PRN PRN Reason: Pain (Mild 1-3)/fever Last Admin: 06/21/20 08:37 Dose: 650 mg Documented by: Apixaban (Eliquis) 5 mg PO BID [facility] Last Admin: 06/21/20 08:23 Dose: 5 mg Documented by: Bisacodyl (Dulcolax) 5 mg PO BID PRN PRN Reason: Constipation Docusate Sodium (Colace) 100 mg PO DAILY PRN PRN Reason: Constipation Last Admin: 06/21/20 09:32 Dose: 100 mg Documented by: Enoxaparin Sodium (Lovenox) 40 mg SUBCUT Q24H [facility] Last Admin: 06/19/20 20:07 Dose: 40 mg Documented by: Gadobenate Dimeglumine (Multihance) 20 ml IVPUSH ONETIME STA Stop: 06/21/20 12:12 Last Admin: 06/21/20 12:23 Dose: 18 ml Documented by: Ceftriaxone Sodium/Dextrose 1 (gm/ Premix) 50 mls @ 100 mls/hr IV ONETIME ONE Stop: 06/19/20 19:09 Last Admin: 06/19/20 18:52 Dose: 100 mls/hr Documented by: Magnesium Sulfate 2 gm/ Premix 50 mls @ 50 mls/hr IV ONETIME ONE Stop: 06/19/20 19:40 Last Admin: 06/19/20 18:53 Dose: 50 mls/hr Documented by: Potassium Chloride 20 meq/ (Premix) 50 mls @ 25 mls/hr IV ONETIME ONE Stop: 06/19/20 20:57 Last Admin: 06/19/20 20:00 Dose: 25 mls/hr Documented by: Ceftriaxone Sodium/Dextrose 1 (gm/ Premix) 50 mls @ 100 mls/hr IV Q24H [facility] Last Admin: 06/21/20 19:32 Dose: Not Given Documented by: Lactated Ringer's (Ringers, Lactated) 1,000 mls @ 100 mls/hr IV ASDIRECTED [facility] Stop: 06/20/20 05:59 Lactated Ringer's (Ringers, Lactated) 1,000 mls @ 100 mls/hr IV ASDIRECTED [facility] Last Admin: 06/20/20 07:19 Dose: 100 mls/hr Documented by: Magnesium Sulfate 2 gm/ Premix 50 mls @ 50 mls/hr IV ONETIME ONE Stop: 06/21/20 08:03 Last Admin: 06/21/20 08:23 Dose: 50 mls/hr Documented by: Iopamidol (Isovue Multipack-370 (76%)) 60 ml IVPUSH ONETIME STA Stop: 06/19/20 20:43 Last Admin: 06/19/20 20:43 Dose: 60 ml Documented by: Lorazepam (Ativan) 1 mg PO Q4H PRN PRN Reason: Agitation Ondansetron HCl (Zofran Odt) 4 mg PO Q4H PRN PRN Reason: nausea, able to take PO Ondansetron HCl (Zofran) 4 mg IVPUSH Q4H PRN PRN Reason: Nausea Umeclidinium Brm/Vilanterol Tr [Anoro Ellipta 62.5-25 Mcg 1 each INH DAILY [facility] Last Admin: 06/21/20 08:29 Dose: Not Given Documented by: Polysaccharide Iron Complex (Ferrex 150) 150 mg PO DAILY [facility] Last Admin: 06/21/20 08:23 Dose: 150 mg Documented by: Potassium Chloride (Klor-Con M20) 40 meq PO ONETIME ONE Stop: 06/20/20 11:08 Last Admin: 06/20/20 11:41 Dose: 40 meq Documented by: Sodium Chloride (Saline Flush) 10 ml FLUSH ASDIRECTED PRN PRN Reason: Keep Vein Open Last Admin: 07/27/20 17:56 Dose: 10 ml Documented by: Sodium Chloride (Saline Flush) 2.5 ml FLUSH ASDIRECTED PRN PRN Reason: Keep Vein Open Last Admin: 06/19/20 17:56 Dose: 2.5 ml Documented by: Sepsis Event Note - Focused Exam Vital Signs: Vital Signs Temp Pulse Resp BP Pulse Ox 06/21/20 15:30 36.3 C 75 16 105/58 L 96 06/21/20 12:02 36.4 C 79 110/56 L 95 Date Exam was Performed: 06/21/20 Time Exam was Performed: 23:20 - Free Text/Narrative Note: I have seen and evaluated the patient with the resident. I have discussed findings and treatment plan with the resident. I agree with the assessment and plan outlined in the following note.
[2020-06-20] MEDS: cefTRIAXone 1 GM in Premix Bag 1 BAG IV SCH (18:34)
[2020-06-20] MEDS: Apixaban 5 MG Tab PO SCH (20:25)
[2020-06-21 06:31] LABS: BLOOD UREA NITROGEN,BUN 4 mg/dL (7.0-18.0); CARBON DIOXIDE,CO2 31.3 mmol/L (21.0-32.0); CHLORIDE,CL 103 mmol/L (98-107); GLUCOSE RANDOM 75 mg/dL (74-106); POTASSIUM,K 3.5 mmol/L (3.5-5.1); SODIUM,NA 140 mmol/L (136-145)
[2020-06-21] MEDS ORDERED: Magnesium Sulfate/Water 2 GM in Premix Bag 1 BAG IV ONE (07:04)
[2020-06-21] MEDS: Apixaban 5 MG Tab PO SCH (08:23)
[2020-06-21] MEDS: Iron Polysaccharides Complex 150 MG Cap PO SCH (08:23)
[2020-06-21] MEDS ORDERED: Bisacodyl 5 MG Tab PO PRN (08:42)
[2020-06-21] MEDS ORDERED: Docusate Sodium 100 MG Cap PO PRN (08:44)
[2020-06-21] MEDS ORDERED: Gadobenate Dimeglumine 529 MG/ML 20 ML SDV IVPUSH STA (12:11)
--- NOTE | 2020-06-21 13:33 | MR ---
MRI brain (without and with intravenous contrast) Technique: T1 sagittal and coronal; T1, FLAIR, T2 and diffusion axial; postcontrast T1 fat-suppressed axial, coronal and sagittal images were obtained. Comparison: Prior head CT study of 06/19/20. Findings: Ventricles along with basal cisterns and sulci over the convexities are mildly prominent. Normal signal void is seen within the major cerebral arteries within the skull base. Small retention cyst measuring 1 cm is noted within the inferior left maxillary sinus. Small retention cyst with the left side of sphenoid sinus is noted measuring 5 mm. Diffuse opacification of the left mastoid sinus is seen. Minimal mucosal thickening within the right mastoid sinus. On the FLAIR sequence there is increased signal seen within the periventricular and subcortical white matter. No other abnormal signal is seen within the brain parenchyma. No midline shift or mass-effect is seen. No acute diffusion abnormalities are appreciated. No abnormal enhancement is seen within the brain parenchyma. Impression: 1. Increased signal within the periventricular and subcortical white matter most likely due to small vessel ischemic demyelination change. Mild generalized atrophy is seen. 2. Minimal retention cyst within the paranasal sinuses as noted above which are felt to be pre-existing and chronic. 3. Opacification of a large portion left mastoid sinus is seen. This is most likely chronic if patient has no symptoms of mastoiditis. 4. No additional abnormality is appreciated. Diagnostic code #3 This report was dictated in MDT
--- NOTE | 2020-06-21 14:05 | PCM.PN ---
<Jerardo Del Real M - Last Filed: 06/21/20 14:05> - General Info Date of Service: 06/21/20 Subjective Update: No complaints at bedside this morning. Patient is alert and oriented to person and place. Responding to questions appropriately. - Patient Data Vitals - Most Recent: Last Vital Signs Temp 36.4 C 06/21/20 12:02 Pulse 79 06/21/20 12:02 Resp 16 06/21/20 04:21 BP 110/56 L 06/21/20 12:02 Pulse Ox 95 06/21/20 12:02 Weight - Most Recent: 91.49 kg I&O - Last 24 Hours: Intake & Output 06/20/20 06/21/20 06/21/20 22:59 06:59 14:59 Intake Total 450 Output Total 1400 Balance -950 Lab Results Last 24 Hours: Laboratory Results - last 24 hr 06/21/20 06/21/20 Range/Units 05:55 05:55 WBC 3.13 L (4.0-11.0) K/uL RBC 3.60 L (4.30-5.90) M/uL Hgb 8.0 L (12.0-16.0) g/dL Hct 28.3 L (36.0-46.0) % MCV 78.6 L (80.0-98.0) fL MCH 22.2 L (27.0-32.0) pg MCHC 28.3 L (31.0-37.0) g/dL RDW Std Deviation 59.2 (28.0-62.0) fl RDW Coeff of Thiago 21 H (11.0-15.0) % Plt Count 94 L (150-400) K/uL MPV 9.70 (7.40-12.00) fL Neut % (Auto) 61.7 (48.0-80.0) % Lymph % (Auto) 29.7 (16.0-40.0) % Hamblen % (Auto) 7.3 (0.0-15.0) % Eos % (Auto) 1.3 (0.0-7.0) % Baso % (Auto) 0.0 (0.0-1.5) % Neut # (Auto) 1.9 (1.4-5.7) K/uL Lymph # (Auto) 0.9 (0.6-2.4) K/uL Hamblen # (Auto) 0.2 (0.0-0.8) K/uL Eos # (Auto) 0.0 (0.0-0.7) K/uL Baso # (Auto) 0.0 (0.0-0.1) K/uL Nucleated RBC % 0.0 /100WBC Nucleated RBCs # 0 K/uL Sodium 140 (136-145) mmol/L Potassium 3.5 (3.5-5.1) mmol/L Chloride 103 (98-107) mmol/L Carbon Dioxide 31.3 (21.0-32.0) mmol/L BUN 4 L (7.0-18.0) mg/dL Creatinine 0.7 (0.6-1.0) mg/dL Est Cr Clr Drug Dosing 87.27 mL/min Estimated GFR (MDRD) > 60.0 ml/min Glucose 75 (74-106) mg/dL Calcium 7.4 L (8.5-10.1) mg/dL Phosphorus 2.8 (2.6-4.7) mg/dL Magnesium 1.5 L (1.8-2.4) mg/dL Total Bilirubin 0.9 (0.2-1.0) mg/dL AST 17 (15-37) IU/L ALT 23 (14-63) IU/L Alkaline Phosphatase 104 (46-116) U/L Total Protein 4.9 L (6.4-8.2) g/dL Albumin 2.0 L (3.4-5.0) g/dL Globulin 2.9 (2.6-4.0) g/dL Albumin/Globulin Ratio 0.7 L (0.9-1.6) Vasyl Results Last 24 Hours: Microbiology 06/19/20 18:09 Urine Culture - Final Urine, Catheterized Normal Urogenital [place] 06/19/20 17:13 Aerobic Blood Culture - Preliminary Blood - Venous - Lab Draw NO GROWTH AFTER 1 DAY Anaerobic Blood Culture - Final 06/19/20 16:50 Aerobic Blood Culture - Preliminary Blood - Venous NO GROWTH AFTER 1 DAY Anaerobic Blood Culture - Preliminary NO GROWTH AFTER 1 DAY Med Orders - Current: Current Medications Acetaminophen (Tylenol) 650 mg PO Q4H PRN PRN Reason: Pain (Mild 1-3)/fever Last Admin: 06/21/20 08:37 Dose: 650 mg Documented by: Apixaban (Eliquis) 5 mg PO BID [facility] Last Admin: 06/21/20 08:23 Dose: 5 mg Documented by: Bisacodyl (Dulcolax) 5 mg PO BID PRN PRN Reason: Constipation Docusate Sodium (Colace) 100 mg PO DAILY PRN PRN Reason: Constipation Last Admin: 06/21/20 09:32 Dose: 100 mg Documented by: Ceftriaxone Sodium/Dextrose 1 (gm/ Premix) 50 mls @ 100 mls/hr IV Q24H [facility] Last Admin: 06/20/20 18:34 Dose: 100 mls/hr Documented by: Lorazepam (Ativan) 1 mg PO Q4H PRN PRN Reason: Agitation Ondansetron HCl (Zofran Odt) 4 mg PO Q4H PRN PRN Reason: nausea, able to take PO Ondansetron HCl (Zofran) 4 mg IVPUSH Q4H PRN PRN Reason: Nausea Umeclidinium Brm/Vilanterol Tr [Anoro Ellipta 62.5-25 Mcg 1 each INH DAILY [facility] Last Admin: 06/21/20 08:29 Dose: Not Given Documented by: Polysaccharide Iron Complex (Ferrex 150) 150 mg PO DAILY [facility] Last Admin: 06/21/20 08:23 Dose: 150 mg Documented by: Sodium Chloride (Saline Flush) 10 ml FLUSH ASDIRECTED PRN PRN Reason: Keep Vein Open Last Admin: 06/19/20 17:56 Dose: 10 ml Documented by: Sodium Chloride (Saline Flush) 2.5 ml FLUSH ASDIRECTED PRN PRN Reason: Keep Vein Open Last Admin: 06/19/20 17:56 Dose: 2.5 ml Documented by: Discontinued Medications Enoxaparin Sodium (Lovenox) 40 mg SUBCUT Q24H [facility] Last Admin: 06/19/20 20:07 Dose: 40 mg Documented by: Gadobenate Dimeglumine (Multihance) 20 ml IVPUSH ONETIME STA Stop: 06/21/20 12:12 Last Admin: 06/21/20 12:23 Dose: 18 ml Documented by: Ceftriaxone Sodium/Dextrose 1 (gm/ Premix) 50 mls @ 100 mls/hr IV ONETIME ONE Stop: 06/19/20 19:09 Last Admin: 06/19/20 18:52 Dose: 100 mls/hr Documented by: Magnesium Sulfate 2 gm/ Premix 50 mls @ 50 mls/hr IV ONETIME ONE Stop: 06/19/20 19:40 Last Admin: 06/19/20 18:53 Dose: 50 mls/hr Documented by: Potassium Chloride 20 meq/ (Premix) 50 mls @ 25 mls/hr IV ONETIME ONE Stop: 06/19/20 20:57 Last Admin: 06/19/20 20:00 Dose: 25 mls/hr Documented by: Lactated Ringer's (Ringers, Lactated) 1,000 mls @ 100 mls/hr IV ASDIRECTED [facility] Stop: 06/20/20 05:59 Lactated Ringer's (Ringers, Lactated) 1,000 mls @ 100 mls/hr IV ASDIRECTED [facility] Last Admin: 06/20/20 07:19 Dose: 100 mls/hr Documented by: Magnesium Sulfate 2 gm/ Premix 50 mls @ 50 mls/hr IV ONETIME ONE Stop: 06/21/20 08:03 Last Admin: 06/21/20 08:23 Dose: 50 mls/hr Documented by: Iopamidol (Isovue Multipack-370 (76%)) 60 ml IVPUSH ONETIME STA Stop: 06/19/20 20:43 Last Admin: 06/19/20 20:43 Dose: 60 ml Documented by: Potassium Chloride (Klor-Con M20) 40 meq PO ONETIME ONE Stop: 06/20/20 11:08 Last Admin: 06/20/20 11:41 Dose: 40 meq Documented by: - Exam General: Alert, Cooperative, No Acute Distress Lungs: Clear to Auscultation, Normal Respiratory Effort Cardiovascular: Regular Rate, Regular Rhythm GI/Abdominal Exam: Normal Bowel Sounds, Soft, Non-Tender, No Distention Skin: Other (Two circular lesions measuring approximately 4 cm x 4 cm, black- colored scab on right foot, dry) Neurological: No New Focal Deficit Sepsis Event Note - Evaluation Sepsis Screening Result: No Definite Risk - Focused Exam Vital Signs: Vital Signs Temp Pulse Resp BP Pulse Ox 06/21/20 12:02 36.4 C 79 110/56 L 95 06/21/20 07:33 37.1 C 78 107/58 L 93 L 06/21/20 04:21 36.2 C 78 16 103/58 L 92 L Date Exam was Performed: 06/21/20 Time Exam was Performed: 14:05 - Problem List Review Problem List Initiated/Reviewed/Updated: Yes - My Orders Last 24 Hours: My Active Orders 06/20/20 18:00 cefTRIAXone [Rocephin in Dextrose,Iso-Osm 1 GM/50 ML] 1 gm Premix Bag 1 bag IV Q24H 06/20/20 21:00 Apixaban [Eliquis] 5 mg PO BID 06/21/20 08:41 Consult to Physical Therapy [PT Evaluation and Treatment] [CONS] Routine 06/21/20 08:42 bisacodyL [Dulcolax] 5 mg PO BID PRN 06/21/20 08:44 Docusate Sodium [Colace] 100 mg PO DAILY PRN 06/21/20 09:00 Patient's Own Medication [Ptom] 1 each INH DAILY 06/21/20 Lunch Regular Diet [DIET] 06/21/20 13:18 Consult to Home Health [CONS] Routine 06/22/20 05:11 CBC WITH AUTO DIFF [HEME] AM COMPREHENSIVE METABOLIC PN,CMP [CHEM] AM MAGNESIUM [CHEM] AM - Plan Plan:: Assessment and Plan: 1. 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 ECHO currently pending. - Continue supplemental oxygen. 2. Altered mental status likely secondary to hypoxic encephalopathy vs UTI, stable: - Patient AOx2 but more alert and responding to questions appropriately today. Continue IV ceftriaxone 1 g qd. Will continue to monitor. - CT head was negative. MRI brain showed no acute findings. - Recommend neurology follow-up as outpatient. 3. Right foot injury: - Per wound care right foot lesions do not appear to be infected at this time. Will avoid walking boot at this time as the boot is what caused the lesions to develop per . Physical therapy consult placed. Right foot x-ray showed soft tissue swelling. Patient will require orthopedic referral on discharge. 4. Microcytic anemia: - Will start iron supplement. Stool occult blood test pending. 5. Hypomagnesemia: - Replete and check with AM labs. 6. DVT prophylaxis: Patient home dose of Eliquis resumed. SCD's placed. 7. Past medical history of PE, anxiety, depression and PTSD: - Klonopin and opioid medication held because of patient's altered mental status. Ativan 1 mg q4 prn for chronic benzodiazepine use. <EmanuelHill Seven - Last Filed: 06/21/20 23:15> - Patient Data Vitals - Most Recent: Last Vital Signs Temp 36.3 C 06/21/20 15:30 Pulse 75 06/21/20 15:30 Resp 16 06/21/20 15:30 BP 105/58 L 06/21/20 15:30 Pulse Ox 96 06/21/20 15:30 I&O - Last 24 Hours: Intake & Output 06/21/20 06/21/20 06/22/20 14:59 22:59 06:59 Intake Total 500 Output Total 600 Balance -100 Lab Results Last 24 Hours: Laboratory Results - last 24 hr 06/21/20 06/21/20 Range/Units 05:55 05:55 WBC 3.13 L (4.0-11.0) K/uL RBC 3.60 L (4.30-5.90) M/uL Hgb 8.0 L (12.0-16.0) g/dL Hct 28.3 L (36.0-46.0) % MCV 78.6 L (80.0-98.0) fL MCH 22.2 L (27.0-32.0) pg MCHC 28.3 L (31.0-37.0) g/dL RDW Std Deviation 59.2 (28.0-62.0) fl RDW Coeff of Thiago 21 H (11.0-15.0) % Plt Count 94 L (150-400) K/uL MPV 9.70 (7.40-12.00) fL Neut % (Auto) 61.7 (48.0-80.0) % Lymph % (Auto) 29.7 (16.0-40.0) % Hamblen % (Auto) 7.3 (0.0-15.0) % Eos % (Auto) 1.3 (0.0-7.0) % Baso % (Auto) 0.0 (0.0-1.5) % Neut # (Auto) 1.9 (1.4-5.7) K/uL Lymph # (Auto) 0.9 (0.6-2.4) K/uL Hamblen # (Auto) 0.2 (0.0-0.8) K/uL Eos # (Auto) 0.0 (0.0-0.7) K/uL Baso # (Auto) 0.0 (0.0-0.1) K/uL Nucleated RBC % 0.0 /100WBC Nucleated RBCs # 0 K/uL Sodium 140 (136-145) mmol/L Potassium 3.5 (3.5-5.1) mmol/L Chloride 103 (98-107) mmol/L Carbon Dioxide 31.3 (21.0-32.0) mmol/L BUN 4 L (7.0-18.0) mg/dL Creatinine 0.7 (0.6-1.0) mg/dL Est Cr Clr Drug Dosing 87.27 mL/min Estimated GFR (MDRD) > 60.0 ml/min Glucose 75 (74-106) mg/dL Calcium 7.4 L (8.5-10.1) mg/dL Phosphorus 2.8 (2.6-4.7) mg/dL Magnesium 1.5 L (1.8-2.4) mg/dL Total Bilirubin 0.9 (0.2-1.0) mg/dL AST 17 (15-37) IU/L ALT 23 (14-63) IU/L Alkaline Phosphatase 104 (46-116) U/L Total Protein 4.9 L (6.4-8.2) g/dL Albumin 2.0 L (3.4-5.0) g/dL Globulin 2.9 (2.6-4.0) g/dL Albumin/Globulin Ratio 0.7 L (0.9-1.6) Vasyl Results Last 24 Hours: Microbiology 06/19/20 17:13 Aerobic Blood Culture - Preliminary Blood - Venous - Lab Draw NO GROWTH AFTER 2 DAYS Anaerobic Blood Culture - Final 06/19/20 16:50 Aerobic Blood Culture - Preliminary Blood - Venous NO GROWTH AFTER 2 DAYS Anaerobic Blood Culture - Preliminary NO GROWTH AFTER 2 DAYS 06/19/20 18:09 Urine Culture - Final Urine, Catheterized Normal Urogenital [place] Med Orders - Current: Current Medications Discontinued Medications Acetaminophen (Tylenol) 650 mg PO Q4H PRN PRN Reason: Pain (Mild 1-3)/fever Last Admin: 06/21/20 08:37 Dose: 650 mg Documented by: Apixaban (Eliquis) 5 mg PO BID [facility] Last Admin: 06/21/20 08:23 Dose: 5 mg Documented by: Bisacodyl (Dulcolax) 5 mg PO BID PRN PRN Reason: Constipation Docusate Sodium (Colace) 100 mg PO DAILY PRN PRN Reason: Constipation Last Admin: 06/21/20 09:32 Dose: 100 mg Documented by: Enoxaparin Sodium (Lovenox) 40 mg SUBCUT Q24H [facility] Last Admin: 06/19/20 20:07 Dose: 40 mg Documented by: Gadobenate Dimeglumine (Multihance) 20 ml IVPUSH ONETIME STA Stop: 06/21/20 12:12 Last Admin: 06/21/20 12:23 Dose: 18 ml Documented by: Ceftriaxone Sodium/Dextrose 1 (gm/ Premix) 50 mls @ 100 mls/hr IV ONETIME ONE Stop: 06/19/20 19:09 Last Admin: 06/19/20 18:52 Dose: 100 mls/hr Documented by: Magnesium Sulfate 2 gm/ Premix 50 mls @ 50 mls/hr IV ONETIME ONE Stop: 06/19/20 19:40 Last Admin: 06/19/20 18:53 Dose: 50 mls/hr Documented by: Potassium Chloride 20 meq/ (Premix) 50 mls @ 25 mls/hr IV ONETIME ONE Stop: 06/19/20 20:57 Last Admin: 06/19/20 20:00 Dose: 25 mls/hr Documented by: Ceftriaxone Sodium/Dextrose 1 (gm/ Premix) 50 mls @ 100 mls/hr IV Q24H [facility] Last Admin: 06/21/20 19:32 Dose: Not Given Documented by: Lactated Ringer's (Ringers, Lactated) 1,000 mls @ 100 mls/hr IV ASDIRECTED [facility] Stop: 06/20/20 05:59 Lactated Ringer's (Ringers, Lactated) 1,000 mls @ 100 mls/hr IV ASDIRECTED [facility] Last Admin: 06/20/20 07:19 Dose: 100 mls/hr Documented by: Magnesium Sulfate 2 gm/ Premix 50 mls @ 50 mls/hr IV ONETIME ONE Stop: 06/21/20 08:03 Last Admin: 06/21/20 08:23 Dose: 50 mls/hr Documented by: Iopamidol (Isovue Multipack-370 (76%)) 60 ml IVPUSH ONETIME STA Stop: 06/19/20 20:43 Last Admin: 06/19/20 20:43 Dose: 60 ml Documented by: Lorazepam (Ativan) 1 mg PO Q4H PRN PRN Reason: Agitation Ondansetron HCl (Zofran Odt) 4 mg PO Q4H PRN PRN Reason: nausea, able to take PO Ondansetron HCl (Zofran) 4 mg IVPUSH Q4H PRN PRN Reason: Nausea Umeclidinium Brm/Vilanterol Tr [Anoro Ellipta 62.5-25 Mcg 1 each INH DAILY [facility] Last Admin: 06/21/20 08:29 Dose: Not Given Documented by: Polysaccharide Iron Complex (Ferrex 150) 150 mg PO DAILY [facility] Last Admin: 06/21/20 08:23 Dose: 150 mg Documented by: Potassium Chloride (Klor-Con M20) 40 meq PO ONETIME ONE Stop: 06/20/20 11:08 Last Admin: 06/20/20 11:41 Dose: 40 meq Documented by: Sodium Chloride (Saline Flush) 10 ml FLUSH ASDIRECTED PRN PRN Reason: Keep Vein Open Last Admin: 06/19/20 17:56 Dose: 10 ml Documented by: Sodium Chloride (Saline Flush) 2.5 ml FLUSH ASDIRECTED PRN PRN Reason: Keep Vein Open Last Admin: 06/19/20 17:56 Dose: 2.5 ml Documented by: Sepsis Event Note - Focused Exam Vital Signs: Vital Signs Temp Pulse Resp BP Pulse Ox 06/21/20 15:30 36.3 C 75 16 105/58 L 96 06/21/20 12:02 36.4 C 79 110/56 L 95 Date Exam was Performed: 06/21/20 Time Exam was Performed: 23:14 - Free Text/Narrative Note: I have seen and evaluated the patient with the resident. I have discussed findings and treatment plan with the resident. I agree with the assessment and plan outlined in the following note.
[2020-06-21 17:36] VITALS: BP 105/58; PULSE 75
--- NOTE | 2020-06-21 17:46 | PCM.DCSUM1 ---
<Jerardo Del Real - Last Filed: 06/21/20 17:58> Discharge Summary - Hospital Course Free Text/Narrative:: 54-year-old female admitted for acute hypoxic hypercapnic respiratory failure and altered mental status. She has a PMH of pulmonary embolism, COPD on home oxygen, anxiety, depression and tobacco abuse. On admission, CT head was negative and CXR was negative. CTA chest showed no acute PE, minimal residual chronic thrombus in RLL, mild cardiomegaly, mild pericardial effusion and mild interstitial edema. ECHO ordered and currently pending at time of discharge. UA positive for nitrites and esterase. Patient started on IV ceftriaxone. Blood cultures negative. Patient was found to be hypercapnic on admission and BiPAP was used overnight for the first day but discontinued thereafter. Patient's mentation improved steadily throughout her hospital course although she did have some persistent confusion. MRI brain was ordered which showed no significant findings. Recommend neurology follow-up as outpatient. Furthermore, patient presented with two circular scabbed lesions on her right foot. She was seen in the ER for a right foot injury on 06/02/20 and given walking boot and advised to follow-up with orthopedics, however, did not do so. Per patient's , lesions on right foot were caused by walking boot so she stopped wearing the boot. Right foot x-ray during current admission showed soft tissue swelling and no fracture. Wound care consulted and noted that lesions do not appear infectious and are dry. Wound care recommended Allevyn dressings and can be changed every 3 days. Orthopedic follow-up recommended. PT also evaluated patient prior to discharge and noted that patient would benefit from a four- wheeled walker. Patient discharged in stable condition and advised to follow-up with PCP, neurology and orthopedics. She was given script for ciprofloxacin and iron supplement. - Discharge Data Discharge Date: 06/21/20 Discharge Disposition: Home, Self-Care 01 Condition: Stable - Referral to Home Health Primary Care Physician: Remi Olvias MD - Patient Summary/Data Consults: Consultations 06/20/20 11:53 Consult to Wound Care Services [CONS] Routine 06/21/20 08:41 Consult to Physical Therapy [PT Evaluation and Treatment] [CONS] Routine 06/21/20 13:18 Consult to Home Health [CONS] Routine - Patient Instructions Diet: Usual Diet as Tolerated Activity: As Tolerated Activity, Other: Use walker Notify Provider of: Fever, Increased Pain, Swelling and Redness, Drainage, Nausea and/or Vomiting - Discharge Plan *PRESCRIPTION DRUG MONITORING PROGRAM REVIEWED*: Not Applicable *COPY OF PRESCRIPTION DRUG MONITORING REPORT IN PATIENT BRIGETTE: Not Applicable Prescriptions/Med Rec: Ciprofloxacin [Ciprofloxacin HCl] 500 mg PO BID 3 Days #6 tab Iron Polysaccharides Complex [Ferrex 150] 150 mg PO DAILY 30 Days #30 cap Home Medications: Home Meds ClonazePAM [KlonoPIN] 2 mg PO TID PRN 04/23/18 [History] Naproxen [Naprosyn] 500 mg PO Q12HR #20 tab 06/02/20 [Rx] Apixaban [Eliquis] 5 mg PO BID 06/20/20 [History] Budesonide [Pulmicort] 1 vial IH BID 06/20/20 [History] Umeclidinium Brm/Vilanterol Tr [Anoro Ellipta 62.5-25 MCG] 1 puff IH DAILY 06/20/20 [History] Ciprofloxacin [Ciprofloxacin HCl] 500 mg PO BID 3 Days #6 tab 06/21/20 [Rx] Iron Polysaccharides Complex [Ferrex 150] 150 mg PO DAILY 30 Days #30 cap 06/21/20 [Rx] Oxygen Therapy Mode: Nasal Cannula Patient Handouts: Hypoxia, Iron tablets, capsules, extended-release tablets, Urinary Tract Infection, Adult, [id number], Ciprofloxacin tablets Referrals: [facility] [Outside] Mila Siddiqi MD [Physician] - 07/06/20 8:00 am (You will be seeing [facility] [facility] Nurse Practioner. Arrive 15 minutes early with a photo ID, insurance card, and a mask. ) Remi Olivas MD [Primary Care Provider] - 06/28/20 10:15 am (Arrive 15 minutes early with a photo ID, insurance card, and a mask. ) - Discharge Summary/Plan Comment DC Time >30 min.: No - Patient Data Vitals - Most Recent: Last Vital Signs Temp 36.3 C 06/21/20 15:30 Pulse 75 06/21/20 15:30 Resp 16 06/21/20 15:30 BP 105/58 L 06/21/20 15:30 Pulse Ox 96 06/21/20 15:30 Weight - Most Recent: 91.49 kg I&O - Last 24 hours: Intake & Output 06/21/20 06/21/20 06/21/20 06:59 14:59 22:59 Intake Total 450 500 Output Total 1400 600 Balance -950 -100 Lab Results - Last 24 hrs: Laboratory Results - last 24 hr 06/21/20 06/21/20 Range/Units 05:55 05:55 WBC 3.13 L (4.0-11.0) K/uL RBC 3.60 L (4.30-5.90) M/uL Hgb 8.0 L (12.0-16.0) g/dL Hct 28.3 L (36.0-46.0) % MCV 78.6 L (80.0-98.0) fL MCH 22.2 L (27.0-32.0) pg MCHC 28.3 L (31.0-37.0) g/dL RDW Std Deviation 59.2 (28.0-62.0) fl RDW Coeff of Thiago 21 H (11.0-15.0) % Plt Count 94 L (150-400) K/uL MPV 9.70 (7.40-12.00) fL Neut % (Auto) 61.7 (48.0-80.0) % Lymph % (Auto) 29.7 (16.0-40.0) % [place] % (Auto) 7.3 (0.0-15.0) % Eos % (Auto) 1.3 (0.0-7.0) % Baso % (Auto) 0.0 (0.0-1.5) % Neut # (Auto) 1.9 (1.4-5.7) K/uL Lymph # (Auto) 0.9 (0.6-2.4) K/uL [place] # (Auto) 0.2 (0.0-0.8) K/uL Eos # (Auto) 0.0 (0.0-0.7) K/uL Baso # (Auto) 0.0 (0.0-0.1) K/uL Nucleated RBC % 0.0 /100WBC Nucleated RBCs # 0 K/uL Sodium 140 (136-145) mmol/L Potassium 3.5 (3.5-5.1) mmol/L Chloride 103 (98-107) mmol/L Carbon Dioxide 31.3 (21.0-32.0) mmol/L BUN 4 L (7.0-18.0) mg/dL Creatinine 0.7 (0.6-1.0) mg/dL Est Cr Clr Drug Dosing 87.27 mL/min Estimated GFR (MDRD) > 60.0 ml/min Glucose 75 (74-106) mg/dL Calcium 7.4 L (8.5-10.1) mg/dL Phosphorus 2.8 (2.6-4.7) mg/dL Magnesium 1.5 L (1.8-2.4) mg/dL Total Bilirubin 0.9 (0.2-1.0) mg/dL AST 17 (15-37) IU/L ALT 23 (14-63) IU/L Alkaline Phosphatase 104 (46-116) U/L Total Protein 4.9 L (6.4-8.2) g/dL Albumin 2.0 L (3.4-5.0) g/dL Globulin 2.9 (2.6-4.0) g/dL Albumin/Globulin Ratio 0.7 L (0.9-1.6) GEOVANNI Results - Last 24 hrs: Microbiology 06/19/20 17:13 Aerobic Blood Culture - Preliminary Blood - Venous - Lab Draw NO GROWTH AFTER 2 DAYS Anaerobic Blood Culture - Final 06/19/20 16:50 Aerobic Blood Culture - Preliminary Blood - Venous NO GROWTH AFTER 2 DAYS Anaerobic Blood Culture - Preliminary NO GROWTH AFTER 2 DAYS 06/19/20 18:09 Urine Culture - Final Urine, Catheterized Normal Urogenital [place] Med Orders - Current: Current Medications Acetaminophen (Tylenol) 650 mg PO Q4H PRN PRN Reason: Pain (Mild 1-3)/fever Last Admin: 06/21/20 08:37 Dose: 650 mg Documented by: Apixaban (Eliquis) 5 mg PO BID [facility] Last Admin: 06/21/20 08:23 Dose: 5 mg Documented by: Bisacodyl (Dulcolax) 5 mg PO BID PRN PRN Reason: Constipation Docusate Sodium (Colace) 100 mg PO DAILY PRN PRN Reason: Constipation Last Admin: 06/21/20 09:32 Dose: 100 mg Documented by: Ceftriaxone Sodium/Dextrose 1 (gm/ Premix) 50 mls @ 100 mls/hr IV Q24H [facility] Last Admin: 06/20/20 18:34 Dose: 100 mls/hr Documented by: Lorazepam (Ativan) 1 mg PO Q4H PRN PRN Reason: Agitation Ondansetron HCl (Zofran Odt) 4 mg PO Q4H PRN PRN Reason: nausea, able to take PO Ondansetron HCl (Zofran) 4 mg IVPUSH Q4H PRN PRN Reason: Nausea Umeclidinium Brm/Vilanterol Tr [Anoro Ellipta 62.5-25 Mcg 1 each INH DAILY [facility] Last Admin: 06/21/20 08:29 Dose: Not Given Documented by: Polysaccharide Iron Complex (Ferrex 150) 150 mg PO DAILY [facility] Last Admin: 06/21/20 08:23 Dose: 150 mg Documented by: Sodium Chloride (Saline Flush) 10 ml FLUSH ASDIRECTED PRN PRN Reason: Keep Vein Open Last Admin: 06/19/20 17:56 Dose: 10 ml Documented by: Sodium Chloride (Saline Flush) 2.5 ml FLUSH ASDIRECTED PRN PRN Reason: Keep Vein Open Last Admin: 06/19/20 17:56 Dose: 2.5 ml Documented by: Discontinued Medications Enoxaparin Sodium (Lovenox) 40 mg SUBCUT Q24H [facility] Last Admin: 06/19/20 20:07 Dose: 40 mg Documented by: Gadobenate Dimeglumine (Multihance) 20 ml IVPUSH ONETIME STA Stop: 06/21/20 12:12 Last Admin: 06/21/20 12:23 Dose: 18 ml Documented by: Ceftriaxone Sodium/Dextrose 1 (gm/ Premix) 50 mls @ 100 mls/hr IV ONETIME ONE Stop: 06/19/20 19:09 Last Admin: 06/19/20 18:52 Dose: 100 mls/hr Documented by: Magnesium Sulfate 2 gm/ Premix 50 mls @ 50 mls/hr IV ONETIME ONE Stop: 06/19/20 19:40 Last Admin: 06/19/20 18:53 Dose: 50 mls/hr Documented by: Potassium Chloride 20 meq/ (Premix) 50 mls @ 25 mls/hr IV ONETIME ONE Stop: 06/19/20 20:57 Last Admin: 06/19/20 20:00 Dose: 25 mls/hr Documented by: Lactated Ringer's (Ringers, Lactated) 1,000 mls @ 100 mls/hr IV ASDIRECTED EDWIN Stop: 06/20/20 05:59 Lactated Ringer's (Ringers, Lactated) 1,000 mls @ 100 mls/hr IV ASDIRECTED [facility] Last Admin: 06/20/20 07:19 Dose: 100 mls/hr Documented by: Magnesium Sulfate 2 gm/ Premix 50 mls @ 50 mls/hr IV ONETIME ONE Stop: 06/21/20 08:03 Last Admin: 06/21/20 08:23 Dose: 50 mls/hr Documented by: Iopamidol (Isovue Multipack-370 (76%)) 60 ml IVPUSH ONETIME STA Stop: 06/19/20 20:43 Last Admin: 06/19/20 20:43 Dose: 60 ml Documented by: Potassium Chloride (Klor-Con M20) 40 meq PO ONETIME ONE Stop: 06/20/20 11:08 Last Admin: 06/20/20 11:41 Dose: 40 meq Documented by: <Hill Emanuel - Last Filed: 06/21/20 23:14> Discharge Summary - Referral to Home Health Primary Care Physician: Remi Olivas MD - Patient Summary/Data Consults: Consultations 06/20/20 11:53 Consult to Wound Care Services [CONS] Routine 06/21/20 08:41 Consult to Physical Therapy [PT Evaluation and Treatment] [CONS] Routine 06/21/20 13:18 Consult to Home Health [CONS] Routine - Patient Data Vitals - Most Recent: Last Vital Signs Temp 36.3 C 06/21/20 15:30 Pulse 75 06/21/20 15:30 Resp 16 06/21/20 15:30 BP 105/58 L 06/21/20 15:30 Pulse Ox 96 06/21/20 15:30 I&O - Last 24 hours: Intake & Output 06/21/20 06/21/20 06/22/20 14:59 22:59 06:59 Intake Total 500 Output Total 600 Balance -100 Lab Results - Last 24 hrs: Laboratory Results - last 24 hr 06/21/20 06/21/20 Range/Units 05:55 05:55 WBC 3.13 L (4.0-11.0) K/uL RBC 3.60 L (4.30-5.90) M/uL Hgb 8.0 L (12.0-16.0) g/dL Hct 28.3 L (36.0-46.0) % MCV 78.6 L (80.0-98.0) fL MCH 22.2 L (27.0-32.0) pg MCHC 28.3 L (31.0-37.0) g/dL RDW Std Deviation 59.2 (28.0-62.0) fl RDW Coeff of Thiago 21 H (11.0-15.0) % Plt Count 94 L (150-400) K/uL MPV 9.70 (7.40-12.00) fL Neut % (Auto) 61.7 (48.0-80.0) % Lymph % (Auto) 29.7 (16.0-40.0) % [place] % (Auto) 7.3 (0.0-15.0) % Eos % (Auto) 1.3 (0.0-7.0) % Baso % (Auto) 0.0 (0.0-1.5) % Neut # (Auto) 1.9 (1.4-5.7) K/uL Lymph # (Auto) 0.9 (0.6-2.4) K/uL [place] # (Auto) 0.2 (0.0-0.8) K/uL Eos # (Auto) 0.0 (0.0-0.7) K/uL Baso # (Auto) 0.0 (0.0-0.1) K/uL Nucleated RBC % 0.0 /100WBC Nucleated RBCs # 0 K/uL Sodium 140 (136-145) mmol/L Potassium 3.5 (3.5-5.1) mmol/L Chloride 103 (98-107) mmol/L Carbon Dioxide 31.3 (21.0-32.0) mmol/L BUN 4 L (7.0-18.0) mg/dL Creatinine 0.7 (0.6-1.0) mg/dL Est Cr Clr Drug Dosing 87.27 mL/min Estimated GFR (MDRD) > 60.0 ml/min Glucose 75 (74-106) mg/dL Calcium 7.4 L (8.5-10.1) mg/dL Phosphorus 2.8 (2.6-4.7) mg/dL Magnesium 1.5 L (1.8-2.4) mg/dL Total Bilirubin 0.9 (0.2-1.0) mg/dL AST 17 (15-37) IU/L ALT 23 (14-63) IU/L Alkaline Phosphatase 104 (46-116) U/L Total Protein 4.9 L (6.4-8.2) g/dL Albumin 2.0 L (3.4-5.0) g/dL Globulin 2.9 (2.6-4.0) g/dL Albumin/Globulin Ratio 0.7 L (0.9-1.6) GEOVANNI Results - Last 24 hrs: Microbiology 06/19/20 17:13 Aerobic Blood Culture - Preliminary Blood - Venous - Lab Draw NO GROWTH AFTER 2 DAYS Anaerobic Blood Culture - Final 06/19/20 16:50 Aerobic Blood Culture - Preliminary Blood - Venous NO GROWTH AFTER 2 DAYS Anaerobic Blood Culture - Preliminary NO GROWTH AFTER 2 DAYS 06/19/20 18:09 Urine Culture - Final Urine, Catheterized Normal Urogenital [place] Med Orders - Current: Current Medications Discontinued Medications Acetaminophen (Tylenol) 650 mg PO Q4H PRN PRN Reason: Pain (Mild 1-3)/fever Last Admin: 06/21/20 08:37 Dose: 650 mg Documented by: Apixaban (Eliquis) 5 mg PO BID [facility] Last Admin: 06/21/20 08:23 Dose: 5 mg Documented by: Bisacodyl (Dulcolax) 5 mg PO BID PRN PRN Reason: Constipation Docusate Sodium (Colace) 100 mg PO DAILY PRN PRN Reason: Constipation Last Admin: 06/21/20 09:32 Dose: 100 mg Documented by: Enoxaparin Sodium (Lovenox) 40 mg SUBCUT Q24H [facility] Last Admin: 06/19/20 20:07 Dose: 40 mg Documented by: Gadobenate Dimeglumine (Multihance) 20 ml IVPUSH ONETIME STA Stop: 06/21/20 12:12 Last Admin: 06/21/20 12:23 Dose: 18 ml Documented by: Ceftriaxone Sodium/Dextrose 1 (gm/ Premix) 50 mls @ 100 mls/hr IV ONETIME ONE Stop: 06/19/20 19:09 Last Admin: 06/19/20 18:52 Dose: 100 mls/hr Documented by: Magnesium Sulfate 2 gm/ Premix 50 mls @ 50 mls/hr IV ONETIME ONE Stop: 06/19/20 19:40 Last Admin: 06/19/20 18:53 Dose: 50 mls/hr Documented by: Potassium Chloride 20 meq/ (Premix) 50 mls @ 25 mls/hr IV ONETIME ONE Stop: 06/19/20 20:57 Last Admin: 06/19/20 20:00 Dose: 25 mls/hr Documented by: Ceftriaxone Sodium/Dextrose 1 (gm/ Premix) 50 mls @ 100 mls/hr IV Q24H [facility] Last Admin: 06/21/20 19:32 Dose: Not Given Documented by: Lactated Ringer's (Ringers, Lactated) 1,000 mls @ 100 mls/hr IV ASDIRECTED [facility] Stop: 06/20/20 05:59 Lactated Ringer's (Ringers, Lactated) 1,000 mls @ 100 mls/hr IV ASDIRECTED [facility] Last Admin: 06/20/20 07:19 Dose: 100 mls/hr Documented by: Magnesium Sulfate 2 gm/ Premix 50 mls @ 50 mls/hr IV ONETIME ONE Stop: 06/21/20 08:03 Last Admin: 06/21/20 08:23 Dose: 50 mls/hr Documented by: Iopamidol (Isovue Multipack-370 (76%)) 60 ml IVPUSH ONETIME STA Stop: 06/19/20 20:43 Last Admin: 06/19/20 20:43 Dose: 60 ml Documented by: Lorazepam (Ativan) 1 mg PO Q4H PRN PRN Reason: Agitation Ondansetron HCl (Zofran Odt) 4 mg PO Q4H PRN PRN Reason: nausea, able to take PO Ondansetron HCl (Zofran) 4 mg IVPUSH Q4H PRN PRN Reason: Nausea Umeclidinium Brm/Vilanterol Tr [Anoro Ellipta 62.5-25 Mcg 1 each INH DAILY [facility] Last Admin: 06/21/20 08:29 Dose: Not Given Documented by: Polysaccharide Iron Complex (Ferrex 150) 150 mg PO DAILY [facility] Last Admin: 06/21/20 08:23 Dose: 150 mg Documented by: Potassium Chloride (Klor-Con M20) 40 meq PO ONETIME ONE Stop: 06/20/20 11:08 Last Admin: 06/20/20 11:41 Dose: 40 meq Documented by: Sodium Chloride (Saline Flush) 10 ml FLUSH ASDIRECTED PRN PRN Reason: Keep Vein Open Last Admin: 06/19/20 17:56 Dose: 10 ml Documented by: Sodium Chloride (Saline Flush) 2.5 ml FLUSH ASDIRECTED PRN PRN Reason: Keep Vein Open Last Admin: 06/19/20 17:56 Dose: 2.5 ml Documented by: - Free Text/Narrative Note: I have seen and evaluated the patient with the resident. I have discussed findings and treatment plan with the resident. I agree with the assessment and plan outlined in the following note.
[2020-06-21] MEDS: cefTRIAXone 1 GM in Premix Bag 1 BAG IV SCH (19:32)
--- NOTE | 2020-06-27 12:40 | ECHO ---
EXAM DATE: 06/19/20 PATIENT'S AGE: 54 The ECHO report has been scanned into [employer] and can be seen in this patient's EMR (Electronic Medical Record) under the REPORTS section. The report has also been scanned into PACS. [facility]
== END 2020-06-21 18:40 | disposition home health service (06) ==
LOC: MW.ED 16:14 → MW.MS 18:52
PROVIDERS: ADMIT Student in an Organized Health Care Education/Training Program; ATTEND Student in an Organized Health Care Education/Training Program
DX: J96.01 Acute respiratory failure with hypoxia (principal); J96.02 Acute respiratory failure with hypercapnia; R41.82 Altered mental status, unspecified; F32.9 Major depressive disorder, single episode, unspecified; F43.10 Post-traumatic stress disorder, unspecified; F41.9 Anxiety disorder, unspecified; J44.9 Chronic obstructive pulmonary disease, unspecified; S99.921D Unspecified injury of right foot, subsequent encounter; D50.9 Iron deficiency anemia, unspecified; E87.6 Hypokalemia; R82.998 Other abnormal findings in urine; E80.6 Other disorders of bilirubin metabolism; Z20.828 Contact with and (suspected) exposure to other viral communicable diseases; Z87.891 Personal history of nicotine dependence; Z99.81 Dependence on supplemental oxygen; Z79.899 Other long term (current) drug therapy; Z79.82 Long term (current) use of aspirin; Z88.2 Allergy status to sulfonamides; Z86.711 Personal history of pulmonary embolism; Z88.5 Allergy status to narcotic agent; Z88.8 Allergy status to other drugs, medicaments and biological substances; X58.XXXD Exposure to other specified factors, subsequent encounter
CPT/HCPCS: 36415; 70450; 70553; 71045; 71275; 73630; 80053; 80305; 80307; 81001; 82140; 82607; 82728; 82803; 82962; 83550; 83605; 83735; 84100; 84484; 85025; 85610; 87040; 87086; 87635; 93005; 93306; 94660; 96365; 96368; 97116; 97161; 99285; A9270; A9577; J0696; J1650; J3475; J3480; J7120; Q9967; 96367; 99284; U0002

== ENCOUNTER 2020-09-18 16:48 | Observation (INO) | payer BC, OTHER ==
[2020-09-18] MEDS ORDERED: Sodium Chloride 0.9% 2.5 ML Syringe FLUSH PRN (17:03)
[2020-09-18] MEDS ORDERED: Sodium Chloride 0.9% 10 ML Syringe FLUSH PRN (17:03)
--- NOTE | 2020-09-18 17:10 | EDM.PDOC ---
ED HPI GENERAL MEDICAL PROBLEM - General Chief Complaint: General Stated Complaint: dementia/uti/disorientation Time Seen by Provider: 09/18/20 16:51 Source of Information: Reports: Patient, Family History Limitations: Reports: Altered Mental Status - History of Present Illness INITIAL COMMENTS - FREE TEXT/NARRATIVE: History of present illness: [] Patient is a 54-year-old female who presented today with her for altered status. states that for the past few days she has been confused not acting herself. He also reports the patient does have home O2 but has not occasionally been using. He believes the patient may have a UTI and spoke to her primary care physician told her bring patient here. Patient herself denies any confusion fever chills nausea vomiting or shortness of breath. Patient was noted to be satting 70% on room air and was placed on nasal cannula currently at 3 L at 100% now. Past medical history: As per history of present illness and as reviewed below otherwise noncontributory. Surgical history: As per history of present illness and as reviewed below otherwise noncontributory. Social history: No reported history of drug or alcohol abuse. Family history: As per history of present illness and as reviewed below otherwise noncontributory. Definitive disposition and diagnosis as appropriate pending reevaluation and review of above. - Related Data Allergies Allergy/AdvReac Type Severity Reaction Status Date / Time codeine Allergy Hives Verified 09/18/20 16:59 pseudoephedrine Allergy palpitation Verified 09/18/20 16:59 s Sulfa (Sulfonamide Allergy unknown Verified 09/18/20 16:59 Antibiotics) Home Meds: Home Meds ClonazePAM [KlonoPIN] 2 mg PO TID PRN 04/23/18 [History] Apixaban [Eliquis] 5 mg PO BID 06/20/20 [History] Budesonide [Pulmicort] 1 vial IH BID 06/20/20 [History] Umeclidinium Brm/Vilanterol Tr [Anoro Ellipta 62.5-25 MCG] 1 puff IH DAILY 06/20/20 [History] Iron Polysaccharides Complex [Ferrex 150] 150 mg PO DAILY 30 Days #30 cap 06/21/20 [Rx] Furosemide 40 mg PO DAILY 09/18/20 [History] Levothyroxine 1 tab PO DAILY 10/26/20 [History] Past Medical History Cardiovascular History: Reports: Blood Clots/VTE/DVT Respiratory History: Reports: COPD, SOB [employer] SCI[employer]IST History: Reports: Psychiatric History: Reports: Anxiety, Depression, PTSD - Infectious Disease History Infectious Disease History: Reports: Chicken Pox, Measles, Mumps - Past Surgical History HEENT Surgical History: Reports: Adenoidectomy, Tonsillectomy GI Surgical History: Reports: Appendectomy, Cholecystectomy, Colostomy, Hernia, Abdominal, Other (See Below) Other GI Surgeries/Procedures: prior colostomy and ileostomy Female Surgical History: Reports: Hysterectomy, Salpingo-Oophorectomy Musculoskeletal Surgical History: Reports: Other (See Below) Other Musculoskeletal Surgeries/Procedures:: right thumb surgery Social & Family History - Family History Family Medical History: Noncontributory - Tobacco Use Tobacco Use Status *Q: Current Every Day Tobacco User Years of Tobacco use: 30 Packs/Tins Daily: 0.5 - Caffeine Use Caffeine Use: Reports: None - Recreational Drug Use Recreational Drug Use: No ED ROS GENERAL - Review of Systems Review Of Systems: See Below Constitutional: Reports: No Symptoms HEENT: Reports: No Symptoms Respiratory: Reports: Shortness of Breath Cardiovascular: Reports: No Symptoms Endocrine: Reports: No Symptoms GI/Abdominal: Reports: No Symptoms : Reports: Dysuria Musculoskeletal: Reports: No Symptoms Skin: Reports: No Symptoms Neurological: Reports: Confusion Hematologic/Lymphatic: Reports: No Symptoms Immunologic: Reports: No Symptoms ED EXAM, GENERAL - Physical Exam Exam: See Below Exam Limited By: Altered Mental Status General Appearance: Alert Eye Exam: Bilateral Eye: EOMI, PERRL Ears: Normal External Exam Head: Atraumatic Neck: Normal Inspection Respiratory/Chest: Lungs Clear, Normal Breath Sounds, Respiratory Distress Cardiovascular: Regular Rate, Rhythm GI/Abdominal: Soft, Non-Tender Neurological: Alert, Oriented, CN II-XII Intact Course - Vital Signs Last Recorded V/S: Last Vital Signs Temp 96.5 F L 09/18/20 16:53 Pulse 86 09/18/20 16:53 Resp 18 09/18/20 16:53 BP 136/53 L 09/18/20 16:53 Pulse Ox 70 L 09/18/20 16:53 - Orders/Labs/Meds Orders: Active Orders 24 hr Category Date Time Status Patient Status [ADT] Routine ADT 09/18/20 19:08 Active EKG 12 Lead [EKG Documentation Completion] [RC] STAT Care 09/18/20 17:15 Active Pulse Oximetry [RC] ASDIRECTED Care 09/18/20 17:03 Active Head wo Cont [CT] Stat Exams 09/18/20 18:50 Taken BLOOD GAS ARTERIAL [BG] Stat Lab 09/18/20 17:04 Ordered CULTURE BLOOD [BC] Stat Lab 09/18/20 17:04 Received CULTURE BLOOD [BC] Stat Lab 09/18/20 17:10 Received UA W/GEOVANNI RFLX IF INDICATED [URIN] Stat Lab 09/18/20 17:04 Ordered Potassium Chloride Riders [KCL 40 MEQ in Water 100 ML] Med 09/18/20 17:51 Active 40 meq Premix Bag 1 bag IV ONETIME Sodium Chloride 0.9% [Saline Flush] Med 09/18/20 17:03 Active 10 ml FLUSH ASDIRECTED PRN Sodium Chloride 0.9% [Saline Flush] Med 09/18/20 17:03 Active 2.5 ml FLUSH ASDIRECTED PRN Blood Culture x2 Reflex Set [OM.PC] Stat Oth 09/18/20 17:04 Ordered Saline Lock Insert [OM.PC] Stat Oth 09/18/20 17:03 Ordered Medication Orders Potassium Chloride 40 meq/ (Premix) 100 mls @ 25 mls/hr IV ONETIME ONE Stop: 09/18/20 21:50 Last Admin: 09/18/20 19:00 Dose: 25 mls/hr Documented by: [id number] Sodium Chloride (Saline Flush) 10 ml FLUSH ASDIRECTED PRN PRN Reason: Keep Vein Open Sodium Chloride (Saline Flush) 2.5 ml FLUSH ASDIRECTED PRN PRN Reason: Keep Vein Open Labs: Laboratory Tests 09/18/20 09/18/20 09/18/20 Range/Units 17:04 17:04 17:04 WBC 6.30 (4.0-11.0) K/uL RBC 4.69 (4.30-5.90) M/uL Hgb 11.7 L (12.0-16.0) g/dL Hct 39.4 (36.0-46.0) % MCV 84.0 (80.0-98.0) fL MCH 24.9 L (27.0-32.0) pg MCHC 29.7 L (31.0-37.0) g/dL RDW Std Deviation 57.2 (28.0-62.0) fl RDW Coeff of Thiago 19 H (11.0-15.0) % Plt Count 142 L (150-400) K/uL MPV 9.90 (7.40-12.00) fL Neut % (Auto) 65.9 (48.0-80.0) % Lymph % (Auto) 23.5 (16.0-40.0) % [place] % (Auto) 9.8 (0.0-15.0) % Eos % (Auto) 0.6 (0.0-7.0) % Baso % (Auto) 0.2 (0.0-1.5) % Neut # (Auto) 4.2 (1.4-5.7) K/uL Lymph # (Auto) 1.5 (0.6-2.4) K/uL [place] # (Auto) 0.6 (0.0-0.8) K/uL Eos # (Auto) 0.0 (0.0-0.7) K/uL Baso # (Auto) 0.0 (0.0-0.1) K/uL Nucleated RBC % 0.0 /100WBC Nucleated RBCs # 0 K/uL VBG pH (7.31-7.41) VBG pCO2 (35-45) mmHG VBG pO2 (30-40) mmHG VBG HCO3 (22-30) mEq/L VBG Total CO2 (41-51) mmol/L VBG Base Excess (-3.0-3.0) Lactate 1.3 (0.20-2.00) mmol/L Sodium 136 (136-145) mmol/L Potassium 2.6 L (3.5-5.1) mmol/L Chloride 96 L (98-107) mmol/L Carbon Dioxide 29.3 (21.0-32.0) mmol/L BUN 13 (7.0-18.0) mg/dL Creatinine 0.7 (0.6-1.0) mg/dL Est Cr Clr Drug Dosing 90.53 mL/min Estimated GFR (MDRD) > 60.0 ml/min Glucose 79 (74-106) mg/dL Calcium 9.2 (8.5-10.1) mg/dL Phosphorus 3.2 (2.6-4.7) mg/dL Magnesium 1.5 L (1.8-2.4) mg/dL Total Bilirubin 1.5 H (0.2-1.0) mg/dL AST 32 (15-37) IU/L ALT 17 (14-63) IU/L Alkaline Phosphatase 135 H (46-116) U/L Total Protein 7.5 (6.4-8.2) g/dL Albumin 3.5 (3.4-5.0) g/dL Globulin 4.0 (2.6-4.0) g/dL Albumin/Globulin Ratio 0.9 (0.9-1.6) Ethyl Alcohol < 3.0 mg/dL SARS-CoV-2 RNA (HUGH) (NEGATIVE) 09/18/20 09/18/20 Range/Units 17:04 17:10 WBC (4.0-11.0) K/uL RBC (4.30-5.90) M/uL Hgb (12.0-16.0) g/dL Hct (36.0-46.0) % MCV (80.0-98.0) fL MCH (27.0-32.0) pg MCHC (31.0-37.0) g/dL RDW Std Deviation (28.0-62.0) fl RDW Coeff of Thiago (11.0-15.0) % Plt Count (150-400) K/uL MPV (7.40-12.00) fL Neut % (Auto) (48.0-80.0) % Lymph % (Auto) (16.0-40.0) % [place] % (Auto) (0.0-15.0) % Eos % (Auto) (0.0-7.0) % Baso % (Auto) (0.0-1.5) % Neut # (Auto) (1.4-5.7) K/uL Lymph # (Auto) (0.6-2.4) K/uL [place] # (Auto) (0.0-0.8) K/uL Eos # (Auto) (0.0-0.7) K/uL Baso # (Auto) (0.0-0.1) K/uL Nucleated RBC % /100WBC Nucleated RBCs # K/uL VBG pH 7.37 (7.31-7.41) VBG pCO2 55 H (35-45) mmHG VBG pO2 24 L (30-40) mmHG VBG HCO3 32 H (22-30) mEq/L VBG Total CO2 30 L (41-51) mmol/L VBG Base Excess 5.2 H (-3.0-3.0) Lactate (0.20-2.00) mmol/L Sodium (136-145) mmol/L Potassium (3.5-5.1) mmol/L Chloride (98-107) mmol/L Carbon Dioxide (21.0-32.0) mmol/L BUN (7.0-18.0) mg/dL Creatinine (0.6-1.0) mg/dL Est Cr Clr Drug Dosing mL/min Estimated GFR (MDRD) ml/min Glucose (74-106) mg/dL Calcium (8.5-10.1) mg/dL Phosphorus (2.6-4.7) mg/dL Magnesium (1.8-2.4) mg/dL Total Bilirubin (0.2-1.0) mg/dL AST (15-37) IU/L ALT (14-63) IU/L Alkaline Phosphatase (46-116) U/L Total Protein (6.4-8.2) g/dL Albumin (3.4-5.0) g/dL Globulin (2.6-4.0) g/dL Albumin/Globulin Ratio (0.9-1.6) Ethyl Alcohol mg/dL SARS-CoV-2 RNA (HUGH) NEGATIVE (NEGATIVE) Meds: Medications Generic Name Dose Route Start Last Admin Trade Name Freq PRN Reason Stop Dose Admin Potassium Chloride 40 meq/ 100 mls @ 25 mls/hr 09/18/20 17:51 09/18/20 19:00 Premix IV 09/18/20 21:50 25 mls/hr ONETIME ONE Administration Sodium Chloride 10 ml 09/18/20 17:03 Saline Flush FLUSH ASDIRECTED PRN Keep Vein Open Sodium Chloride 2.5 ml 09/18/20 17:03 Saline Flush FLUSH ASDIRECTED PRN Keep Vein Open Discontinued Medications Generic Name Dose Route Start Last Admin Trade Name Freq PRN Reason Stop Dose Admin Magnesium Sulfate 2 gm in 50 mls @ 50 mls/hr 09/18/20 17:54 09/18/20 18:59 Magnesium Sulfate In Water Premix IV 09/18/20 18:53 50 mls/hr STAT STA Administration Potassium Chloride 40 meq 09/18/20 17:49 09/18/20 19:03 Klor-Con M20 PO 09/18/20 17:50 40 meq ONETIME ONE Administration Departure - Departure Time of Disposition: 19:16 Disposition: Admitted As Inpatient 64 Clinical Impression: AMS (altered mental status), Hypoxia - Discharge Information *PRESCRIPTION DRUG MONITORING PROGRAM REVIEWED*: Not Applicable *COPY OF PRESCRIPTION DRUG MONITORING REPORT IN PATIENT BRIGETTE: Not Applicable Referrals: Remi Olivas MD [Primary Care Provider] - Forms: ED Department Discharge Critical Care Note - Critical Care Note Total Time (mins): 40 Comments: Critical Care Procedure Note Authorized and Performed by: Dr. Salazar Total critical care time: Approximately Due to a high probability of clinically significant, life threatening deterioration, the patient required my highest level of preparedness to intervene emergently and I personally spent this critical care time directly and personally managing the patient. This critical care time included obtaining a history; examining the patient; pulse oximetry; ordering and review of studies; arranging urgent treatment with development of a management plan; evaluation of patient's response to treatment; frequent reassessment; and, discussions with other providers. This critical care time was performed to assess and manage the high probability of imminent, life-threatening deterioration that could result in multi-organ failure. It was exclusive of separately billable procedures and treating other patients and teaching time. Sepsis Event Note (ED) - Evaluation Sepsis Screening Result: No Definite Risk - Focused Exam Vital Signs: Vital Signs Temp Pulse Resp BP Pulse Ox 09/18/20 16:53 96.5 F L 86 18 136/53 L 70 L - My Orders Last 24 Hours: My Active Orders 09/18/20 17:03 Pulse Oximetry [RC] ASDIRECTED Sodium Chloride 0.9% [Saline Flush] 10 ml FLUSH ASDIRECTED PRN Sodium Chloride 0.9% [Saline Flush] 2.5 ml FLUSH ASDIRECTED PRN Saline Lock Insert [OM.PC] Stat 09/18/20 17:04 BLOOD GAS ARTERIAL [BG] Stat CULTURE BLOOD [BC] Stat UA W/GEOVANNI RFLX IF INDICATED [URIN] Stat Blood Culture x2 Reflex Set [OM.PC] Stat 09/18/20 17:10 CULTURE BLOOD [BC] Stat 09/18/20 17:15 EKG 12 Lead [EKG Documentation Completion] [RC] STAT 09/18/20 17:51 Potassium Chloride Riders [KCL 40 MEQ in Water 100 ML] 40 meq Premix Bag 1 bag IV ONETIME 09/18/20 18:50 Head wo Cont [CT] Stat 09/18/20 19:08 Patient Status [ADT] Routine - Assessment/Plan Last 24 Hours: My Active Orders 09/18/20 17:03 Pulse Oximetry [RC] ASDIRECTED Sodium Chloride 0.9% [Saline Flush] 10 ml FLUSH ASDIRECTED PRN Sodium Chloride 0.9% [Saline Flush] 2.5 ml FLUSH ASDIRECTED PRN Saline Lock Insert [OM.PC] Stat 09/18/20 17:04 BLOOD GAS ARTERIAL [BG] Stat CULTURE BLOOD [BC] Stat UA W/GEOVANNI RFLX IF INDICATED [URIN] Stat Blood Culture x2 Reflex Set [OM.PC] Stat 09/18/20 17:10 CULTURE BLOOD [BC] Stat 09/18/20 17:15 EKG 12 Lead [EKG Documentation Completion] [RC] STAT 09/18/20 17:51 Potassium Chloride Riders [KCL 40 MEQ in Water 100 ML] 40 meq Premix Bag 1 bag IV ONETIME 09/18/20 18:50 Head wo Cont [CT] Stat 09/18/20 19:08 Patient Status [ADT] Routine Plan: Patient is a 54-year-old female who presents today for AMS. Patient was satting 70% on room air and was placed on nasal cannula now satting 100%. Will obtain CT head lab UA and reassess. Patient labs reviewed patient PCO2 55 but has been elevated to [address] head is negative as well. Patient UA still pending if possible give antibiotics. Will admit patient to the hospital for altered mental status. Patient is on 4 L currently 100% Covid is negative x-ray clear as well no pneumonia. No white count.
[2020-09-18 17:37] LABS: BLOOD UREA NITROGEN,BUN 13 mg/dL (7.0-18.0); CARBON DIOXIDE,CO2 29.3 mmol/L (21.0-32.0); CHLORIDE,CL 96 mmol/L (98-107); GLUCOSE RANDOM 79 mg/dL (74-106); POTASSIUM,K 2.6 mmol/L (3.5-5.1); SODIUM,NA 136 mmol/L (136-145)
[2020-09-18] MEDS ORDERED: Potassium Chloride 20 MEQ Tab.ER PO ONE (17:49)
[2020-09-18] MEDS ORDERED: Magnesium Sulfate (4.06 MEQ/ML) 5 GM/10 ML SDV IV STA (17:50)
[2020-09-18] MEDS ORDERED: Potassium Chloride Riders 40 MEQ in Premix Bag 1 BAG IV ONE (17:51)
[2020-09-18] MEDS ORDERED: Magnesium Sulfate/Water 2 GM/50 ML BAG IV STA (17:54)
[2020-09-18] MEDS ORDERED: Magnesium Sulfate/Water 2 GM/50 ML BAG IV ONE (18:00)
--- NOTE | 2020-09-18 18:13 | CR ---
Indication: Hypoxia Technique: Chest 1 view Comparison: Chest x-ray 06/19/2020 Findings/Impression: Cardiovascular and mediastinum: Heart size and vasculature are normal in caliber and appearance. Lungs and pleural space: No pleural effusion or pneumothorax. Mild bronchial wall thickening which can be seen in bronchitis or reactive airways disease. Mild reticular interstitial prominence, right perihilar, which is similar to the prior exam. Bones and soft tissues: No acute findings. Dictated by Porter Goncalves MD @ Sep 18 2020 6:10PM Signed by Dr. Porter Goncalves @ Sep 18 2020 6:11PM
[2020-09-18] MEDS ORDERED: cefTRIAXone 1 GM in Premix Bag 1 BAG IV ONE (19:52)
--- NOTE | 2020-09-18 19:54 | PCM.SN.2 ---
- Free Text/Narrative Note: Urine report came back and I discussed it with Dr. Solorzano. Reviewing the old chart she had had a prior Klebsiella infection sensitive to ceftriaxone. Orders for antibiotics were given and the patient will be admitted.
[2020-09-18] MEDS ORDERED: Albuterol/Ipratropium 3.0-0.5 MG/3 ML Neb Soln NEB PRN (20:32)
[2020-09-18] MEDS ORDERED: Ondansetron 4 MG/2 ML SDV IVPUSH PRN (20:32)
--- NOTE | 2020-09-18 21:58 | PCM.HP.2 ---
H&P History of Present Illness - General Date of Service: 09/18/20 Admit Problem/Dx: Admission Diagnosis/Problem Admission Diagnosis/Problem Altered mental status - History of Present Illness Initial Comments - Free Text/Narative: Patient is a 54 y/o F with PMH of pulmonary embolism, anxiety, PTSD and tobacco abuse, possible COPD? who presented today with her for altered status. states that for the past few days she has been confused and has been acting off from her baseline. He also reports the patient does have home O2 but doesnt use it all the time. Per family she acts like that when she has UTI , they called their PCP who recommended to go to ER. Patient herself denied any symptoms. States she feel comfortable. Patient was noted to be saturating 70% on room air and was placed on nasal cannula which improved her saturation to 99% on 3Lts. UA came back positive for UTI, antibiotics were started. Patient was admitted for similar complaints in May, at that time stroke was ruled out and she was treated for UTI and sent home on Home O2. Patient is being admitted for further care. - Related Data Allergies/Adverse Reactions: Allergies Allergy/AdvReac Type Severity Reaction Status Date / Time codeine Allergy Hives Verified 09/18/20 16:59 pseudoephedrine Allergy palpitation Verified 09/18/20 16:59 s Sulfa (Sulfonamide Allergy unknown Verified 09/18/20 16:59 Antibiotics) Home Medications: Home Meds ClonazePAM [KlonoPIN] 2 mg PO TID PRN 04/23/18 [History] Umeclidinium Brm/Vilanterol Tr [Anoro Ellipta 62.5-25 MCG] 1 puff IH DAILY 06/20/20 [History] Iron Polysaccharides Complex [Ferrex 150] 150 mg PO DAILY 30 Days #30 cap 06/21/20 [Rx] Furosemide 40 mg PO DAILY 09/18/20 [History] Levothyroxine 25 mcg PO DAILY 09/18/20 [History] Apixaban [Eliquis] 5 mg PO BID tablet 09/21/20 [Rx] Potassium Chloride 10 meq PO DAILY 30 Days #30 tablet.er 09/21/20 [Rx] Past Medical History Cardiovascular History: Reports: Blood Clots/VTE/DVT Respiratory History: Reports: COPD, SOB [employer] History: Reports: Psychiatric History: Reports: Anxiety, Depression, PTSD - Infectious Disease History Infectious Disease History: Reports: Chicken Pox, Measles, Mumps - Past Surgical History HEENT Surgical History: Reports: Adenoidectomy, Tonsillectomy GI Surgical History: Reports: Appendectomy, Cholecystectomy, Colostomy, Hernia, Abdominal, Other (See Below) Other GI Surgeries/Procedures: prior colostomy and ileostomy Female Surgical History: Reports: Hysterectomy, Salpingo-Oophorectomy Musculoskeletal Surgical History: Reports: Other (See Below) Other Musculoskeletal Surgeries/Procedures:: right thumb surgery Social & Family History - Family History Family Medical History: Noncontributory - Tobacco Use Tobacco Use Status *Q: Current Every Day Tobacco User Years of Tobacco use: 30 Packs/Tins Daily: 0.5 - Caffeine Use Caffeine Use: Reports: None - Recreational Drug Use Recreational Drug Use: No H&P Review of Systems - Review of Systems: Review Of Systems: See Below General: Denies: Fever, Chills, Malaise Pulmonary: Denies: Shortness of Breath, Wheezing, Pleuritic Chest Pain, Cough Gastrointestinal: Denies: Abdominal Pain, Anorexia, Black Stool Genitourinary: Denies: Dysuria, Frequency, Burning Musculoskeletal: Denies: Neck Pain, Shoulder Pain, Arm Pain, Back Pain Skin: Denies: Cyanosis, Jaundice, Mottled, Pallor Exam - Exam Exam: See Below - Vital Signs Vital Signs: Last Vital Signs Temp 35.8 C L 09/18/20 16:53 Pulse 86 09/18/20 20:01 Resp 20 09/18/20 20:01 BP 107/59 L 09/18/20 20:01 Pulse Ox 96 09/18/20 20:01 Weight: 76.204 kg - Exam Quality Assessment: Supplemental Oxygen General: Alert, Cooperative. No: Oriented Neck: Supple, Trachea Midline Lungs: Clear to Auscultation, Normal Respiratory Effort GI/Abdominal Exam: Normal Bowel Sounds, Soft, Non-Tender Extremities: Normal Inspection, Normal Range of Motion, Non-Tender - Patient Data Lab Results Last 24 hrs: Laboratory Results - last 24 hr 09/18/20 09/18/20 09/18/20 Range/Units 17:04 17:04 17:04 WBC 6.30 (4.0-11.0) K/uL RBC 4.69 (4.30-5.90) M/uL Hgb 11.7 L (12.0-16.0) g/dL Hct 39.4 (36.0-46.0) % MCV 84.0 (80.0-98.0) fL MCH 24.9 L (27.0-32.0) pg MCHC 29.7 L (31.0-37.0) g/dL RDW Std Deviation 57.2 (28.0-62.0) fl RDW Coeff of Thiago 19 H (11.0-15.0) % Plt Count 142 L (150-400) K/uL MPV 9.90 (7.40-12.00) fL Neut % (Auto) 65.9 (48.0-80.0) % Lymph % (Auto) 23.5 (16.0-40.0) % [place] % (Auto) 9.8 (0.0-15.0) % Eos % (Auto) 0.6 (0.0-7.0) % Baso % (Auto) 0.2 (0.0-1.5) % Neut # (Auto) 4.2 (1.4-5.7) K/uL Lymph # (Auto) 1.5 (0.6-2.4) K/uL Camb[place] # (Auto) 0.6 (0.0-0.8) K/uL Eos # (Auto) 0.0 (0.0-0.7) K/uL Baso # (Auto) 0.0 (0.0-0.1) K/uL Nucleated RBC % 0.0 /100WBC Nucleated RBCs # 0 K/uL VBG pH (7.31-7.41) VBG pCO2 (35-45) mmHG VBG pO2 (30-40) mmHG VBG HCO3 (22-30) mEq/L VBG Total CO2 (41-51) mmol/L VBG Base Excess (-3.0-3.0) Lactate 1.3 (0.20-2.00) mmol/L Sodium 136 (136-145) mmol/L Potassium 2.6 L (3.5-5.1) mmol/L Chloride 96 L (98-107) mmol/L Carbon Dioxide 29.3 (21.0-32.0) mmol/L BUN 13 (7.0-18.0) mg/dL Creatinine 0.7 (0.6-1.0) mg/dL Est Cr Clr Drug Dosing 90.53 mL/min Estimated GFR (MDRD) > 60.0 ml/min Glucose 79 (74-106) mg/dL Calcium 9.2 (8.5-10.1) mg/dL Phosphorus 3.2 (2.6-4.7) mg/dL Magnesium 1.5 L (1.8-2.4) mg/dL Total Bilirubin 1.5 H (0.2-1.0) mg/dL AST 32 (15-37) IU/L ALT 17 (14-63) IU/L Alkaline Phosphatase 135 H (46-116) U/L Total Protein 7.5 (6.4-8.2) g/dL Albumin 3.5 (3.4-5.0) g/dL Globulin 4.0 (2.6-4.0) g/dL Albumin/Globulin Ratio 0.9 (0.9-1.6) Urine Color Urine Appearance Urine pH (5.0-8.0) Ur Specific Crosby (1.001-1.035) Urine Protein (NEGATIVE) mg/dL Urine Glucose (UA) (NEGATIVE) mg/dL Urine Ketones (NEGATIVE) mg/dL Urine Occult Blood (NEGATIVE) Urine Nitrite (NEGATIVE) Urine Bilirubin (NEGATIVE) Urine Ictotest Urine Urobilinogen (<2.0) EU/dL Ur Leukocyte Esterase (NEGATIVE) Urine RBC (0-2/HPF) Urine WBC (0-5/HPF) Ur Epithelial Cells (NONE-FEW) Urine Bacteria (NEGATIVE) Urine Mucus (NONE-MOD) Ethyl Alcohol < 3.0 mg/dL SARS-CoV-2 RNA (HUGH) (NEGATIVE) 09/18/20 09/18/20 09/18/20 Range/Units 17:04 17:10 19:15 WBC (4.0-11.0) K/uL RBC (4.30-5.90) M/uL Hgb (12.0-16.0) g/dL Hct (36.0-46.0) % MCV (80.0-98.0) fL MCH (27.0-32.0) pg MCHC (31.0-37.0) g/dL RDW Std Deviation (28.0-62.0) fl RDW Coeff of Thiago (11.0-15.0) % Plt Count (150-400) K/uL MPV (7.40-12.00) fL Neut % (Auto) (48.0-80.0) % Lymph % (Auto) (16.0-40.0) % Camb[place] % (Auto) (0.0-15.0) % Eos % (Auto) (0.0-7.0) % Baso % (Auto) (0.0-1.5) % Neut # (Auto) (1.4-5.7) K/uL Lymph # (Auto) (0.6-2.4) K/uL Camb[place] # (Auto) (0.0-0.8) K/uL Eos # (Auto) (0.0-0.7) K/uL Baso # (Auto) (0.0-0.1) K/uL Nucleated RBC % /100WBC Nucleated RBCs # K/uL VBG pH 7.37 (7.31-7.41) VBG pCO2 55 H (35-45) mmHG VBG pO2 24 L (30-40) mmHG VBG HCO3 32 H (22-30) mEq/L VBG Total CO2 30 L (41-51) mmol/L VBG Base Excess 5.2 H (-3.0-3.0) Lactate (0.20-2.00) mmol/L Sodium (136-145) mmol/L Potassium (3.5-5.1) mmol/L Chloride (98-107) mmol/L Carbon Dioxide (21.0-32.0) mmol/L BUN (7.0-18.0) mg/dL Creatinine (0.6-1.0) mg/dL Est Cr Clr Drug Dosing mL/min Estimated GFR (MDRD) ml/min Glucose (74-106) mg/dL Calcium (8.5-10.1) mg/dL Phosphorus (2.6-4.7) mg/dL Magnesium (1.8-2.4) mg/dL Total Bilirubin (0.2-1.0) mg/dL AST (15-37) IU/L ALT (14-63) IU/L Alkaline Phosphatase (46-116) U/L Total Protein (6.4-8.2) g/dL Albumin (3.4-5.0) g/dL Globulin (2.6-4.0) g/dL Albumin/Globulin Ratio (0.9-1.6) Urine Color YELLOW Urine Appearance CLEAR Urine pH 6.0 (5.0-8.0) Ur Specific Crosby >= 1.030 (1.001-1.035) Urine Protein TRACE H (NEGATIVE) mg/dL Urine Glucose (UA) NEGATIVE (NEGATIVE) mg/dL Urine Ketones >=80 (NEGATIVE) mg/dL Urine Occult Blood NEGATIVE (NEGATIVE) Urine Nitrite POSITIVE H (NEGATIVE) Urine Bilirubin MODERATE H (NEGATIVE) Urine Ictotest NEGATIVE Urine Urobilinogen 1.0 (<2.0) EU/dL Ur Leukocyte Esterase TRACE H (NEGATIVE) Urine RBC 0-2 (0-2/HPF) Urine WBC 15-20 (0-5/HPF) Ur Epithelial Cells FEW (NONE-FEW) Urine Bacteria 2+ H (NEGATIVE) Urine Mucus LIGHT (NONE-MOD) Ethyl Alcohol mg/dL SARS-CoV-2 RNA (HUGH) NEGATIVE (NEGATIVE) Result Diagrams: 09/21/20 05:07 09/21/20 05:07 Sepsis Event Note - Evaluation Sepsis Screening Result: No Definite Risk - Focused Exam Vital Signs: Vital Signs Temp Pulse Resp BP Pulse Ox 09/18/20 20:01 86 20 107/59 L 96 09/18/20 19:02 85 20 117/49 L 90 L 09/18/20 17:00 80 20 96 09/18/20 16:53 35.8 C L 86 18 136/53 L 70 L - Problem List (1) AMS (altered mental status) SNOMED Code(s): 107525220 ICD Code: R41.82 - ALTERED MENTAL STATUS, UNSPECIFIED Status: Acute Current Visit: Yes (2) Acute respiratory failure with hypoxia SNOMED Code(s): 01812933, 912972445 ICD Code: J96.01 - ACUTE RESPIRATORY FAILURE WITH HYPOXIA Status: Acute Current Visit: No (3) UTI, Urinary tract infectious disease SNOMED Code(s): 86078322 ICD Code: N39.0 - URINARY TRACT INFECTION, SITE NOT SPECIFIED Status: Acute Current Visit: No (4) COPD (chronic obstructive pulmonary disease) SNOMED Code(s): 98385536 ICD Code: J44.9 - CHRONIC OBSTRUCTIVE PULMONARY DISEASE, UNSPECIFIED Status: Acute Current Visit: Yes (5) History of pulmonary embolus (PE) SNOMED Code(s): 641965545 ICD Code: Z86.711 - PERSONAL HISTORY OF PULMONARY EMBOLISM Status: Acute Current Visit: Yes (6) UTI (urinary tract infection) SNOMED Code(s): 25895422 ICD Code: N39.0 - URINARY TRACT INFECTION, SITE NOT SPECIFIED Status: Acute Current Visit: Yes Problem List Initiated/Reviewed/Updated: Yes Orders Last 24hrs: Active Orders 24 hr Category Date Time Status Patient Status [ADT] Routine ADT 09/18/20 19:08 Active Ambulate [RC] ASDIRECTED Care 09/18/20 20:32 Active Antiembolic Devices [RC] PER UNIT ROUTINE Care 09/18/20 20:34 Active EKG 12 Lead [EKG Documentation Completion] [RC] STAT Care 09/18/20 17:15 Active Oxygen Therapy [RC] PRN Care 09/18/20 20:32 Active Pulse Oximetry [RC] ASDIRECTED Care 09/18/20 17:03 Active RT Aerosol Therapy [RC] ASDIRECTED Care 09/18/20 20:34 Active VTE/DVT Education [RC] PER UNIT ROUTINE Care 09/18/20 20:32 Active Vital Signs [RC] Q4H Care 09/18/20 20:32 Active Heart Healthy Diet [DIET] Diet 09/19/20 Breakfast Active Head wo Cont [CT] Stat Exams 09/18/20 18:50 Taken BLOOD GAS ARTERIAL [BG] Stat Lab 09/18/20 17:04 Ordered CULTURE BLOOD [BC] Stat Lab 09/18/20 17:04 Received CULTURE BLOOD [BC] Stat Lab 09/18/20 17:10 Received CULTURE URINE [RM] Stat Lab 09/18/20 20:32 Ordered DRUG SCREEN, URINE [URCHEM] Stat Lab 09/18/20 20:38 Ordered Albuterol/Ipratropium [DuoNeb 3.0-0.5 MG/3 ML] Med 09/18/20 20:32 Active 3 ml NEB Q4HRRT PRN Ondansetron [Zofran] Med 09/18/20 20:32 Active 4 mg IVPUSH Q4H PRN Sodium Chloride 0.9% [Saline Flush] Med 09/18/20 17:03 Active 10 ml FLUSH ASDIRECTED PRN Sodium Chloride 0.9% [Saline Flush] Med 09/18/20 17:03 Active 2.5 ml FLUSH ASDIRECTED PRN cefTRIAXone [Rocephin in Dextrose,Iso-Osm 1 GM/50 ML] 1 Med 09/19/20 09:00 Active gm Premix Bag 1 bag IV Q24H Blood Culture x2 Reflex Set [OM.PC] Stat Ot 09/18/20 17:04 Ordered Saline Lock Insert [OM.PC] Stat Ot 09/18/20 17:03 Ordered Sequential Compression Device [OM.PC] Per Unit Routine Ot 09/18/20 20:33 Ordered Medication Orders Albuterol/Ipratropium (Duoneb 3.0-0.5 Mg/3 Ml) 3 ml NEB Q4HRRT PRN PRN Reason: Shortness Of Breath/wheezing Ceftriaxone Sodium/Dextrose 1 (gm/ Premix) 50 mls @ 100 mls/hr IV Q24H EDWIN Ondansetron HCl (Zofran) 4 mg IVPUSH Q4H PRN PRN Reason: Nausea/Vomiting Sodium Chloride (Saline Flush) 10 ml FLUSH ASDIRECTED PRN PRN Reason: Keep Vein Open Last Admin: 09/18/20 20:00 Dose: 10 ml Documented by: LAKHWINDER Sodium Chloride (Saline Flush) 2.5 ml FLUSH ASDIRECTED PRN PRN Reason: Keep Vein Open Last Admin: 09/18/20 20:00 Dose: 2.5 ml Documented by: [id number] Assessment/Plan Comment:: 54 y/o F admitted for AMS, UTI and Acute over chronic hypoxic respiratory failu re Hypoxia likely due to non compliance with o2, h/o smoking, possible underlying COPD given Co2 is also marginally elevated chronically AMS likely secondary to hypoxia vs UTI Obtain UDS f/u on CT scan report, pending CXR noted, no consolidation or pneumothorax cont oxygenation via NC to maintain pulse oxy >/= 88% cont Rocephin for UTI f/u on urine cultures SCD for dvt ppx
[2020-09-18] MEDS ORDERED: LORazepam 2 MG/ML SDV IVPUSH PRN (22:46)
[2020-09-18] MEDS: Apixaban 5 MG Tab PO SCH (23:50)
[2020-09-18] MEDS: Budesonide 0.5 MG/2 ML Neb Susp INH SCH (23:51)
[2020-09-19 06:55] LABS: BLOOD UREA NITROGEN,BUN 8 mg/dL (7.0-18.0); CARBON DIOXIDE,CO2 27.2 mmol/L (21.0-32.0); CHLORIDE,CL 101 mmol/L (98-107); GLUCOSE RANDOM 63 mg/dL (74-106); SODIUM,NA 140 mmol/L (136-145)
[2020-09-19] MEDS ORDERED: Potassium Chloride 20 MEQ Tab.ER PO ONE (07:40)
[2020-09-19] MEDS: Apixaban 5 MG Tab PO SCH ×2 (08:42→21:26)
[2020-09-19] MEDS: Levothyroxine 25 MCG Tab PO SCH (08:43)
[2020-09-19] MEDS: Iron Polysaccharides Complex 150 MG Cap PO SCH (08:43)
[2020-09-19] MEDS: Furosemide 40 MG Tab PO SCH (08:43)
[2020-09-19] MEDS: cefTRIAXone 1 GM in Premix Bag 1 BAG IV SCH (08:44)
[2020-09-19] MEDS ORDERED: FLU VAC QV 2020(18YR UP)RCM/PF 180 MCG/0.5 ML SYRINGE IM ONE (09:00)
[2020-09-19] MEDS ORDERED: FLU Vacc QS2020-21 36MOS UP/PF 60 MCG/0.5 ML Syringe IM ONE (09:00)
[2020-09-19] MEDS: Budesonide 0.5 MG/2 ML Neb Susp INH SCH ×2 (09:04→21:04)
--- NOTE | 2020-09-19 10:19 | CT ---
INDICATION: Altered mental status TECHNIQUE: Volumetric multi detector CT images of the head were obtained without the administration IV contrast. COMPARISON: None. FINDINGS: There is no intra-axial or extra-axial fluid collection. There is no midline shift or mass effect. There is minimal chronic small vessel disease change within the subcortical and periventricular white matter. Otherwise, the brain parenchyma is normal in attenuation and pedro-white differentiation. The orbits and their contents are grossly within normal limits. The paranasal sinuses are clear. The mastoid air cells are clear. The bony calvarium is grossly intact. IMPRESSION: No acute intracranial abnormality. Please note that all CT scans at this facility use dose modulation, iterative reconstruction, and/or weight-based dosing when appropriate to reduce radiation dose to as low as reasonably achievable. Dictated by Trenton Casanova MD @ Sep 18 2020 6:08PM Signed by Dr. Trenton Casanova @ Sep 18 2020 6:18PM
[2020-09-19] MEDS: ClonazePAM 1 MG Tab PO PRN ×2 (11:56→21:27)
--- NOTE | 2020-09-19 16:45 | PCM.PN ---
<Jerardo Del Real - Last Filed: 09/19/20 16:37> - General Info Date of Service: 09/19/20 Subjective Update: Reports feeling fatigued this morning. She is AO x3. Complains of pain on urination. - Patient Data Vitals - Most Recent: Last Vital Signs Temp 36.9 C 09/19/20 13:00 Pulse 85 09/19/20 13:00 Resp 16 09/19/20 13:00 BP 99/65 09/19/20 13:00 Pulse Ox 92 L 09/19/20 13:00 Weight - Most Recent: 76.612 kg I&O - Last 24 Hours: Intake & Output 09/19/20 09/19/20 09/19/20 06:59 14:59 22:59 Intake Total 350 290 Output Total 400 400 Balance -50 -110 Lab Results Last 24 Hours: Laboratory Results - last 24 hr 09/18/20 09/18/20 09/18/20 Range/Units 17:04 17:04 17:04 WBC 6.30 (4.0-11.0) K/uL RBC 4.69 (4.30-5.90) M/uL Hgb 11.7 L (12.0-16.0) g/dL Hct 39.4 (36.0-46.0) % MCV 84.0 (80.0-98.0) fL MCH 24.9 L (27.0-32.0) pg MCHC 29.7 L (31.0-37.0) g/dL RDW Std Deviation 57.2 (28.0-62.0) fl RDW Coeff of Thiago 19 H (11.0-15.0) % Plt Count 142 L (150-400) K/uL MPV 9.90 (7.40-12.00) fL Neut % (Auto) 65.9 (48.0-80.0) % Lymph % (Auto) 23.5 (16.0-40.0) % [place] % (Auto) 9.8 (0.0-15.0) % Eos % (Auto) 0.6 (0.0-7.0) % Baso % (Auto) 0.2 (0.0-1.5) % Neut # (Auto) 4.2 (1.4-5.7) K/uL Lymph # (Auto) 1.5 (0.6-2.4) K/uL [place] # (Auto) 0.6 (0.0-0.8) K/uL Eos # (Auto) 0.0 (0.0-0.7) K/uL Baso # (Auto) 0.0 (0.0-0.1) K/uL Nucleated RBC % 0.0 /100WBC Nucleated RBCs # 0 K/uL VBG pH (7.31-7.41) VBG pCO2 (35-45) mmHG VBG pO2 (30-40) mmHG VBG HCO3 (22-30) mEq/L VBG Total CO2 (41-51) mmol/L VBG Base Excess (-3.0-3.0) Lactate 1.3 (0.20-2.00) mmol/L Sodium 136 (136-145) mmol/L Potassium 2.6 L (3.5-5.1) mmol/L Chloride 96 L (98-107) mmol/L Carbon Dioxide 29.3 (21.0-32.0) mmol/L BUN 13 (7.0-18.0) mg/dL Creatinine 0.7 (0.6-1.0) mg/dL Est Cr Clr Drug Dosing 90.53 mL/min Estimated GFR (MDRD) > 60.0 ml/min Glucose 79 (74-106) mg/dL POC Glucose (60-110) mg/dL Calcium 9.2 (8.5-10.1) mg/dL Phosphorus 3.2 (2.6-4.7) mg/dL Magnesium 1.5 L (1.8-2.4) mg/dL Total Bilirubin 1.5 H (0.2-1.0) mg/dL AST 32 (15-37) IU/L ALT 17 (14-63) IU/L Alkaline Phosphatase 135 H (46-116) U/L Total Protein 7.5 (6.4-8.2) g/dL Albumin 3.5 (3.4-5.0) g/dL Globulin 4.0 (2.6-4.0) g/dL Albumin/Globulin Ratio 0.9 (0.9-1.6) Urine Color Urine Appearance Urine pH (5.0-8.0) Ur Specific [place] (1.001-1.035) Urine Protein (NEGATIVE) mg/dL Urine Glucose (UA) (NEGATIVE) mg/dL Urine Ketones (NEGATIVE) mg/dL Urine Occult Blood (NEGATIVE) Urine Nitrite (NEGATIVE) Urine Bilirubin (NEGATIVE) Urine Ictotest Urine Urobilinogen (<2.0) EU/dL Ur Leukocyte Esterase (NEGATIVE) Urine RBC (0-2/HPF) Urine WBC (0-5/HPF) Ur Epithelial Cells (NONE-FEW) Urine Bacteria (NEGATIVE) Urine Mucus (NONE-MOD) Urine Opiates Screen (NEGATIVE) Ur Oxycodone Screen (NEGATIVE) Urine Methadone Screen (NEGATIVE) Ur Barbiturates Screen (NEGATIVE) Ur Phencyclidine Scrn (NEGATIVE) Ur Amphetamine Screen (NEGATIVE) U Methamphetamines Scrn (NEGATIVE) U Benzodiazepines Scrn (NEGATIVE) U Cocaine Metab Screen (NEGATIVE) U Marijuana (THC) Screen (NEGATIVE) Ethyl Alcohol < 3.0 mg/dL SARS-CoV-2 RNA (HUGH) (NEGATIVE) 09/18/20 09/18/20 09/18/20 Range/Units 17:04 17:10 19:15 WBC (4.0-11.0) K/uL RBC (4.30-5.90) M/uL Hgb (12.0-16.0) g/dL Hct (36.0-46.0) % MCV (80.0-98.0) fL MCH (27.0-32.0) pg MCHC (31.0-37.0) g/dL RDW Std Deviation (28.0-62.0) fl RDW Coeff of Thiago (11.0-15.0) % Plt Count (150-400) K/uL MPV (7.40-12.00) fL Neut % (Auto) (48.0-80.0) % Lymph % (Auto) (16.0-40.0) % [place] % (Auto) (0.0-15.0) % Eos % (Auto) (0.0-7.0) % Baso % (Auto) (0.0-1.5) % Neut # (Auto) (1.4-5.7) K/uL Lymph # (Auto) (0.6-2.4) K/uL [place] # (Auto) (0.0-0.8) K/uL Eos # (Auto) (0.0-0.7) K/uL Baso # (Auto) (0.0-0.1) K/uL Nucleated RBC % /100WBC Nucleated RBCs # K/uL VBG pH 7.37 (7.31-7.41) VBG pCO2 55 H (35-45) mmHG VBG pO2 24 L (30-40) mmHG VBG HCO3 32 H (22-30) mEq/L VBG Total CO2 30 L (41-51) mmol/L VBG Base Excess 5.2 H (-3.0-3.0) Lactate (0.20-2.00) mmol/L Sodium (136-145) mmol/L Potassium (3.5-5.1) mmol/L Chloride (98-107) mmol/L Carbon Dioxide (21.0-32.0) mmol/L BUN (7.0-18.0) mg/dL Creatinine (0.6-1.0) mg/dL Est Cr Clr Drug Dosing mL/min Estimated GFR (MDRD) ml/min Glucose (74-106) mg/dL POC Glucose (60-110) mg/dL Calcium (8.5-10.1) mg/dL Phosphorus (2.6-4.7) mg/dL Magnesium (1.8-2.4) mg/dL Total Bilirubin (0.2-1.0) mg/dL AST (15-37) IU/L ALT (14-63) IU/L Alkaline Phosphatase (46-116) U/L Total Protein (6.4-8.2) g/dL Albumin (3.4-5.0) g/dL Globulin (2.6-4.0) g/dL Albumin/Globulin Ratio (0.9-1.6) Urine Color YELLOW Urine Appearance CLEAR Urine pH 6.0 (5.0-8.0) Ur Specific [place] >= 1.030 (1.001-1.035) Urine Protein TRACE H (NEGATIVE) mg/dL Urine Glucose (UA) NEGATIVE (NEGATIVE) mg/dL Urine Ketones >=80 (NEGATIVE) mg/dL Urine Occult Blood NEGATIVE (NEGATIVE) Urine Nitrite POSITIVE H (NEGATIVE) Urine Bilirubin MODERATE H (NEGATIVE) Urine Ictotest NEGATIVE Urine Urobilinogen 1.0 (<2.0) EU/dL Ur Leukocyte Esterase TRACE H (NEGATIVE) Urine RBC 0-2 (0-2/HPF) Urine WBC 15-20 (0-5/HPF) Ur Epithelial Cells FEW (NONE-FEW) Urine Bacteria 2+ H (NEGATIVE) Urine Mucus LIGHT (NONE-MOD) Urine Opiates Screen (NEGATIVE) Ur Oxycodone Screen (NEGATIVE) Urine Methadone Screen (NEGATIVE) Ur Barbiturates Screen (NEGATIVE) Ur Phencyclidine Scrn (NEGATIVE) Ur Amphetamine Screen (NEGATIVE) U Methamphetamines Scrn (NEGATIVE) U Benzodiazepines Scrn (NEGATIVE) U Cocaine Metab Screen (NEGATIVE) U Marijuana (THC) Screen (NEGATIVE) Ethyl Alcohol mg/dL SARS-CoV-2 RNA (HUGH) NEGATIVE (NEGATIVE) 09/19/20 09/19/20 09/19/20 Range/Units 01:12 05:59 05:59 WBC 5.69 (4.0-11.0) K/uL RBC 4.26 L (4.30-5.90) M/uL Hgb 10.5 L (12.0-16.0) g/dL Hct 36.1 (36.0-46.0) % MCV 84.7 (80.0-98.0) fL MCH 24.6 L (27.0-32.0) pg MCHC 29.1 L (31.0-37.0) g/dL RDW Std Deviation 57.9 (28.0-62.0) fl RDW Coeff of Thiago 19 H (11.0-15.0) % Plt Count 159 (150-400) K/uL MPV 10.70 (7.40-12.00) fL Neut % (Auto) 64.9 (48.0-80.0) % Lymph % (Auto) 23.0 (16.0-40.0) % [place] % (Auto) 10.7 (0.0-15.0) % Eos % (Auto) 1.2 (0.0-7.0) % Baso % (Auto) 0.2 (0.0-1.5) % Neut # (Auto) 3.7 (1.4-5.7) K/uL Lymph # (Auto) 1.3 (0.6-2.4) K/uL [place] # (Auto) 0.6 (0.0-0.8) K/uL Eos # (Auto) 0.1 (0.0-0.7) K/uL Baso # (Auto) 0.0 (0.0-0.1) K/uL Nucleated RBC % 0.0 /100WBC Nucleated RBCs # 0 K/uL VBG pH (7.31-7.41) VBG pCO2 (35-45) mmHG VBG pO2 (30-40) mmHG VBG HCO3 (22-30) mEq/L VBG Total CO2 (41-51) mmol/L VBG Base Excess (-3.0-3.0) Lactate (0.20-2.00) mmol/L Sodium 140 (136-145) mmol/L Potassium 3.0 L (3.5-5.1) mmol/L Chloride 101 (98-107) mmol/L Carbon Dioxide 27.2 (21.0-32.0) mmol/L BUN 8 (7.0-18.0) mg/dL Creatinine 0.6 (0.6-1.0) mg/dL Est Cr Clr Drug Dosing 101.81 mL/min Estimated GFR (MDRD) > 60.0 ml/min Glucose 63 L (74-106) mg/dL POC Glucose (60-110) mg/dL Calcium 8.8 (8.5-10.1) mg/dL Phosphorus 3.5 (2.6-4.7) mg/dL Magnesium 1.8 (1.8-2.4) mg/dL Total Bilirubin (0.2-1.0) mg/dL AST (15-37) IU/L ALT (14-63) IU/L Alkaline Phosphatase (46-116) U/L Total Protein (6.4-8.2) g/dL Albumin (3.4-5.0) g/dL Globulin (2.6-4.0) g/dL Albumin/Globulin Ratio (0.9-1.6) Urine Color Urine Appearance Urine pH (5.0-8.0) Ur Specific [place] (1.001-1.035) Urine Protein (NEGATIVE) mg/dL Urine Glucose (UA) (NEGATIVE) mg/dL Urine Ketones (NEGATIVE) mg/dL Urine Occult Blood (NEGATIVE) Urine Nitrite (NEGATIVE) Urine Bilirubin (NEGATIVE) Urine Ictotest Urine Urobilinogen (<2.0) EU/dL Ur Leukocyte Esterase (NEGATIVE) Urine RBC (0-2/HPF) Urine WBC (0-5/HPF) Ur Epithelial Cells (NONE-FEW) Urine Bacteria (NEGATIVE) Urine Mucus (NONE-MOD) Urine Opiates Screen NEGATIVE (NEGATIVE) Ur Oxycodone Screen NEGATIVE (NEGATIVE) Urine Methadone Screen NEGATIVE (NEGATIVE) Ur Barbiturates Screen NEGATIVE (NEGATIVE) Ur Phencyclidine Scrn NEGATIVE (NEGATIVE) Ur Amphetamine Screen NEGATIVE (NEGATIVE) U Methamphetamines Scrn NEGATIVE (NEGATIVE) U Benzodiazepines Scrn NEGATIVE (NEGATIVE) U Cocaine Metab Screen NEGATIVE (NEGATIVE) U Marijuana (THC) Screen NEGATIVE (NEGATIVE) Ethyl Alcohol mg/dL SARS-CoV-2 RNA (HUGH) (NEGATIVE) 09/19/20 09/19/20 Range/Units 10:08 11:53 WBC (4.0-11.0) K/uL RBC (4.30-5.90) M/uL Hgb (12.0-16.0) g/dL Hct (36.0-46.0) % MCV (80.0-98.0) fL MCH (27.0-32.0) pg MCHC (31.0-37.0) g/dL RDW Std Deviation (28.0-62.0) fl RDW Coeff of Thiago (11.0-15.0) % Plt Count (150-400) K/uL MPV (7.40-12.00) fL Neut % (Auto) (48.0-80.0) % Lymph % (Auto) (16.0-40.0) % [place] % (Auto) (0.0-15.0) % Eos % (Auto) (0.0-7.0) % Baso % (Auto) (0.0-1.5) % Neut # (Auto) (1.4-5.7) K/uL Lymph # (Auto) (0.6-2.4) K/uL [place] # (Auto) (0.0-0.8) K/uL Eos # (Auto) (0.0-0.7) K/uL Baso # (Auto) (0.0-0.1) K/uL Nucleated RBC % /100WBC Nucleated RBCs # K/uL VBG pH (7.31-7.41) VBG pCO2 (35-45) mmHG VBG pO2 (30-40) mmHG VBG HCO3 (22-30) mEq/L VBG Total CO2 (41-51) mmol/L VBG Base Excess (-3.0-3.0) Lactate (0.20-2.00) mmol/L Sodium (136-145) mmol/L Potassium (3.5-5.1) mmol/L Chloride (98-107) mmol/L Carbon Dioxide (21.0-32.0) mmol/L BUN (7.0-18.0) mg/dL Creatinine (0.6-1.0) mg/dL Est Cr Clr Drug Dosing mL/min Estimated GFR (MDRD) ml/min Glucose (74-106) mg/dL POC Glucose 75 108 (60-110) mg/dL Calcium (8.5-10.1) mg/dL Phosphorus (2.6-4.7) mg/dL Magnesium (1.8-2.4) mg/dL Total Bilirubin (0.2-1.0) mg/dL AST (15-37) IU/L ALT (14-63) IU/L Alkaline Phosphatase (46-116) U/L Total Protein (6.4-8.2) g/dL Albumin (3.4-5.0) g/dL Globulin (2.6-4.0) g/dL Albumin/Globulin Ratio (0.9-1.6) Urine Color Urine Appearance Urine pH (5.0-8.0) Ur Specific [place] (1.001-1.035) Urine Protein (NEGATIVE) mg/dL Urine Glucose (UA) (NEGATIVE) mg/dL Urine Ketones (NEGATIVE) mg/dL Urine Occult Blood (NEGATIVE) Urine Nitrite (NEGATIVE) Urine Bilirubin (NEGATIVE) Urine Ictotest Urine Urobilinogen (<2.0) EU/dL Ur Leukocyte Esterase (NEGATIVE) Urine RBC (0-2/HPF) Urine WBC (0-5/HPF) Ur Epithelial Cells (NONE-FEW) Urine Bacteria (NEGATIVE) Urine Mucus (NONE-MOD) Urine Opiates Screen (NEGATIVE) Ur Oxycodone Screen (NEGATIVE) Urine Methadone Screen (NEGATIVE) Ur Barbiturates Screen (NEGATIVE) Ur Phencyclidine Scrn (NEGATIVE) Ur Amphetamine Screen (NEGATIVE) U Methamphetamines Scrn (NEGATIVE) U Benzodiazepines Scrn (NEGATIVE) U Cocaine Metab Screen (NEGATIVE) U Marijuana (THC) Screen (NEGATIVE) Ethyl Alcohol mg/dL SARS-CoV-2 RNA (HUGH) (NEGATIVE) Med Orders - Current: Current Medications Albuterol/Ipratropium (Duoneb 3.0-0.5 Mg/3 Ml) 3 ml NEB Q4HRRT PRN PRN Reason: Shortness Of Breath/wheezing Apixaban (Eliquis) 5 mg PO BID [facility] Last Admin: 09/19/20 08:42 Dose: 5 mg Documented by: Budesonide (Pulmicort) 0.5 mg INH BID [facility] Last Admin: 09/19/20 09:04 Dose: 0.5 mg Documented by: Clonazepam (Klonopin) 2 mg PO Q8H PRN PRN Reason: anxiety Last Admin: 09/19/20 11:56 Dose: 2 mg Documented by: Furosemide (Lasix) 40 mg PO DAILY [facility] Last Admin: 09/19/20 08:43 Dose: 40 mg Documented by: Ceftriaxone Sodium/Dextrose 1 (gm/ Premix) 50 mls @ 100 mls/hr IV Q24H [facility] Last Admin: 09/19/20 08:44 Dose: 100 mls/hr Documented by: Influenza Virus Vaccine (Afluria Quad 2020-21 (3yr Up)) 60 mcg IM .ONCE ONE Stop: 09/20/20 09:01 Levothyroxine Sodium (Levothyroxine) 25 mcg PO DAILY [facility] Last Admin: 09/19/20 08:43 Dose: 25 mcg Documented by: Ondansetron HCl (Zofran) 4 mg IVPUSH Q4H PRN PRN Reason: Nausea/Vomiting Anoro Ellipta 62.5- (25 Mcg) 0 each INH DAILY [facility] Polysaccharide Iron Complex (Ferrex 150) 150 mg PO DAILY [facility] Last Admin: 09/19/20 08:43 Dose: 150 mg Documented by: Sodium Chloride (Saline Flush) 10 ml FLUSH ASDIRECTED PRN PRN Reason: Keep Vein Open Last Admin: 09/18/20 20:00 Dose: 10 ml Documented by: Sodium Chloride (Saline Flush) 2.5 ml FLUSH ASDIRECTED PRN PRN Reason: Keep Vein Open Last Admin: 09/18/20 20:00 Dose: 2.5 ml Documented by: Discontinued Medications Potassium Chloride 40 meq/ (Premix) 100 mls @ 25 mls/hr IV ONETIME ONE Stop: 09/18/20 21:50 Last Admin: 09/18/20 19:00 Dose: 25 mls/hr Documented by: Magnesium Sulfate (Magnesium Sulfate In Water Premix) 2 gm in 50 mls @ 50 mls/hr IV STAT STA Stop: 09/18/20 18:53 Last Admin: 09/18/20 18:59 Dose: 50 mls/hr Documented by: Ceftriaxone Sodium/Dextrose 1 (gm/ Premix) 50 mls @ 100 mls/hr IV ONETIME ONE Stop: 09/18/20 20:21 Last Admin: 09/18/20 19:58 Dose: 100 mls/hr Documented by: Influenza Virus Vaccine (Pharmacy To Dose - Influenza Vaccine) 1 each IM ONETIME ONE Stop: 09/18/20 23:30 Lorazepam (Ativan) 1 mg IVPUSH Q4H PRN PRN Reason: Anxiety Potassium Chloride (Klor-Con M20) 40 meq PO ONETIME ONE Stop: 09/18/20 17:50 Last Admin: 09/18/20 19:03 Dose: 40 meq Documented by: Potassium Chloride (Klor-Con M20) 40 meq PO ONETIME ONE Stop: 09/19/20 07:41 Last Admin: 09/19/20 08:42 Dose: 40 meq Documented by: - Exam General: Alert, Oriented, Cooperative Lungs: Clear to Auscultation, Normal Respiratory Effort Cardiovascular: Regular Rate, Regular Rhythm GI/Abdominal Exam: Normal Bowel Sounds, Soft, Non-Tender, No Distention Extremities: Normal Inspection, No Pedal Edema Sepsis Event Note - Evaluation Sepsis Screening Result: No Definite Risk - Focused Exam Vital Signs: Vital Signs Temp Pulse Resp BP Pulse Ox 09/19/20 13:00 36.9 C 85 16 99/65 92 L 09/19/20 08:35 36.3 C 87 18 102/46 L 94 L 09/19/20 05:00 36.6 C 82 20 118/62 95 - Problem List & Annotations (1) AMS (altered mental status) SNOMED Code(s): 027086649 Code(s): R41.82 - ALTERED MENTAL STATUS, UNSPECIFIED Status: Acute Current Visit: Yes (2) COPD (chronic obstructive pulmonary disease) SNOMED Code(s): 35431520 Code(s): J44.9 - CHRONIC OBSTRUCTIVE PULMONARY DISEASE, UNSPECIFIED Status: Acute Current Visit: Yes (3) Hypokalemia SNOMED Code(s): 59504177 Code(s): E87.6 - HYPOKALEMIA Status: Acute Current Visit: Yes (4) Hypothyroidism SNOMED Code(s): 62764383 Code(s): E03.9 - HYPOTHYROIDISM, UNSPECIFIED Status: Acute Current Visit: Yes (5) Anxiety SNOMED Code(s): 48049146 Code(s): F41.9 - ANXIETY DISORDER, UNSPECIFIED Status: Acute Current Visit: Yes (6) History of pulmonary embolus (PE) SNOMED Code(s): 681275168 Code(s): Z86.711 - PERSONAL HISTORY OF PULMONARY EMBOLISM Status: Acute Current Visit: Yes (7) UTI (urinary tract infection) SNOMED Code(s): 08844526 Code(s): N39.0 - URINARY TRACT INFECTION, SITE NOT SPECIFIED Status: Acute Current Visit: Yes - Problem List Review Problem List Initiated/Reviewed/Updated: Yes - My Orders Last 24 Hours: My Active Orders 09/19/20 10:45 Ang Chest [CT] Urgent 09/19/20 12:00 ClonazePAM [KlonoPIN] 2 mg PO Q8H PRN - Plan Plan:: Assessment and Plan: 1. AMS secondary to UTI vs hypoxic encephalopathy in a patient with suspected underlying COPD: - Continue supplemental oxygen PRN to maintain O2 sat > 88% and continue home inhalers. Patient on IV ceftriaxone 1 g qd for UTI. Will also order CT angio to rule out PE. - UA positive for esterase and nitrites. CT head was negative. Patient uses oxygen intermittently at home and reports possible history of COPD. Patient is non-compliant with oxygen at home. UDS was negative. CXR unremarkable. 2. Hypokalemia: - Repleted with KCl 40 mEq PO x1. Will monitor. 3. Hyperbilirubinemia: - Will monitor with CMP in AM. 4. DVT prophylaxis: SCD's. 5. Past medical history of pulmonary embolism, anxiety, depression and PTSD: - Continue home medications. <Elaina Lee - Last Filed: 09/21/20 13:00> - Patient Data Vitals - Most Recent: Last Vital Signs Temp 36.5 C 09/21/20 08:00 Pulse 73 10/29/20 08:00 Resp 18 09/21/20 08:00 BP 90/55 L 09/21/20 08:00 Pulse Ox 94 L 09/21/20 08:00 I&O - Last 24 Hours: Intake & Output 09/20/20 09/21/20 09/21/20 22:59 06:59 14:59 Intake Total 800 500 Output Total 1350 Balance -550 500 Lab Results Last 24 Hours: Laboratory Results - last 24 hr 09/20/20 09/21/20 09/21/20 Range/Units 14:10 05:07 05:07 WBC 4.45 (4.0-11.0) K/uL RBC 3.87 L (4.30-5.90) M/uL Hgb 9.5 L (12.0-16.0) g/dL Hct 33.3 L (36.0-46.0) % MCV 86.0 (80.0-98.0) fL MCH 24.5 L (27.0-32.0) pg MCHC 28.5 L (31.0-37.0) g/dL RDW Std Deviation 60.3 (28.0-62.0) fl RDW Coeff of Thiago 19 H (11.0-15.0) % Plt Count 155 (150-400) K/uL MPV 10.10 (7.40-12.00) fL Neut % (Auto) 53.3 (48.0-80.0) % Lymph % (Auto) 34.8 (16.0-40.0) % [place] % (Auto) 10.3 (0.0-15.0) % Eos % (Auto) 1.6 (0.0-7.0) % Baso % (Auto) 0.0 (0.0-1.5) % Neut # (Auto) 2.4 (1.4-5.7) K/uL Lymph # (Auto) 1.6 (0.6-2.4) K/uL [place] # (Auto) 0.5 (0.0-0.8) K/uL Eos # (Auto) 0.1 (0.0-0.7) K/uL Baso # (Auto) 0.0 (0.0-0.1) K/uL Nucleated RBC % 0.0 /100WBC Nucleated RBCs # 0 K/uL Sodium 143 (136-145) mmol/L Potassium 2.8 L 3.3 L (3.5-5.1) mmol/L Chloride 103 (98-107) mmol/L Carbon Dioxide 33.7 H (21.0-32.0) mmol/L BUN 3 L (7.0-18.0) mg/dL Creatinine 0.7 (0.6-1.0) mg/dL Est Cr Clr Drug Dosing 87.27 mL/min Estimated GFR (MDRD) > 60.0 ml/min Glucose 84 (74-106) mg/dL Calcium 8.8 (8.5-10.1) mg/dL Magnesium 1.6 L (1.8-2.4) mg/dL Total Bilirubin 0.3 (0.2-1.0) mg/dL AST 17 (15-37) IU/L ALT 11 L (14-63) IU/L Alkaline Phosphatase 86 (46-116) U/L Total Protein 5.5 L (6.4-8.2) g/dL Albumin 2.3 L (3.4-5.0) g/dL Globulin 3.2 (2.6-4.0) g/dL Albumin/Globulin Ratio 0.7 L (0.9-1.6) Vasyl Results Last 24 Hours: Microbiology 09/18/20 17:10 Aerobic Blood Culture - Preliminary Blood - Venous - Lab Draw NO GROWTH AFTER 2 DAYS Anaerobic Blood Culture - Preliminary NO GROWTH AFTER 2 DAYS 09/18/20 17:04 Aerobic Blood Culture - Preliminary Blood - Venous NO GROWTH AFTER 2 DAYS Anaerobic Blood Culture - Preliminary NO GROWTH AFTER 2 DAYS 09/18/20 19:15 Urine Culture - Final Urine, Clean Catch MIXED DEYSI 1,000-10,000 CFU/ML Med Orders - Current: Current Medications Albuterol/Ipratropium (Duoneb 3.0-0.5 Mg/3 Ml) 3 ml NEB Q4HRRT PRN PRN Reason: Shortness Of Breath/wheezing Apixaban (Eliquis) 5 mg PO BID [facility] Last Admin: 09/21/20 08:27 Dose: 5 mg Documented by: Budesonide (Pulmicort) 0.5 mg INH BID [facility] Last Admin: 09/21/20 08:30 Dose: 0.5 mg Documented by: Clonazepam (Klonopin) 2 mg PO Q8H PRN PRN Reason: anxiety Last Admin: 09/21/20 05:15 Dose: 2 mg Documented by: Furosemide (Lasix) 40 mg PO DAILY [facility] Last Admin: 09/21/20 08:28 Dose: 40 mg Documented by: Levothyroxine Sodium (Levothyroxine) 25 mcg PO DAILY [facility] Last Admin: 09/21/20 08:28 Dose: 25 mcg Documented by: Ondansetron HCl (Zofran) 4 mg IVPUSH Q4H PRN PRN Reason: Nausea/Vomiting Anoro Ellipta 62.5- (25 Mcg) 0 each INH DAILY [facility] Last Admin: 09/21/20 08:29 Dose: Not Given Documented by: Polysaccharide Iron Complex (Ferrex 150) 150 mg PO DAILY [facility] Last Admin: 09/21/20 08:28 Dose: 150 mg Documented by: Sodium Chloride (Saline Flush) 10 ml FLUSH ASDIRECTED PRN PRN Reason: Keep Vein Open Last Admin: 09/18/20 20:00 Dose: 10 ml Documented by: Sodium Chloride (Saline Flush) 2.5 ml FLUSH ASDIRECTED PRN PRN Reason: Keep Vein Open Last Admin: 09/18/20 20:00 Dose: 2.5 ml Documented by: Discontinued Medications Potassium Chloride 40 meq/ (Premix) 100 mls @ 25 mls/hr IV ONETIME ONE Stop: 09/18/20 21:50 Last Admin: 09/18/20 19:00 Dose: 25 mls/hr Documented by: Magnesium Sulfate (Magnesium Sulfate In Water Premix) 2 gm in 50 mls @ 50 mls/hr IV STAT STA Stop: 09/18/20 18:53 Last Admin: 09/18/20 18:59 Dose: 50 mls/hr Documented by: Ceftriaxone Sodium/Dextrose 1 (gm/ Premix) 50 mls @ 100 mls/hr IV ONETIME ONE Stop: 09/18/20 20:21 Last Admin: 09/18/20 19:58 Dose: 100 mls/hr Documented by: Ceftriaxone Sodium/Dextrose 1 (gm/ Premix) 50 mls @ 100 mls/hr IV Q24H [facility] Last Admin: 09/20/20 12:01 Dose: 100 mls/hr Documented by: Potassium Chloride/Sodium Chloride (Normal Saline With 40 Meq Kcl) 1,000 mls @ 150 mls/hr IV ASDIRECTED [facility] Stop: 09/20/20 14:24 Magnesium Sulfate 4 gm/ Premix 100 mls @ 50 mls/hr IV ONETIME ONE Stop: 09/20/20 10:14 Last Admin: 09/20/20 09:01 Dose: 50 mls/hr Documented by: Potassium Chloride 60 meq/ (Sodium Chloride) 1,030 mls @ 125 mls/hr IV Q6H [facility] Stop: 09/20/20 21:29 Last Admin: 09/20/20 15:38 Dose: 125 mls/hr Documented by: Magnesium Sulfate (Magnesium Sulfate In Water Premix) 2 gm in 50 mls @ 50 mls/hr IV ONETIME ONE Stop: 09/21/20 08:29 Last Admin: 09/21/20 08:21 Dose: 50 mls/hr Documented by: Influenza Virus Vaccine (Pharmacy To Dose - Influenza Vaccine) 1 each IM ONETIME ONE Stop: 09/18/20 23:30 Influenza Virus Vaccine (Afluria Quad 2020-21 (3yr Up)) 60 mcg IM .ONCE ONE Stop: 09/20/20 09:01 Influenza Virus Vaccine (Afluria Quad 2020-21 (3yr Up)) 60 mcg IM .ONCE ONE Stop: 09/21/20 12:01 Last Admin: 09/21/20 11:13 Dose: 60 mcg Documented by: Lorazepam (Ativan) 1 mg IVPUSH Q4H PRN PRN Reason: Anxiety Potassium Chloride (Klor-Con M20) 40 meq PO ONETIME ONE Stop: 09/18/20 17:50 Last Admin: 09/18/20 19:03 Dose: 40 meq Documented by: Potassium Chloride (Klor-Con M20) 40 meq PO ONETIME ONE Stop: 09/19/20 07:41 Last Admin: 09/19/20 08:42 Dose: 40 meq Documented by: Potassium Chloride (Potassium Chloride) 40 meq PO ONETIME ONE Stop: 09/20/20 07:46 Last Admin: 09/20/20 09:01 Dose: 40 meq Documented by: Potassium Chloride (Potassium Chloride) 40 meq PO ONETIME ONE Stop: 09/20/20 14:52 Last Admin: 09/20/20 15:20 Dose: Not Given Documented by: Potassium Chloride (Klor-Con M20) 20 meq PO DAILY [facility] Potassium Chloride (Klor-Con M20) 40 meq PO ONETIME ONE Stop: 09/21/20 07:20 Last Admin: 09/21/20 08:20 Dose: 40 meq Documented by: Sepsis Event Note - Focused Exam Vital Signs: Vital Signs Temp Pulse Resp BP BP Pulse Ox 09/21/20 08:00 36.5 C 73 18 90/55 L 90/55 L 94 L 09/21/20 04:09 36.8 C 80 16 96/55 L 95 - Problem List & Annotations (1) AMS (altered mental status) SNOMED Code(s): 507232884 Code(s): R41.82 - ALTERED MENTAL STATUS, UNSPECIFIED Status: Acute Current Visit: Yes (2) Acute respiratory failure with hypoxia SNOMED Code(s): 46170418, 429769595 Code(s): J96.01 - ACUTE RESPIRATORY FAILURE WITH HYPOXIA Status: Acute Current Visit: No (3) UTI, Urinary tract infectious disease SNOMED Code(s): 37444042 Code(s): N39.0 - URINARY TRACT INFECTION, SITE NOT SPECIFIED Status: Acute Current Visit: No (4) COPD (chronic obstructive pulmonary disease) SNOMED Code(s): 87787858 Code(s): J44.9 - CHRONIC OBSTRUCTIVE PULMONARY DISEASE, UNSPECIFIED Status: Acute Current Visit: Yes (5) History of pulmonary embolus (PE) SNOMED Code(s): 223722591 Code(s): Z86.711 - PERSONAL HISTORY OF PULMONARY EMBOLISM Status: Acute Current Visit: Yes (6) UTI (urinary tract infection) SNOMED Code(s): 90840076 Code(s): N39.0 - URINARY TRACT INFECTION, SITE NOT SPECIFIED Status: Acute Current Visit: Yes - Plan Plan:: I have seen and evaluated the patient and agree with the residents note unless specified in my note
[2020-09-20 07:20] LABS: BLOOD UREA NITROGEN,BUN 5 mg/dL (7.0-18.0); CHLORIDE,CL 101 mmol/L (98-107); GLUCOSE RANDOM 79 mg/dL (74-106); SODIUM,NA 140 mmol/L (136-145)
[2020-09-20 07:36] LABS: POTASSIUM,K 2.4 mmol/L (3.5-5.1)
[2020-09-20] MEDS ORDERED: Sodium Chloride 0.9% with KCl 1,000 ML IV SCH (07:45)
[2020-09-20] MEDS ORDERED: Potassium Chloride 10% 20 MEQ/15 ML Soln 30 ML UD Cup PO ONE ×2 (07:45→14:51)
[2020-09-20] MEDS ORDERED: Magnesium Sulfate/Water 4 GM in Premix Bag 1 BAG IV ONE (08:15)
[2020-09-20] MEDS ORDERED: FLU Vacc QS2020-21 36MOS UP/PF 60 MCG/0.5 ML Syringe IM ONE (09:00)
[2020-09-20] MEDS: Apixaban 5 MG Tab PO SCH ×2 (09:01→20:30)
[2020-09-20] MEDS: Iron Polysaccharides Complex 150 MG Cap PO SCH (09:01)
[2020-09-20] MEDS: Levothyroxine 25 MCG Tab PO SCH (09:01)
[2020-09-20] MEDS: Furosemide 40 MG Tab PO SCH (09:01)
[2020-09-20] MEDS: Budesonide 0.5 MG/2 ML Neb Susp INH SCH ×2 (09:10→20:36)
[2020-09-20] MEDS: cefTRIAXone 1 GM in Premix Bag 1 BAG IV SCH (12:01)
[2020-09-20] MEDS: ClonazePAM 1 MG Tab PO PRN ×2 (12:06→20:30)
--- NOTE | 2020-09-20 14:05 | PCM.PN ---
<Jerardo Del Real - Last Filed: 09/20/20 13:59> - General Info Date of Service: 09/20/20 Subjective Update: No complaints at bedside this morning. AO x3. - Patient Data Vitals - Most Recent: Last Vital Signs Temp 37.0 C 09/20/20 11:00 Pulse 71 09/20/20 11:00 Resp 16 09/20/20 11:00 BP 95/53 L 09/20/20 11:00 Pulse Ox 92 L 09/20/20 11:00 Weight - Most Recent: 76.612 kg I&O - Last 24 Hours: Intake & Output 09/19/20 09/20/20 09/20/20 22:59 06:59 14:59 Intake Total 290 900 Output Total 400 850 Balance -110 50 Lab Results Last 24 Hours: Laboratory Results - last 24 hr 09/19/20 09/20/20 09/20/20 Range/Units 16:48 05:21 05:21 WBC 4.55 (4.0-11.0) K/uL RBC 4.13 L (4.30-5.90) M/uL Hgb 10.1 L (12.0-16.0) g/dL Hct 34.8 L (36.0-46.0) % MCV 84.3 (80.0-98.0) fL MCH 24.5 L (27.0-32.0) pg MCHC 29.0 L (31.0-37.0) g/dL RDW Std Deviation 58.5 (28.0-62.0) fl RDW Coeff of Thiago 19 H (11.0-15.0) % Plt Count 159 (150-400) K/uL MPV 10.60 (7.40-12.00) fL Neut % (Auto) 51.5 (48.0-80.0) % Lymph % (Auto) 38.9 (16.0-40.0) % Briscoe % (Auto) 7.9 (0.0-15.0) % Eos % (Auto) 1.5 (0.0-7.0) % Baso % (Auto) 0.2 (0.0-1.5) % Neut # (Auto) 2.3 (1.4-5.7) K/uL Lymph # (Auto) 1.8 (0.6-2.4) K/uL [place]iscoe # (Auto) 0.4 (0.0-0.8) K/uL Eos # (Auto) 0.1 (0.0-0.7) K/uL Baso # (Auto) 0.0 (0.0-0.1) K/uL Nucleated RBC % 0.0 /100WBC Nucleated RBCs # 0 K/uL Sodium 140 (136-145) mmol/L Potassium 2.4 L* (3.5-5.1) mmol/L Chloride 101 (98-107) mmol/L Carbon Dioxide 33.0 H (21.0-32.0) mmol/L BUN 5 L (7.0-18.0) mg/dL Creatinine 0.7 (0.6-1.0) mg/dL Est Cr Clr Drug Dosing 87.27 mL/min Estimated GFR (MDRD) > 60.0 ml/min Glucose 79 (74-106) mg/dL POC Glucose 75 (60-110) mg/dL Calcium 8.6 (8.5-10.1) mg/dL Magnesium (1.8-2.4) mg/dL Total Bilirubin 0.6 (0.2-1.0) mg/dL AST 22 (15-37) IU/L ALT 16 (14-63) IU/L Alkaline Phosphatase 96 (46-116) U/L Total Protein 5.8 L (6.4-8.2) g/dL Albumin 2.6 L (3.4-5.0) g/dL Globulin 3.2 (2.6-4.0) g/dL Albumin/Globulin Ratio 0.8 L (0.9-1.6) 09/20/20 Range/Units 05:21 WBC (4.0-11.0) K/uL RBC (4.30-5.90) M/uL Hgb (12.0-16.0) g/dL Hct (36.0-46.0) % MCV (80.0-98.0) fL MCH (27.0-32.0) pg MCHC (31.0-37.0) g/dL RDW Std Deviation (28.0-62.0) fl RDW Coeff of Thiago (11.0-15.0) % Plt Count (150-400) K/uL MPV (7.40-12.00) fL Neut % (Auto) (48.0-80.0) % Lymph % (Auto) (16.0-40.0) % Briscoe % (Auto) (0.0-15.0) % Eos % (Auto) (0.0-7.0) % Baso % (Auto) (0.0-1.5) % Neut # (Auto) (1.4-5.7) K/uL Lymph # (Auto) (0.6-2.4) K/uL [place]iscoe # (Auto) (0.0-0.8) K/uL Eos # (Auto) (0.0-0.7) K/uL Baso # (Auto) (0.0-0.1) K/uL Nucleated RBC % /100WBC Nucleated RBCs # K/uL Sodium (136-145) mmol/L Potassium (3.5-5.1) mmol/L Chloride (98-107) mmol/L Carbon Dioxide (21.0-32.0) mmol/L BUN (7.0-18.0) mg/dL Creatinine (0.6-1.0) mg/dL Est Cr Clr Drug Dosing mL/min Estimated GFR (MDRD) ml/min Glucose (74-106) mg/dL POC Glucose (60-110) mg/dL Calcium (8.5-10.1) mg/dL Magnesium 1.4 L (1.8-2.4) mg/dL Total Bilirubin (0.2-1.0) mg/dL AST (15-37) IU/L ALT (14-63) IU/L Alkaline Phosphatase (46-116) U/L Total Protein (6.4-8.2) g/dL Albumin (3.4-5.0) g/dL Globulin (2.6-4.0) g/dL Albumin/Globulin Ratio (0.9-1.6) Vasyl Results Last 24 Hours: Microbiology 09/18/20 19:15 Urine Culture - Final Urine, Clean Catch MIXED RAYNA 1,000-10,000 CFU/ML 09/18/20 17:10 Aerobic Blood Culture - Preliminary Blood - Venous - Lab Draw NO GROWTH AFTER 1 DAY Anaerobic Blood Culture - Preliminary NO GROWTH AFTER 1 DAY 09/18/20 17:04 Aerobic Blood Culture - Preliminary Blood - Venous NO GROWTH AFTER 1 DAY Anaerobic Blood Culture - Preliminary NO GROWTH AFTER 1 DAY Med Orders - Current: Current Medications Albuterol/Ipratropium (Duoneb 3.0-0.5 Mg/3 Ml) 3 ml NEB Q4HRRT PRN PRN Reason: Shortness Of Breath/wheezing Apixaban (Eliquis) 5 mg PO BID [facility] Last Admin: 09/20/20 09:01 Dose: 5 mg Documented by: Budesonide (Pulmicort) 0.5 mg INH BID [facility] Last Admin: 09/20/20 09:10 Dose: 0.5 mg Documented by: Clonazepam (Klonopin) 2 mg PO Q8H PRN PRN Reason: anxiety Last Admin: 09/20/20 12:06 Dose: 2 mg Documented by: Furosemide (Lasix) 40 mg PO DAILY [facility] Last Admin: 09/20/20 09:01 Dose: 40 mg Documented by: Ceftriaxone Sodium/Dextrose 1 (gm/ Premix) 50 mls @ 100 mls/hr IV Q24H [facility] Last Admin: 09/20/20 12:01 Dose: 100 mls/hr Documented by: Potassium Chloride/Sodium Chloride (Normal Saline With 40 Meq Kcl) 1,000 mls @ 150 mls/hr IV ASDIRECTED [facility] Stop: 09/20/20 14:24 Levothyroxine Sodium (Levothyroxine) 25 mcg PO DAILY [facility] Last Admin: 09/20/20 09:01 Dose: 25 mcg Documented by: Ondansetron HCl (Zofran) 4 mg IVPUSH Q4H PRN PRN Reason: Nausea/Vomiting Anoro Ellipta 62.5- (25 Mcg) 0 each INH DAILY [facility] Last Admin: 09/20/20 11:06 Dose: Not Given Documented by: Polysaccharide Iron Complex (Ferrex 150) 150 mg PO DAILY [facility] Last Admin: 09/20/20 09:01 Dose: 150 mg Documented by: Sodium Chloride (Saline Flush) 10 ml FLUSH ASDIRECTED PRN PRN Reason: Keep Vein Open Last Admin: 09/18/20 20:00 Dose: 10 ml Documented by: Sodium Chloride (Saline Flush) 2.5 ml FLUSH ASDIRECTED PRN PRN Reason: Keep Vein Open Last Admin: 09/18/20 20:00 Dose: 2.5 ml Documented by: Discontinued Medications Potassium Chloride 40 meq/ (Premix) 100 mls @ 25 mls/hr IV ONETIME ONE Stop: 09/18/20 21:50 Last Admin: 09/18/20 19:00 Dose: 25 mls/hr Documented by: Magnesium Sulfate (Magnesium Sulfate In Water Premix) 2 gm in 50 mls @ 50 mls/hr IV STAT STA Stop: 09/18/20 18:53 Last Admin: 09/18/20 18:59 Dose: 50 mls/hr Documented by: Ceftriaxone Sodium/Dextrose 1 (gm/ Premix) 50 mls @ 100 mls/hr IV ONETIME ONE Stop: 09/18/20 20:21 Last Admin: 09/18/20 19:58 Dose: 100 mls/hr Documented by: Magnesium Sulfate 4 gm/ Premix 100 mls @ 50 mls/hr IV ONETIME ONE Stop: 09/20/20 10:14 Last Admin: 09/20/20 09:01 Dose: 50 mls/hr Documented by: Influenza Virus Vaccine (Pharmacy To Dose - Influenza Vaccine) 1 each IM ONETIME ONE Stop: 09/18/20 23:30 Influenza Virus Vaccine (Afluria Quad 2020-21 (3yr Up)) 60 mcg IM .ONCE ONE Stop: 09/20/20 09:01 Lorazepam (Ativan) 1 mg IVPUSH Q4H PRN PRN Reason: Anxiety Potassium Chloride (Klor-Con M20) 40 meq PO ONETIME ONE Stop: 09/18/20 17:50 Last Admin: 09/18/20 19:03 Dose: 40 meq Documented by: Potassium Chloride (Klor-Con M20) 40 meq PO ONETIME ONE Stop: 09/19/20 07:41 Last Admin: 09/19/20 08:42 Dose: 40 meq Documented by: Potassium Chloride (Potassium Chloride) 40 meq PO ONETIME ONE Stop: 09/20/20 07:46 Last Admin: 09/20/20 09:01 Dose: 40 meq Documented by: - Exam General: Alert, Oriented, Cooperative, No Acute Distress Lungs: Clear to Auscultation, Normal Respiratory Effort Cardiovascular: Regular Rate, Regular Rhythm GI/Abdominal Exam: Normal Bowel Sounds, Soft, Non-Tender, No Distention Extremities: Other (1+ edema b/l) Skin: Warm, Dry, Intact Sepsis Event Note - Evaluation Sepsis Screening Result: No Definite Risk - Focused Exam Vital Signs: Vital Signs Temp Pulse Resp BP Pulse Ox 09/20/20 11:00 37.0 C 71 16 95/53 L 92 L 09/20/20 07:15 37.7 C 91 17 101/71 96 09/20/20 04:40 37.1 C 85 16 93/52 L 93 L - Problem List & Annotations (1) AMS (altered mental status) SNOMED Code(s): 501007886 Code(s): R41.82 - ALTERED MENTAL STATUS, UNSPECIFIED Status: Acute Current Visit: Yes (2) COPD (chronic obstructive pulmonary disease) SNOMED Code(s): 16340948 Code(s): J44.9 - CHRONIC OBSTRUCTIVE PULMONARY DISEASE, UNSPECIFIED Status: Acute Current Visit: Yes (3) Hypokalemia SNOMED Code(s): 59814103 Code(s): E87.6 - HYPOKALEMIA Status: Acute Current Visit: Yes (4) Hypothyroidism SNOMED Code(s): 09164502 Code(s): E03.9 - HYPOTHYROIDISM, UNSPECIFIED Status: Acute Current Visit: Yes (5) Anxiety SNOMED Code(s): 78980037 Code(s): F41.9 - ANXIETY DISORDER, UNSPECIFIED Status: Acute Current Visit: Yes (6) History of pulmonary embolus (PE) SNOMED Code(s): 473208313 Code(s): Z86.711 - PERSONAL HISTORY OF PULMONARY EMBOLISM Status: Acute Current Visit: Yes (7) UTI (urinary tract infection) SNOMED Code(s): 65485842 Code(s): N39.0 - URINARY TRACT INFECTION, SITE NOT SPECIFIED Status: Acute Current Visit: Yes - Problem List Review Problem List Initiated/Reviewed/Updated: Yes - My Orders Last 24 Hours: My Active Orders 09/19/20 16:56 Code Status [Resuscitation Status] Routine 09/20/20 07:45 Sodium Chloride 0.9% with KCl [Normal Saline with 40 mEq KCl] 1,000 ml IV ASDIRECTED 09/20/20 14:00 POTASSIUM,K [CHEM] Routine - Plan Plan:: Assessment and Plan: 1. AMS secondary to UTI vs hypoxic encephalopathy in a patient with suspected underlying COPD: - Patient's mentation significantly improved since yesterday. Continue supplemental oxygen PRN to maintain O2 sat > 88% and continue home inhalers. Will discontinue IV ceftriaxone as urine culture grew mixed rayna. Will encourage ambulation today. Patient will require further follow-up with neurology as outpatient. - UA positive for esterase and nitrites. Urine culture grew mixed rayna. CT head was negative. Patient uses oxygen intermittently at home and reports possible history of COPD. Patient is non-compliant with oxygen at home. UDS was negative. CXR unremarkable. 2. Hypokalemia: - Repleted with KCl 40 mEq PO x 1 and IV KCl 40 mEq. Also given IV magnesium sulfate 4 g as magnesium was found to be low. Will recheck potassium level this afternoon. 3. Hyperbilirubinemia, improved: - Will monitor with CMP in AM. 4. DVT prophylaxis: SCD's. 5. Past medical history of pulmonary embolism, anxiety, depression and PTSD: - Continue home medications. <Elaina Lee - Last Filed: 09/21/20 13:23> - Patient Data Vitals - Most Recent: Last Vital Signs Temp 36.5 C 09/21/20 08:00 Pulse 73 09/21/20 08:00 Resp 18 09/21/20 08:00 BP 90/55 L 09/21/20 08:00 Pulse Ox 94 L 09/21/20 08:00 I&O - Last 24 Hours: Intake & Output 09/20/20 09/21/20 09/21/20 22:59 06:59 14:59 Intake Total 800 500 Output Total 1350 Balance -550 500 Lab Results Last 24 Hours: Laboratory Results - last 24 hr 09/20/20 09/21/20 09/21/20 Range/Units 14:10 05:07 05:07 WBC 4.45 (4.0-11.0) K/uL RBC 3.87 L (4.30-5.90) M/uL Hgb 9.5 L (12.0-16.0) g/dL Hct 33.3 L (36.0-46.0) % MCV 86.0 (80.0-98.0) fL MCH 24.5 L (27.0-32.0) pg MCHC 28.5 L (31.0-37.0) g/dL RDW Std Deviation 60.3 (28.0-62.0) fl RDW Coeff of Thiago 19 H (11.0-15.0) % Plt Count 155 (150-400) K/uL MPV 10.10 (7.40-12.00) fL Neut % (Auto) 53.3 (48.0-80.0) % Lymph % (Auto) 34.8 (16.0-40.0) % [place]iscoe % (Auto) 10.3 (0.0-15.0) % Eos % (Auto) 1.6 (0.0-7.0) % Baso % (Auto) 0.0 (0.0-1.5) % Neut # (Auto) 2.4 (1.4-5.7) K/uL Lymph # (Auto) 1.6 (0.6-2.4) K/uL [place] # (Auto) 0.5 (0.0-0.8) K/uL Eos # (Auto) 0.1 (0.0-0.7) K/uL Baso # (Auto) 0.0 (0.0-0.1) K/uL Nucleated RBC % 0.0 /100WBC Nucleated RBCs # 0 K/uL Sodium 143 (136-145) mmol/L Potassium 2.8 L 3.3 L (3.5-5.1) mmol/L Chloride 103 (98-107) mmol/L Carbon Dioxide 33.7 H (21.0-32.0) mmol/L BUN 3 L (7.0-18.0) mg/dL Creatinine 0.7 (0.6-1.0) mg/dL Est Cr Clr Drug Dosing 87.27 mL/min Estimated GFR (MDRD) > 60.0 ml/min Glucose 84 (74-106) mg/dL Calcium 8.8 (8.5-10.1) mg/dL Magnesium 1.6 L (1.8-2.4) mg/dL Total Bilirubin 0.3 (0.2-1.0) mg/dL AST 17 (15-37) IU/L ALT 11 L (14-63) IU/L Alkaline Phosphatase 86 (46-116) U/L Total Protein 5.5 L (6.4-8.2) g/dL Albumin 2.3 L (3.4-5.0) g/dL Globulin 3.2 (2.6-4.0) g/dL Albumin/Globulin Ratio 0.7 L (0.9-1.6) Vasyl Results Last 24 Hours: Microbiology 09/18/20 17:10 Aerobic Blood Culture - Preliminary Blood - Venous - Lab Draw NO GROWTH AFTER 2 DAYS Anaerobic Blood Culture - Preliminary NO GROWTH AFTER 2 DAYS 09/18/20 17:04 Aerobic Blood Culture - Preliminary Blood - Venous NO GROWTH AFTER 2 DAYS Anaerobic Blood Culture - Preliminary NO GROWTH AFTER 2 DAYS 09/18/20 19:15 Urine Culture - Final Urine, Clean Catch MIXED RAYNA 1,000-10,000 CFU/ML Med Orders - Current: Current Medications Albuterol/Ipratropium (Duoneb 3.0-0.5 Mg/3 Ml) 3 ml NEB Q4HRRT PRN PRN Reason: Shortness Of Breath/wheezing Apixaban (Eliquis) 5 mg PO BID [facility] Last Admin: 09/21/20 08:27 Dose: 5 mg Documented by: Budesonide (Pulmicort) 0.5 mg INH BID [facility] Last Admin: 09/21/20 08:30 Dose: 0.5 mg Documented by: Clonazepam (Klonopin) 2 mg PO Q8H PRN PRN Reason: anxiety Last Admin: 09/21/20 05:15 Dose: 2 mg Documented by: Furosemide (Lasix) 40 mg PO DAILY [facility] Last Admin: 09/21/20 08:28 Dose: 40 mg Documented by: Levothyroxine Sodium (Levothyroxine) 25 mcg PO DAILY [facility] Last Admin: 09/21/20 08:28 Dose: 25 mcg Documented by: Ondansetron HCl (Zofran) 4 mg IVPUSH Q4H PRN PRN Reason: Nausea/Vomiting Anoro Ellipta 62.5- (25 Mcg) 0 each INH DAILY [facility] Last Admin: 09/21/20 08:29 Dose: Not Given Documented by: Polysaccharide Iron Complex (Ferrex 150) 150 mg PO DAILY [facility] Last Admin: 09/21/20 08:28 Dose: 150 mg Documented by: Sodium Chloride (Saline Flush) 10 ml FLUSH ASDIRECTED PRN PRN Reason: Keep Vein Open Last Admin: 09/18/20 20:00 Dose: 10 ml Documented by: Sodium Chloride (Saline Flush) 2.5 ml FLUSH ASDIRECTED PRN PRN Reason: Keep Vein Open Last Admin: 09/18/20 20:00 Dose: 2.5 ml Documented by: Discontinued Medications Potassium Chloride 40 meq/ (Premix) 100 mls @ 25 mls/hr IV ONETIME ONE Stop: 09/18/20 21:50 Last Admin: 09/18/20 19:00 Dose: 25 mls/hr Documented by: Magnesium Sulfate (Magnesium Sulfate In Water Premix) 2 gm in 50 mls @ 50 mls/hr IV STAT STA Stop: 09/18/20 18:53 Last Admin: 09/18/20 18:59 Dose: 50 mls/hr Documented by: Ceftriaxone Sodium/Dextrose 1 (gm/ Premix) 50 mls @ 100 mls/hr IV ONETIME ONE Stop: 09/18/20 20:21 Last Admin: 09/18/20 19:58 Dose: 100 mls/hr Documented by: Ceftriaxone Sodium/Dextrose 1 (gm/ Premix) 50 mls @ 100 mls/hr IV Q24H [facility] Last Admin: 09/20/20 12:01 Dose: 100 mls/hr Documented by: Potassium Chloride/Sodium Chloride (Normal Saline With 40 Meq Kcl) 1,000 mls @ 150 mls/hr IV ASDIRECTED [facility] Stop: 09/20/20 14:24 Magnesium Sulfate 4 gm/ Premix 100 mls @ 50 mls/hr IV ONETIME ONE Stop: 09/20/20 10:14 Last Admin: 09/20/20 09:01 Dose: 50 mls/hr Documented by: Potassium Chloride 60 meq/ (Sodium Chloride) 1,030 mls @ 125 mls/hr IV Q6H [facility] Stop: 09/20/20 21:29 Last Admin: 09/20/20 15:38 Dose: 125 mls/hr Documented by: Magnesium Sulfate (Magnesium Sulfate In Water Premix) 2 gm in 50 mls @ 50 mls/hr IV ONETIME ONE Stop: 09/21/20 08:29 Last Admin: 09/21/20 08:21 Dose: 50 mls/hr Documented by: Influenza Virus Vaccine (Pharmacy To Dose - Influenza Vaccine) 1 each IM ONETIME ONE Stop: 09/18/20 23:30 Influenza Virus Vaccine (Afluria Quad 2020-21 (3yr Up)) 60 mcg IM .ONCE ONE Stop: 09/20/20 09:01 Influenza Virus Vaccine (Afluria Quad 2020-21 (3yr Up)) 60 mcg IM .ONCE ONE Stop: 09/21/20 12:01 Last Admin: 09/21/20 11:13 Dose: 60 mcg Documented by: Lorazepam (Ativan) 1 mg IVPUSH Q4H PRN PRN Reason: Anxiety Potassium Chloride (Klor-Con M20) 40 meq PO ONETIME ONE Stop: 09/18/20 17:50 Last Admin: 09/18/20 19:03 Dose: 40 meq Documented by: Potassium Chloride (Klor-Con M20) 40 meq PO ONETIME ONE Stop: 09/19/20 07:41 Last Admin: 09/19/20 08:42 Dose: 40 meq Documented by: Potassium Chloride (Potassium Chloride) 40 meq PO ONETIME ONE Stop: 09/20/20 07:46 Last Admin: 09/20/20 09:01 Dose: 40 meq Documented by: Potassium Chloride (Potassium Chloride) 40 meq PO ONETIME ONE Stop: 09/20/20 14:52 Last Admin: 09/20/20 15:20 Dose: Not Given Documented by: Potassium Chloride (Klor-Con M20) 20 meq PO DAILY [facility] Potassium Chloride (Klor-Con M20) 40 meq PO ONETIME ONE Stop: 09/21/20 07:20 Last Admin: 09/21/20 08:20 Dose: 40 meq Documented by: Sepsis Event Note - Focused Exam Vital Signs: Vital Signs Temp Pulse Resp BP BP Pulse Ox 09/21/20 08:00 36.5 C 73 18 90/55 L 90/55 L 94 L 09/21/20 04:09 36.8 C 80 16 96/55 L 95 - Problem List & Annotations (1) AMS (altered mental status) SNOMED Code(s): 195998677 Code(s): R41.82 - ALTERED MENTAL STATUS, UNSPECIFIED Status: Acute Current Visit: Yes (2) Acute respiratory failure with hypoxia SNOMED Code(s): 91370063, 770219043 Code(s): J96.01 - ACUTE RESPIRATORY FAILURE WITH HYPOXIA Status: Acute Current Visit: No (3) UTI, Urinary tract infectious disease SNOMED Code(s): 79141131 Code(s): N39.0 - URINARY TRACT INFECTION, SITE NOT SPECIFIED Status: Acute Current Visit: No (4) COPD (chronic obstructive pulmonary disease) SNOMED Code(s): 63846770 Code(s): J44.9 - CHRONIC OBSTRUCTIVE PULMONARY DISEASE, UNSPECIFIED Status: Acute Current Visit: Yes (5) History of pulmonary embolus (PE) SNOMED Code(s): 311889684 Code(s): Z86.711 - PERSONAL HISTORY OF PULMONARY EMBOLISM Status: Acute Current Visit: Yes (6) UTI (urinary tract infection) SNOMED Code(s): 41433120 Code(s): N39.0 - URINARY TRACT INFECTION, SITE NOT SPECIFIED Status: Acute Current Visit: Yes - Plan Plan:: I have seen and evaluated the patient and agree with the residents note unless specified in my note
[2020-09-21] MEDS: ClonazePAM 1 MG Tab PO PRN (05:15)
[2020-09-21 06:48] LABS: BLOOD UREA NITROGEN,BUN 3 mg/dL (7.0-18.0); CARBON DIOXIDE,CO2 33.7 mmol/L (21.0-32.0); CHLORIDE,CL 103 mmol/L (98-107); GLUCOSE RANDOM 84 mg/dL (74-106); POTASSIUM,K 3.3 mmol/L (3.5-5.1); SODIUM,NA 143 mmol/L (136-145)
[2020-09-21] MEDS ORDERED: Magnesium Sulfate/Water 2 GM/50 ML Premix Bag IV ONE (07:18)
[2020-09-21] MEDS ORDERED: Potassium Chloride 20 MEQ Tab.ER PO ONE (07:19)
[2020-09-21] MEDS ORDERED: Magnesium Sulfate/Water 2 GM/50 ML BAG IV ONE (07:30)
[2020-09-21 08:25] VITALS: BP 90/55; PULSE 73
[2020-09-21] MEDS: Apixaban 5 MG Tab PO SCH (08:27)
[2020-09-21] MEDS: Iron Polysaccharides Complex 150 MG Cap PO SCH (08:28)
[2020-09-21] MEDS: Levothyroxine 25 MCG Tab PO SCH (08:28)
[2020-09-21] MEDS: Furosemide 40 MG Tab PO SCH (08:28)
[2020-09-21] MEDS: Budesonide 0.5 MG/2 ML Neb Susp INH SCH (08:30)
[2020-09-21] MEDS ORDERED: Potassium Chloride 20 MEQ Tab.ER PO SCH (09:00)
--- NOTE | 2020-09-21 11:18 | PCM.DCSUM1 ---
<Jerardo Del Real - Last Filed: 09/21/20 11:35> Discharge Summary - Hospital Course Free Text/Narrative:: 54-year-old female admitted for AMS. She has a PMH of PE, anxiety, depression, PTSD and chronic hypoxia likely secondary to underlying COPD. On admission, UA was positive for esterase and nitrites and she was started on IV ceftriaxone. Urine culture grew mixed rayna at which point ceftriaxone was discontinued. CT head was negative. Patient does not use oxygen consistently at home and was requiring 2 L NC throughout her hospital stay. Due to this, it is possible that chronic hypoxia could be factoring into her AMS. UDS was negative even though patient does take Klonopin at home, raising the question of medication non- compliance and possible withdrawal contributing to her AMS as well. Patient's klonopin was resumed on admission and over the next 24 hours patient's mentation was noted to be improved. Patient also had hypokalemia which was repleted with oral and IV potassium. Patient was able to ambulate around her room without difficulty prior to discharge. She was discharged in stable condition and given script for oral potassium. Advised to follow-up with PCP on discharge and will require recheck of her potassium levels. Also advised to continue to follow-up with neurology as an outpatient for further evaluation for possible underlying neurological etiology of AMS. Patient's Avni was updated on recommendations. - Discharge Data Discharge Date: 09/21/20 Discharge Disposition: Home, Self-Care 01 Condition: Stable - Referral to Home Health Primary Care Physician: Remi Olivas MD - Discharge Diagnosis/Problem(s) (1) AMS (altered mental status) SNOMED Code(s): 751362455 ICD Code: R41.82 - ALTERED MENTAL STATUS, UNSPECIFIED Status: Acute Current Visit: Yes (2) COPD (chronic obstructive pulmonary disease) SNOMED Code(s): 19077919 ICD Code: J44.9 - CHRONIC OBSTRUCTIVE PULMONARY DISEASE, UNSPECIFIED Statu s: Acute Current Visit: Yes (3) Hypokalemia SNOMED Code(s): 05226115 ICD Code: E87.6 - HYPOKALEMIA Status: Acute Current Visit: Yes (4) Hypothyroidism SNOMED Code(s): 20337946 ICD Code: E03.9 - HYPOTHYROIDISM, UNSPECIFIED Status: Acute Current Visit: Yes (5) Anxiety SNOMED Code(s): 77866760 ICD Code: F41.9 - ANXIETY DISORDER, UNSPECIFIED Status: Acute Current Visit: Yes (6) History of pulmonary embolus (PE) SNOMED Code(s): 621971492 ICD Code: Z86.711 - PERSONAL HISTORY OF PULMONARY EMBOLISM Status: Acute Current Visit: Yes (7) UTI (urinary tract infection) SNOMED Code(s): 47503693 ICD Code: N39.0 - URINARY TRACT INFECTION, SITE NOT SPECIFIED Status: Acute Current Visit: Yes - Patient Instructions Diet: Regular Diet as Tolerated Activity: As Tolerated Notify Provider of: Fever, Increased Pain, Swelling and Redness, Drainage, Nausea and/or Vomiting - Discharge Plan *PRESCRIPTION DRUG MONITORING PROGRAM REVIEWED*: Not Applicable *COPY OF PRESCRIPTION DRUG MONITORING REPORT IN PATIENT BRIGETTE: Not Applicable Prescriptions/Med Rec: Potassium Chloride 10 meq PO DAILY 30 Days #30 tablet.er Home Medications: Home Meds ClonazePAM [KlonoPIN] 2 mg PO TID PRN 04/23/18 [History] Umeclidinium Brm/Vilanterol Tr [Anoro Ellipta 62.5-25 MCG] 1 puff IH DAILY 06/20/20 [History] Iron Polysaccharides Complex [Ferrex 150] 150 mg PO DAILY 30 Days #30 cap 06/21/20 [Rx] Furosemide 40 mg PO DAILY 09/18/20 [History] Levothyroxine 25 mcg PO DAILY 09/18/20 [History] Apixaban [Eliquis] 5 mg PO BID tablet 09/21/20 [Rx] Potassium Chloride 10 meq PO DAILY 30 Days #30 tablet.er 09/21/20 [Rx] Oxygen Therapy Mode: Nasal Cannula Oxygen Flow Rate (L/min): 2 Patient Handouts: Chronic Obstructive Pulmonary Disease Exacerbation, [id number], Potassium chloride tablets, extended-release tablets or capsules, Confusion Referrals: Mlia Siddiqi MD [Physician] - 10/10/20 11:30 am (Please arrive 15mins early. Bring insurance info, ID and own mask.) Remi Olivas MD [Primary Care Provider] - 09/29/20 12:30 pm - Discharge Summary/Plan Comment DC Time >30 min.: No - Patient Data Vitals - Most Recent: Last Vital Signs Temp 36.5 C 09/21/20 08:00 Pulse 73 09/21/20 08:00 Resp 18 09/21/20 08:00 BP 90/55 L 09/21/20 08:00 Pulse Ox 94 L 09/21/20 08:00 Weight - Most Recent: 76.612 kg I&O - Last 24 hours: Intake & Output 09/20/20 09/21/20 09/21/20 22:59 06:59 14:59 Intake Total 800 500 Output Total 1350 Balance -550 500 Lab Results - Last 24 hrs: Laboratory Results - last 24 hr 09/20/20 09/21/20 09/21/20 Range/Units 14:10 05:07 05:07 WBC 4.45 (4.0-11.0) K/uL RBC 3.87 L (4.30-5.90) M/uL Hgb 9.5 L (12.0-16.0) g/dL Hct 33.3 L (36.0-46.0) % MCV 86.0 (80.0-98.0) fL MCH 24.5 L (27.0-32.0) pg MCHC 28.5 L (31.0-37.0) g/dL RDW Std Deviation 60.3 (28.0-62.0) fl RDW Coeff of Thiago 19 H (11.0-15.0) % Plt Count 155 (150-400) K/uL MPV 10.10 (7.40-12.00) fL Neut % (Auto) 53.3 (48.0-80.0) % Lymph % (Auto) 34.8 (16.0-40.0) % [place] % (Auto) 10.3 (0.0-15.0) % Eos % (Auto) 1.6 (0.0-7.0) % Baso % (Auto) 0.0 (0.0-1.5) % Neut # (Auto) 2.4 (1.4-5.7) K/uL Lymph # (Auto) 1.6 (0.6-2.4) K/uL [place] # (Auto) 0.5 (0.0-0.8) K/uL Eos # (Auto) 0.1 (0.0-0.7) K/uL Baso # (Auto) 0.0 (0.0-0.1) K/uL Nucleated RBC % 0.0 /100WBC Nucleated RBCs # 0 K/uL Sodium 143 (136-145) mmol/L Potassium 2.8 L 3.3 L (3.5-5.1) mmol/L Chloride 103 (98-107) mmol/L Carbon Dioxide 33.7 H (21.0-32.0) mmol/L BUN 3 L (7.0-18.0) mg/dL Creatinine 0.7 (0.6-1.0) mg/dL Est Cr Clr Drug Dosing 87.27 mL/min Estimated GFR (MDRD) > 60.0 ml/min Glucose 84 (74-106) mg/dL Calcium 8.8 (8.5-10.1) mg/dL Magnesium 1.6 L (1.8-2.4) mg/dL Total Bilirubin 0.3 (0.2-1.0) mg/dL AST 17 (15-37) IU/L ALT 11 L (14-63) IU/L Alkaline Phosphatase 86 (46-116) U/L Total Protein 5.5 L (6.4-8.2) g/dL Albumin 2.3 L (3.4-5.0) g/dL Globulin 3.2 (2.6-4.0) g/dL Albumin/Globulin Ratio 0.7 L (0.9-1.6) GEOVANNI Results - Last 24 hrs: Microbiology 09/18/20 17:10 Aerobic Blood Culture - Preliminary Blood - Venous - Lab Draw NO GROWTH AFTER 2 DAYS Anaerobic Blood Culture - Preliminary NO GROWTH AFTER 2 DAYS 09/18/20 17:04 Aerobic Blood Culture - Preliminary Blood - Venous NO GROWTH AFTER 2 DAYS Anaerobic Blood Culture - Preliminary NO GROWTH AFTER 2 DAYS 09/18/20 19:15 Urine Culture - Final Urine, Clean Catch MIXED RAYNA 1,000-10,000 CFU/ML Med Orders - Current: Current Medications Albuterol/Ipratropium (Duoneb 3.0-0.5 Mg/3 Ml) 3 ml NEB Q4HRRT PRN PRN Reason: Shortness Of Breath/wheezing Apixaban (Eliquis) 5 mg PO BID [facility] Last Admin: 09/21/20 08:27 Dose: 5 mg Documented by: Budesonide (Pulmicort) 0.5 mg INH BID [facility] Last Admin: 09/21/20 08:30 Dose: 0.5 mg Documented by: Clonazepam (Klonopin) 2 mg PO Q8H PRN PRN Reason: anxiety Last Admin: 09/21/20 05:15 Dose: 2 mg Documented by: Furosemide (Lasix) 40 mg PO DAILY [facility] Last Admin: 09/21/20 08:28 Dose: 40 mg Documented by: Influenza Virus Vaccine (Afluria Quad 2020- (3yr Up)) 60 mcg IM .ONCE ONE Stop: 09/21/20 12:01 Last Admin: 09/21/20 11:13 Dose: 60 mcg Documented by: Levothyroxine Sodium (Levothyroxine) 25 mcg PO DAILY [facility] Last Admin: 09/21/20 08:28 Dose: 25 mcg Documented by: Ondansetron HCl (Zofran) 4 mg IVPUSH Q4H PRN PRN Reason: Nausea/Vomiting Anoro Ellipta 62.5- (25 Mcg) 0 each INH DAILY [facility] Last Admin: 09/21/20 08:29 Dose: Not Given Documented by: Polysaccharide Iron Complex (Ferrex 150) 150 mg PO DAILY [facility] Last Admin: 09/21/20 08:28 Dose: 150 mg Documented by: Sodium Chloride (Saline Flush) 10 ml FLUSH ASDIRECTED PRN PRN Reason: Keep Vein Open Last Admin: 09/18/20 20:00 Dose: 10 ml Documented by: Sodium Chloride (Saline Flush) 2.5 ml FLUSH ASDIRECTED PRN PRN Reason: Keep Vein Open Last Admin: 09/18/20 20:00 Dose: 2.5 ml Documented by: Discontinued Medications Potassium Chloride 40 meq/ (Premix) 100 mls @ 25 mls/hr IV ONETIME ONE Stop: 09/18/20 21:50 Last Admin: 09/18/20 19:00 Dose: 25 mls/hr Documented by: Magnesium Sulfate (Magnesium Sulfate In Water Premix) 2 gm in 50 mls @ 50 mls/hr IV STAT STA Stop: 09/18/20 18:53 Last Admin: 09/18/20 18:59 Dose: 50 mls/hr Documented by: Ceftriaxone Sodium/Dextrose 1 (gm/ Premix) 50 mls @ 100 mls/hr IV ONETIME ONE Stop: 09/18/20 20:21 Last Admin: 09/18/20 19:58 Dose: 100 mls/hr Documented by: Ceftriaxone Sodium/Dextrose 1 (gm/ Premix) 50 mls @ 100 mls/hr IV Q24H [facility] Last Admin: 09/20/20 12:01 Dose: 100 mls/hr Documented by: Potassium Chloride/Sodium Chloride (Normal Saline With 40 Meq Kcl) 1,000 mls @ 150 mls/hr IV ASDIRECTED [facility] Stop: 09/20/20 14:24 Magnesium Sulfate 4 gm/ Premix 100 mls @ 50 mls/hr IV ONETIME ONE Stop: 09/20/20 10:14 Last Admin: 09/20/20 09:01 Dose: 50 mls/hr Documented by: Potassium Chloride 60 meq/ (Sodium Chloride) 1,030 mls @ 125 mls/hr IV Q6H [facility] Stop: 09/20/20 21:29 Last Admin: 09/20/20 15:38 Dose: 125 mls/hr Documented by: Magnesium Sulfate (Magnesium Sulfate In Water Premix) 2 gm in 50 mls @ 50 mls/hr IV ONETIME ONE Stop: 09/21/20 08:29 Last Admin: 09/21/20 08:21 Dose: 50 mls/hr Documented by: Influenza Virus Vaccine (Pharmacy To Dose - Influenza Vaccine) 1 each IM ONETIME ONE Stop: 09/18/20 23:30 Influenza Virus Vaccine (Afluria Quad 2020-21 (3yr Up)) 60 mcg IM .ONCE ONE Stop: 09/20/20 09:01 Lorazepam (Ativan) 1 mg IVPUSH Q4H PRN PRN Reason: Anxiety Potassium Chloride (Klor-Con M20) 40 meq PO ONETIME ONE Stop: 09/18/20 17:50 Last Admin: 09/18/20 19:03 Dose: 40 meq Documented by: Potassium Chloride (Klor-Con M20) 40 meq PO ONETIME ONE Stop: 09/19/20 07:41 Last Admin: 09/19/20 08:42 Dose: 40 meq Documented by: Potassium Chloride (Potassium Chloride) 40 meq PO ONETIME ONE Stop: 09/20/20 07:46 Last Admin: 09/20/20 09:01 Dose: 40 meq Documented by: Potassium Chloride (Potassium Chloride) 40 meq PO ONETIME ONE Stop: 09/20/20 14:52 Last Admin: 09/20/20 15:20 Dose: Not Given Documented by: Potassium Chloride (Klor-Con M20) 20 meq PO DAILY [facility] Potassium Chloride (Klor-Con M20) 40 meq PO ONETIME ONE Stop: 09/21/20 07:20 Last Admin: 09/21/20 08:20 Dose: 40 meq Documented by: <Elaina Lee - Last Filed: 09/21/20 13:11> Discharge Summary - Hospital Course Free Text/Narrative:: I have seen and evaluated the patient and agree with the residents note unless specified in my note - Referral to Home Health Primary Care Physician: Remi Olivas MD - Discharge Diagnosis/Problem(s) (1) AMS (altered mental status) SNOMED Code(s): 395182408 ICD Code: R41.82 - ALTERED MENTAL STATUS, UNSPECIFIED Status: Acute Current Visit: Yes (2) Acute respiratory failure with hypoxia SNOMED Code(s): 40112396, 669203880 ICD Code: J96.01 - ACUTE RESPIRATORY FAILURE WITH HYPOXIA Status: Acute Current Visit: No (3) UTI, Urinary tract infectious disease SNOMED Code(s): 42939059 ICD Code: N39.0 - URINARY TRACT INFECTION, SITE NOT SPECIFIED Status: Acute Current Visit: No (4) COPD (chronic obstructive pulmonary disease) SNOMED Code(s): 55243600 ICD Code: J44.9 - CHRONIC OBSTRUCTIVE PULMONARY DISEASE, UNSPECIFIED Status: Acute Current Visit: Yes (5) History of pulmonary embolus (PE) SNOMED Code(s): 501237858 ICD Code: Z86.711 - PERSONAL HISTORY OF PULMONARY EMBOLISM Status: Acute Current Visit: Yes (6) UTI (urinary tract infection) SNOMED Code(s): 66477414 ICD Code: N39.0 - URINARY TRACT INFECTION, SITE NOT SPECIFIED Status: Acute Current Visit: Yes - Patient Data Vitals - Most Recent: Last Vital Signs Temp 36.5 C 09/21/20 08:00 Pulse 73 09/21/20 08:00 Resp 18 09/21/20 08:00 BP 90/55 L 09/21/20 08:00 Pulse Ox 94 L 09/21/20 08:00 I&O - Last 24 hours: Intake & Output 09/20/20 09/21/20 09/21/20 22:59 06:59 14:59 Intake Total 800 500 Output Total 1350 Balance -550 500 Lab Results - Last 24 hrs: Laboratory Results - last 24 hr 09/20/20 09/21/20 09/21/20 Range/Units 14:10 05:07 05:07 WBC 4.45 (4.0-11.0) K/uL RBC 3.87 L (4.30-5.90) M/uL Hgb 9.5 L (12.0-16.0) g/dL Hct 33.3 L (36.0-46.0) % MCV 86.0 (80.0-98.0) fL MCH 24.5 L (27.0-32.0) pg MCHC 28.5 L (31.0-37.0) g/dL RDW Std Deviation 60.3 (28.0-62.0) fl RDW Coeff of Thiago 19 H (11.0-15.0) % Plt Count 155 (150-400) K/uL MPV 10.10 (7.40-12.00) fL Neut % (Auto) 53.3 (48.0-80.0) % Lymph % (Auto) 34.8 (16.0-40.0) % [place] % (Auto) 10.3 (0.0-15.0) % Eos % (Auto) 1.6 (0.0-7.0) % Baso % (Auto) 0.0 (0.0-1.5) % Neut # (Auto) 2.4 (1.4-5.7) K/uL Lymph # (Auto) 1.6 (0.6-2.4) K/uL [place] # (Auto) 0.5 (0.0-0.8) K/uL Eos # (Auto) 0.1 (0.0-0.7) K/uL Baso # (Auto) 0.0 (0.0-0.1) K/uL Nucleated RBC % 0.0 /100WBC Nucleated RBCs # 0 K/uL Sodium 143 (136-145) mmol/L Potassium 2.8 L 3.3 L (3.5-5.1) mmol/L Chloride 103 (98-107) mmol/L Carbon Dioxide 33.7 H (21.0-32.0) mmol/L BUN 3 L (7.0-18.0) mg/dL Creatinine 0.7 (0.6-1.0) mg/dL Est Cr Clr Drug Dosing 87.27 mL/min Estimated GFR (MDRD) > 60.0 ml/min Glucose 84 (74-106) mg/dL Calcium 8.8 (8.5-10.1) mg/dL Magnesium 1.6 L (1.8-2.4) mg/dL Total Bilirubin 0.3 (0.2-1.0) mg/dL AST 17 (15-37) IU/L ALT 11 L (14-63) IU/L Alkaline Phosphatase 86 (46-116) U/L Total Protein 5.5 L (6.4-8.2) g/dL Albumin 2.3 L (3.4-5.0) g/dL Globulin 3.2 (2.6-4.0) g/dL Albumin/Globulin Ratio 0.7 L (0.9-1.6) GEOVANNI Results - Last 24 hrs: Microbiology 09/18/20 17:10 Aerobic Blood Culture - Preliminary Blood - Venous - Lab Draw NO GROWTH AFTER 2 DAYS Anaerobic Blood Culture - Preliminary NO GROWTH AFTER 2 DAYS 09/18/20 17:04 Aerobic Blood Culture - Preliminary Blood - Venous NO GROWTH AFTER 2 DAYS Anaerobic Blood Culture - Preliminary NO GROWTH AFTER 2 DAYS 09/18/20 19:15 Urine Culture - Final Urine, Clean Catch MIXED RAYNA 1,000-10,000 CFU/ML Med Orders - Current: Current Medications Albuterol/Ipratropium (Duoneb 3.0-0.5 Mg/3 Ml) 3 ml NEB Q4HRRT PRN PRN Reason: Shortness Of Breath/wheezing Apixaban (Eliquis) 5 mg PO BID [facility] Last Admin: 09/21/20 08:27 Dose: 5 mg Documented by: Budesonide (Pulmicort) 0.5 mg INH BID [facility] Last Admin: 09/21/20 08:30 Dose: 0.5 mg Documented by: Clonazepam (Klonopin) 2 mg PO Q8H PRN PRN Reason: anxiety Last Admin: 09/21/20 05:15 Dose: 2 mg Documented by: Furosemide (Lasix) 40 mg PO DAILY [facility] Last Admin: 09/21/20 08:28 Dose: 40 mg Documented by: Levothyroxine Sodium (Levothyroxine) 25 mcg PO DAILY [facility] Last Admin: 09/21/20 08:28 Dose: 25 mcg Documented by: Ondansetron HCl (Zofran) 4 mg IVPUSH Q4H PRN PRN Reason: Nausea/Vomiting Anoro Ellipta 62.5- (25 Mcg) 0 each INH DAILY [facility] Last Admin: 09/21/20 08:29 Dose: Not Given Documented by: Polysaccharide Iron Complex (Ferrex 150) 150 mg PO DAILY [facility] Last Admin: 09/21/20 08:28 Dose: 150 mg Documented by: Sodium Chloride (Saline Flush) 10 ml FLUSH ASDIRECTED PRN PRN Reason: Keep Vein Open Last Admin: 09/18/20 20:00 Dose: 10 ml Documented by: Sodium Chloride (Saline Flush) 2.5 ml FLUSH ASDIRECTED PRN PRN Reason: Keep Vein Open Last Admin: 09/18/20 20:00 Dose: 2.5 ml Documented by: Discontinued Medications Potassium Chloride 40 meq/ (Premix) 100 mls @ 25 mls/hr IV ONETIME ONE Stop: 09/18/20 21:50 Last Admin: 09/18/20 19:00 Dose: 25 mls/hr Documented by: Magnesium Sulfate (Magnesium Sulfate In Water Premix) 2 gm in 50 mls @ 50 mls/hr IV STAT STA Stop: 09/18/20 18:53 Last Admin: 09/18/20 18:59 Dose: 50 mls/hr Documented by: Ceftriaxone Sodium/Dextrose 1 (gm/ Premix) 50 mls @ 100 mls/hr IV ONETIME ONE Stop: 09/18/20 20:21 Last Admin: 09/18/20 19:58 Dose: 100 mls/hr Documented by: Ceftriaxone Sodium/Dextrose 1 (gm/ Premix) 50 mls @ 100 mls/hr IV Q24H [facility] Last Admin: 09/20/20 12:01 Dose: 100 mls/hr Documented by: Potassium Chloride/Sodium Chloride (Normal Saline With 40 Meq Kcl) 1,000 mls @ 150 mls/hr IV ASDIRECTED [facility] Stop: 09/20/20 14:24 Magnesium Sulfate 4 gm/ Premix 100 mls @ 50 mls/hr IV ONETIME ONE Stop: 09/20/20 10:14 Last Admin: 09/20/20 09:01 Dose: 50 mls/hr Documented by: Potassium Chloride 60 meq/ (Sodium Chloride) 1,030 mls @ 125 mls/hr IV Q6H [facility] Stop: 09/20/20 21:29 Last Admin: 09/20/20 15:38 Dose: 125 mls/hr Documented by: Magnesium Sulfate (Magnesium Sulfate In Water Premix) 2 gm in 50 mls @ 50 mls/hr IV ONETIME ONE Stop: 09/21/20 08:29 Last Admin: 09/21/20 08:21 Dose: 50 mls/hr Documented by: Influenza Virus Vaccine (Pharmacy To Dose - Influenza Vaccine) 1 each IM ONETIME ONE Stop: 09/18/20 23:30 Influenza Virus Vaccine (Afluria Quad 2020-21 (3yr Up)) 60 mcg IM .ONCE ONE Stop: 09/20/20 09:01 Influenza Virus Vaccine (Afluria Quad 2020-21 (3yr Up)) 60 mcg IM .ONCE ONE Stop: 09/21/20 12:01 Last Admin: 09/21/20 11:13 Dose: 60 mcg Documented by: Lorazepam (Ativan) 1 mg IVPUSH Q4H PRN PRN Reason: Anxiety Potassium Chloride (Klor-Con M20) 40 meq PO ONETIME ONE Stop: 09/18/20 17:50 Last Admin: 09/18/20 19:03 Dose: 40 meq Documented by: Potassium Chloride (Klor-Con M20) 40 meq PO ONETIME ONE Stop: 09/19/20 07:41 Last Admin: 09/19/20 08:42 Dose: 40 meq Documented by: Potassium Chloride (Potassium Chloride) 40 meq PO ONETIME ONE Stop: 09/20/20 07:46 Last Admin: 09/20/20 09:01 Dose: 40 meq Documented by: Potassium Chloride (Potassium Chloride) 40 meq PO ONETIME ONE Stop: 09/20/20 14:52 Last Admin: 09/20/20 15:20 Dose: Not Given Documented by: Potassium Chloride (Klor-Con M20) 20 meq PO DAILY [facility] Potassium Chloride (Klor-Con M20) 40 meq PO ONETIME ONE Stop: 09/21/20 07:20 Last Admin: 09/21/20 08:20 Dose: 40 meq Documented by:
[2020-09-21] MEDS ORDERED: FLU Vacc QS2020-21 36MOS UP/PF 60 MCG/0.5 ML Syringe IM ONE (12:00)
== END 2020-09-21 12:30 | disposition home or self-care (01) ==
LOC: MW.ED 16:48 → MW.MS 19:08
PROVIDERS: ADMIT Student in an Organized Health Care Education/Training Program; ATTEND Student in an Organized Health Care Education/Training Program
DX: R41.82 Altered mental status, unspecified (principal); F41.9 Anxiety disorder, unspecified; N39.0 Urinary tract infection, site not specified; F32.9 Major depressive disorder, single episode, unspecified; J44.9 Chronic obstructive pulmonary disease, unspecified; F17.210 Nicotine dependence, cigarettes, uncomplicated; J96.01 Acute respiratory failure with hypoxia; E87.6 Hypokalemia; E03.9 Hypothyroidism, unspecified; Z79.890 Hormone replacement therapy; Z20.828 Contact with and (suspected) exposure to other viral communicable diseases; Z88.5 Allergy status to narcotic agent; Z88.2 Allergy status to sulfonamides; Z88.8 Allergy status to other drugs, medicaments and biological substances; Z79.899 Other long term (current) drug therapy; Z98.890 Other specified postprocedural states; Z86.711 Personal history of pulmonary embolism
CPT/HCPCS: 36415; 70450; 71045; 80048; 80053; 80305; 80307; 81001; 82803; 82962; 83605; 83735; 84100; 84132; 85025; 87040; 87086; 87635; 90471; 90686; 93005; 94640; 96365; 96366; 96368; 96376; 99285; A9270; G0378; J0696; J3475; J3480; J7030; 99217; 99219; 99224; 99291; G0008; U0002

== ENCOUNTER 2020-12-22 10:28 | Emergency (ER) | payer BC ==
[2020-12-22] MEDS ORDERED: Sodium Chloride 0.9% 2.5 ML Syringe FLUSH PRN (10:35)
[2020-12-22] MEDS ORDERED: Sodium Chloride 0.9% 10 ML Syringe FLUSH PRN (10:35)
[2020-12-22] MEDS ORDERED: Sodium Chloride 0.9% 1,000 ML IV ONE (10:35)
--- NOTE | 2020-12-22 10:37 | EDM.PDOC ---
ED HPI GENERAL MEDICAL PROBLEM - General Stated Complaint: sob Time Seen by Provider: 12/22/20 10:29 Source of Information: Reports: Patient History Limitations: Reports: Altered Mental Status - History of Present Illness INITIAL COMMENTS - FREE TEXT/NARRATIVE: 55-year-old female past medical history COPD on home O2, pulmonary embolism on Eliquis, history of GI bleed, hypothyroidism, anxiety, history of acute respiratory failure with hypoxia presents for altered mental status. Patient was going to medical clinic and was noted to have oxygen saturations in the 50% and was very altered with slurred speech and sent to emergency department for further evaluation. Patient arrives with drowsiness but answering questions appropriately. She states that she was feeling short of breath but she feels b barber now. - Related Data Allergies Allergy/AdvReac Type Severity Reaction Status Date / Time codeine Allergy Hives Verified 09/18/20 16:59 pseudoephedrine Allergy palpitation Verified 09/18/20 16:59 s Sulfa (Sulfonamide Allergy unknown Verified 09/18/20 16:59 Antibiotics) Home Meds: Home Meds ClonazePAM [KlonoPIN] 2 mg PO TID PRN 04/23/18 [History] Umeclidinium Brm/Vilanterol Tr [Anoro Ellipta 62.5-25 MCG] 1 puff IH DAILY 06/20/20 [History] Iron Polysaccharides Complex [Ferrex 150] 150 mg PO DAILY 30 Days #30 cap 06/21/20 [Rx] Furosemide 40 mg PO DAILY 09/18/20 [History] Levothyroxine 25 mcg PO DAILY 09/18/20 [History] Apixaban [Eliquis] 5 mg PO BID tablet 09/21/20 [Rx] Potassium Chloride 10 meq PO DAILY 30 Days #30 tablet.er 09/21/20 [Rx] Past Medical History Cardiovascular History: Reports: Blood Clots/VTE/DVT Respiratory History: Reports: COPD, SOB [place] 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: Psychiatric History: Reports: Anxiety, Depression, PTSD - Infectious Disease History Infectious Disease History: Reports: Chicken Pox, Measles, Mumps - Past Surgical History HEENT Surgical History: Reports: Adenoidectomy, Tonsillectomy GI Surgical History: Reports: Appendectomy, Cholecystectomy, Colostomy, Hernia, Abdominal, Other (See Below) Other GI Surgeries/Procedures: prior colostomy and ileostomy Female Surgical History: Reports: Hysterectomy, Salpingo-Oophorectomy Musculoskeletal Surgical History: Reports: Other (See Below) Other Musculoskeletal Surgeries/Procedures:: right thumb surgery Social & Family History - Family History Family Medical History: No Pertinent Family History - Caffeine Use Caffeine Use: Reports: None ED ROS GENERAL - Review of Systems Review Of Systems: Comprehensive ROS is negative, except as noted in HPI. ED EXAM, GENERAL - Physical Exam Exam: See Below Exam Limited By: No Limitations General Appearance: Alert, Other (Ashen appearance, drowsy but arousable and answering questions appropriately) Eye Exam: Bilateral Eye: EOMI, PERRL Throat/Mouth: Normal Voice, No Airway Compromise Head: Atraumatic, Normocephalic Neck: Normal Inspection Respiratory/Chest: No Respiratory Distress, Lungs Clear, Normal Breath Sounds, No Accessory Muscle Use Cardiovascular: Normal Peripheral Pulses, Regular Rate, Rhythm, No Edema GI/Abdominal: Soft, Non-Tender Extremities: Normal Inspection Neurological: Alert Psychiatric: Normal Affect Skin Exam: Dry, Intact, Pallor #1 Interpretation EKG Date: 12/22/20 Time: 10:31 Rhythm: NSR Rate (Beats/Min): 92 [place]: Normal P-Wave: Present QRS: Normal ST-T: Normal QT: Normal MI/PQ Interval: 182 EKG Interpretation Comments: Poor baseline obscures interpretation, no overt ischemic changes Course - Vital Signs Last Recorded V/S: Last Vital Signs Temp 96.7 F L 12/22/20 10:30 Pulse 66 12/22/20 13:04 Resp 24 H 12/22/20 13:04 BP 114/71 12/22/20 13:04 Pulse Ox 100 12/22/20 13:04 - Orders/Labs/Meds Orders: Active Orders 24 hr Category Date Time Status Blood Glucose Check, Bedside [RC] ONETIME Care 12/22/20 10:36 Active Cardiac Monitoring [RC] . DIRECTED Care 12/22/20 10:35 Active EKG Documentation Completion [RC] STAT Care 12/22/20 10:35 Active Pulse Oximetry [RC] ASDIRECTED Care 12/22/20 10:35 Active Verify Patient Consent Obtain [RC] ASDIRECTED Care 12/22/20 12:02 Active CULTURE BLOOD [BC] Stat Lab 12/22/20 12:00 Results CULTURE BLOOD [BC] Stat Lab 12/22/20 12:10 Results RED BLOOD CELLS LP [BBK] Stat Lab 12/22/20 12:00 Results TYPE AND SCREEN [BBK] Stat Lab 12/22/20 12:00 Results Potassium Chloride Riders [KCL in Water 40 MEQ/100 ML] Med 12/22/20 12:59 Active 40 meq Premix Bag 1 bag IV ONETIME Sodium Chloride 0.9% [Normal Saline] 1,000 ml Med 12/22/20 13:30 Active IV ASDIRECTED Sodium Chloride 0.9% [Saline Flush] Med 12/22/20 10:35 Active 10 ml FLUSH ASDIRECTED PRN Sodium Chloride 0.9% [Saline Flush] Med 12/22/20 10:35 Active 2.5 ml FLUSH ASDIRECTED PRN Blood Culture x2 Reflex Set [OM.PC] Stat Ot 12/22/20 10:45 Ordered Saline Lock Insert [OM.PC] Stat Oth 12/22/20 10:35 Ordered Transfuse Red Blood Cells [COMM] Stat Ot 12/22/20 12:01 Ordered Medication Orders Potassium Chloride 40 meq/ (Premix) 100 mls @ 25 mls/hr IV ONETIME ONE Stop: 12/22/20 16:58 Last Admin: 12/22/20 13:26 Dose: 25 mls/hr Documented by: SUDHEER Sodium Chloride (Normal Saline) 1,000 mls @ 125 mls/hr IV ASDIRECTED EDWIN Last Admin: 12/22/20 13:26 Dose: 125 mls/hr Documented by: SUDHEER Sodium Chloride (Saline Flush) 10 ml FLUSH ASDIRECTED PRN PRN Reason: Keep Vein Open Last Admin: 12/22/20 10:59 Dose: 10 ml Documented by: SUDHEER Sodium Chloride (Saline Flush) 2.5 ml FLUSH ASDIRECTED PRN PRN Reason: Keep Vein Open Last Admin: 12/22/20 10:58 Dose: 2.5 ml Documented by: SUDHEER Labs: Laboratory Tests 12/22/20 12/22/20 12/22/20 Range/Units 10:43 10:44 11:10 WBC (4.0-11.0) K/uL RBC (4.30-5.90) M/uL Hgb (12.0-16.0) g/dL Hct (36.0-46.0) % MCV (80.0-98.0) fL MCH (27.0-32.0) pg MCHC (31.0-37.0) g/dL RDW Std Deviation (28.0-62.0) fl RDW Coeff of Thiago (11.0-15.0) % Plt Count (150-400) K/uL MPV (7.40-12.00) fL Neut % (Auto) (48.0-80.0) % Lymph % (Auto) (16.0-40.0) % [place] % (Auto) (0.0-15.0) % Eos % (Auto) (0.0-7.0) % Baso % (Auto) (0.0-1.5) % Neut # (Auto) (1.4-5.7) K/uL Lymph # (Auto) (0.6-2.4) K/uL [place] # (Auto) (0.0-0.8) K/uL Eos # (Auto) (0.0-0.7) K/uL Baso # (Auto) (0.0-0.1) K/uL Nucleated RBC % /100WBC Nucleated RBCs # K/uL INR APTT (18.6-31.3) SEC D-Dimer, Quantitative (0.0-0.50) mg/L FEU VBG pH 7.42 H (7.31-7.41) VBG pCO2 59 H (35-45) mmHG VBG pO2 17 L (30-40) mmHG VBG HCO3 38 H (22-30) mEq/L VBG Total CO2 37 L (41-51) mmol/L VBG Base Excess 12.2 H (-3.0-3.0) Lactate 4.8 H* (0.20-2.00) mmol/L Sodium (136-145) mmol/L Potassium (3.5-5.1) mmol/L Chloride (98-107) mmol/L Carbon Dioxide (21.0-32.0) mmol/L BUN (7.0-18.0) mg/dL Creatinine (0.6-1.0) mg/dL Est Cr Clr Drug Dosing Estimated GFR (MDRD) ml/min Glucose (74-106) mg/dL POC Glucose 134 H (60-110) mg/dL Calcium (8.5-10.1) mg/dL Magnesium (1.8-2.4) mg/dL Total Bilirubin (0.2-1.0) mg/dL AST (15-37) IU/L ALT (14-63) IU/L Alkaline Phosphatase (46-116) U/L Troponin I (0.000-0.056) ng/mL C-Reactive Protein (0.00-0.90) mg/dL B-Natriuretic Peptide (<100) PG/ML Total Protein (6.4-8.2) g/dL Albumin (3.4-5.0) g/dL Globulin (2.6-4.0) g/dL Albumin/Globulin Ratio (0.9-1.6) Urine Color Urine Appearance Urine pH (5.0-8.0) Ur Specific [place] (1.001-1.035) Urine Protein (NEGATIVE) mg/dL Urine Glucose (UA) (NEGATIVE) mg/dL Urine Ketones (NEGATIVE) mg/dL Urine Occult Blood (NEGATIVE) Urine Nitrite (NEGATIVE) Urine Bilirubin (NEGATIVE) Urine Urobilinogen (<2.0) EU/dL Ur Leukocyte Esterase (NEGATIVE) Urine RBC (0-2/HPF) Urine WBC (0-5/HPF) Ur Epithelial Cells (NONE-FEW) Urine Bacteria (NEGATIVE) Ethyl Alcohol mg/dL SARS-CoV-2 RNA (HUGH) (NEGATIVE) Blood Type Antibody Screen Crossmatch 12/22/20 12/22/20 12/22/20 Range/Units 11:15 11:40 12:00 WBC 5.21 (4.0-11.0) K/uL RBC 2.92 L (4.30-5.90) M/uL Hgb 6.5 L (12.0-16.0) g/dL Hct 23.3 L (36.0-46.0) % MCV 79.8 L (80.0-98.0) fL MCH 22.3 L (27.0-32.0) pg MCHC 27.9 L (31.0-37.0) g/dL RDW Std Deviation 59.0 (28.0-62.0) fl RDW Coeff of Thiago 21 H (11.0-15.0) % Plt Count 147 L (150-400) K/uL MPV 10.40 (7.40-12.00) fL Neut % (Auto) 64.1 (48.0-80.0) % Lymph % (Auto) 25.1 (16.0-40.0) % [place] % (Auto) 10.0 (0.0-15.0) % Eos % (Auto) 0.6 (0.0-7.0) % Baso % (Auto) 0.2 (0.0-1.5) % Neut # (Auto) 3.3 (1.4-5.7) K/uL Lymph # (Auto) 1.3 (0.6-2.4) K/uL [place] # (Auto) 0.5 (0.0-0.8) K/uL Eos # (Auto) 0.0 (0.0-0.7) K/uL Baso # (Auto) 0.0 (0.0-0.1) K/uL Nucleated RBC % 0.0 /100WBC Nucleated RBCs # 0 K/uL INR 1.65 APTT 25.6 (18.6-31.3) SEC D-Dimer, Quantitative 1.23 H (0.0-0.50) mg/L FEU VBG pH (7.31-7.41) VBG pCO2 (35-45) mmHG VBG pO2 (30-40) mmHG VBG HCO3 (22-30) mEq/L VBG Total CO2 (41-51) mmol/L VBG Base Excess (-3.0-3.0) Lactate (0.20-2.00) mmol/L Sodium (136-145) mmol/L Potassium (3.5-5.1) mmol/L Chloride (98-107) mmol/L Carbon Dioxide (21.0-32.0) mmol/L BUN (7.0-18.0) mg/dL Creatinine (0.6-1.0) mg/dL Est Cr Clr Drug Dosing Estimated GFR (MDRD) ml/min Glucose (74-106) mg/dL POC Glucose (60-110) mg/dL Calcium (8.5-10.1) mg/dL Magnesium (1.8-2.4) mg/dL Total Bilirubin (0.2-1.0) mg/dL AST (15-37) IU/L ALT (14-63) IU/L Alkaline Phosphatase (46-116) U/L Troponin I (0.000-0.056) ng/mL C-Reactive Protein (0.00-0.90) mg/dL B-Natriuretic Peptide (<100) PG/ML Total Protein (6.4-8.2) g/dL Albumin (3.4-5.0) g/dL Globulin (2.6-4.0) g/dL Albumin/Globulin Ratio (0.9-1.6) Urine Color YELLOW Urine Appearance CLEAR Urine pH 7.5 (5.0-8.0) Ur Specific [place] 1.015 (1.001-1.035) Urine Protein NEGATIVE (NEGATIVE) mg/dL Urine Glucose (UA) NEGATIVE (NEGATIVE) mg/dL Urine Ketones NEGATIVE (NEGATIVE) mg/dL Urine Occult Blood SMALL H (NEGATIVE) Urine Nitrite NEGATIVE (NEGATIVE) Urine Bilirubin NEGATIVE (NEGATIVE) Urine Urobilinogen 0.2 (<2.0) EU/dL Ur Leukocyte Esterase SMALL H (NEGATIVE) Urine RBC 1-2 (0-2/HPF) Urine WBC 3-5 (0-5/HPF) Ur Epithelial Cells RARE (NONE-FEW) Urine Bacteria 2+ H (NEGATIVE) Ethyl Alcohol mg/dL SARS-CoV-2 RNA (HUGH) (NEGATIVE) Blood Type Antibody Screen Crossmatch 12/22/20 12/22/20 12/22/20 Range/Units 12:00 12:00 12:00 WBC (4.0-11.0) K/uL RBC (4.30-5.90) M/uL Hgb (12.0-16.0) g/dL Hct (36.0-46.0) % MCV (80.0-98.0) fL MCH (27.0-32.0) pg MCHC (31.0-37.0) g/dL RDW Std Deviation (28.0-62.0) fl RDW Coeff of Thiago (11.0-15.0) % Plt Count (150-400) K/uL MPV (7.40-12.00) fL Neut % (Auto) (48.0-80.0) % Lymph % (Auto) (16.0-40.0) % [place] % (Auto) (0.0-15.0) % Eos % (Auto) (0.0-7.0) % Baso % (Auto) (0.0-1.5) % Neut # (Auto) (1.4-5.7) K/uL Lymph # (Auto) (0.6-2.4) K/uL [place] # (Auto) (0.0-0.8) K/uL Eos # (Auto) (0.0-0.7) K/uL Baso # (Auto) (0.0-0.1) K/uL Nucleated RBC % /100WBC Nucleated RBCs # K/uL INR APTT (18.6-31.3) SEC D-Dimer, Quantitative (0.0-0.50) mg/L FEU VBG pH (7.31-7.41) VBG pCO2 (35-45) mmHG VBG pO2 (30-40) mmHG VBG HCO3 (22-30) mEq/L VBG Total CO2 (41-51) mmol/L VBG Base Excess (-3.0-3.0) Lactate (0.20-2.00) mmol/L Sodium 140 (136-145) mmol/L Potassium 3.0 L (3.5-5.1) mmol/L Chloride 100 (98-107) mmol/L Carbon Dioxide 34.4 H (21.0-32.0) mmol/L BUN 22 H (7.0-18.0) mg/dL Creatinine 1.1 H (0.6-1.0) mg/dL Est Cr Clr Drug Dosing TNP Estimated GFR (MDRD) 51.2 ml/min Glucose 101 (74-106) mg/dL POC Glucose (60-110) mg/dL Calcium 8.5 (8.5-10.1) mg/dL Magnesium 2.3 (1.8-2.4) mg/dL Total Bilirubin 1.1 H (0.2-1.0) mg/dL AST 54 H (15-37) IU/L ALT 28 (14-63) IU/L Alkaline Phosphatase 152 H (46-116) U/L Troponin I < 0.050 (0.000-0.056) ng/mL C-Reactive Protein 6.90 H (0.00-0.90) mg/dL B-Natriuretic Peptide 287 H (<100) PG/ML Total Protein 6.9 (6.4-8.2) g/dL Albumin 2.8 L (3.4-5.0) g/dL Globulin 4.1 H (2.6-4.0) g/dL Albumin/Globulin Ratio 0.7 L (0.9-1.6) Urine Color Urine Appearance Urine pH (5.0-8.0) Ur Specific [place] (1.001-1.035) Urine Protein (NEGATIVE) mg/dL Urine Glucose (UA) (NEGATIVE) mg/dL Urine Ketones (NEGATIVE) mg/dL Urine Occult Blood (NEGATIVE) Urine Nitrite (NEGATIVE) Urine Bilirubin (NEGATIVE) Urine Urobilinogen (<2.0) EU/dL Ur Leukocyte Esterase (NEGATIVE) Urine RBC (0-2/HPF) Urine WBC (0-5/HPF) Ur Epithelial Cells (NONE-FEW) Urine Bacteria (NEGATIVE) Ethyl Alcohol < 3.0 mg/dL SARS-CoV-2 RNA (HUGH) (NEGATIVE) Blood Type A NEGATIVE Antibody Screen NEGATIVE Crossmatch See Detail 12/22/20 Range/Units 12:30 WBC (4.0-11.0) K/uL RBC (4.30-5.90) M/uL Hgb (12.0-16.0) g/dL Hct (36.0-46.0) % MCV (80.0-98.0) fL MCH (27.0-32.0) pg MCHC (31.0-37.0) g/dL RDW Std Deviation (28.0-62.0) fl RDW Coeff of Thiago (11.0-15.0) % Plt Count (150-400) K/uL MPV (7.40-12.00) fL Neut % (Auto) (48.0-80.0) % Lymph % (Auto) (16.0-40.0) % [place] % (Auto) (0.0-15.0) % Eos % (Auto) (0.0-7.0) % Baso % (Auto) (0.0-1.5) % Neut # (Auto) (1.4-5.7) K/uL Lymph # (Auto) (0.6-2.4) K/uL [place] # (Auto) (0.0-0.8) K/uL Eos # (Auto) (0.0-0.7) K/uL Baso # (Auto) (0.0-0.1) K/uL Nucleated RBC % /100WBC Nucleated RBCs # K/uL INR APTT (18.6-31.3) SEC D-Dimer, Quantitative (0.0-0.50) mg/L FEU VBG pH (7.31-7.41) VBG pCO2 (35-45) mmHG VBG pO2 (30-40) mmHG VBG HCO3 (22-30) mEq/L VBG Total CO2 (41-51) mmol/L VBG Base Excess (-3.0-3.0) Lactate (0.20-2.00) mmol/L Sodium (136-145) mmol/L Potassium (3.5-5.1) mmol/L Chloride (98-107) mmol/L Carbon Dioxide (21.0-32.0) mmol/L BUN (7.0-18.0) mg/dL Creatinine (0.6-1.0) mg/dL Est Cr Clr Drug Dosing Estimated GFR (MDRD) ml/min Glucose (74-106) mg/dL POC Glucose (60-110) mg/dL Calcium (8.5-10.1) mg/dL Magnesium (1.8-2.4) mg/dL Total Bilirubin (0.2-1.0) mg/dL AST (15-37) IU/L ALT (14-63) IU/L Alkaline Phosphatase (46-116) U/L Troponin I (0.000-0.056) ng/mL C-Reactive Protein (0.00-0.90) mg/dL B-Natriuretic Peptide (<100) PG/ML Total Protein (6.4-8.2) g/dL Albumin (3.4-5.0) g/dL Globulin (2.6-4.0) g/dL Albumin/Globulin Ratio (0.9-1.6) Urine Color Urine Appearance Urine pH (5.0-8.0) Ur Specific [place] (1.001-1.035) Urine Protein (NEGATIVE) mg/dL Urine Glucose (UA) (NEGATIVE) mg/dL Urine Ketones (NEGATIVE) mg/dL Urine Occult Blood (NEGATIVE) Urine Nitrite (NEGATIVE) Urine Bilirubin (NEGATIVE) Urine Urobilinogen (<2.0) EU/dL Ur Leukocyte Esterase (NEGATIVE) Urine RBC (0-2/HPF) Urine WBC (0-5/HPF) Ur Epithelial Cells (NONE-FEW) Urine Bacteria (NEGATIVE) Ethyl Alcohol mg/dL SARS-CoV-2 RNA (HUGH) NEGATIVE (NEGATIVE) Blood Type Antibody Screen Crossmatch Meds: Medications Generic Name Dose Route Start Last Admin Trade Name Freq PRN Reason Stop Dose Admin Potassium Chloride 40 meq/ 100 mls @ 25 mls/hr 12/22/20 12:59 12/22/20 13:26 Premix IV 12/22/20 16:58 25 mls/hr ONETIME ONE Administration Sodium Chloride 1,000 mls @ 125 mls/hr 12/22/20 13:30 12/22/20 13:26 Normal Saline IV 125 mls/hr ASDIRECTED EDWIN Administration Sodium Chloride 10 ml 12/22/20 10:35 12/22/20 10:59 Saline Flush FLUSH 10 ml ASDIRECTED PRN Administration Keep Vein Open Sodium Chloride 2.5 ml 12/22/20 10:35 12/22/20 10:58 Saline Flush FLUSH 2.5 ml ASDIRECTED PRN Administration Keep Vein Open Discontinued Medications Generic Name Dose Route Start Last Admin Trade Name Freq PRN Reason Stop Dose Admin Sodium Chloride 1,000 mls @ 999 mls/hr 12/22/20 10:35 12/22/20 10:58 Normal Saline IV 12/22/20 11:35 999 mls/hr .Bolus ONE Administration - Re-Assessments/Exams Free Text/Narrative Re-Assessment/Exam: 12/22/20 11:07 Additional history by notes that patient has been feeling unwell for the last couple of weeks. She has noted dark stools for the last several days. 12/22/20 11:07 We will start broad work-up. Suspect GI bleed. 12/22/20 11:18 Occult blood is grossly positive. Stool is brown. 12/22/20 11:31 On chart review it appears that in 2019 patient had GI bleeding. I am uncertain if this was before after she started her Eliquis. It appears that last year she developed a pulmonary embolism requiring transfer to higher level care for thrombectomy. Regarding the GI bleed, it appears that patient had history of GI perforation with ileostomy and multiple GI surgeries in the past. 12/22/20 12:03 Patient anemic to 6.5. 2 units PRBC ordered. We will follow-up additional labs and transfer for higher level of care. 12/22/20 13:39 Patient accepted for transfer at [facility] for ED-ED transfer by Dr. Holguin Departure - Departure Time of Disposition: 13:39 Disposition: DC/Tfer to Acute Hospital 02 Condition: Fair Clinical Impression: GIB (gastrointestinal bleeding) Qualifiers: GI bleed type/associated pathology: unspecified gastrointestinal hemorrhage type Qualified Code(s): K92.2 - Gastrointestinal hemorrhage, unspecified - Discharge Information Referrals: Remi Olivas MD [Primary Care Provider] - Critical Care Note - Critical Care Note Total Time (mins): 35 Sepsis Event Note (ED) - Focused Exam Vital Signs: Vital Signs Temp Pulse Resp BP Pulse Ox 12/22/20 13:04 66 24 H 114/71 100 12/22/20 11:15 76 22 H 102/56 L 100 12/22/20 11:00 79 23 H 100/82 100 12/22/20 10:30 96.7 F L 73 22 H 135/58 L 94 L - My Orders Last 24 Hours: My Active Orders 12/22/20 10:35 Cardiac Monitoring [RC] . DIRECTED EKG Documentation Completion [RC] STAT Pulse Oximetry [RC] ASDIRECTED Sodium Chloride 0.9% [Saline Flush] 10 ml FLUSH ASDIRECTED PRN Sodium Chloride 0.9% [Saline Flush] 2.5 ml FLUSH ASDIRECTED PRN Saline Lock Insert [OM.PC] Stat 12/22/20 10:36 Blood Glucose Check, Bedside [RC] ONETIME 12/22/20 10:45 Blood Culture x2 Reflex Set [OM.PC] Stat 12/22/20 12:00 CULTURE BLOOD [BC] Stat RED BLOOD CELLS LP [BBK] Stat TYPE AND SCREEN [BBK] Stat 12/22/20 12:01 Transfuse Red Blood Cells [COMM] Stat 12/22/20 12:02 Verify Patient Consent Obtain [RC] ASDIRECTED 12/22/20 12:10 CULTURE BLOOD [BC] Stat 12/22/20 12:59 Potassium Chloride Riders [KCL in Water 40 MEQ/100 ML] 40 meq Premix Bag 1 bag IV ONETIME 12/22/20 13:30 Sodium Chloride 0.9% [Normal Saline] 1,000 ml IV ASDIRECTED - Assessment/Plan Last 24 Hours: My Active Orders 12/22/20 10:35 Cardiac Monitoring [RC] . DIRECTED EKG Documentation Completion [RC] STAT Pulse Oximetry [RC] ASDIRECTED Sodium Chloride 0.9% [Saline Flush] 10 ml FLUSH ASDIRECTED PRN Sodium Chloride 0.9% [Saline Flush] 2.5 ml FLUSH ASDIRECTED PRN Saline Lock Insert [OM.PC] Stat 12/22/20 10:36 Blood Glucose Check, Bedside [RC] ONETIME 12/22/20 10:45 Blood Culture x2 Reflex Set [OM.PC] Stat 12/22/20 12:00 CULTURE BLOOD [BC] Stat RED BLOOD CELLS LP [BBK] Stat TYPE AND SCREEN [BBK] Stat 12/22/20 12:01 Transfuse Red Blood Cells [COMM] Stat 12/22/20 12:02 Verify Patient Consent Obtain [RC] ASDIRECTED 12/22/20 12:10 CULTURE BLOOD [BC] Stat 12/22/20 12:59 Potassium Chloride Riders [KCL in Water 40 MEQ/100 ML] 40 meq Premix Bag 1 bag IV ONETIME 12/22/20 13:30 Sodium Chloride 0.9% [Normal Saline] 1,000 ml IV ASDIRECTED
--- NOTE | 2020-12-22 11:10 | CR ---
INDICATION: Dyspnea. Altered mental status COMPARISON: September 18, 2020 TECHNIQUE: Single-view portable chest radiograph obtained is an AP upright study FINDINGS: TUBES AND LINES: None. HEART AND MEDIASTINUM: The heart size is normal. The mediastinal contour appears normal for patient age. LUNGS AND PLEURAL SPACES: The lungs appear normal.The pleural spaces are unremarkable. OSSEOUS STRUCTURES: Age-appropriate appearance. No acute focal finding. IMPRESSION: No evidence of active pulmonary disease. Dictated by Ronald Bolden MD @ Dec 22 2020 11:08AM Signed by Dr. Ronald Bolden @ Dec 22 2020 11:09AM
[2020-12-22 12:52] LABS: BLOOD UREA NITROGEN,BUN 22 mg/dL (7.0-18.0); CARBON DIOXIDE,CO2 34.4 mmol/L (21.0-32.0); CHLORIDE,CL 100 mmol/L (98-107); GLUCOSE RANDOM 101 mg/dL (74-106); SODIUM,NA 140 mmol/L (136-145)
[2020-12-22] MEDS ORDERED: Potassium Chloride Riders 40 MEQ in Premix Bag 1 BAG IV ONE (12:59)
[2020-12-22 13:05] VITALS: BP 114/71; PULSE 66
[2020-12-22] MEDS ORDERED: Sodium Chloride 0.9% 1,000 ML IV SCH (13:30)
== END 2020-12-22 15:35 ==
LOC: MW.ED 10:28
DX: K92.2 Gastrointestinal hemorrhage, unspecified (principal); J44.9 Chronic obstructive pulmonary disease, unspecified; E03.9 Hypothyroidism, unspecified; Z20.822 Contact with and (suspected) exposure to COVID-19; Z86.711 Personal history of pulmonary embolism; Z79.01 Long term (current) use of anticoagulants; Z88.5 Allergy status to narcotic agent; Z88.2 Allergy status to sulfonamides; Z88.8 Allergy status to other drugs, medicaments and biological substances; Z79.899 Other long term (current) drug therapy
CPT/HCPCS: 36415; 36430; 71045; 80053; 80179; 81001; 82803; 82962; 83605; 83735; 83880; 84484; 85025; 85379; 85610; 85730; 86140; 86850; 86900; 86901; 86920; 86921; 86922; 87040; 87635; 93005; 96365; 96366; 99285; J3480; J7030; P9016; 99291; U0002

== ENCOUNTER 2021-04-05 22:18 | Observation (INO) | payer SELFPAY ==
[2021-04-05] MEDS ORDERED: Sodium Chloride 0.9% 10 ML Syringe FLUSH PRN (22:31)
[2021-04-05] MEDS ORDERED: Sodium Chloride 0.9% 1,000 ML IV ONE (22:31)
[2021-04-05] MEDS ORDERED: Sodium Chloride 0.9% 2.5 ML Syringe FLUSH PRN (22:31)
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
[2021-04-06 00:24] LABS: CARBON DIOXIDE,CO2 21.4 mmol/L (21.0-32.0); POTASSIUM,K 3.5 mmol/L (3.5-5.1)
[2021-04-06] MEDS ORDERED: Magnesium Sulfate (4.06 MEQ/ML) 5 GM/10 ML SDV IV STA (00:29)
[2021-04-06] MEDS ORDERED: Magnesium Sulfate/Water 1 GM/25 ML BAG IV ONE (00:45)
[2021-04-06] MEDS ORDERED: HYDROmorphone 1 MG/ML Syringe IVPUSH PRN (02:41)
[2021-04-06] MEDS ORDERED: Lactated Ringers 1,000 ML IV SCH (02:45)
[2021-04-06] MEDS ORDERED: Albuterol/Ipratropium 3.0-0.5 MG/3 ML Neb Soln NEB PRN (02:54)
[2021-04-06] MEDS ORDERED: ClonazePAM 1 MG Tab PO PRN (09:48)
[2021-04-06] MEDS ORDERED: Calcium Carbonate 500 MG Tab.Chew PO SCH (10:00)
[2021-04-06] MEDS ORDERED: HYDROmorphone 2 MG Tab PO PRN (10:09)
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
[2021-04-06 11:29] VITALS: BP 94/51; PULSE 87
[2021-04-06] MEDS ORDERED: Sucralfate 1 GM Tab PO SCH (12:00)
[2021-04-06] MEDS ORDERED: Amitriptyline 25 MG Tab PO SCH (21:00)
[2021-04-06] MEDS ORDERED: Mirtazapine 15 MG Tab PO SCH (21:00)
[2021-04-07] MEDS ORDERED: Levothyroxine 50 MCG Tab PO SCH (07:30)
[2021-04-07] MEDS ORDERED: Loratadine 10 MG Tab PO SCH (09:00)
== END 2021-04-06 12:30 | disposition home health service (06) ==
LOC: MW.ED 22:18 → MW.MS 04-06 00:30
PROVIDERS: ADMIT Student in an Organized Health Care Education/Training Program; ATTEND Student in an Organized Health Care Education/Training Program
DX: E86.0 Dehydration (principal); E87.1 Hypo-osmolality and hyponatremia; J44.9 Chronic obstructive pulmonary disease, unspecified; K92.2 Gastrointestinal hemorrhage, unspecified; E03.9 Hypothyroidism, unspecified; K63.2 Fistula of intestine; Z93.2 Ileostomy status; Z88.5 Allergy status to narcotic agent; Z88.2 Allergy status to sulfonamides; Z85.038 Personal history of other malignant neoplasm of large intestine; Z88.8 Allergy status to other drugs, medicaments and biological substances; Z79.899 Other long term (current) drug therapy; Z20.822 Contact with and (suspected) exposure to COVID-19
CPT/HCPCS: 36415; 80053; 83735; 84100; 85025; 87635; 96365; 99284; A9270; J1170; J3475; J7030; J7120; 96375; G0378; U0002

== ENCOUNTER 2021-04-16 16:13 | Emergency (ER) | payer BC ==
--- NOTE | 2021-04-16 16:34 | EDM.PDOC ---
ED HPI GENERAL MEDICAL PROBLEM - General Chief Complaint: General Stated Complaint: VOMITTING, COUGH Time Seen by Provider: 04/16/21 16:28 - History of Present Illness INITIAL COMMENTS - FREE TEXT/NARRATIVE: History of present illness: [] Review of systems: As per history of present illness and below otherwise all systems reviewed and negative. Past medical history: As per history of present illness and as reviewed below otherwise noncontributory. The patient felt a little lightheaded and dizzy and fell over. She has an abrasion on her occiput. She has no definite LOC. The patient was called by her primary doctor because her electrolytes were abnormal. The electrolytes were faxed over to us. She has had chronic weakness and is fed through TPN. She has had an ileostomy. She was admitted recently because TPN was necessary and she did not have the bag available to be thought out given so she was placed overnight for hydration while she awaited the preparation of her TPN. Surgical history: As per history of present illness and as reviewed below otherwise noncontributory. Social history: No reported history of drug or alcohol abuse. Family history: As per history of present illness and as reviewed below otherwise noncontributory. Physical exam: Constitutional - well developed, well-nourished and in no acute distress HEENT -abrasion in the posterior occipital area was cleaned and there was no sp ecific laceration. Normocephalic, no evidence of trauma - external nose and mouth normal - no mass in neck and no JVD - mucosae moist EYES - full EOM, PERRL, no icterus - no evidence of inflammation, injection, or drainage Respiratory - no respiratory distress, equal bilateral expansion, lungs clear to auscultation and no abnormal lung sounds Cardiovascular - Regular Rhythm with S1 and S2 appreciated and no murmur, gallop or rub. GI - abdomen soft without distension or organomegaly - normal bowel sounds - no guard or rebound Musculoskeletal no gross deformity of long bones or joints - no tenderness, swelling or edema Neurologic - Alert and oriented times four - CN II-XII grossly intact - motor sensory and coordination symmetrically normal Psychiatric - appropriate mood and affect with normal thought content Hematologic - No petechiae or purpura - mucosa appropriate color and sclera not pale - normal nail bed color and refill Integument - no rash or evidence of trauma - normal turgor Diagnostics: [] Therapeutics: [] Impression: [] Plan: [] Definitive disposition and diagnosis as appropriate pending reevaluation and review of above. Other Treatments LINES TENDER: dilaudid at 1600 head Pain Score (Numeric/FACES): 4 - Related Data Allergies Allergy/AdvReac Type Severity Reaction Status Date / Time codeine Allergy Hives Verified 04/16/21 16:26 pseudoephedrine Allergy palpitation Verified 04/16/21 16:26 s Sulfa (Sulfonamide Allergy unknown Verified 04/16/21 16:26 Antibiotics) Home Meds: Home Meds ClonazePAM [KlonoPIN] 1 mg PO TID PRN 04/23/18 [History] Umeclidinium Brm/Vilanterol Tr [Anoro Ellipta 62.5-25 MCG] 1 puff IH DAILY 06/20/20 [History] Levothyroxine 50 mcg PO ACBREAKFAST 09/18/20 [History] Amitriptyline [Elavil] 50 mg PO BEDTIME 12/22/20 [History] Blood Sugar Diagnostic [Glucose Test Strip] 1 each MC Q6H #1 box 04/06/21 [Rx] Calcium Carbonate [Tums] 1,000 mg PO Q6H 04/06/21 [History] HYDROmorphone [Dilaudid] 2 mg PO Q4H PRN 04/06/21 [History] Lancets 1 each MC Q6H #1 box 04/06/21 [Rx] Loperamide [Imodium] 4 mg PO Q6H 04/06/21 [History] Loratadine 10 mg PO DAILY 04/06/21 [History] Mirtazapine 15 mg PO BEDTIME 04/06/21 [History] Sucralfate 1 gm PO QID 04/06/21 [History] fentaNYL [Duragesic] 25 mcg TD Q72H 04/06/21 [History] Past Medical History HEENT History: Reports: None Cardiovascular History: Reports: Blood Clots/VTE/DVT, Other (See Below) Other Cardiovascular History: on Eliquis in multiple places (?) Respiratory History: Reports: COPD, SOB, Other (See Below) Other Respiratory History: not on CPAP Gastrointestinal History: Reports: None Genitourinary History: Reports: None 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: Musculoskeletal History: Reports: None Neurological History: Reports: None Psychiatric History: Reports: Anxiety, Depression, PTSD Endocrine/Metabolic History: Reports: None Hematologic History: Reports: None Immunologic History: Reports: None Oncologic (Cancer) History: Reports: None Dermatologic History: Reports: None - Infectious Disease History Infectious Disease History: Reports: Chicken Pox, Measles, Mumps - Past Surgical History Head Surgeries/Procedures: Reports: None HEENT Surgical History: Reports: Adenoidectomy, Tonsillectomy Cardiovascular Surgical History: Reports: None Respiratory Surgical History: Reports: None GI Surgical History: Reports: Appendectomy, Cholecystectomy, Colostomy, Hernia, Abdominal, Other (See Below) Other GI Surgeries/Procedures: prior colostomy and ileostomy Female Surgical History: Reports: Hysterectomy, Salpingo-Oophorectomy Musculoskeletal Surgical History: Reports: Other (See Below) Other Musculoskeletal Surgeries/Procedures:: right thumb surgery Social & Family History - Family History Family Medical History: No Pertinent Family History - Tobacco Use Tobacco Use Status *Q: Former Tobacco User Used Tobacco, but Quit: Yes Month/Year Tobacco Last Used: 6 months - Caffeine Use Caffeine Use: Reports: None - Recreational Drug Use Recreational Drug Use: No ED ROS GENERAL - Review of Systems Review Of Systems: Comprehensive ROS is negative, except as noted in HPI. ED EXAM, GENERAL - Physical Exam Exam: See Below Free Text/Narrative:: My physical exam is in the HPI Course - Vital Signs Text/Narrative:: I discussed the case with our human resource internship on-call who felt like a bag of saline would be a good idea but then she could restrict free water and go home. Last Recorded V/S: Last Vital Signs Temp 36.6 C 04/16/21 16:15 Pulse 77 04/16/21 17:35 Resp 17 04/16/21 17:35 BP 89/54 L 04/16/21 17:35 Pulse Ox 99 04/16/21 17:35 - Orders/Labs/Meds Orders: Active Orders 24 hr Category Date Time Status Sodium Chloride 0.9% [Normal Saline] 1,000 ml Med 04/16/21 17:19 Active IV .Bolus Medication Orders Sodium Chloride (Normal Saline) 1,000 mls @ 1,000 mls/hr IV .Bolus ONE Stop: 04/16/21 18:18 Last Admin: 04/16/21 17:34 Dose: 1,000 mls/hr Documented by: CASPER Meds: Medications Generic Name Dose Route Start Last Admin Trade Name Freq PRN Reason Stop Dose Admin Sodium Chloride 1,000 mls @ 1,000 mls/hr 04/16/21 17:19 04/16/21 17:34 Normal Saline IV 04/16/21 18:18 1,000 mls/hr .Bolus ONE Administration Discontinued Medications Generic Name Dose Route Start Last Admin Trade Name Freq PRN Reason Stop Dose Admin Bacitracin 1 gm 04/16/21 17:43 04/16/21 17:49 Bacitracin Oint 28.35 Gm Tube TOP 04/16/21 17:44 1 gm STAT STA Administration Departure - Departure Time of Disposition: 18:30 Disposition: Home, Self-Care 01 Condition: Good Clinical Impression: Scalp abrasion, Hyponatremia, Elevated transaminase level Fall Qualifiers: Encounter type: initial encounter Qualified Code(s): W19.XXXA - Unspecified fall, initial encounter - Discharge Information Instructions: Hyponatremia, [id number] Referrals: Remi Olivas MD [Primary Care Provider] - Forms: ED Department Discharge Additional Instructions: Contact the company that adjust your TPN and let them know your sodium was low, we gave you a liter of saline, and you are going to restrict free water and drink more electrolyte-containing solutions and soup. [facility] - Primary Care [address] [place] [address] [place] [address] The following information is given to patients seen in the emergency department who are being discharged to home. This information is to outline your options for follow-up care. We provide all patients seen in our emergency department with a follow-up referral. The need for follow-up, as well as the timing and circumstances, are variable depending upon the specifics of your emergency department visit. If you don't have a primary care physician on staff, we will provide you with a referral. We always advise you to contact your personal physician following an emergency department visit to inform them of the circumstance of the visit and for follow-up with them and/or the need for any referrals to a consulting specialist. The emergency department will also refer you to a specialist when appropriate. This referral assures that you have the opportunity for follow-up care with a specialist. All of these measure are taken in an effort to provide you with optimal care, which includes your follow-up. Under all circumstances we always encourage you to contact your private physician who remains a resource for coordinating your care. When calling for follow-up care, please make the office aware that this follow-up is from your recent emergency room visit. If for any reason you are refused follow-up, please contact the [facility] Emergency Department at and asked to speak to the emergency department charge nurse. Sepsis Event Note (ED) - Evaluation Sepsis Screening Result: No Definite Risk - Focused Exam Vital Signs: Vital Signs Temp Pulse Resp BP Pulse Ox 04/16/21 17:35 77 17 89/54 L 99 04/16/21 16:15 36.6 C 98 18 77/50 L 99 - My Orders Last 24 Hours: My Active Orders 04/16/21 17:19 Sodium Chloride 0.9% [Normal Saline] 1,000 ml IV .Bolus - Assessment/Plan Last 24 Hours: My Active Orders 04/16/21 17:19 Sodium Chloride 0.9% [Normal Saline] 1,000 ml IV .Bolus
[2021-04-16] MEDS ORDERED: Sodium Chloride 0.9% 1,000 ML IV ONE (17:19)
[2021-04-16] MEDS ORDERED: Bacitracin Oint 28.35 GM Tube TOP STA (17:43)
[2021-04-16 18:41] VITALS: BP 84/42; PULSE 82
== END 2021-04-16 18:49 | disposition home or self-care (01) ==
LOC: MW.ED 16:13
DX: S00.01XA Abrasion of scalp, initial encounter (principal); E87.1 Hypo-osmolality and hyponatremia; R74.01 Elevation of levels of liver transaminase levels; Z88.5 Allergy status to narcotic agent; Z88.2 Allergy status to sulfonamides; Z88.8 Allergy status to other drugs, medicaments and biological substances; Z79.899 Other long term (current) drug therapy; Z87.891 Personal history of nicotine dependence; W19.XXXA Unspecified fall, initial encounter
CPT/HCPCS: 99283; A9270; J7030

== ENCOUNTER 2021-04-17 18:51 | Emergency (ER) | payer BC ==
[2021-04-17] MEDS ORDERED: Ondansetron 4 MG/2 ML SDV IVPUSH ONE (19:26)
[2021-04-17] MEDS ORDERED: Sodium Chloride 0.9% 1,000 ML IV ONE ×2 (19:26→19:28)
[2021-04-17] MEDS ORDERED: HYDROmorphone 1 MG/ML Syringe IVPUSH ONE (19:26)
--- NOTE | 2021-04-17 19:36 | EDM.PDOC ---
ED HPI GENERAL MEDICAL PROBLEM - General Chief Complaint: Fever Stated Complaint: FEVER, CHILLS, VOMITTING Time Seen by Provider: 04/17/21 19:05 Source of Information: Reports: Patient History Limitations: Reports: No Limitations - History of Present Illness INITIAL COMMENTS - FREE TEXT/NARRATIVE: Patient is a 55-year-old female with a recent history of colon cancer and had a colostomy placed presents today for fever. Patient says she is not on any chemo and had operation to remove part of her colon that the cancer. Patient states that at home if they came back and noted she had a fever over 100. Patient states that has been having body aches. Patient's been having vomiting which has been normal for for the past few weeks. Patient denies any urinary complaints cough abdominal pain rashes or other sources of fever. Generalized Pain Score (Numeric/FACES): 7 - Related Data Allergies Allergy/AdvReac Type Severity Reaction Status Date / Time codeine Allergy Hives Verified 04/17/21 19:10 pseudoephedrine Allergy palpitation Verified 04/17/21 19:10 s Sulfa (Sulfonamide Allergy unknown Verified 04/17/21 19:10 Antibiotics) Home Meds: Home Meds ClonazePAM [KlonoPIN] 1 mg PO TID PRN 04/23/18 [History] Umeclidinium Brm/Vilanterol Tr [Anoro Ellipta 62.5-25 MCG] 1 puff IH DAILY 06/20/20 [History] Levothyroxine 50 mcg PO ACBREAKFAST 09/18/20 [History] Amitriptyline [Elavil] 50 mg PO BEDTIME 12/22/20 [History] Blood Sugar Diagnostic [Glucose Test Strip] 1 each MC Q6H #1 box 04/06/21 [Rx] Calcium Carbonate [Tums] 1,000 mg PO Q6H 04/06/21 [History] HYDROmorphone [Dilaudid] 2 mg PO Q4H PRN 04/06/21 [History] Lancets 1 each MC Q6H #1 box 04/06/21 [Rx] Loperamide [Imodium] 4 mg PO Q6H PRN 04/06/21 [History] Loratadine 10 mg PO DAILY 04/06/21 [History] Mirtazapine 15 mg PO BEDTIME 04/06/21 [History] Sucralfate 1 gm PO QID 04/06/21 [History] fentaNYL [Duragesic] 25 mcg TD Q72H 04/06/21 [History] Past Medical History HEENT History: Reports: None Cardiovascular History: Reports: Blood Clots/VTE/DVT, Other (See Below) Other Cardiovascular History: on Eliquis in multiple places (?) Respiratory History: Reports: COPD, SOB, Other (See Below) Other Respiratory History: not on CPAP Gastrointestinal History: Reports: None Genitourinary History: Reports: None [employer]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: Musculoskeletal History: Reports: None Neurological History: Reports: None Psychiatric History: Reports: Anxiety, Depression, PTSD Endocrine/Metabolic History: Reports: None Hematologic History: Reports: None Immunologic History: Reports: None Oncologic (Cancer) History: Reports: None Dermatologic History: Reports: None - Infectious Disease History Infectious Disease History: Reports: Chicken Pox, Measles, Mumps - Past Surgical History Head Surgeries/Procedures: Reports: None HEENT Surgical History: Reports: Adenoidectomy, Tonsillectomy Cardiovascular Surgical History: Reports: None Respiratory Surgical History: Reports: None GI Surgical History: Reports: Appendectomy, Cholecystectomy, Colostomy, Hernia, Abdominal, Other (See Below) Other GI Surgeries/Procedures: prior colostomy and ileostomy Female Surgical History: Reports: Hysterectomy, Salpingo-Oophorectomy Musculoskeletal Surgical History: Reports: Other (See Below) Other Musculoskeletal Surgeries/Procedures:: right thumb surgery Social & Family History - Family History Family Medical History: No Pertinent Family History - Tobacco Use Tobacco Use Status *Q: Former Tobacco User Used Tobacco, but Quit: Yes Month/Year Tobacco Last Used: ? - Caffeine Use Caffeine Use: Reports: None - Recreational Drug Use Recreational Drug Use: No ED ROS GENERAL - Review of Systems Review Of Systems: See Below Constitutional: Reports: Fever, Chills HEENT: Reports: No Symptoms Respiratory: Reports: No Symptoms Cardiovascular: Reports: No Symptoms Endocrine: Reports: No Symptoms GI/Abdominal: Reports: Vomiting : Reports: No Symptoms Musculoskeletal: Reports: No Symptoms Skin: Reports: No Symptoms Neurological: Reports: No Symptoms Psychiatric: Reports: No Symptoms Hematologic/Lymphatic: Reports: No Symptoms Immunologic: Reports: No Symptoms ED EXAM, GENERAL - Physical Exam Exam: See Below Exam Limited By: No Limitations General Appearance: Alert, WD/WN, No Apparent Distress Eye Exam: Bilateral Eye: EOMI Head: Atraumatic Neck: Normal Inspection, Supple Respiratory/Chest: No Respiratory Distress, Lungs Clear, Normal Breath Sounds Cardiovascular: Normal Peripheral Pulses, Regular Rate, Rhythm, No Edema GI/Abdominal: Normal Bowel Sounds, Soft, Non-Tender, Other (Large colostomy) Extremities: Normal Inspection Neurological: Alert, Oriented, CN II-XII Intact Course - Vital Signs Last Recorded V/S: Last Vital Signs Temp 100.4 F 04/17/21 21:02 Pulse 105 H 04/17/21 22:45 Resp 20 04/17/21 22:45 BP 82/37 L 04/17/21 22:45 Pulse Ox 95 04/17/21 22:45 - Orders/Labs/Meds Orders: Active Orders 24 hr Category Date Time Status CULTURE BLOOD [BC] Stat Lab 04/17/21 20:03 Received CULTURE BLOOD [BC] Stat Lab 04/17/21 20:23 Received REFLEX LACTIC ACID YES OR NO [CHEM] Routine Lab 04/17/21 21:40 Received Blood Culture x2 Reflex Set [OM.PC] Stat Oth 04/17/21 19:27 Ordered Labs: Laboratory Tests 04/17/21 04/17/21 04/17/21 Range/Units 20:03 20:03 20:03 WBC 7.40 (4.0-11.0) K/uL RBC 3.87 L (4.30-5.90) M/uL Hgb 12.2 (12.0-16.0) g/dL Hct 35.3 L (36.0-46.0) % MCV 91.2 (80.0-98.0) fL MCH 31.5 (27.0-32.0) pg MCHC 34.6 (31.0-37.0) g/dL RDW Std Deviation 42.6 (28.0-62.0) fl RDW Coeff of Thiago 13 (11.0-15.0) % Plt Count 135 L (150-400) K/uL MPV 10.00 (7.40-12.00) fL Neut % (Auto) 91.7 H (48.0-80.0) % Lymph % (Auto) 3.8 L (16.0-40.0) % [place] % (Auto) 4.5 (0.0-15.0) % Eos % (Auto) 0.0 (0.0-7.0) % Baso % (Auto) 0.0 (0.0-1.5) % Neut # (Auto) 6.8 H (1.4-5.7) K/uL Lymph # (Auto) 0.3 L (0.6-2.4) K/uL [place] # (Auto) 0.3 (0.0-0.8) K/uL Eos # (Auto) 0.0 (0.0-0.7) K/uL Baso # (Auto) 0.0 (0.0-0.1) K/uL Nucleated RBC % 0.0 /100WBC Nucleated RBCs # 0 K/uL APTT 24.1 (18.6-31.3) SEC Sodium 123 L (136-145) mmol/L Potassium 4.3 (3.5-5.1) mmol/L Chloride 90 L (98-107) mmol/L Carbon Dioxide 25.4 (21.0-32.0) mmol/L BUN 44 H (7.0-18.0) mg/dL Creatinine 1.0 (0.6-1.0) mg/dL Est Cr Clr Drug Dosing 60.36 mL/min Estimated GFR (MDRD) 57.1 ml/min Glucose 139 H (74-106) mg/dL Lactic Acid (0.4-2.0) mmol/L Calcium 7.9 L (8.5-10.1) mg/dL Phosphorus 1.7 L (2.6-4.7) mg/dL Magnesium 1.8 (1.8-2.4) mg/dL Total Bilirubin 0.5 (0.2-1.0) mg/dL AST 97 H (15-37) IU/L ALT 224 H (14-63) IU/L Alkaline Phosphatase 445 H (46-116) U/L Total Protein 7.0 (6.4-8.2) g/dL Albumin 2.7 L (3.4-5.0) g/dL Globulin 4.3 H (2.6-4.0) g/dL Albumin/Globulin Ratio 0.6 L (0.9-1.6) Lipase 92 (73-393) U/L Urine Color Urine Appearance Urine pH (5.0-8.0) Ur Specific [place] (1.001-1.035) Urine Protein (NEGATIVE) mg/dL Urine Glucose (UA) (NEGATIVE) mg/dL Urine Ketones (NEGATIVE) mg/dL Urine Occult Blood (NEGATIVE) Urine Nitrite (NEGATIVE) Urine Bilirubin (NEGATIVE) Urine Urobilinogen (<2.0) EU/dL Ur Leukocyte Esterase (NEGATIVE) Urine RBC (0-2/HPF) Urine WBC (0-5/HPF) Ur Epithelial Cells (NONE-FEW) Urine Bacteria (NEGATIVE) Urine Mucus (NONE-MOD) Influenza Type A RNA (NEGATIVE) Influenza Type B RNA (NEGATIVE) SARS-CoV-2 RNA (HUGH) (NEGATIVE) 04/17/21 04/17/21 04/17/21 Range/Units 21:00 21:17 21:35 WBC (4.0-11.0) K/uL RBC (4.30-5.90) M/uL Hgb (12.0-16.0) g/dL Hct (36.0-46.0) % MCV (80.0-98.0) fL MCH (27.0-32.0) pg MCHC (31.0-37.0) g/dL RDW Std Deviation (28.0-62.0) fl RDW Coeff of Thiago (11.0-15.0) % Plt Count (150-400) K/uL MPV (7.40-12.00) fL Neut % (Auto) (48.0-80.0) % Lymph % (Auto) (16.0-40.0) % [place] % (Auto) (0.0-15.0) % Eos % (Auto) (0.0-7.0) % Baso % (Auto) (0.0-1.5) % Neut # (Auto) (1.4-5.7) K/uL Lymph # (Auto) (0.6-2.4) K/uL [place] # (Auto) (0.0-0.8) K/uL Eos # (Auto) (0.0-0.7) K/uL Baso # (Auto) (0.0-0.1) K/uL Nucleated RBC % /100WBC Nucleated RBCs # K/uL APTT (18.6-31.3) SEC Sodium (136-145) mmol/L Potassium (3.5-5.1) mmol/L Chloride (98-107) mmol/L Carbon Dioxide (21.0-32.0) mmol/L BUN (7.0-18.0) mg/dL Creatinine (0.6-1.0) mg/dL Est Cr Clr Drug Dosing mL/min Estimated GFR (MDRD) ml/min Glucose (74-106) mg/dL Lactic Acid 2.4 H* (0.4-2.0) mmol/L Calcium (8.5-10.1) mg/dL Phosphorus (2.6-4.7) mg/dL Magnesium (1.8-2.4) mg/dL Total Bilirubin (0.2-1.0) mg/dL AST (15-37) IU/L ALT (14-63) IU/L Alkaline Phosphatase (46-116) U/L Total Protein (6.4-8.2) g/dL Albumin (3.4-5.0) g/dL Globulin (2.6-4.0) g/dL Albumin/Globulin Ratio (0.9-1.6) Lipase (73-393) U/L Urine Color YELLOW Urine Appearance HAZY Urine pH 6.0 (5.0-8.0) Ur Specific Weston 1.010 (1.001-1.035) Urine Protein NEGATIVE (NEGATIVE) mg/dL Urine Glucose (UA) NEGATIVE (NEGATIVE) mg/dL Urine Ketones NEGATIVE (NEGATIVE) mg/dL Urine Occult Blood NEGATIVE (NEGATIVE) Urine Nitrite NEGATIVE (NEGATIVE) Urine Bilirubin NEGATIVE (NEGATIVE) Urine Urobilinogen 0.2 (<2.0) EU/dL Ur Leukocyte Esterase MODERATE H (NEGATIVE) Urine RBC 0-2 (0-2/HPF) Urine WBC 3-6 (0-5/HPF) Ur Epithelial Cells MODERATE (NONE-FEW) Urine Bacteria FEW (NEGATIVE) Urine Mucus LIGHT (NONE-MOD) Influenza Type A RNA NEGATIVE (NEGATIVE) Influenza Type B RNA NEGATIVE (NEGATIVE) SARS-CoV-2 RNA (HUGH) NEGATIVE (NEGATIVE) 04/17/21 Range/Units 22:04 WBC (4.0-11.0) K/uL RBC (4.30-5.90) M/uL Hgb (12.0-16.0) g/dL Hct (36.0-46.0) % MCV (80.0-98.0) fL MCH (27.0-32.0) pg MCHC (31.0-37.0) g/dL RDW Std Deviation (28.0-62.0) fl RDW Coeff of Thiago (11.0-15.0) % Plt Count (150-400) K/uL MPV (7.40-12.00) fL Neut % (Auto) (48.0-80.0) % Lymph % (Auto) (16.0-40.0) % [place] % (Auto) (0.0-15.0) % Eos % (Auto) (0.0-7.0) % Baso % (Auto) (0.0-1.5) % Neut # (Auto) (1.4-5.7) K/uL Lymph # (Auto) (0.6-2.4) K/uL [place] # (Auto) (0.0-0.8) K/uL Eos # (Auto) (0.0-0.7) K/uL Baso # (Auto) (0.0-0.1) K/uL Nucleated RBC % /100WBC Nucleated RBCs # K/uL APTT (18.6-31.3) SEC Sodium 124 L (136-145) mmol/L Potassium 4.1 (3.5-5.1) mmol/L Chloride 95 L (98-107) mmol/L Carbon Dioxide 22.9 (21.0-32.0) mmol/L BUN 39 H (7.0-18.0) mg/dL Creatinine 0.9 (0.6-1.0) mg/dL Est Cr Clr Drug Dosing 67.07 mL/min Estimated GFR (MDRD) > 60.0 ml/min Glucose 133 H (74-106) mg/dL Lactic Acid (0.4-2.0) mmol/L Calcium 6.9 L (8.5-10.1) mg/dL Phosphorus (2.6-4.7) mg/dL Magnesium (1.8-2.4) mg/dL Total Bilirubin (0.2-1.0) mg/dL AST (15-37) IU/L ALT (14-63) IU/L Alkaline Phosphatase (46-116) U/L Total Protein (6.4-8.2) g/dL Albumin (3.4-5.0) g/dL Globulin (2.6-4.0) g/dL Albumin/Globulin Ratio (0.9-1.6) Lipase (73-393) U/L Urine Color Urine Appearance Urine pH (5.0-8.0) Ur Specific Weston (1.001-1.035) Urine Protein (NEGATIVE) mg/dL Urine Glucose (UA) (NEGATIVE) mg/dL Urine Ketones (NEGATIVE) mg/dL Urine Occult Blood (NEGATIVE) Urine Nitrite (NEGATIVE) Urine Bilirubin (NEGATIVE) Urine Urobilinogen (<2.0) EU/dL Ur Leukocyte Esterase (NEGATIVE) Urine RBC (0-2/HPF) Urine WBC (0-5/HPF) Ur Epithelial Cells (NONE-FEW) Urine Bacteria (NEGATIVE) Urine Mucus (NONE-MOD) Influenza Type A RNA (NEGATIVE) Influenza Type B RNA (NEGATIVE) SARS-CoV-2 RNA (HUGH) (NEGATIVE) Meds: Medications Discontinued Medications Generic Name Dose Route Start Last Admin Trade Name Marcelo PRN Reason Stop Dose Admin Acetaminophen 650 mg 04/17/21 20:18 04/17/21 20:48 Acetaminophen 325 Mg Tab PO 04/17/21 20:19 650 mg NOW ONE Administration Hydromorphone HCl 1 mg 04/17/21 19:26 04/17/21 19:43 Hydromorphone 1 Mg/Ml Syringe IVPUSH 04/17/21 19:27 1 mg ONETIME ONE Administration Sodium Chloride 1,000 mls @ 999 mls/hr 04/17/21 19:26 04/17/21 19:43 Normal Saline IV 04/17/21 20:26 999 mls/hr .BOLUS ONE Administration Sodium Chloride 1,000 mls @ 999 mls/hr 04/17/21 19:28 04/17/21 20:48 Normal Saline IV 04/17/21 20:28 999 mls/hr .BOLUS ONE Administration Ibuprofen 800 mg 04/17/21 20:54 04/17/21 21:03 Ibuprofen 800 Mg Tab PO 04/17/21 20:55 Not Given ONETIME ONE Ibuprofen 800 mg 04/17/21 21:00 04/17/21 21:02 Ibuprofen 400 Mg Tab PO 04/17/21 21:01 800 mg ONETIME ONE Administration Ibuprofen Confirm 04/17/21 21:00 04/17/21 21:07 Ibuprofen 400 Mg Tab Administered 04/17/21 21:01 Not Given Dose 800 mg .ROUTE .STK-MED ONE Ondansetron HCl 4 mg 04/17/21 19:26 04/17/21 19:43 Ondansetron 4 Mg/2 Ml Sdv IVPUSH 04/17/21 19:27 4 mg ONETIME ONE Administration - Re-Assessments/Exams Free Text/Narrative Re-Assessment/Exam: 04/17/21 23:20 We had extensive conversation with patient about possible admission. Patient is adamant that she would like to go home instead. Patient sodium is around 124 but she is not symptomatic. Patient is getting TPN feeds and states that she has had a new bed, tomorrow to help adjust her sodium issues as it was low last time which may help improve her hyponatremia. We also spoke to hospitalist for possible admission and recommended patient not want to stay the patient can follow-up in a day or to have sodium results checked. Patient has a family by the bedside they both agree the patient is okay to go home and will bring patient back if symptoms become worse or comes confused procedures. Patient understands risks of leaving. Departure - Departure Time of Disposition: 23:21 Disposition: Home, Self-Care 01 Condition: Good Clinical Impression: Fever, unknown origin - Discharge Information *PRESCRIPTION DRUG MONITORING PROGRAM REVIEWED*: Not Applicable *COPY OF PRESCRIPTION DRUG MONITORING REPORT IN PATIENT BRIGETTE: Not Applicable Instructions: Fever, Adult, [id number] Referrals: Remi Olivas MD [Primary Care Provider] - Forms: ED Department Discharge Additional Instructions: The following information is given to patients seen in the emergency department who are being discharged to home. This information is to outline your options for follow-up care. We provide all patients seen in our emergency department with a follow-up referral. The need for follow-up, as well as the timing and circumstances, are variable depending upon the specifics of your emergency department visit. If you don't have a primary care physician on staff, we will provide you with a referral. We always advise you to contact your personal physician following an emergency department visit to inform them of the circumstance of the visit and for follow-up with them and/or the need for any referrals to a consulting specialist. The emergency department will also refer you to a specialist when appropriate. This referral assures that you have the opportunity for follow-up care with a specialist. All of these measure are taken in an effort to provide you with optimal care, which includes your follow-up. Under all circumstances we always encourage you to contact your private physician who remains a resource for coordinating your care. When calling for follow-up care, please make the office aware that this follow-up is from your recent emergency room visit. If for any reason you are refused follow-up, please contact the [facility] Emergency Department at and asked to speak to the emergency department charge nurse. Please follow up with your primary care physician. If you do not have a primary care physician, see below: [facility] [address] [place] [id number] My [facility] [address] [place] [address] You were seen today for fever from unknown cause. We did x-ray labs and check the urine as well as some blood cultures. We do not have a direct source of the fever. The blood cultures were tender next few days. Your sodium was also found to be low but she states that you have a new TPN order, and that we will address your low sodium. We would like to have admitted to you but you would prefer to go home at the speaking to the hospitalist we can have you follow-up and recheck your labs in the next day or 2. Again if you have any confusion seizures or other symptoms please return to the ED immediately. Critical Care Note - Critical Care Note Total Time (mins): 40 Comments: Critical Care Procedure Note Authorized and Performed by: Dr. Salazar Total critical care time: Approximately Due to a high probability of clinically significant, life threatening deterioration, the patient required my highest level of preparedness to intervene emergently and I personally spent this critical care time directly and personally managing the patient. This critical care time included obtaining a history; examining the patient; pulse oximetry; ordering and review of studies; arranging urgent treatment with development of a management plan; evaluation of patient's response to treatment; frequent reassessment; and, discussions with other providers. This critical care time was performed to assess and manage the high probability of imminent, life-threatening deterioration that could result in multi-organ failure. It was exclusive of separately billable procedures and treating other patients and teaching time. Sepsis Event Note (ED) - Evaluation Sepsis Screening Result: No Definite Risk - Focused Exam Vital Signs: Vital Signs Temp Temp Pulse Resp BP Pulse Ox 04/17/21 22:45 105 H 20 82/37 L 95 04/17/21 21:02 100.4 F 04/17/21 20:48 100.4 F 04/17/21 19:06 100.6 F 115 H 20 107/62 99 - My Orders Last 24 Hours: My Active Orders 04/17/21 19:27 Blood Culture x2 Reflex Set [OM.PC] Stat 04/17/21 20:03 CULTURE BLOOD [BC] Stat 04/17/21 20:23 CULTURE BLOOD [BC] Stat 04/17/21 21:40 REFLEX LACTIC ACID YES OR NO [CHEM] Routine - Assessment/Plan Last 24 Hours: My Active Orders 04/17/21 19:27 Blood Culture x2 Reflex Set [OM.PC] Stat 04/17/21 20:03 CULTURE BLOOD [BC] Stat 04/17/21 20:23 CULTURE BLOOD [BC] Stat 04/17/21 21:40 REFLEX LACTIC ACID YES OR NO [CHEM] Routine Plan: Patient is a 55-year-old female who presents today for fever body aches. Patient has no clear source of fever. Will obtain blood cultures labs x-ray UA and reassess.
--- NOTE | 2021-04-17 20:17 | CR ---
INDICATION: Cough. Fever. COMPARISON: 12/22/2020. FINDINGS: A portable AP view of the chest was obtained. The cardiac silhouette and pulmonary vasculature are within normal limits. The lungs are clear bilaterally. IMPRESSION: No evidence of acute pulmonary disease. Dictated by Sean Russo MD @ 04/17/2021 8:15:[address] Sean Russo @ Apr 17 2021 8:15PM
[2021-04-17] MEDS ORDERED: Acetaminophen 325 MG Tab PO ONE (20:18)
[2021-04-17 20:40] LABS: CARBON DIOXIDE,CO2 25.4 mmol/L (21.0-32.0); POTASSIUM,K 4.3 mmol/L (3.5-5.1)
[2021-04-17] MEDS ORDERED: Ibuprofen 800 MG Tab PO ONE (20:54)
[2021-04-17] MEDS ORDERED: Ibuprofen 400 MG Tab ONE (21:00)
[2021-04-17] MEDS ORDERED: Ibuprofen 400 MG Tab PO ONE (21:00)
[2021-04-17 22:18] LABS: CORONAVIRUS COVID-19 NAA NEGATIVE (NEGATIVE); INFLUENZA A NAA NEGATIVE (NEGATIVE); INFLUENZA B NAA NEGATIVE (NEGATIVE)
[2021-04-17 22:35] LABS: BLOOD UREA NITROGEN,BUN 39 mg/dL (7.0-18.0); CARBON DIOXIDE,CO2 22.9 mmol/L (21.0-32.0); CHLORIDE,CL 95 mmol/L (98-107); GLUCOSE RANDOM 133 mg/dL (74-106); POTASSIUM,K 4.1 mmol/L (3.5-5.1); SODIUM,NA 124 mmol/L (136-145)
[2021-04-17 22:51] VITALS: PULSE 105
[2021-04-17 23:24] VITALS: BP 84/53
== END 2021-04-17 23:41 | disposition home or self-care (01) ==
LOC: MW.ED 18:51
DX: R50.9 Fever, unspecified (principal); Z88.5 Allergy status to narcotic agent; Z88.0 Allergy status to penicillin; Z88.2 Allergy status to sulfonamides; Z87.891 Personal history of nicotine dependence; Z20.822 Contact with and (suspected) exposure to COVID-19
CPT/HCPCS: 0240U; 36415; 71045; 80048; 80053; 81001; 83605; 83690; 83735; 84100; 85025; 85730; 87040; 87186; 96374; 96375; 99284; A9270; J1170; J2405; J7030; 99291

== ENCOUNTER 2021-04-18 10:45 | Emergency (ER) | payer BC ==
[2021-04-18] MEDS ORDERED: Sodium Chloride 0.9% 1,000 ML IV ONE (10:48)
[2021-04-18] MEDS ORDERED: Sodium Chloride 0.9% 2.5 ML Syringe FLUSH PRN ×3 (10:48→14:51)
[2021-04-18] MEDS ORDERED: Piperacillin/Tazobactam 4.5 GM in Sodium Chloride 0.9% 100 ML IV ONE (10:48)
[2021-04-18] MEDS ORDERED: Sodium Chloride 0.9% 10 ML Syringe FLUSH PRN ×3 (10:48→14:51)
--- NOTE | 2021-04-18 10:59 | EDM.PDOC ---
ED HPI GENERAL MEDICAL PROBLEM - General Chief Complaint: Possible Sepsis Stated Complaint: EMS ARRIVAL Time Seen by Provider: 04/18/21 10:48 Source of Information: Reports: Patient, EMS - History of Present Illness INITIAL COMMENTS - FREE TEXT/NARRATIVE: 55-year-old female brought by EMS after evaluation by home health nurse due to concern for infection/sepsis and vomiting. The patient has a complicated recent past medical history including abdominal surgery with failure/infection and has a PICC line with continuous TPN. She recently had blood cultures collected yesterday during ER visit here, which came back positive for gram-positive cocci in singles, pairs and chains. Today she has been vomiting. Per EMS she was hypotensive and tachycardic. The patient has not had a fever. She has mild chronic dyspnea and takes 2 L of oxygen by nasal cannula and does not report any worsening respiratory symptoms. No cough. Her only complaints currently are abdominal pain and back pain, both of which are chronic for months, for which she takes fentanyl and has a fentanyl patch in place. She is requesting Dilaudid by name. She did receive Zofran by EMS. No other associated symptoms. The patient reports no alleviating or aggravating factors. Onset: Gradual, Other (Last few weeks) Onset Date: 04/18/21 (Acute on chronic) Location: Reports: Abdomen Improves with: Reports: None abdomen Pain Score (Numeric/FACES): 6 - Related Data Allergies Allergy/AdvReac Type Severity Reaction Status Date / Time codeine Allergy Hives Verified 04/18/21 10:51 pseudoephedrine Allergy palpitation Verified 04/18/21 10:51 s Sulfa (Sulfonamide Allergy unknown Verified 04/18/21 10:51 Antibiotics) Home Meds: Home Meds ClonazePAM [KlonoPIN] 1 mg PO TID PRN 04/23/18 [History] Umeclidinium Brm/Vilanterol Tr [Anoro Ellipta 62.5-25 MCG] 1 puff IH DAILY 06/20/20 [History] Levothyroxine 50 mcg PO ACBREAKFAST 09/18/20 [History] Amitriptyline [Elavil] 50 mg PO BEDTIME 12/22/20 [History] Blood Sugar Diagnostic [Glucose Test Strip] 1 each MC Q6H #1 box 04/06/21 [Rx] Calcium Carbonate [Tums] 1,000 mg PO Q6H 04/06/21 [History] HYDROmorphone [Dilaudid] 2 mg PO Q4H PRN 04/06/21 [History] Lancets 1 each MC Q6H #1 box 04/06/21 [Rx] Loperamide [Imodium] 4 mg PO Q6H PRN 04/06/21 [History] Loratadine 10 mg PO DAILY 04/06/21 [History] Mirtazapine 15 mg PO BEDTIME 04/06/21 [History] Sucralfate 1 gm PO QID 04/06/21 [History] fentaNYL [Duragesic] 25 mcg TD Q72H 04/06/21 [History] Past Medical History HEENT History: Reports: None Cardiovascular History: Reports: Blood Clots/VTE/DVT, Other (See Below) Other Cardiovascular History: on Eliquis in multiple places (?) Respiratory History: Reports: COPD, SOB, Other (See Below) Other Respiratory History: not on CPAP Gastrointestinal History: Reports: None Genitourinary History: Reports: None 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: Musculoskeletal History: Reports: None Neurological History: Reports: None Psychiatric History: Reports: Anxiety, Depression, PTSD Endocrine/Metabolic History: Reports: None Hematologic History: Reports: None Immunologic History: Reports: None Oncologic (Cancer) History: Reports: None Dermatologic History: Reports: None - Infectious Disease History Infectious Disease History: Reports: Chicken Pox, Measles, Mumps - Past Surgical History Head Surgeries/Procedures: Reports: None HEENT Surgical History: Reports: Adenoidectomy, Tonsillectomy Cardiovascular Surgical History: Reports: None Respiratory Surgical History: Reports: None GI Surgical History: Reports: Appendectomy, Cholecystectomy, Colostomy, Hernia, Abdominal, Other (See Below) Other GI Surgeries/Procedures: prior colostomy and ileostomy Female Surgical History: Reports: Hysterectomy, Salpingo-Oophorectomy Musculoskeletal Surgical History: Reports: Other (See Below) Other Musculoskeletal Surgeries/Procedures:: right thumb surgery Social & Family History - Family History Family Medical History: No Pertinent Family History - Tobacco Use Tobacco Use Status *Q: Current Every Day Tobacco User - Caffeine Use Caffeine Use: Reports: None ED ROS GENERAL - Review of Systems Review Of Systems: See Below Constitutional: Reports: Malaise, Weakness, Fatigue HEENT: Reports: No Symptoms Respiratory: Reports: Shortness of Breath (Chronic, unchanged, uses 2 L nasal cannula at baseline) Cardiovascular: Reports: No Symptoms GI/Abdominal: Reports: Abdominal Pain Musculoskeletal: Reports: Back Pain (Chronic, unchanged) ED EXAM, GENERAL - Physical Exam Exam: See Below General Appearance: Alert, Other (Pale, uncomfortable, appears chronically ill) Throat/Mouth: Other (Dry mucous membranes) Head: Atraumatic, Normocephalic Neck: Normal Inspection, Supple Respiratory/Chest: No Respiratory Distress, No Accessory Muscle Use Cardiovascular: Tachycardia GI/Abdominal: Soft, Other (Open wound over abdomen with visible ileostomy. No pallor. Good coloration. No purulent discharge. Some liquid stool visible in the bag. Abdomen soft but mildly diffusely tender in the abdomen. No rigidity.) (Female) Exam: Deferred Rectal (Female) Exam: Deferred Back Exam: Full Range of Motion Extremities: Normal Inspection Neurological: Alert, Oriented, Normal Cognition Psychiatric: Normal Affect, Normal Mood Skin Exam: Warm, Dry, Other (Pale) #1 Interpretation EKG Date: 04/18/21 Time: 11:09 Rhythm: NSR Rate (Beats/Min): 100 [place]: RAD-Right [place] Deviation P-Wave: Present QRS: Normal ST-T: Normal QT: Normal Course - Vital Signs Text/Narrative:: Patient pale, tachycardic, hypotensive on arrival here. Recent blood cultures from yesterday came back positive for gram-positive cocci. Patient with open abdominal wound with ileostomy. On TPN. Multiple possible sources of infection. Will cover with Zosyn and vancomycin. Sepsis order set utilized. Hypotensive on arrival here. Will be given IV fluids. Hypoxic on arrival here, however the patient has a baseline 2 L O2 dependency and oxygen was readministered as she arrived via EMS without oxygen administration. She is not having any dyspnea currently and chest x-ray was performed during her ED visit yesterday evening and was normal. Therefore will not be repeated at this time. As the patient currently has TPN and we are unable to run TPN in this hospital per discussion with the hospitalist, the patient will require transfer to the nearest available facility. Last Recorded V/S: Last Vital Signs Temp 99.8 F 04/18/21 16:12 Pulse 66 04/18/21 18:16 Resp 20 04/18/21 18:16 BP 80/41 L 04/18/21 18:16 Pulse Ox 2 L 04/18/21 18:16 - Orders/Labs/Meds Orders: Active Orders 24 hr Category Date Time Status Saline Lock Insert [OM.PC] Stat Oth 04/18/21 13:11 Ordered Saline Lock Insert [OM.PC] Stat Oth 04/18/21 14:51 Ordered Labs: Laboratory Tests 04/18/21 04/18/21 04/18/21 Range/Units 11:24 11:24 11:30 WBC 6.40 (4.0-11.0) K/uL RBC 3.40 L (4.30-5.90) M/uL Hgb 10.7 L (12.0-16.0) g/dL Hct 31.4 L (36.0-46.0) % MCV 92.4 (80.0-98.0) fL MCH 31.5 (27.0-32.0) pg MCHC 34.1 (31.0-37.0) g/dL RDW Std Deviation 44.0 (28.0-62.0) fl RDW Coeff of Thiago 13 (11.0-15.0) % Plt Count 103 L (150-400) K/uL MPV 10.10 (7.40-12.00) fL Neut % (Auto) 69.8 (48.0-80.0) % Lymph % (Auto) 15.0 L (16.0-40.0) % [place] % (Auto) 14.8 (0.0-15.0) % Eos % (Auto) 0.2 (0.0-7.0) % Baso % (Auto) 0.2 (0.0-1.5) % Neut # (Auto) 4.5 (1.4-5.7) K/uL Lymph # (Auto) 1.0 (0.6-2.4) K/uL [place] # (Auto) 1.0 H (0.0-0.8) K/uL Eos # (Auto) 0.0 (0.0-0.7) K/uL Baso # (Auto) 0.0 (0.0-0.1) K/uL Nucleated RBC % 0.0 /100WBC Nucleated RBCs # 0 K/uL Sodium 128 L (136-145) mmol/L Potassium 4.6 (3.5-5.1) mmol/L Chloride 97 L (98-107) mmol/L Carbon Dioxide 24.9 (21.0-32.0) mmol/L BUN 41 H (7.0-18.0) mg/dL Creatinine 0.9 (0.6-1.0) mg/dL Est Cr Clr Drug Dosing 67.07 mL/min Estimated GFR (MDRD) > 60.0 ml/min Glucose 101 (74-106) mg/dL Lactic Acid 1.3 (0.4-2.0) mmol/L Calcium 7.5 L (8.5-10.1) mg/dL Total Bilirubin 0.6 (0.2-1.0) mg/dL AST 70 H (15-37) IU/L ALT 169 H (14-63) IU/L Alkaline Phosphatase 313 H (46-116) U/L Total Protein 6.0 L (6.4-8.2) g/dL Albumin 2.2 L (3.4-5.0) g/dL Globulin 3.8 (2.6-4.0) g/dL Albumin/Globulin Ratio 0.6 L (0.9-1.6) Urine Color Urine Appearance Urine pH (5.0-8.0) Ur Specific [place] (1.001-1.035) Urine Protein (NEGATIVE) mg/dL Urine Glucose (UA) (NEGATIVE) mg/dL Urine Ketones (NEGATIVE) mg/dL Urine Occult Blood (NEGATIVE) Urine Nitrite (NEGATIVE) Urine Bilirubin (NEGATIVE) Urine Urobilinogen (<2.0) EU/dL Ur Leukocyte Esterase (NEGATIVE) Urine RBC (0-2/HPF) Urine WBC (0-5/HPF) Ur Squamous Epith Cells Urine Bacteria (NEGATIVE) Urine Mucus (NONE-MOD) 04/18/21 Range/Units 13:02 WBC (4.0-11.0) K/uL RBC (4.30-5.90) M/uL Hgb (12.0-16.0) g/dL Hct (36.0-46.0) % MCV (80.0-98.0) fL MCH (27.0-32.0) pg MCHC (31.0-37.0) g/dL RDW Std Deviation (28.0-62.0) fl RDW Coeff of [place] (11.0-15.0) % Plt Count (150-400) K/uL MPV (7.40-12.00) fL Neut % (Auto) (48.0-80.0) % Lymph % (Auto) (16.0-40.0) % [place] % (Auto) (0.0-15.0) % Eos % (Auto) (0.0-7.0) % Baso % (Auto) (0.0-1.5) % Neut # (Auto) (1.4-5.7) K/uL Lymph # (Auto) (0.6-2.4) K/uL [place] # (Auto) (0.0-0.8) K/uL Eos # (Auto) (0.0-0.7) K/uL Baso # (Auto) (0.0-0.1) K/uL Nucleated RBC % /100WBC Nucleated RBCs # K/uL Sodium (136-145) mmol/L Potassium (3.5-5.1) mmol/L Chloride (98-107) mmol/L Carbon Dioxide (21.0-32.0) mmol/L BUN (7.0-18.0) mg/dL Creatinine (0.6-1.0) mg/dL Est Cr Clr Drug Dosing mL/min Estimated GFR (MDRD) ml/min Glucose (74-106) mg/dL Lactic Acid (0.4-2.0) mmol/L Calcium (8.5-10.1) mg/dL Total Bilirubin (0.2-1.0) mg/dL AST (15-37) IU/L ALT (14-63) IU/L Alkaline Phosphatase (46-116) U/L Total Protein (6.4-8.2) g/dL Albumin (3.4-5.0) g/dL Globulin (2.6-4.0) g/dL Albumin/Globulin Ratio (0.9-1.6) Urine Color YELLOW Urine Appearance SLT CLOUDY Urine pH 6.0 (5.0-8.0) Ur Specific [place] 1.010 (1.001-1.035) Urine Protein NEGATIVE (NEGATIVE) mg/dL Urine Glucose (UA) NEGATIVE (NEGATIVE) mg/dL Urine Ketones NEGATIVE (NEGATIVE) mg/dL Urine Occult Blood TRACE-INTACT H (NEGATIVE) Urine Nitrite NEGATIVE (NEGATIVE) Urine Bilirubin NEGATIVE (NEGATIVE) Urine Urobilinogen 0.2 (<2.0) EU/dL Ur Leukocyte Esterase SMALL H (NEGATIVE) Urine RBC 0-2 (0-2/HPF) Urine WBC 4-8 (0-5/HPF) Ur Squamous Epith Cells FEW Urine Bacteria FEW (NEGATIVE) Urine Mucus LIGHT (NONE-MOD) Meds: Medications Discontinued Medications Generic Name Dose Route Start Last Admin Trade Name Freq PRN Reason Stop Dose Admin Acetaminophen 1,000 mg 04/18/21 15:08 04/18/21 15:13 Acetaminophen 500 Mg Tab PO 04/18/21 15:09 Not Given ONETIME ONE Fentanyl Confirm 04/18/21 18:24 Fentanyl 50 Mcg/Ml Sdv Administered 04/18/21 18:25 Dose 50 mcg .ROUTE .STK-MED ONE Hydromorphone HCl 0.25 mg 04/18/21 11:57 04/18/21 12:08 Hydromorphone 2 Mg/Ml Syringe IVPUSH 04/18/21 11:58 0.25 mg ONETIME ONE Administration Hydromorphone HCl 0.5 mg 04/18/21 14:51 04/18/21 15:05 Hydromorphone 1 Mg/Ml Syringe IVPUSH 04/18/21 14:52 0.5 mg ONETIME ONE Administration Piperacillin Sod/Tazobactam 100 mls @ 100 mls/hr 04/18/21 10:48 04/18/21 11:48 Sod 4.5 gm/ Sodium Chloride IV 04/18/21 11:47 100 mls/hr STAT ONE Administration Sodium Chloride 1,000 mls @ 999 mls/hr 04/18/21 10:48 04/18/21 11:00 Normal Saline IV 04/18/21 11:48 999 mls/hr BOLUS ONE Administration Protocol Vancomycin HCl 1 gm/ Sodium 250 mls @ 250 mls/hr 04/18/21 11:30 04/18/21 12:09 Chloride IV 04/18/21 12:29 250 mls/hr ONETIME ONE Administration Sodium Chloride 500 mls @ 999 mls/hr 04/18/21 16:00 04/18/21 16:45 Normal Saline IV 999 mls/hr .BOLUS EDWIN Administration Norepinephrine Bitartrate Confirm 04/18/21 18:03 Norepinephr-0.9% Nacl 4 Mg/250 Administered 04/18/21 18:04 Dose 4 mg in 250 mls @ as directed IV .STK-MED ONE Ibuprofen 800 mg 04/18/21 15:07 04/18/21 15:13 Ibuprofen 800 Mg Tab PO 04/18/21 15:08 Not Given ONETIME ONE Ibuprofen 600 mg 04/18/21 15:08 04/18/21 15:12 Ibuprofen 600 Mg Tab PO 04/18/21 15:09 600 mg ONETIME ONE Administration Iopamidol 100 ml 04/18/21 21:31 04/18/21 21:32 Iopamidol 755 Mg/Ml 100 Ml Bottle IVPUSH 04/18/21 21:32 100 ml ONETIME ONE Administration Ondansetron HCl 4 mg 04/18/21 14:51 04/18/21 15:05 Ondansetron 4 Mg/2 Ml Sdv IVPUSH 04/18/21 14:52 4 mg ONETIME ONE Administration Sodium Chloride 10 ml 04/18/21 10:48 04/18/21 11:00 Sodium Chloride 0.9% 10 Ml Syringe FLUSH 10 ml ASDIRECTED PRN Administration Keep Vein Open Sodium Chloride 2.5 ml 04/18/21 10:48 04/18/21 11:00 Sodium Chloride 0.9% 2.5 Ml Syringe FLUSH 2.5 ml ASDIRECTED PRN Administration Keep Vein Open Sodium Chloride 10 ml 04/18/21 13:11 Sodium Chloride 0.9% 10 Ml Syringe FLUSH ASDIRECTED PRN Keep Vein Open Sodium Chloride 2.5 ml 04/18/21 13:11 Sodium Chloride 0.9% 2.5 Ml Syringe FLUSH ASDIRECTED PRN Keep Vein Open Sodium Chloride 10 ml 04/18/21 14:51 Sodium Chloride 0.9% 10 Ml Syringe FLUSH ASDIRECTED PRN Keep Vein Open Sodium Chloride 2.5 ml 04/18/21 14:51 Sodium Chloride 0.9% 2.5 Ml Syringe FLUSH ASDIRECTED PRN Keep Vein Open - Re-Assessments/Exams Free Text/Narrative Re-Assessment/Exam: 04/18/21 11:58 The patient is reporting ongoing pain. Her blood pressure is now improved to the point that she can receive IV pain medications. Dilaudid will be given. Discussed need for transfer with the patient and the discussion with the h ospitalist. The patient reports that she had previously been hospitalized at [place], however it was at a long-term acute care facility/rehab and not a hospital with acute admission facilities. Discussed with the patient that her level of care required especially for her current sepsis which may be related to the PICC line is above the level of an acute care facility and she will need an actual hospital. 04/18/21 14:50 Patient is feeling nauseated and pain again. Requesting cold glass of water. Will defer water while CT is still pending but will order Zofran and pain medications. Free Text/Narrative Re-Assessment/Exam: 04/18/21 12:06 Long discussion with the patient and her at the bedside in terms of the recommendations made by her primary care physician, Dr. Lambert for transfer to [facility] for hospitalization, as he confirmed that the hospital that she was previously at in [place] is at a long-term acute care facility and not in acute hospital. They are unable to admit the patient there for this current high level of care that she requires. I discussed this at length with them and recommendation for transfer to the nearest appropriate facility which is [facility], and also is where she had her surgery, and where her records are. They agree to this. 04/18/21 15:12 Patient developed a fever. She requested ibuprofen. Tylenol and ibuprofen were ordered, however the patient reports she has been told in the past she should not have Tylenol, therefore Tylenol was canceled. Awaiting CT scan results. 04/18/21 15:34 I reassessed the patient and she reports she is feeling much better. The nausea is improved. Updated the patient and her spouse at the bedside. Her brought in the Intralipid that she is supposed to start after completion of her IV TPN at [address] scan is still pending 04/18/21 15:[address] Grady at [facility], ER physician for transfer acceptance. He accepts the patient for transfer. 04/18/21 17:13 Reassessed the patient. Discussed CT results and pending transfer/ETA of EMS for transfer with the patient. She is in no acute distress but is reporting that she is in pain and would like additional pain medications. Her repeat blood pressure is listed on the auto blood pressure cuff as in the 60s, however patient is speaking clearly with an fully preserved and intact mental status and therefore unlikely. Manual blood pressure will be checked and additional IV fluid bolus will be given. 04/19/21 11:52 Additional chart completion and reevaluations are being completed after patient transfer due to prolonged downtime and inability to access [place] for EMR documentation during patient's ED stay. All reevaluations occurred April 18, 2021 5:25 PM: Blood pressure is still low although in the 70s systolic on manual blood pressure check. I reassessed the patient and discussed recommendation for flight transfer due to low/worsening blood pressure, prolonged delay in EMS transfer, transfer still pending and ACLS team not due for 1.5 more hours. The patient agrees to air/helicopter transfer. The patient is alert, sitting up in bed and speaking clearly. She did request assistance with emptying her abdominal wall wound/ostomy bag. I assisted her as well as the patient's nurse and the patient was able to stand, bear weight and ambulate across the room to the commode without becoming dizzy, weak or any other symptoms of the low blood pressure. 5:46 PM: I discussed the case with the [facility] [address] Sandoval, the ER physician on now at [facility] in terms of the patient's change of status, ongoing low blood pressures and now will be transferred via air ambulance/helicopter. He agrees with this plan. We discussed plan for starting pressors. He requested to start phenylephrine. We also discussed PICC line and plan to culture and pull the PICC line versus leave PICC line in for transfer. At this point he requests that we leave the PICC line in for transfer so the patient has continued central venous access and they will pull and culture it when she arrives at [facility] and obtain alternate access. 6:00 PM: Due to ongoing computer downtime there is a delay to obtain phenylephrine in the emergency department here today and the flight team is here and ready to depart with the patient. Levophed is able to be overridden and pulled directly from the [facility] and therefore will start this now to prevent further delay in patient's care and any further delay in transfer. 6:06 PM. I reassessed the patient, she is in no acute distress. She reports she is feeling fine and is still alert and speaking clearly. Her blood pressure is now improved to the 80s systolic after Levophed has now just been started. Levophed will be continued. 6:30 PM. Transfer team has loaded the patient and ready to depart. The patient is seated upright and in no distress speaking clearly and alert at time of discharge from this facility. Departure - Departure Time of Disposition: 15:49 Disposition: DC/Tfer to [facility] 02 Clinical Impression: Sepsis, Gram-positive cocci bacteremia, Septic shock - Discharge Information Referrals: Remi Olivas MD [Primary Care Provider] - Forms: ED Department Discharge Critical Care Note - Critical Care Note Total Time (mins): 45 Comments: Patient hypotensive requiring frequent reassessments, due to gram-positive sepsis/septic shock. Required pressors after fluid resuscitation. Sepsis Event Note (ED) - Evaluation Sepsis Screening Result: No Definite Risk Current Stage of Sepsis: Septic Shock Possible Source of Sepsis: CLABSI - Focused Exam Sepsis Event Note Statement: Focused Sepsis Exam Completed Vital Signs: See nursing notes Respiratory Effort Without Exertion: Other (see below) (No respiratory distress.) Heart Sounds: Other (see below) (Mildly tachycardic) Capillary Refill, Detail: Less than/Equal to (</=) 2 Seconds Skin Exam (Focused Sepsis): Normal Turgor Date Exam was Performed: 04/18/21 Time Exam was Performed: 17:25 ED Communication - Discussed Case With (1) Discussed Case With (1): Admitting Provider Person/s Notified (1): Elaina Lee Date: 04/18/21 Time Called: 11:45 - Discussed Case With (2) Person/s Notified (3): Remi Olivas Date: 04/18/21 Time Called: 12:17 - My Orders Last 24 Hours: My Active Orders 04/18/21 13:11 Saline Lock Insert [OM.PC] Stat 04/18/21 14:51 Saline Lock Insert [OM.PC] Stat - Assessment/Plan Last 24 Hours: My Active Orders 04/18/21 13:11 Saline Lock Insert [OM.PC] Stat 04/18/21 14:51 Saline Lock Insert [OM.PC] Stat
[2021-04-18] MEDS ORDERED: HYDROmorphone 2 MG/ML Syringe IVPUSH ONE (11:57)
[2021-04-18 12:18] LABS: BLOOD UREA NITROGEN,BUN 41 mg/dL (7.0-18.0); CARBON DIOXIDE,CO2 24.9 mmol/L (21.0-32.0); CHLORIDE,CL 97 mmol/L (98-107); GLUCOSE RANDOM 101 mg/dL (74-106); POTASSIUM,K 4.6 mmol/L (3.5-5.1); SODIUM,NA 128 mmol/L (136-145)
[2021-04-18] MEDS ORDERED: Ondansetron 4 MG/2 ML SDV IVPUSH ONE (14:51)
[2021-04-18] MEDS ORDERED: HYDROmorphone 1 MG/ML Syringe IVPUSH ONE (14:51)
[2021-04-18] MEDS ORDERED: Ibuprofen 800 MG Tab PO ONE (15:07)
[2021-04-18] MEDS ORDERED: Acetaminophen 500 MG Tab PO ONE (15:08)
[2021-04-18] MEDS ORDERED: Ibuprofen 600 MG Tab PO ONE (15:08)
--- NOTE | 2021-04-18 15:54 | CT ---
INDICATION: Abdominal pain, sepsis. TECHNIQUE: CT of the abdomen and pelvis with 100 cc Isovue 370 IV contrast. Coronal and sagittal reconstructions. COMPARISON: CT of the abdomen and pelvis 03/12/2019. FINDINGS: The liver, pancreas, and adrenal glands are negative. The spleen is mildly enlarged measuring 14.6 cm in AP dimension. Splenule. Cholecystectomy. No biliary dilation. Hepatic and portal veins are patent. Symmetric enhancement of the kidneys. No hydronephrosis. No obstructing urinary calculi. Mild diffuse bladder wall thickening. Hysterectomy. No abnormality in the adnexa. Open midline anterior abdominal wound with a small amount of protruding fat and nondistended small bowel loops. Resolution of previously seen colonic inflammatory changes. There is contrast present within the colon. Interval postoperative changes of right hemicolectomy with anastomosis in the mid transverse colon. There is a single mildly prominent fluid-filled loop of small bowel in the left pelvis (series 201, image 118). No evidence of small bowel obstruction. Possible small cluster of extraluminal gas locules in the right lower quadrant (series 201, image 120). This could be postoperative in nature. No generalized free air. No significant free fluid. Aortoiliac vascular calcifications. Multiple stable mildly prominent periaortic lymph nodes. No new lymphadenopathy. Multiple surgical clips in the left lower quadrant and left pelvis. The bones are unremarkable. The lung bases are clear. IMPRESSION: 1. Interval postoperative changes of right hemicolectomy. Small cluster of extraluminal gas locules in the right lower quadrant is likely postoperative in nature. No generalized free air. 2. Single mildly prominent fluid-filled loop of small bowel in the left pelvis. No evidence of bowel obstruction. 3. Open midline anterior abdominal wound with a small amount of protruding fat in nondistended small bowel loops. 4. Mild splenomegaly. 5. Mild diffuse bladder wall thickening. Correlate with urinalysis. Please note that all CT scans at this facility use dose modulation, iterative reconstruction, and/or weight-based dosing when appropriate to reduce radiation dose to as low as reasonably achievable. Dictated by Milla Roper MD @ 04/18/2021 3:52:[address] Milla Roper @ Apr 18 2021 3:52PM
[2021-04-18] MEDS ORDERED: Sodium Chloride 0.9% 500 ML IV SCH (16:00)
[2021-04-18] MEDS ORDERED: fentaNYL 50 MCG/ML SDV ONE (18:24)
[2021-04-18 19:30] VITALS: BP 80/41; PULSE 66
[2021-04-18] MEDS ORDERED: Iopamidol 755 Mg/ML 100 ML Bottle IVPUSH ONE (21:31)
== END 2021-04-18 18:30 ==
LOC: MW.ED 10:45
DX: A41.9 Sepsis, unspecified organism (principal); R65.21 Severe sepsis with septic shock; B96.89 Other specified bacterial agents as the cause of diseases classified elsewhere; J44.9 Chronic obstructive pulmonary disease, unspecified; Z72.0 Tobacco use; Z88.5 Allergy status to narcotic agent; Z88.2 Allergy status to sulfonamides; Z88.8 Allergy status to other drugs, medicaments and biological substances; Z79.899 Other long term (current) drug therapy
CPT/HCPCS: 36415; 74177; 80053; 81001; 83605; 85025; 87040; 93005; 96365; 96366; 96368; 96375; 96376; 99285; A9270; J1170; J2405; J2543; J3010; J3370; J7030; J7040; J7050; Q9967; 87077; 87186; 99284

== ENCOUNTER 2021-06-08 06:01 | Emergency (ER) | payer BC ==
[2021-06-08] MEDS ORDERED: Lactated Ringers 1,000 ML IV ONE (06:08)
[2021-06-08] MEDS ORDERED: VANCOmycin 2 GM/400 ML 2 GM in Premix Bag 1 BAG IV ONE (06:11)
[2021-06-08] MEDS ORDERED: Cefepime 2 GM in Premix Bag 1 BAG IV ONE (06:11)
[2021-06-08] MEDS ORDERED: Albuterol/Ipratropium 3.0-0.5 MG/3 ML Neb Soln NEB ONE (06:24)
--- NOTE | 2021-06-08 06:42 | EDM.PDOC ---
<Quintin Nickerson - Last Filed: 06/08/21 07:45> ED HPI GENERAL MEDICAL PROBLEM - General Chief Complaint: Respiratory Problem Stated Complaint: FASS Time Seen by Provider: 06/08/21 06:07 - History of Present Illness INITIAL COMMENTS - FREE TEXT/NARRATIVE: CHIEF COMPLAINT(S): Respiratory distress HISTORY OF PRESENT ILLNESS: This is a 55-year-old woman with a past medical history of colorectal cancer status post resection with colostomy who is on TPN who presents to the emergency department as a medical resuscitation via EMS with a chief complaint of respiratory distress. Per EMS: The called because the patient was altered, appeared short of breath and apparently fell off the bedroom this morning. Otherwise history is limited. The patient is alert and oriented x4. She states that her whole body hurts. She denies any shortness of breath. She states that she does not want this to continue. She denies any specific complaints but she states that she did not fall of the bed she was getting up to use the restroom and she slid down. She denies any head injury or loss of consciousness. REVIEW OF SYSTEMS: Constitutional: Denies fever, chills. Eyes: Positive for eye pain Ears, Nose, Mouth, & Throat: Positive for earache, sore throat, Cardiovascular: Positive for chest pain Respiratory: Positive for shortness of breath Gastrointestinal: Positive for abdominal pain denies Nausea, vomiting, diarrhea, hematochezia. Genitourinary: Denies hematuria Skin:Denies a rash MSK: Positive for total body pain Neurological: Denies blurred vision Psychiatric: Denies depression PAST MEDICAL HISTORY: As per history of present illness and as reviewed below otherwise noncontributory. SURGICAL HISTORY: As per history of present illness and as reviewed below otherwise noncontributory. SOCIAL HISTORY: As per history of present illness and as reviewed below otherwise noncontributory. FAMILY HISTORY: As per history of present illness and as reviewed below otherwise noncontributory. EXAMINATION OF ORGAN SYSTEMS/BODY AREAS: VITALS: Heart rate 125, respiratory rate 24 with an oxygen saturation of 100% via [id number]. Blood pressure was 79/33 GENERAL: Middle-aged woman who appears pale and struggling to breathe.. HEAD: Normocephalic, atraumatic. EYES: EOMs intact. PERRL. ENT. External ears WNL. Nares patent. Oropharynx is clear with no erythema or exudate. No uvular or tongue swelling. Mouth is severely dry. No stridor, no drooling, no trismus NECK: Supple, no masses. Trachea is midline. LUNGS: The patient is tachypneic with agonal he breathing. There is minimal breath sounds bilaterally with minimal expiratory wheezing. No crackles or rales. Patient is speaking in 1-2 word sentences CARDIOVASCULAR: Tachycardic but regular. No murmurs, rubs, gallops no edema. No JVD. ABDOMEN: Soft, non-distended, non-tender. Bowel sounds present in all 4 quadrants. No rebound tenderness, guarding, or peritoneal signs. There is a colostomy bag with intestine that is appearing to be well perfused MUSCULOSKELETAL: No deformity. Patient is moving all 4 limbs spontaneously. NEUROLOGICAL: Alert and oriented x 3. No focal neurological deficits noted. SKIN: No rashes, or pallor. No signs of injury. Skin is pale MEDICAL DECISION MAKING AND COURSE IN THE ED WITH INTERPRETATION/REVIEW OF DIAGNOSTIC STUDIES: This is a 55-year-old woman with a past medical history of colorectal cancer status post resection with colostomy who is on TPN who presents to the emergency department as a medical resuscitation via EMS with a chief complaint of respiratory distress. Immediately upon entering the resuscitation room the patient was disrobed, placed on continuous cardiac monitoring, and IV access was established by nursing. Patient is able to speak thus displaying a patent airway, breath sounds are equal bilaterally but diminished with prolonged expiratory phase and expiratory wheezing, and patient did not have any radial or DP pulses but central pulses could be palpated and were strong. The patient is alert and oriented x4 but was tachypneic. While attempting to get IV access and a blood pressure I did order a DuoNeb treatment given her history of COPD. We did obtain an EKG which did not reveal any acute signs of ischemia. We placed the patient on valve inspector and pulse oximetry. We did transition the patient to 15 L nonrebreather to do the DuoNeb treatment and pulse oximetry with good waveform was approximately 100% at this time. We did obtain a blood pressure which was a MAP less than 65. At this time given the hypoxia the tachycardia and use of TPN differential does include sepsis. At this time we will provide the patient with 30 cc/kg bolus and obtain a septic work-up. We did obtain blood cultures prior to administration of cefepime and vancomycin. After initiating fluid bolus we did obtain IV access in the right arm and blood pressure had increased with a MAP greater than 65. The patient was mentating better and was no longer cyanotic and appeared to be speaking in longer sentences. I did confirm patient's CODE STATUS which is full code. Given that she has a history of colorectal cancer we will obtain a CT angiogram of the chest to evaluate for pulmonary embolism. In addition we will obtain CT abdomen pelvis to evaluate for other causes of sepsis. Laboratory: CBC reveals a normocytic anemia with a hemoglobin of 8.6 hematocrit of 26.7 with thrombocytopenia at 24. INR is 1.1. CMP reveals hyponatremia at 132, hypochloremia at 96, elevated BUN at 33 and a creatinine of 1.3. Hyperglycemia at 124, hypocalcemia at 8.0, hypermagnesemia 2.6 and elevated bilirubin at 1.5. Hypoalbuminemia at 2.2. Lactic acidosis of 4.3 and an elevated troponin of 0.61. AB.42/51/201/33 The radiological images were viewed by myself along with reading the report from the radiologist. Chest x-ray reveals mildly increased interstitial markings likely representing pulmonary edema versus multifocal infiltrates Tissue Perfusion Exam On reevaluation capillary refill was less than 2 seconds, skin color was pink, blood pressure was 108/58 and patient was now satting 93% on 3 L nasal cannula. Patient was signed out to [facility] day team physician pending final disposition. DISPOSITION: Patient was signed out to [facility] day team physician pending imaging and final disposition CONDITION: Serious PROCEDURES: Cardiac monitoring interpretation, pulse oximetry interpretation FINAL IMPRESSION(S)/DIAGNOSES: 1. Acute hypoxic respiratory failure requiring supplemental oxygenation likely secondary to COPD exacerbation versus atypical pneumonia versus pleural edema 2. Acute tachycardia 3. Acute lactic acidosis likely secondary to #1 4. Acute elevated troponin likely secondary to demand ischemia secondary to #1 Critical Care Procedure Note Authorized and performed by: Quintin Nickerson M.D. Critical Care Time: 62 minutes Due to a high probability of clinically significant, life threatening deterioration, the patient required my highest level of preparedness to intervene emergently and I personally spent this critical care time directly and personally managing the patient. This critical care time included obtaining a history, examining the patient, pulse oximetry; ordering and review of studies; arranging urgent treatment with development of a management plan; evaluation of a patients reponse to treatment; frequent assessment; and discussions with other providers. This critical care time was performed to assess and manage the high probability of imminent, life threatening deterioration that could result in multiorgan failure. It was exclusive of separate billable procedures and treating other patients. Please see MDM section and rest of the note for further information on patient assessment and treatment. Please see MDM section and rest of the note for further information on patient assessment and treatment. - Related Data Allergies Allergy/AdvReac Type Severity Reaction Status Date / Time codeine Allergy Hives Verified 06/08/21 06:05 pseudoephedrine Allergy palpitation Verified 06/08/21 06:05 s Sulfa (Sulfonamide Allergy unknown Verified 06/08/21 06:05 Antibiotics) Home Meds: Home Meds ClonazePAM [KlonoPIN] 1 mg PO TID PRN 04/23/18 [History] Umeclidinium Brm/Vilanterol Tr [Anoro Ellipta 62.5-25 MCG] 1 puff IH DAILY 06/20/20 [History] Levothyroxine 50 mcg PO ACBREAKFAST 09/18/20 [History] Amitriptyline [Elavil] 50 mg PO BEDTIME 12/22/20 [History] Blood Sugar Diagnostic [Glucose Test Strip] 1 each MC Q6H #1 box 04/06/21 [Rx] Calcium Carbonate [Tums] 1,000 mg PO Q6H 04/06/21 [History] HYDROmorphone [Dilaudid] 2 mg PO Q4H PRN 04/06/21 [History] Lancets 1 each MC Q6H #1 box 04/06/21 [Rx] Loperamide [Imodium] 4 mg PO Q6H PRN 04/06/21 [History] Loratadine 10 mg PO DAILY 04/06/21 [History] Mirtazapine 15 mg PO BEDTIME 04/06/21 [History] Sucralfate 1 gm PO QID 04/06/21 [History] fentaNYL [Duragesic] 25 mcg TD Q72H 04/06/21 [History] Past Medical History HEENT History: Reports: None Cardiovascular History: Reports: Blood Clots/VTE/DVT, Other (See Below) Other Cardiovascular History: on Eliquis in multiple places (?) Respiratory History: Reports: COPD, SOB, Other (See Below) Other Respiratory History: not on CPAP Gastrointestinal History: Reports: None Genitourinary History: Reports: None [employer] History: Reports: Musculoskeletal History: Reports: None Neurological History: Reports: None Psychiatric History: Reports: Anxiety, Depression, PTSD Endocrine/Metabolic History: Reports: None Hematologic History: Reports: None Immunologic History: Reports: None Oncologic (Cancer) History: Reports: Colon Dermatologic History: Reports: None - Infectious Disease History Infectious Disease History: Reports: Chicken Pox, Measles, Mumps - Past Surgical History Head Surgeries/Procedures: Reports: None HEENT Surgical History: Reports: Adenoidectomy, Tonsillectomy Cardiovascular Surgical History: Reports: None Respiratory Surgical History: Reports: None GI Surgical History: Reports: Appendectomy, Cholecystectomy, Colostomy, Hernia, Abdominal, Other (See Below) Other GI Surgeries/Procedures: prior colostomy and ileostomy Female Surgical History: Reports: Hysterectomy, Salpingo-Oophorectomy Musculoskeletal Surgical History: Reports: Other (See Below) Other Musculoskeletal Surgeries/Procedures:: right thumb surgery Social & Family History - Family History Family Medical History: No Pertinent Family History - Tobacco Use Tobacco Use Status *Q: Never Tobacco User - Caffeine Use Caffeine Use: Reports: None - Recreational Drug Use Recreational Drug Use: No ED ROS GENERAL - Review of Systems Review Of Systems: See Below ED EXAM, GENERAL - Physical Exam Exam: See Below Departure - Departure Disposition: DC/Tfer to Acute Hospital 02 Clinical Impression: Respiratory failure, Sepsis, Non-STEMI (non-ST elevated myocardial infarction) - Discharge Information Referrals: PCP,None [Primary Care Provider] - Forms: ED Department Discharge Sepsis Event Note (ED) - Evaluation Sepsis Screening Result: No Definite Risk <Drake Barbosa - Last Filed: 06/08/21 09:40> ED RESPIRATORY PROCEDURES - Endotracheal Intubation Time of Intubation: 08:45 ET Intubation Indication: Respiratory Failure, Airway Protection Preparation: Suction, BVM Set Up, Difficult Airway Equip Airway Assessment: Obese Pre-Oxygenation: Assisted with BVM Anesthesia Meds: Etomidate, Rocuronium Placement: Orotracheal Cords Visualized: Yes ETT Size In mm: 7.0 Number of Attempts: 2 (Direct visualization with the kaleidoscope revealed that the 7 and half tube initially attempted was too large. 1 attempt was necessary with the 7.0.) Confirmed By: CO2 Indicator, Bilateral Breath Sounds, Chest Xray Tube Secured By: By RT Course - Vital Signs Text/Narrative:: I am dictating an 936 when the computer came back up. These are the events that have happened since [address] was ordered to rule out pulmonary embolus and the patient was improving had 7 AM. This computer went down and will be unable to have the CT read so Lovenox was given as prophylaxis. Troponin I was reported as 0.061. This indicates myocardial damage during the hypoxic episode. The patient began to get more somnolent. She had slower respiratory rate with increased effort. She was arousable to noxious stimuli. I called [facility] where they can take care of a person who has had myocardial damage and take care of a person who needs to be ventilated. The patient had clearly told me that if she stopped breathing she wants to be ventilated with an endotracheal tube. The was reluctant but understood that her wishes needed to be honored and agreed. I intubated the patient see separate procedure note. The patient was accepted by Dr. Sandoval at [facility] for admission and further evaluation. They will perform the CT angio of there and have cardiology consultation. Due to a high probability of clinically significant, life threatening deterioration, the patient required my highest level of preparedness to intervene emergently and I personally spent this critical care time directly and personally managing the patient. This critical care time included obtaining a history; examining the patient; pulse oximetry; ordering and review of studies; arranging urgent treatment with development of a management plan; evaluation of patient's response to treatment; frequent reassessment; and, discussions with other providers. This critical care time was performed to assess and manage the high probability of imminent, life-threatening deterioration that could result in multi-organ failure. It was exclusive of separately billable procedures and treating other patients and teaching time. Critical care time 52 minutes separate from the procedure and things that are separate billable. After patient was sedated for intubation she dropped her pressure transiently but before she needed pressors it came back up. She began to wake up. Additional medications were needed to keep her sedated. The helicopter is coming to get the patient and take her to [facility] and arrival as expected at 9:50 AM. Last Recorded V/S: Last Vital Signs Temp 36.5 C 06/08/21 06:21 Pulse 117 H 06/08/21 07:00 Resp 22 H 06/08/21 07:00 BP 108/58 L 06/08/21 07:00 Pulse Ox 93 L 06/08/21 07:00 - Orders/Labs/Meds Orders: Active Orders 24 hr Category Date Time Status EKG Documentation Completion [RC] STAT Care 06/08/21 06:09 Active Abdomen Pelvis w Cont [CT] Stat Exams 06/08/21 06:15 Ordered Ang Chest [CT] Stat Exams 06/08/21 06:15 Ordered CULTURE BLOOD [BC] Stat Lab 06/08/21 06:22 Results CULTURE BLOOD [BC] Stat Lab 06/08/21 06:29 Received REFLEX LACTIC ACID YES OR NO [CHEM] Routine Lab 06/08/21 07:07 Received Lactated Ringers [Ringers, Lactated] 1,000 ml Med 06/08/21 06:45 Active IV ASDIRECTED Blood Culture x2 Reflex Set [OM.PC] Stat Oth 06/08/21 06:08 Ordered Medication Orders Lactated Ringer's (Ringers, Lactated) 1,000 mls @ 125 mls/hr IV ASDIRECTED EDWIN Labs: Laboratory Tests 06/08/21 06/08/21 06/08/21 Range/Units 06:23 06:29 06:29 WBC 6.26 (4.0-11.0) K/uL RBC 2.91 L (4.30-5.90) M/uL Hgb 8.6 L (12.0-16.0) g/dL Hct 26.7 L (36.0-46.0) % MCV 91.8 (80.0-98.0) fL MCH 29.6 (27.0-32.0) pg MCHC 32.2 (31.0-37.0) g/dL RDW Std Deviation 54.2 (28.0-62.0) fl RDW Coeff of Thiago 16 H (11.0-15.0) % Plt Count 24 L (150-400) K/uL Neut % (Auto) 89.8 H (48.0-80.0) % Lymph % (Auto) 3.7 L (16.0-40.0) % [place] % (Auto) 6.5 (0.0-15.0) % Eos % (Auto) 0.0 (0.0-7.0) % Baso % (Auto) 0.0 (0.0-1.5) % Neut # (Auto) 5.6 (1.4-5.7) K/uL Lymph # (Auto) 0.2 L (0.6-2.4) K/uL [place] # (Auto) 0.4 (0.0-0.8) K/uL Eos # (Auto) 0.0 (0.0-0.7) K/uL Baso # (Auto) 0.0 (0.0-0.1) K/uL Nucleated RBC % 0.0 /100WBC Nucleated RBCs # 0 K/uL INR 1.11 ABG pH 7.42 (7.35-7.45) ABG pCO2 51 H (35-45) mmHG ABG pO2 201 H (80-105) mmHG ABG HCO3 33 H (22-26) mEq/L ABG Total CO2 34 H (23-27) mmol/L ABG Base Excess 7.0 H (-2.0-3.0) Sodium (136-145) mmol/L Potassium (3.5-5.1) mmol/L Chloride (98-107) mmol/L Carbon Dioxide (21.0-32.0) mmol/L BUN (7.0-18.0) mg/dL Creatinine (0.6-1.0) mg/dL Est Cr Clr Drug Dosing mL/min Estimated GFR (MDRD) ml/min Glucose (74-106) mg/dL Lactic Acid (0.4-2.0) mmol/L Calcium (8.5-10.1) mg/dL Magnesium (1.8-2.4) mg/dL Total Bilirubin (0.2-1.0) mg/dL AST (15-37) IU/L ALT (14-63) IU/L Alkaline Phosphatase (46-116) U/L Troponin I (0.000-0.056) ng/mL Total Protein (6.4-8.2) g/dL Albumin (3.4-5.0) g/dL Globulin (2.6-4.0) g/dL Albumin/Globulin Ratio (0.9-1.6) Urine Color Urine Appearance Urine pH (5.0-8.0) Ur Specific Mcclure (1.001-1.035) Urine Protein (NEGATIVE) mg/dL Urine Glucose (UA) (NEGATIVE) mg/dL Urine Ketones (NEGATIVE) mg/dL Urine Occult Blood (NEGATIVE) Urine Nitrite (NEGATIVE) Urine Bilirubin (NEGATIVE) Urine Ictotest Urine Urobilinogen (<2.0) EU/dL Ur Leukocyte Esterase (NEGATIVE) U Hyaline Cast (Auto) (0-2/LPF) Urine RBC (0-2/HPF) Urine WBC (0-5/HPF) Ur Epithelial Cells (NONE-FEW) Urine Bacteria (NEGATIVE) Fine Granular Casts (NEGATIVE) Coarse Granular Casts (NEGATIVE) SARS-CoV-2 RNA (HUGH) (NEGATIVE) 06/08/21 06/08/21 06/08/21 Range/Units 06:29 06:29 06:40 WBC (4.0-11.0) K/uL RBC (4.30-5.90) M/uL Hgb (12.0-16.0) g/dL Hct (36.0-46.0) % MCV (80.0-98.0) fL MCH (27.0-32.0) pg MCHC (31.0-37.0) g/dL RDW Std Deviation (28.0-62.0) fl RDW Coeff of Thiago (11.0-15.0) % Plt Count (150-400) K/uL Neut % (Auto) (48.0-80.0) % Lymph % (Auto) (16.0-40.0) % [place] % (Auto) (0.0-15.0) % Eos % (Auto) (0.0-7.0) % Baso % (Auto) (0.0-1.5) % Neut # (Auto) (1.4-5.7) K/uL Lymph # (Auto) (0.6-2.4) K/uL [place] # (Auto) (0.0-0.8) K/uL Eos # (Auto) (0.0-0.7) K/uL Baso # (Auto) (0.0-0.1) K/uL Nucleated RBC % /100WBC Nucleated RBCs # K/uL INR ABG pH (7.35-7.45) ABG pCO2 (35-45) mmHG ABG pO2 (80-105) mmHG ABG HCO3 (22-26) mEq/L ABG Total CO2 (23-27) mmol/L ABG Base Excess (-2.0-3.0) Sodium 132 L (136-145) mmol/L Potassium 3.7 (3.5-5.1) mmol/L Chloride 96 L (98-107) mmol/L Carbon Dioxide 30.8 (21.0-32.0) mmol/L BUN 33 H (7.0-18.0) mg/dL Creatinine 1.3 H (0.6-1.0) mg/dL Est Cr Clr Drug Dosing 48.16 mL/min Estimated GFR (MDRD) 42.2 ml/min Glucose 124 H (74-106) mg/dL Lactic Acid 4.3 H* (0.4-2.0) mmol/L Calcium 8.0 L (8.5-10.1) mg/dL Magnesium 2.7 H (1.8-2.4) mg/dL Total Bilirubin 1.5 H (0.2-1.0) mg/dL AST 34 (15-37) IU/L ALT 31 (14-63) IU/L Alkaline Phosphatase 149 H (46-116) U/L Troponin I 0.061 H* (0.000-0.056) ng/mL Total Protein 6.0 L (6.4-8.2) g/dL Albumin 2.2 L (3.4-5.0) g/dL Globulin 3.8 (2.6-4.0) g/dL Albumin/Globulin Ratio 0.6 L (0.9-1.6) Urine Color Urine Appearance Urine pH (5.0-8.0) Ur Specific [place]cl[place] (1.001-1.035) Urine Protein (NEGATIVE) mg/dL Urine Glucose (UA) (NEGATIVE) mg/dL Urine Ketones (NEGATIVE) mg/dL Urine Occult Blood (NEGATIVE) Urine Nitrite (NEGATIVE) Urine Bilirubin (NEGATIVE) Urine Ictotest Urine Urobilinogen (<2.0) EU/dL Ur Leukocyte Esterase (NEGATIVE) U Hyaline Cast (Auto) (0-2/LPF) Urine RBC (0-2/HPF) Urine WBC (0-5/HPF) Ur Epithelial Cells (NONE-FEW) Urine Bacteria (NEGATIVE) Fine Granular Casts (NEGATIVE) Coarse Granular Casts (NEGATIVE) SARS-CoV-2 RNA (HUGH) NEGATIVE (NEGATIVE) 06/08/21 Range/Units 07:15 WBC (4.0-11.0) K/uL RBC (4.30-5.90) M/uL Hgb (12.0-16.0) g/dL Hct (36.0-46.0) % MCV (80.0-98.0) fL MCH (27.0-32.0) pg MCHC (31.0-37.0) g/dL RDW Std Deviation (28.0-62.0) fl RDW Coeff of Thiago (11.0-15.0) % Plt Count (150-400) K/uL Neut % (Auto) (48.0-80.0) % Lymph % (Auto) (16.0-40.0) % [place] % (Auto) (0.0-15.0) % Eos % (Auto) (0.0-7.0) % Baso % (Auto) (0.0-1.5) % Neut # (Auto) (1.4-5.7) K/uL Lymph # (Auto) (0.6-2.4) K/uL [place] # (Auto) (0.0-0.8) K/uL Eos # (Auto) (0.0-0.7) K/uL Baso # (Auto) (0.0-0.1) K/uL Nucleated RBC % /100WBC Nucleated RBCs # K/uL INR ABG pH (7.35-7.45) ABG pCO2 (35-45) mmHG ABG pO2 (80-105) mmHG ABG HCO3 (22-26) mEq/L ABG Total CO2 (23-27) mmol/L ABG Base Excess (-2.0-3.0) Sodium (136-145) mmol/L Potassium (3.5-5.1) mmol/L Chloride (98-107) mmol/L Carbon Dioxide (21.0-32.0) mmol/L BUN (7.0-18.0) mg/dL Creatinine (0.6-1.0) mg/dL Est Cr Clr Drug Dosing mL/min Estimated GFR (MDRD) ml/min Glucose (74-106) mg/dL Lactic Acid (0.4-2.0) mmol/L Calcium (8.5-10.1) mg/dL Magnesium (1.8-2.4) mg/dL Total Bilirubin (0.2-1.0) mg/dL AST (15-37) IU/L ALT (14-63) IU/L Alkaline Phosphatase (46-116) U/L Troponin I (0.000-0.056) ng/mL Total Protein (6.4-8.2) g/dL Albumin (3.4-5.0) g/dL Globulin (2.6-4.0) g/dL Albumin/Globulin Ratio (0.9-1.6) Urine Color YELLOW Urine Appearance CLEAR Urine pH 5.5 (5.0-8.0) Ur Specific Mcclure 1.025 (1.001-1.035) Urine Protein 100 H (NEGATIVE) mg/dL Urine Glucose (UA) NEGATIVE (NEGATIVE) mg/dL Urine Ketones NEGATIVE (NEGATIVE) mg/dL Urine Occult Blood SMALL H (NEGATIVE) Urine Nitrite NEGATIVE (NEGATIVE) Urine Bilirubin SMALL H (NEGATIVE) Urine Ictotest POSITIVE Urine Urobilinogen 0.2 (<2.0) EU/dL Ur Leukocyte Esterase TRACE H (NEGATIVE) U Hyaline Cast (Auto) 6-10 (0-2/LPF) Urine RBC 0-2 (0-2/HPF) Urine WBC 3-5 (0-5/HPF) Ur Epithelial Cells FEW (NONE-FEW) Urine Bacteria 2+ H (NEGATIVE) Fine Granular Casts 3-5 (NEGATIVE) Coarse Granular Casts 1-3 (NEGATIVE) SARS-CoV-2 RNA (HUGH) (NEGATIVE) Meds: Medications Generic Name Dose Route Start Last Admin Trade Name Freq PRN Reason Stop Dose Admin Lactated Ringer's 1,000 mls @ 125 mls/hr 06/08/21 06:45 Ringers, Lactated IV ASDIRECTED EDWIN Discontinued Medications Generic Name Dose Route Start Last Admin Trade Name Freq PRN Reason Stop Dose Admin Albuterol/Ipratropium 3 ml 06/08/21 06:24 06/08/21 06:24 Albuterol/Ipratropium 3.0-0.5 Mg/3 Ml Neb Soln NEB 06/08/21 06:25 3 ml ONETIME ONE Administration Calcium Gluconate 1 gm 06/08/21 07:39 Calcium Gluconate 10% 1 Gm/10 Ml Sdv IVPUSH 06/08/21 07:40 ONETIME ONE Enoxaparin Sodium 100 mg 06/08/21 07:46 Enoxaparin 100 Mg/1 Ml Syringe SUBCUT 06/08/21 07:47 ONETIME ONE Lactated Ringer's 1,000 mls @ 2,115 mls/hr 06/08/21 06:08 06/08/21 06:24 Ringers, Lactated IV 06/08/21 06:36 2,115 mls/hr .BOLUS ONE Administration Cefepime HCl 2 gm/ Premix 50 mls @ 100 mls/hr 06/08/21 06:11 06/08/21 06:38 IV 06/08/21 06:40 100 mls/hr ONETIME ONE Administration Vancomycin HCl 2 gm/ Premix 400 mls @ 200 mls/hr 06/08/21 06:11 IV 06/08/21 08:10 STAT ONE Propofol Confirm 06/08/21 08:31 Diprivan 100 Ml Administered 06/08/21 08:32 Dose 100 mls @ as directed .ROUTE .STK-MED ONE Departure - Departure Time of Disposition: 09:50 Condition: Serious Sepsis Event Note (ED) - Focused Exam Vital Signs: Vital Signs Temp Pulse Resp BP Pulse Ox 06/08/21 07:00 117 H 22 H 108/58 L 93 L 06/08/21 06:32 120 H 22 H 101/51 L 97 06/08/21 06:21 36.5 C 06/08/21 06:05 125 H 24 H 79/33 L 100
[2021-06-08] MEDS ORDERED: Lactated Ringers 1,000 ML IV SCH (06:45)
--- NOTE | 2021-06-08 06:48 | CR ---
Indication: Hypoxia Comparison: Single view chest April 17, 2021 Technique: Single AP view chest Findings: There is hyperinflation and chronic interstitial change. There are mildly increased interstitial markings likely representing developing pulmonary edema versus multifocal infiltrates. There is no pneumothorax or pleural effusion. Satisfactory position of left-sided PICC line. The cardiac silhouette is mildly prominent. The bony thorax is grossly intact. Impression: Mildly increased interstitial markings likely representing pulmonary edema with multifocal infiltrates. Dictated by Trenton Casanova MD @ 06/08/2021 6:46:[address] Trenton Casanova @ Jun 08 2021 6:46AM
[2021-06-08 07:14] LABS: CARBON DIOXIDE,CO2 30.8 mmol/L (21.0-32.0); POTASSIUM,K 3.7 mmol/L (3.5-5.1)
[2021-06-08] MEDS ORDERED: Calcium Gluconate 10% 1 GM/10 ML SDV IVPUSH ONE (07:39)
--- NOTE | 2021-06-08 07:45 | PCM.EKG ---
#1 Interpretation EKG Date: 06/08/21 Time: 06:32 Rhythm: NSR Rate (Beats/Min): 119 Hibbs: Normal P-Wave: Present QRS: Normal ST-T: Normal QT: Normal Comparison: No Change (04/18/21) EKG Interpretation Comments: Sinus Tachycardia
[2021-06-08] MEDS ORDERED: Enoxaparin 100 MG/1 ML Syringe SUBCUT ONE (07:46)
[2021-06-08] MEDS ORDERED: Propofol 200 MG/20 ML SDV IVPUSH ONE (08:16)
[2021-06-08] MEDS ORDERED: Etomidate 2 MG/ML 20 ML SDV IVPUSH ONE (08:30)
[2021-06-08] MEDS ORDERED: Rocuronium 50 MG/5 ML Vial IVPUSH ONE (08:30)
[2021-06-08] MEDS ORDERED: propofoL 100 ML IV SCH (08:30)
[2021-06-08] MEDS ORDERED: propofoL 100 ML ONE (08:31)
[2021-06-08] MEDS ORDERED: Midazolam 1 MG/ML 2 ML SDV ONE ×2 (09:37→09:52)
[2021-06-08] MEDS ORDERED: Midazolam 1 MG/ML 2 ML SDV IVPUSH ONE ×2 (09:37→09:52)
[2021-06-08] MEDS ORDERED: Rocuronium 100 MG/10 ML Syringe IVPUSH ONE (09:53)
[2021-06-08] MEDS ORDERED: Midazolam 50 MG in Sodium Chloride 0.9% 40 ML IV SCH (10:00)
[2021-06-08] MEDS ORDERED: Acetaminophen 650 MG Supp RECTAL ONE (10:05)
[2021-06-08 20:15] VITALS: BP 102/52; PULSE 117
--- NOTE | 2021-06-11 11:29 | CR ---
Indication: Post intubation Comparison: Single view chest June 08, 2021 Technique: Single AP view chest Findings: There is again seen hyperinflation and chronic interstitial changes with mildly increased interstitial markings likely representing worsening pulmonary edema. There is no pneumothorax. Interval placement of endotracheal tube in satisfactory position. There is demonstration of nasogastric tube with the tip in the distal esophagus, recommend advancement 12 centimeters into the gastric lumen. The cardiac silhouette is stably enlarged with stable left-sided PICC line. The bony thorax is grossly intact. Impression: Satisfactory position of endotracheal tube. Demonstration of nasogastric tube with the tip in the distal esophagus, recommend advancement approximately 10-12 centimeters into the gastric lumen. Otherwise mildly increased interstitial markings likely representing mild pulmonary edema. Dictated by Trenton Casnaova MD @ 06/08/2021 10:06:46 AM Signed by: Trenton Casanova MD @06/08/2021 10:06:46 AM (Electronic Signature) MTDD
== END 2021-06-08 10:33 ==
LOC: EEVIPCON 06:01 → MW.ED 06:01
DX: A41.9 Sepsis, unspecified organism (principal); J96.01 Acute respiratory failure with hypoxia; I21.4 Non-ST elevation (NSTEMI) myocardial infarction; R00.0 Tachycardia, unspecified; E87.2 Acidosis; J44.9 Chronic obstructive pulmonary disease, unspecified; R79.89 Other specified abnormal findings of blood chemistry; Z88.5 Allergy status to narcotic agent; Z88.2 Allergy status to sulfonamides; Z88.8 Allergy status to other drugs, medicaments and biological substances; Z79.899 Other long term (current) drug therapy; Z20.822 Contact with and (suspected) exposure to COVID-19
CPT/HCPCS: 31500; 36415; 36600; 51702; 71045; 80053; 81001; 82803; 83605; 83735; 84484; 85025; 85610; 87040; 87150; 87635; 93005; 96365; 96366; 96367; 96372; 96375; 99285; A9270; J0610; J0692; J1650; J2250; J2704; J3370; J3490; J7120; 87077; 87186; J7620-GY; U0002

== ENCOUNTER 2021-09-05 19:30 | Emergency (ER) | payer BC ==
--- NOTE | 2021-09-05 20:08 | EDM.PDOC ---
ED HPI GENERAL MEDICAL PROBLEM - General Chief Complaint: General Stated Complaint: kidney failure Time Seen by Provider: 09/05/21 19:33 Source of Information: Reports: Patient, Family History Limitations: Reports: No Limitations - History of Present Illness INITIAL COMMENTS - FREE TEXT/NARRATIVE: Patient is a 55-year-old female with a complicated medical history including abd ominal complications requiring a colostomy bag. Patient spent a month in the [facility] for these GI issues. She went to her primary care physician today and had basic labs drawn and her labs came back and shows she possibly has acute renal failure. the bedside states patient is not been feeling well lately has been tolerating small amounts of fluids but had minimal amount of urinary output today. Also having the abnormal labs and not feeling well the patient is has had any fever cough or any change in nausea vomiting. She still has good output in her colostomy bag. - Related Data Allergies Allergy/AdvReac Type Severity Reaction Status Date / Time codeine Allergy Hives Verified 09/05/21 19:49 pseudoephedrine Allergy palpitation Verified 09/05/21 19:49 s Sulfa (Sulfonamide Allergy unknown Verified 09/05/21 19:49 Antibiotics) Home Meds: Home Meds ClonazePAM [KlonoPIN] 1 mg PO TID PRN 04/23/18 [History] Umeclidinium Brm/Vilanterol Tr [Anoro Ellipta 62.5-25 MCG] 1 puff IH DAILY 06/20/20 [History] Levothyroxine 50 mcg PO ACBREAKFAST 09/18/20 [History] Amitriptyline [Elavil] 50 mg PO BEDTIME 12/22/20 [History] Blood Sugar Diagnostic [Glucose Test Strip] 1 each MC Q6H #1 box 04/06/21 [Rx] Calcium Carbonate [Tums] 1,000 mg PO Q6H 04/06/21 [History] HYDROmorphone [Dilaudid] 2 mg PO Q4H PRN 04/06/21 [History] Lancets 1 each MC Q6H #1 box 04/06/21 [Rx] Loperamide [Imodium] 4 mg PO Q6H PRN 04/06/21 [History] Loratadine 10 mg PO DAILY 04/06/21 [History] Mirtazapine 15 mg PO BEDTIME 04/06/21 [History] Sucralfate 1 gm PO QID 04/06/21 [History] fentaNYL [Duragesic] 25 mcg TD Q72H 04/06/21 [History] Past Medical History HEENT History: Reports: None Cardiovascular History: Reports: Blood Clots/VTE/DVT, Other (See Below) Other Cardiovascular History: on Eliquis in multiple places (?) Respiratory History: Reports: COPD, SOB, Other (See Below) Other Respiratory History: not on CPAP Gastrointestinal History: Reports: None Genitourinary History: Reports: None [employer] History: Reports: Musculoskeletal History: Reports: None Neurological History: Reports: None Psychiatric History: Reports: Anxiety, Depression, PTSD Endocrine/Metabolic History: Reports: None Hematologic History: Reports: None Immunologic History: Reports: None Oncologic (Cancer) History: Reports: Colon Dermatologic History: Reports: None - Infectious Disease History Infectious Disease History: Reports: Chicken Pox, Measles, Mumps - Past Surgical History Head Surgeries/Procedures: Reports: None HEENT Surgical History: Reports: Adenoidectomy, Tonsillectomy Cardiovascular Surgical History: Reports: None Respiratory Surgical History: Reports: None GI Surgical History: Reports: Appendectomy, Cholecystectomy, Colostomy, Hernia, Abdominal, Other (See Below) Other GI Surgeries/Procedures: prior colostomy and ileostomy Female Surgical History: Reports: Hysterectomy, Salpingo-Oophorectomy Musculoskeletal Surgical History: Reports: Other (See Below) Other Musculoskeletal Surgeries/Procedures:: right thumb surgery Social & Family History - Family History Family Medical History: No Pertinent Family History - Tobacco Use Second Hand Smoke Exposure: No - Caffeine Use Caffeine Use: Reports: None - Recreational Drug Use Recreational Drug Use: No ED ROS GENERAL - Review of Systems Review Of Systems: See Below Constitutional: Reports: No Symptoms HEENT: Reports: No Symptoms Respiratory: Reports: No Symptoms Cardiovascular: Reports: No Symptoms Endocrine: Reports: No Symptoms GI/Abdominal: Reports: No Symptoms : Reports: No Symptoms Musculoskeletal: Reports: No Symptoms Skin: Reports: No Symptoms Neurological: Reports: No Symptoms Psychiatric: Reports: No Symptoms Hematologic/Lymphatic: Reports: No Symptoms Immunologic: Reports: No Symptoms ED EXAM, GENERAL - Physical Exam Exam: See Below Exam Limited By: No Limitations General Appearance: Alert, WD/WN, No Apparent Distress Eye Exam: Bilateral Eye: EOMI, PERRL Nose: Normal Inspection Throat/Mouth: Normal Inspection Head: Atraumatic, Normocephalic Neck: Normal Inspection, Supple, Non-Tender Respiratory/Chest: No Respiratory Distress, Lungs Clear, Normal Breath Sounds Cardiovascular: Normal Peripheral Pulses, Regular Rate, Rhythm, No Edema GI/Abdominal: Other (Colostomy bag in place plastic bag is slightly open and has some stool over her abdomen as well) Extremities: Normal Inspection, Normal Range of Motion Neurological: Alert, Oriented #1 Interpretation EKG Date: 09/05/21 Time: 19:59 Rhythm: NSR Rate (Beats/Min): 80 ST-T: Normal Course - Vital Signs Last Recorded V/S: Last Vital Signs Temp 97 F 09/05/21 19:45 Pulse 87 09/06/21 05:00 Resp 11 L 09/06/21 05:00 BP 85/60 L 09/06/21 05:11 Pulse Ox 98 09/06/21 05:00 - Orders/Labs/Meds Orders: Active Orders 24 hr Category Date Time Status Insert [place] Catheter [Insert Urinary Catheter] [OM.PC] Care 09/06/21 05:30 Ordered Q24H Insert Urinary Catheter [OM.PC] Q24H Care 09/05/21 21:15 Ordered Urinary Catheter Assessment [RC] ASDIRECTED Care 09/05/21 21:12 Active Urinary Catheter Assessment [RC] ASDIRECTED Care 09/06/21 05:22 Active CULTURE BLOOD [BC] Stat Lab 09/05/21 23:47 Results CULTURE BLOOD [BC] Stat Lab 09/05/21 23:47 Results GLUCOSE,POC [POC] Stat Lab 09/06/21 03:46 Ordered OSMOLALITY - URINE Stat Lab 09/05/21 23:15 Received PROCALCITONIN [REF] Stat Lab 09/05/21 23:51 Received UREA NITROGEN, URINE Stat Lab 09/06/21 00:00 Received URIC ACID, URINE Stat Lab 09/06/21 00:00 Received DOPamine/Dextrose 5%-Water [DOPamine in D5W 400 MG/250 Med 09/06/21 05:30 Active ML] 400 mg in 250 ml IV ASDIRECTED Sodium Chloride 0.9% [Normal Saline] 1,000 ml Med 09/06/21 01:15 Active IV ASDIRECTED Sodium Chloride 0.9% [Normal Saline] 1,000 ml Med 09/06/21 05:30 Active IV ASDIRECTED Blood Culture x2 Reflex Set [OM.PC] Stat Oth 09/05/21 23:47 Ordered Medication Orders Sodium Chloride (Normal Saline) 1,000 mls @ 1,000 mls/hr IV ASDIRECTED EDWIN Last Admin: 09/06/21 01:53 Dose: 1,000 mls/hr Documented by: NELIYOCHKirit Sodium Chloride (Normal Saline) 1,000 mls @ 1,000 mls/hr IV ASDIRECTED EDWIN Dopamine HCl/Dextrose (Dopamine In D5w 400 Mg/250 Ml) 400 mg in 250 mls @ 4.286 mls/hr IV ASDIRECTED EDWIN; Protocol Labs: Laboratory Tests 09/05/21 09/05/21 09/05/21 Range/Units 20:17 20:17 20:17 WBC 12.27 H (4.0-11.0) K/uL RBC 6.11 H (4.30-5.90) M/uL Hgb 16.6 H (12.0-16.0) g/dL Hct 44.4 (36.0-46.0) % MCV 72.7 L (80.0-98.0) fL MCH 27.2 (27.0-32.0) pg MCHC 37.4 H (31.0-37.0) g/dL RDW Std Deviation 44.1 (28.0-62.0) fl RDW Coeff of Thiago 17 H (11.0-15.0) % Plt Count 52 MPV (7.40-12.00) fL Neut % (Auto) 89.4 H (48.0-80.0) % Lymph % (Auto) 4.2 L (16.0-40.0) % Millard % (Auto) 6.2 (0.0-15.0) % Eos % (Auto) 0.1 (0.0-7.0) % Baso % (Auto) 0.1 (0.0-1.5) % Neut # (Auto) 11.0 H (1.4-5.7) K/uL Lymph # (Auto) 0.5 L (0.6-2.4) K/uL Millard # (Auto) 0.8 (0.0-0.8) K/uL Eos # (Auto) 0.0 (0.0-0.7) K/uL Baso # (Auto) 0.0 (0.0-0.1) K/uL Nucleated RBC % 0.0 /100WBC Nucleated RBCs # 0 K/uL VBG pH (7.31-7.41) VBG pCO2 (41-51) mmHG VBG pO2 mmHG VBG HCO3 (23-28) mEq/L VBG Total CO2 (24-29) mmol/L VBG Base Excess (-2.0-3.0) Sodium 113 L* (136-145) mmol/L Potassium 4.7 (3.5-5.1) mmol/L Chloride 77 L (98-107) mmol/L Carbon Dioxide 15.4 L (21.0-32.0) mmol/L BUN 265 H (7.0-18.0) mg/dL Creatinine 6.8 H (0.6-1.0) mg/dL Est Cr Clr Drug Dosing 8.23 mL/min Estimated GFR (MDRD) 6.3 ml/min Glucose 156 H (74-106) mg/dL Lactic Acid 2.6 H* (0.4-2.0) mmol/L Calcium 8.8 (8.5-10.1) mg/dL Phosphorus 10.8 H (2.6-4.7) mg/dL Magnesium 2.3 (1.8-2.4) mg/dL Total Bilirubin 0.7 (0.2-1.0) mg/dL AST 51 H (15-37) IU/L ALT 63 (14-63) IU/L Alkaline Phosphatase 181 H (46-116) U/L Creatine Kinase 99 (26-308) U/L Troponin I (0.000-0.056) ng/mL Total Protein 7.4 (6.4-8.2) g/dL Albumin 3.4 (3.4-5.0) g/dL Globulin 4.0 (2.6-4.0) g/dL Albumin/Globulin Ratio 0.9 (0.9-1.6) Lipase 80 (73-393) U/L Urine Color Urine Appearance Urine pH (5.0-8.0) Ur Specific [place] (1.001-1.035) Urine Protein (NEGATIVE) mg/dL Urine Glucose (UA) (NEGATIVE) mg/dL Urine Ketones (NEGATIVE) mg/dL Urine Occult Blood (NEGATIVE) Urine Nitrite (NEGATIVE) Urine Bilirubin (NEGATIVE) Urine Urobilinogen (<2.0) EU/dL Ur Leukocyte Esterase (NEGATIVE) Urine RBC (0-2/HPF) Urine WBC (0-5/HPF) Ur Epithelial Cells (NONE-FEW) Urine Bacteria (NEGATIVE) Ur Random Creatinine mg/dL Ur Random Sodium (40.0-220.0) mmol/L SARS-CoV-2 RNA (HUGH) (NEGATIVE) 09/05/21 09/05/21 09/05/21 Range/Units 21:00 22:58 23:15 WBC (4.0-11.0) K/uL RBC (4.30-5.90) M/uL Hgb (12.0-16.0) g/dL Hct (36.0-46.0) % MCV (80.0-98.0) fL MCH (27.0-32.0) pg MCHC (31.0-37.0) g/dL RDW Std Deviation (28.0-62.0) fl RDW Coeff of Thiago (11.0-15.0) % Plt Count MPV (7.40-12.00) fL Neut % (Auto) (48.0-80.0) % Lymph % (Auto) (16.0-40.0) % Millard % (Auto) (0.0-15.0) % Eos % (Auto) (0.0-7.0) % Baso % (Auto) (0.0-1.5) % Neut # (Auto) (1.4-5.7) K/uL Lymph # (Auto) (0.6-2.4) K/uL Millard # (Auto) (0.0-0.8) K/uL Eos # (Auto) (0.0-0.7) K/uL Baso # (Auto) (0.0-0.1) K/uL Nucleated RBC % /100WBC Nucleated RBCs # K/uL VBG pH 7.35 (7.31-7.41) VBG pCO2 25 L (41-51) mmHG VBG pO2 58 mmHG VBG HCO3 14 L (23-28) mEq/L VBG Total CO2 15 L (24-29) mmol/L VBG Base Excess -10.0 L (-2.0-3.0) Sodium (136-145) mmol/L Potassium (3.5-5.1) mmol/L Chloride (98-107) mmol/L Carbon Dioxide (21.0-32.0) mmol/L BUN (7.0-18.0) mg/dL Creatinine (0.6-1.0) mg/dL Est Cr Clr Drug Dosing mL/min Estimated GFR (MDRD) ml/min Glucose (74-106) mg/dL Lactic Acid (0.4-2.0) mmol/L Calcium (8.5-10.1) mg/dL Phosphorus (2.6-4.7) mg/dL Magnesium (1.8-2.4) mg/dL Total Bilirubin (0.2-1.0) mg/dL AST (15-37) IU/L ALT (14-63) IU/L Alkaline Phosphatase (46-116) U/L Creatine Kinase (26-308) U/L Troponin I (0.000-0.056) ng/mL Total Protein (6.4-8.2) g/dL Albumin (3.4-5.0) g/dL Globulin (2.6-4.0) g/dL Albumin/Globulin Ratio (0.9-1.6) Lipase (73-393) U/L Urine Color YELLOW Urine Appearance CLEAR Urine pH 5.5 (5.0-8.0) Ur Specific [place] 1.010 (1.001-1.035) Urine Protein NEGATIVE (NEGATIVE) mg/dL Urine Glucose (UA) NEGATIVE (NEGATIVE) mg/dL Urine Ketones NEGATIVE (NEGATIVE) mg/dL Urine Occult Blood TRACE-INTACT H (NEGATIVE) Urine Nitrite NEGATIVE (NEGATIVE) Urine Bilirubin NEGATIVE (NEGATIVE) Urine Urobilinogen 0.2 (<2.0) EU/dL Ur Leukocyte Esterase TRACE H (NEGATIVE) Urine RBC 0-2 (0-2/HPF) Urine WBC 2-5 (0-5/HPF) Ur Epithelial Cells OCCASIONAL (NONE-FEW) Urine Bacteria FEW (NEGATIVE) Ur Random Creatinine mg/dL Ur Random Sodium (40.0-220.0) mmol/L SARS-CoV-2 RNA (HUGH) NEGATIVE (NEGATIVE) 09/05/21 09/06/21 09/06/21 Range/Units 23:15 00:48 00:55 WBC (4.0-11.0) K/uL RBC (4.30-5.90) M/uL Hgb (12.0-16.0) g/dL Hct (36.0-46.0) % MCV (80.0-98.0) fL MCH (27.0-32.0) pg MCHC (31.0-37.0) g/dL RDW Std Deviation (28.0-62.0) fl RDW Coeff of Thiago (11.0-15.0) % Plt Count MPV (7.40-12.00) fL Neut % (Auto) (48.0-80.0) % Lymph % (Auto) (16.0-40.0) % Millard % (Auto) (0.0-15.0) % Eos % (Auto) (0.0-7.0) % Baso % (Auto) (0.0-1.5) % Neut # (Auto) (1.4-5.7) K/uL Lymph # (Auto) (0.6-2.4) K/uL Millard # (Auto) (0.0-0.8) K/uL Eos # (Auto) (0.0-0.7) K/uL Baso # (Auto) (0.0-0.1) K/uL Nucleated RBC % /100WBC Nucleated RBCs # K/uL VBG pH (7.31-7.41) VBG pCO2 (41-51) mmHG VBG pO2 mmHG VBG HCO3 (23-28) mEq/L VBG Total CO2 (24-29) mmol/L VBG Base Excess (-2.0-3.0) Sodium (136-145) mmol/L Potassium (3.5-5.1) mmol/L Chloride (98-107) mmol/L Carbon Dioxide (21.0-32.0) mmol/L BUN (7.0-18.0) mg/dL Creatinine (0.6-1.0) mg/dL Est Cr Clr Drug Dosing mL/min Estimated GFR (MDRD) ml/min Glucose (74-106) mg/dL Lactic Acid 1.7 (0.4-2.0) mmol/L Calcium (8.5-10.1) mg/dL Phosphorus (2.6-4.7) mg/dL Magnesium (1.8-2.4) mg/dL Total Bilirubin (0.2-1.0) mg/dL AST (15-37) IU/L ALT (14-63) IU/L Alkaline Phosphatase (46-116) U/L Creatine Kinase (26-308) U/L Troponin I 0.091 H* (0.000-0.056) ng/mL Total Protein (6.4-8.2) g/dL Albumin (3.4-5.0) g/dL Globulin (2.6-4.0) g/dL Albumin/Globulin Ratio (0.9-1.6) Lipase (73-393) U/L Urine Color Urine Appearance Urine pH (5.0-8.0) Ur Specific [place] (1.001-1.035) Urine Protein (NEGATIVE) mg/dL Urine Glucose (UA) (NEGATIVE) mg/dL Urine Ketones (NEGATIVE) mg/dL Urine Occult Blood (NEGATIVE) Urine Nitrite (NEGATIVE) Urine Bilirubin (NEGATIVE) Urine Urobilinogen (<2.0) EU/dL Ur Leukocyte Esterase (NEGATIVE) Urine RBC (0-2/HPF) Urine WBC (0-5/HPF) Ur Epithelial Cells (NONE-FEW) Urine Bacteria (NEGATIVE) Ur Random Creatinine 90.2 mg/dL Ur Random Sodium 5.0 L (40.0-220.0) mmol/L SARS-CoV-2 RNA (HUGH) (NEGATIVE) 09/06/21 09/06/21 Range/Units 03:05 03:05 WBC (4.0-11.0) K/uL RBC (4.30-5.90) M/uL Hgb (12.0-16.0) g/dL Hct (36.0-46.0) % MCV (80.0-98.0) fL MCH (27.0-32.0) pg MCHC (31.0-37.0) g/dL RDW Std Deviation (28.0-62.0) fl RDW Coeff of Thiago (11.0-15.0) % Plt Count MPV (7.40-12.00) fL Neut % (Auto) (48.0-80.0) % Lymph % (Auto) (16.0-40.0) % Millard % (Auto) (0.0-15.0) % Eos % (Auto) (0.0-7.0) % Baso % (Auto) (0.0-1.5) % Neut # (Auto) (1.4-5.7) K/uL Lymph # (Auto) (0.6-2.4) K/uL Millard # (Auto) (0.0-0.8) K/uL Eos # (Auto) (0.0-0.7) K/uL Baso # (Auto) (0.0-0.1) K/uL Nucleated RBC % /100WBC Nucleated RBCs # K/uL VBG pH (7.31-7.41) VBG pCO2 (41-51) mmHG VBG pO2 mmHG VBG HCO3 (23-28) mEq/L VBG Total CO2 (24-29) mmol/L VBG Base Excess (-2.0-3.0) Sodium 120 L (136-145) mmol/L Potassium 4.7 (3.5-5.1) mmol/L Chloride 87 L (98-107) mmol/L Carbon Dioxide 15.0 L (21.0-32.0) mmol/L BUN 230 H (7.0-18.0) mg/dL Creatinine 5.2 H (0.6-1.0) mg/dL Est Cr Clr Drug Dosing 10.77 mL/min Estimated GFR (MDRD) 8.5 ml/min Glucose 72 L (74-106) mg/dL Lactic Acid (0.4-2.0) mmol/L Calcium 7.4 L (8.5-10.1) mg/dL Phosphorus (2.6-4.7) mg/dL Magnesium (1.8-2.4) mg/dL Total Bilirubin (0.2-1.0) mg/dL AST (15-37) IU/L ALT (14-63) IU/L Alkaline Phosphatase (46-116) U/L Creatine Kinase (26-308) U/L Troponin I 0.077 H* (0.000-0.056) ng/mL Total Protein (6.4-8.2) g/dL Albumin (3.4-5.0) g/dL Globulin (2.6-4.0) g/dL Albumin/Globulin Ratio (0.9-1.6) Lipase (73-393) U/L Urine Color Urine Appearance Urine pH (5.0-8.0) Ur Specific [place] (1.001-1.035) Urine Protein (NEGATIVE) mg/dL Urine Glucose (UA) (NEGATIVE) mg/dL Urine Ketones (NEGATIVE) mg/dL Urine Occult Blood (NEGATIVE) Urine Nitrite (NEGATIVE) Urine Bilirubin (NEGATIVE) Urine Urobilinogen (<2.0) EU/dL Ur Leukocyte Esterase (NEGATIVE) Urine RBC (0-2/HPF) Urine WBC (0-5/HPF) Ur Epithelial Cells (NONE-FEW) Urine Bacteria (NEGATIVE) Ur Random Creatinine mg/dL Ur Random Sodium (40.0-220.0) mmol/L SARS-CoV-2 RNA (HUGH) (NEGATIVE) Meds: Medications Generic Name Dose Route Start Last Admin Trade Name Freq PRN Reason Stop Dose Admin Sodium Chloride 1,000 mls @ 1,000 mls/hr 09/06/21 01:15 09/06/21 01:53 Normal Saline IV 1,000 mls/hr ASDIRECTED EDWIN Administration Sodium Chloride 1,000 mls @ 1,000 mls/hr 09/06/21 05:30 Normal Saline IV ASDIRECTED EDWIN Dopamine HCl/Dextrose 400 mg in 250 mls @ 4.286 mls/hr 09/06/21 05:30 Dopamine In D5w 400 Mg/250 Ml IV ASDIRECTED EDWIN Protocol 2 MCG/KG/MIN Discontinued Medications Generic Name Dose Route Start Last Admin Trade Name Freq PRN Reason Stop Dose Admin Dextrose/Water 50 ml 09/06/21 03:46 09/06/21 04:05 50% Dextrose In Water 50 Ml Syringe IVPUSH 09/06/21 03:47 50 ml ONETIME ONE Administration Sodium Chloride 1,000 mls @ 999 mls/hr 09/05/21 20:12 09/05/21 20:17 Normal Saline IV 09/05/21 21:12 999 mls/hr NOW STA Administration Piperacillin Sod/Tazobactam 50 mls @ 100 mls/hr 09/05/21 23:44 09/06/21 00:52 Sod 3.375 gm/ Sodium Chloride IV 09/06/21 00:13 100 mls/hr ONETIME ONE Administration Vancomycin HCl 1 gm/ Sodium 250 mls @ 166 mls/hr 09/05/21 23:44 09/06/21 01:25 Chloride IV 09/06/21 01:14 166 mls/hr ONETIME ONE Administration Norepinephrine Bitartrate 4 mg in 250 mls @ 7.5 mls/hr 09/06/21 05:00 09/06/21 04:53 Norepinephr-0.9% Nacl 4 Mg/250 IV 2 mcg/min TITRATE EDWIN 7.5 mls/hr Administration Protocol 2 MCG/MIN Norepinephrine Bitartrate 4 mg in 250 mls @ 18.75 mls/hr 09/06/21 05:00 Norepinephr-0.9% Nacl 4 Mg/250 IV TITRATE EDWIN Protocol 5 MCG/MIN Oxycodone HCl 5 mg 09/05/21 21:51 09/05/21 21:57 Oxycodone 5 Mg Tab PO 09/05/21 21:52 5 mg ONETIME ONE Administration - Re-Assessments/Exams Free Text/Narrative Re-Assessment/Exam: 09/05/21 22:34 I have called 5 hospitals to try to obtain transferred for for patient. Noted to have bedsores obtain none trauma or stimulations or strokes. We will continue to call around to try her and transfer patient. 09/05/21 23:09 [facility] the [facility] transfer center for assistance in trying to transfer patient and they are calling around still in a local beds. We also tried to place a [place] and patient she is refusing. She also refused as to what hospital we we will send her we explained that there is a limitation of beds in the country and that she will have to go to his hospital will take her and can do dialysis but patient still refusing. 09/05/21 23:52 We were able to speak to critical care at [facility] again recommendations to follow and try to treat for impending septic shock and to give more IV fluids as well. We will send urine studies give antibiotics send blood cultures and once results of that we will will call and check again again there is still currently no beds to send patient. 09/06/21 03:14 09/06/21 05:28 Patient likely did improve but due to patient remained hypotensive after receiving 2 L with the start on Levophed we spoke to critical care and nephrology at [facility] and they recommended stopping the Levophed as her lactate is getting better and they wanted to do dopamine as needed if he wanted to improve her blood pressure for the transfer there. Patient's been accepted at [facility]. Departure - Departure Time of Disposition: 05:28 Disposition: DC/Tfer to Acute Hospital 02 Condition: Good Clinical Impression: Hypotension, LORE (acute kidney injury) - Discharge Information Referrals: Remi Olivas MD [Primary Care Provider] - Forms: ED Department Discharge Critical Care Note - Critical Care Note Total Time (mins): 120 Comments: Critical Care Procedure Note Authorized and Performed by: Dr. Salazar Total critical care time: Approximately Due to a high probability of clinically significant, life threatening deterioration, the patient required my highest level of preparedness to intervene emergently and I personally spent this critical care time directly and personally managing the patient. This critical care time included obtaining a history; examining the patient; pulse oximetry; ordering and review of studies; arranging urgent treatment with development of a management plan; evaluation of patient's response to treatment; frequent reassessment; and, discussions with other providers. This critical care time was performed to assess and manage the high probability of imminent, life-threatening deterioration that could result in multi-organ failure. It was exclusive of separately billable procedures and treating other patients and teaching time. Sepsis Event Note (ED) - Evaluation Sepsis Screening Result: No Definite Risk - Focused Exam Vital Signs: Vital Signs Temp Pulse Resp BP Pulse Ox 09/06/21 05:11 85/60 L 09/06/21 05:00 87 11 L 76/40 L 98 09/06/21 04:00 86 13 77/50 L 96 09/06/21 03:00 80 11 L 70/30 L 96 09/06/21 02:00 74 12 71/48 L 95 09/06/21 01:00 78 11 L 88/52 L 96 09/06/21 00:30 88 20 78/51 L 96 09/05/21 23:54 79 13 77/44 L 09/05/21 22:49 74 11 L 72/42 L 09/05/21 20:46 76 97 09/05/21 20:22 89 18 82/42 L 09/05/21 19:45 97 F 82 20 87/48 L 95 - My Orders Last 24 Hours: My Active Orders 09/05/21 21:12 Urinary Catheter Assessment [RC] ASDIRECTED 09/05/21 21:15 Insert Urinary Catheter [OM.PC] Q24H 09/05/21 23:15 OSMOLALITY - URINE Stat 09/05/21 23:47 CULTURE BLOOD [BC] Stat CULTURE BLOOD [BC] Stat Blood Culture x2 Reflex Set [OM.PC] Stat 09/05/21 23:51 PROCALCITONIN [REF] Stat 09/06/21 00:00 UREA NITROGEN, URINE Stat URIC ACID, URINE Stat 09/06/21 01:15 Sodium Chloride 0.9% [Normal Saline] 1,000 ml IV ASDIRECTED 09/06/21 03:46 GLUCOSE,POC [POC] Stat 09/06/21 05:22 Urinary Catheter Assessment [RC] ASDIRECTED 09/06/21 05:30 Insert [place] Catheter [Insert Urinary Catheter] [OM.PC] Q24H DOPamine/Dextrose 5%-Water [DOPamine in D5W 400 MG/250 ML] 400 mg in 250 ml IV ASDIRECTED Sodium Chloride 0.9% [Normal Saline] 1,000 ml IV ASDIRECTED - Assessment/Plan Last 24 Hours: My Active Orders 09/05/21 21:12 Urinary Catheter Assessment [RC] ASDIRECTED 09/05/21 21:15 Insert Urinary Catheter [OM.PC] Q24H 09/05/21 23:15 OSMOLALITY - URINE Stat 09/05/21 23:47 CULTURE BLOOD [BC] Stat CULTURE BLOOD [BC] Stat Blood Culture x2 Reflex Set [OM.PC] Stat 09/05/21 23:51 PROCALCITONIN [REF] Stat 09/06/21 00:00 UREA NITROGEN, URINE Stat URIC ACID, URINE Stat 09/06/21 01:15 Sodium Chloride 0.9% [Normal Saline] 1,000 ml IV ASDIRECTED 09/06/21 03:46 GLUCOSE,POC [POC] Stat 09/06/21 05:22 Urinary Catheter Assessment [RC] ASDIRECTED 09/06/21 05:30 Insert [place] Catheter [Insert Urinary Catheter] [OM.PC] Q24H DOPamine/Dextrose 5%-Water [DOPamine in D5W 400 MG/250 ML] 400 mg in 250 ml IV ASDIRECTED Sodium Chloride 0.9% [Normal Saline] 1,000 ml IV ASDIRECTED Plan: Patient is a 55-year-old female who presents today for possible acute renal failure. Patient side labs that show elevated BUN and creatinine but potassium is normal. We will obtain EKG labs provide IV fluids and reassess patient.
[2021-09-05] MEDS ORDERED: Sodium Chloride 0.9% 1,000 ML IV STA (20:12)
[2021-09-05 20:50] LABS: CARBON DIOXIDE,CO2 15.4 mmol/L (21.0-32.0); POTASSIUM,K 4.7 mmol/L (3.5-5.1)
--- NOTE | 2021-09-05 20:58 | CR ---
Indication: Hyperkalemia Technique: Chest 1 view Comparison: Chest x-ray 06/08/2021 Findings/Impression: Cardiovascular and mediastinum: Heart size and vasculature are normal in caliber and appearance. Lungs and pleural space: No pleural effusion or pneumothorax. No focal consolidation Bones and soft tissues: No acute findings. Dictated by Porter Goncalves MD @ 09/05/2021 8:55:53 PM (Electronically Signed)
[2021-09-05] MEDS ORDERED: oxyCODONE 5 MG Tab PO ONE (21:51)
[2021-09-05] MEDS ORDERED: Piperacillin/Tazobactam 3.375 GM in Sodium Chloride 0.9% 50 ML IV ONE (23:44)
[2021-09-06] MEDS ORDERED: Sodium Chloride 0.9% 1,000 ML IV SCH ×2 (01:15→05:30)
--- NOTE | 2021-09-06 01:58 | CT ---
INDICATION: Diffuse abdominal pain. Acute kidney injury. COMPARISON: 04/18/2021. TECHNIQUE: CT abdomen and pelvis without contrast. FINDINGS: Imaged lung bases are unremarkable. Noncontrast evaluation of the liver, adrenal glands are unremarkable. Spleen is top-normal in size, decreased from prior. Calcifications in the pancreatic head are similar to prior. No renal, ureteral or bladder calculus. No hydronephrosis or hydroureter. Atherosclerotic abdominal aorta. Open midline anterior abdominal wall wound is again noted, with herniation of mesenteric fat, similar to prior. Bladder is unremarkable. Uterus is absent or atrophic. Right hemicolectomy. No bowel obstruction or inflammation. No enlarged abdominal or pelvic lymph nodes. Bones are unremarkable. IMPRESSION: 1. Open midline anterior abdominal wound with herniation of mesenteric fat, similar to prior. 2. Otherwise no acute abnormality Please note that all CT scans at this facility use dose modulation, iterative reconstruction, and/or weight-based dosing when appropriate to reduce radiation dose to as low as reasonably achievable. Dictated by Josue Meek MD @ 09/06/2021 1:57:15 AM (Electronically Signed)
[2021-09-06 03:33] LABS: POTASSIUM,K 4.7 mmol/L (3.5-5.1)
[2021-09-06] MEDS ORDERED: 50% Dextrose in Water 50 ML Syringe IVPUSH ONE (03:46)
[2021-09-06 05:04] VITALS: PULSE 87
[2021-09-06 05:11] VITALS: BP 85/60
[2021-09-06] MEDS ORDERED: DOPamine/Dextrose 5%-Water 400 MG/250 ML BAG IV SCH (05:30)
== END 2021-09-06 06:45 ==
LOC: MW.ED 19:30
DX: N17.9 Acute kidney failure, unspecified (principal); I95.9 Hypotension, unspecified; J44.9 Chronic obstructive pulmonary disease, unspecified; Z79.01 Long term (current) use of anticoagulants; Z79.899 Other long term (current) drug therapy; Z88.5 Allergy status to narcotic agent; Z88.2 Allergy status to sulfonamides; Z88.8 Allergy status to other drugs, medicaments and biological substances; Z20.822 Contact with and (suspected) exposure to COVID-19; Z86.718 Personal history of other venous thrombosis and embolism
CPT/HCPCS: 36415; 71045; 74176; 80048; 80053; 81001; 82550; 82570; 82803; 82947; 83605; 83690; 83735; 83930; 83935; 84100; 84145; 84300; 84484; 84540; 84560; 85025; 87040; 87635; 93005; 96365; 96367; 96375; 99285; A9270; J1265; J2543; J3370; J7030; J7050; 99291; 99292; U0002